=== PATIENT | female | born 1960 | race Caucasian/White ===

== ENCOUNTER → 2017-06-05 07:49 | Outpatient (CLI) | payer OTHER, SELFPAY ==
--- NOTE | 2017-06-05 07:52 | HPBI_ITS ---
MAMMOGRAPHY - BILATERAL SCREENING REASON FOR EXAM: Female, 56 years old. Routine annual screening examination. PERTINENT HISTORY: Non-contributory. TECHNIQUE: Digital bilateral breast marc (3D mammographic acquisition) in the CC and MLO projections. 2-D mediolateral oblique (MLO) and craniocaudad (CC) views of both breasts were obtained. CAD: Full Field Digital Mammography with Computer Added Detection was performed. COMPARISON: Comparison is made with prior study dated June 04, 2016. FINDINGS: Breast Composition: The breasts are heterogeneously dense, which may obscure small masses. There are no dominant masses or suspicious calcifications. Stable appearance of the bilateral benign appearing axillary lymph nodes. No other significant abnormalities are identified. There has been no significant change since the prior study. HPBI/SCREENING MAMM (CAD), BILAT IMPRESSION: Stable bilateral screening mammogram. Yearly follow-up mammogram recommended. (A) ASSESSMENT CATEGORY: BIRADS Category 2: Benign. A letter regarding these results will be sent to the patient by the facility within 30 days. Approximately 10% of breast cancers are not detected by mammography. A normal mammogram should not delay biopsy of a clinically suspicious abnormality. [id number] Electronically Signed: Tj Rodríguez MD at 9:19 EDT Tel [phone], Service support ,
== END ==
PROVIDERS: Visit Provider Obstetrics & Gynecology
DX: Z12.31 Encounter for screening mammogram for malignant neoplasm of breast (principal)
CPT/HCPCS: 77063; 77067

== ENCOUNTER → 2018-07-16 08:57 | Outpatient (CLI) | payer OTHER, SELFPAY ==
--- NOTE | 2018-07-16 09:00 | BI_ITS ---
MAMMOGRAPHY - BILATERAL DIAGNOSTIC REASON FOR EXAM: Female, 58 years old. Right nipple itchiness and fullness in the right lateral breast. PERTINENT HISTORY: Non-contributory. TECHNIQUE: Digital bilateral breast marc (3D mammographic acquisition) in the CC and MLO projections. 2-D mediolateral oblique (MLO) and craniocaudad (CC) views of both breasts were obtained. CAD: Full Field Digital Mammography with Computer Added Detection was performed. COMPARISON: Comparison is made with prior study June 05, 2017 and June 04, 2016. FINDINGS: Breast Composition: The breasts are heterogeneously dense, which may obscure small masses. Enlarged right axillary lymph nodes as compared to prior study. There is evidence of a 1.6 cm x 1.8 cm irregular nodular density in the deep mid lateral portion of the right breast. There is also evidence of a 0.8 cm x 1 cm nodule in the mid lateral aspect of the right breast as well. Correlation with ultrasound is recommended. Skin thickening in the periareolar region of the right breast. No other significant abnormalities are identified. BI/DIAG MAMM W/CAD, BILAT IMPRESSION: Nodular densities in the right breast as described as well as enlarged right axillary lymph nodes. Correlation with ultrasound is recommended. ASSESSMENT CATEGORY: BIRADS Category 0: Incomplete. Need additional imaging evaluation. A letter regarding these results will be sent to the patient by the facility within 30 days. Approximately 10% of breast cancers are not detected by mammography. A normal mammogram should not delay biopsy of a clinically suspicious abnormality. Electronically Signed: Tj Rodríguez, at 10:48 EDT , Service support ,
--- NOTE | 2018-07-16 09:35 | US_ITS ---
STUDY: ULTRASOUND BREAST - RIGHT REASON FOR EXAM: Female, 58 years old. Abnormal screening mammogram. Axillary fullness. TECHNIQUE: Axial and longitudinal images of the RIGHT breast were performed with a high resolution ultrasound transducer. COMPARISON: Comparison is made with prior mammogram done earlier in the day. FINDINGS: RIGHT Breast: Multiple axillary lymph nodes are seen. The largest measures 3.4 cm x 1.87 x 1.6 cm. There is a 1 cm x 1 cm x 0.7 cm hypoechoic solid nodule with irregular borders at the 9:00 position of the breast at 2 cm from nipple. At the 9:00 position of the breast at 8 cm from the nipple, there is also evidence of a 1.5 cm x 0.5 cm x 1.9 cm irregular nodule with posterior shadowing. A similar appearing nodule is also seen at the 8:00 position breast at 6 hours from the nipple. This measures 1.5 cm x 1.4 cm x 1.8 cm. A biopsy recommended. US/Breast Limited Unilateral IMPRESSION: 3 suspicious nodules are seen in the right breast at the 9 and 8:00 positions of the breast as described. Biopsy suggested. Enlarged right axillary lymph nodes. ASSESSMENT CATEGORY: BIRADS Category 5: Highly Suggestive of Malignancy - Appropriate Action Should Be Taken. A letter regarding these results will be sent to the patient by the facility within 30 days. Electronically Signed: Tj Rodríguez, at 11:28 EDT , Service support ,
== END ==
PROVIDERS: Referring Provider Obstetrics & Gynecology; Visit Provider Obstetrics & Gynecology
DX: Z12.31 Encounter for screening mammogram for malignant neoplasm of breast (principal); N63.10 Unspecified lump in the right breast, unspecified quadrant
CPT/HCPCS: 76642; 77062; 77063; 77066; G0279

== ENCOUNTER → 2018-07-21 11:55 | Outpatient (CLI) | payer OTHER, SELFPAY ==
[2018-07-20 09:51] VITALS: BMI 25.6
--- NOTE | 2018-07-21 | IMM_PTH ---
PATIENT: MARTIN SHULTZ LOC: [facility] U#:[id number] AGE/SX: 64/F ROOM: RE07/21/[address]: Dr. Cesar Irby MD : 1960 BED: DIS: SPEC #: [id number] RECD: 07/22/18 12:56 STATUS: FAYE REQ #: [id number] AMAN: 07/21/18 00:[address]: Cesar Irby DEPT: IMMUNOHISTOCHEMISTRY RECD BY: Marleny Cantu ENTERED: 07/22/18 12:57 SP TYPE: IMMUNO OTHR DR: No Primary Care Phys Tissues: A - Right breast, NOS Procedures: CALPONIN-1 (add) CK5-6 (add) CK8 (add) E-CAD (add) HER2 ROBIN (add) KI-67 (add) P53 (add) ID (add) P40 (add) ER (initial) PHYSICIAN & INSTITUTION [place] [id number] SPECIMEN INFORMATION: Tissue Source: A - Right breast core tissue, 8 o'clock, 6 cm from nipple Clinical Info: Right breast mass Specimen Number: [id number] CPT code: 52212, 09995 x6, 47805 x3 METHODOLOGY: Deparaffinized sections of prefer/formalin-fixed tissue or PAP/DQ stained slides are incubated with monoclonal/polyclonal antibodies/oligonucleotide probes. Localization is made via biotin free immunoperoxidase method. Appropriate controls are performed and reacted as expected. Results on target cell population are indicated in the following table: RESULTS: ANTIBODY / CLONE RESULT Block A E-Cad (ECH-6) positive CK8 (85epnyH86) positive CK5-6 (D5 & 1684) negative Ki-67 (30-9) positive, high P53 (DO-7) positive, rare cells P40 (BC28) negative Calponin-1 (BO131P) negative MORPHOMETRIC ANALYSIS ER (clone 6F11) >95%, weak to moderate ID (clone 16/1E2) 0 Her-2Neu (clone CB11) 3+ The prognostic test for HER2 is performed on formalin-fixed paraffin embedded tissue. A 3+ (positive) staining pattern is defined as intense, homogeneous, complete, circumferential membranous staining in >10% of contiguous tumor cells. A similar weak (2+) staining pattern is interpreted as equivocal. MARIALUISA follow-up testing is recommended for all equivocal cases. Positivity/negativity for ER/ID is reported if > or < 1% of the tumor cells are immuno- reactive, respectively. The ASCO/CAP criteria is used for scoring. Reference: Journal of Clinical Oncology, 2013; 31:0363-3389 & 2010; 16:7194-5855. Duration of fixation: 6.5 Hrs; Sample Adequate: Yes. These assays have not been validated on decalcified tissues. Results should be interpreted with caution given the likelihood of false negativity on decalcified specimens. These tests were developed and their performance characteristics determined by [facility]. They may not have been cleared or approved by the U.S. Food and Drug Administration. The FDA has determined that such clearance or approval is not necessary. INTERPRETATION: A. Right breast core tissue, 8 o'clock, 6 cm from nipple, ultrasound-guided biopsy: Invasive ductal carcinoma, nuclear grade 2. Positive for estrogen receptors (favorable prognostic indicator). Negative for progesterone receptors (unfavorable prognostic indicator). Positive for overexpression of GCW2ggq. SJ:dara 07/23/18
--- NOTE | 2018-07-21 11:58 | US_ITS ---
STUDY: ULTRASOUND BREAST - RIGHT REASON FOR EXAM: Female, 58 years old. Ultrasound guided biopsy of a solid nodule at the 8:00 position breast at 6 cm from the nipple. TECHNIQUE: Axial and longitudinal images of the RIGHT breast were performed with a high resolution ultrasound transducer. COMPARISON: Comparison is made with prior ultrasound of the breasts dated July 16, 2018. FINDINGS: RIGHT Breast: Under direct sonographic guidance, the surgeon performed core biopsies of a 1.5 cm x 1.4 cm x 1.8 cm irregular hypoechoic nodule at the 8:00 position breast is 6 cm from nipple. The right axillary lymph node was biopsied as well. US/US Breast Biopsy 1st Lesion IMPRESSION: Successful ultrasound-guided right breast biopsy. ASSESSMENT CATEGORY: BIRADS Category 4: Suspicious - Biopsy Should Be Considered. A letter regarding these results will be sent to the patient by the facility within 30 days. Electronically Signed: Tj Rodríguez, at 14:07 EDT , Service support ,
--- NOTE | 2018-07-21 12:30 | AXNB_PTH ---
PATIENT: MARTIN SHULTZ LOC: [facility] U#:[id number] AGE/SX: 64/F ROOM: RE07/21/[address]: Dr. Cesar Irby MD : 1960 BED: DIS: SPEC #: [id number] RECD: 07/21/18 13:30 STATUS: FAYE ALEX #: [id number] AAMN: 07/21/18 12:[address]: Cesar Irby DEPT: SURGICAL PATHOLOGY RECD BY: Tra Villalobos ENTERED: 07/21/18 14:05 SP TYPE: AX NODE BX OTHR DR: No Primary Care Phys Tissues: A - Right breast, NOS B - Axillary lymph node, NOS Procedures: Surgery Specimen Level IV HEADER OPERATION: Right breast biopsy, US guided PRE-OP DIAGNOSIS: Right breast mass TISSUE SUBMITTED: A. Right breast core tissue, 8 o'clock, 6 cm from nipple, B. Right axillary lymph node ISCHMEIC TIME: 2 minutes FIXATION TIME: 6.5 hours MICROSCOPIC DIAGNOSIS A. Right breast, 8 o'clock, 6 cm from nipple, core biopsy: Invasive ductal carcinoma, nuclear grade 2 (1 cm in greatest length). See comment. B. Right axillary lymph node, biopsy: Metastatic carcinoma (0.9 cm in greatest length). See comment. SJ:dara 07/22/18 COMMENT A. Immunohistochemistry ([id number]) supports the above diagnosis. ER/HI/Wbj0ijg studies are being performed on sections of tumor and the results from this study will be reported separately ([id number]). B. The tumor is similar in morphology as specimen A. The entire specimen consists of tumor. MICROSCOPIC DESCRIPTION Slides are reviewed. GROSS DESCRIPTION A - Received in fixative is one container labeled with the patient's name and designated right breast. The specimen consists of an elongated fragment of dangelo-yellow fibroadipose tissue measuring 1.8 cm in length and 0.1 cm in diameter. The specimen is totally submitted in one cassette. B - Received in fixative is one container labeled with the patient's name and designated right lymph node. The specimen consists of multiple elongated fragments of dangelo-yellow fibroadipose tissue that in aggregate measure 2 x 0.5 x 0.1 cm. The entire specimen is submitted in one cassette. / STEPH:dara 07/21/18 TC:0 CPT: 19749 x2
== END ==
PROVIDERS: Referring Provider Surgery; Visit Provider Surgery
DX: C50.911 Malignant neoplasm of unspecified site of right female breast (principal); C77.3 Secondary and unspecified malignant neoplasm of axilla and upper limb lymph nodes
CPT/HCPCS: 19083; 88305; 88341; 88342

== ENCOUNTER → 2018-07-29 10:00 | Outpatient (CLI) | payer OTHER, SELFPAY ==
[2018-07-20 09:51] VITALS: BMI 25.6
--- NOTE | 2018-07-29 10:20 | MRI_ITS ---
STUDY: BILATERAL BREAST MR WITHOUT AND WITH CONTRAST REASON FOR EXAM: Female, 58 years old. Right breast cancer with metastases to axillary lymph nodes. Biopsy July 21, 2018. TECHNIQUE: Multi-sequence multi-echo imaging of both breasts was performed with a dedicated breast coil. T1-weighted and T2-weighted images were performed before the administration of contrast. T1-weighted images were also performed after the administration of 13 cc of Dotarem contrast without complications. COMPARISON: Mammograms dated June 04, 2016, June 05, 2017 and July 16, 2018. Right breast ultrasounds dated July 16, 2018 and July 21, 2018. FINDINGS: RIGHT BREAST: The breast tissue is scattered fibroglandular densities with minimal background enhancement. In the lateral aspect of the right breast there is an extensive area of nodular non-mass enhancement extending from the upper outer quadrant to the lower outer quadrant of the breast. This area of involvement is approximately 5.3 cm x 2.5 cm x 4.2 cm. At the inferior aspect of this non-mass enhancement posteriorly there is an irregular enhancing mass measuring approximately 2.2 cm x 1.7 cm x 1.6 cm with a tissue clip marker within the central portion of this mass (axial series 02892 image 174 and sagittal series 8 image 18). There is an enhancing enlarged right axillary lymph node measuring 1.9 x 1.7 x 1.6 cm with a tissue clip marker within it. LEFT BREAST: The breast tissue is scattered fibroglandular densities with minimal background enhancement. There are small lymph nodes in the axilla with no pathologic appearance. There are no abnormal enhancing masses or areas of non-mass enhancement in the left breast. There is no abnormality in the visualized regions of the chest or liver. MRI/Breast Bilateral W/O and W IMPRESSION: Large area of nodular non mass enhancement extending from the upper quadrant to the lower quadrant of the right breast compatible with multicentric involvement. Tissue clip markers in a right breast mass inferiorly and an enlarged lymph node in the right axilla. No abnormality noted in the left breast. CATEGORY: BIRADS Category 6: Known Biopsy-Proven Malignancy - Appropriate Action Should Be Taken. A letter regarding these results will be sent to the patient by the facility within 30 days. Electronically Signed: Raciel Andres MD at 13:36 EDT , Service support ,
== END ==
PROVIDERS: Referring Provider Surgery; Visit Provider Surgery
DX: C50.411 Malignant neoplasm of upper-outer quadrant of right female breast (principal); C77.3 Secondary and unspecified malignant neoplasm of axilla and upper limb lymph nodes
CPT/HCPCS: 77049; A9575; A4216; C8908

== ENCOUNTER 2018-08-04 10:22 | Day surgery (SDC) | payer OTHER, SELFPAY ==
[2018-07-31 14:19] VITALS: BMI 25.6
[2018-08-04] VITALS (7 sets, daily range): BP systolic 92–118; BP diastolic 63–79; PULSE 58–67; RESP 16; TEMP 36.1–37.2; O2SAT 99–100; BMI 26.1
--- NOTE | 2018-08-04 12:16 | PCM.HP.BLA ---
History and Physical Date of Admission: 08/04/18 [facility] [address] [place], [place] [address] OFFICE VISIT Date of Service: 07/31/18 MR#: [id number] Acct: [id number] Name: MARTIN SHULTZ Rep #: [id number] : 1960 Provider: Cesar Irby MD Age/Sex: 58/F Location: [facility] Status: Signed Intake Vital Signs 07/31/18 Body Mass Index (BMI) 25.6 07/31/18 Height 5 ft 2 in 07/31/18 Weight: 140 lb 07/31/18 Body Mass Index (BMI) 25.6 07/31/18 Blood Pressure 132/81 H 07/31/18 Blood Pressure Location Rt brachial 07/31/18 Blood Pressure Position Sitting 07/31/18 Respiratory Rate 14 07/31/18 Pulse Rate 84 07/31/18 Pulse Source Monitor 07/31/18 Temperature 97.9 F 07/31/18 Temperature Source Oral 07/31/18 Pulse Ox 98 07/31/18 Oxygen Delivery Method room air Intake Visit Reasons: Breast BX 07/21 Ad Copy Writer Required: No Is patient in pain?: No Allergies No Known Allergies Allergy (Unverified 07/31/18 14:12) Medications diphenhydramine-acetaminophen 25 mg-500 mg capsule cap PO cap 07/20/18 [History Confirmed 07/31/18] PFSH Medical History Abnormal mammogram (Acute) Breast cancer (Acute) Surgical History Hx of breast biopsy (Acute) Family History Father Diabetes Heart disease CVA (cerebral vascular accident) Social History Smoking Status: Never smoker alcohol intake: current alcohol intake frequency: holidays/special occasions only substance use type: does not use caffeine: Yes what type of physical activity do you participate in: none frequency: does not exercise seatbelt use: always HPI HPI HPI: MARTIN SHULTZ is a 58 F who presents to the office today for HPI HPI Surgical H&P: Yes HPI: MARTIN CARRINGTON, is a 58 F who presents to the office today for follow-up from a ultrasound-guided needle core biopsy of right breast and axillary area as well as an MRI of her breast. She had her mammogram and ultrasound completed at [facility] on 07/16/2018. This came back as a BI-RADS Category 5 highly suspicious for malignancy there were suspicious nodules located within the right breast x3 and several lymph nodes in the axilla which were also abnormal. The patient has been complaining of some itching in her right breast but that is it. Her biopsy came back as an invasive ductal carcinoma nuclear grade 2 it was strongly ER +0 PA positive and HER-2/janie was 3+. In addition her right axillary lymph node biopsies were all positive. She subsequently underwent an MRI which showed a 5.3 x 2.5 x 4.2 cm nonenhancing area of extensive nodularity in the upper outer lateral aspect of the right breast in the inferior aspect there is a 2.2 cm mass this is the mass that I biopsied. ROS General General: No weight change, appetite, fatigue, colon cancer, breast cancer or weakness HEENT HEENT: No difficulty swallowing, eye injury, eye surgery, swollen glands or hoarseness Endo Endocrine: No thyroid disease, diabetes mellitus, thyroid cancer, Hair loss, heat intolerance or cold intolerance Skin Skin: No rash or changing moles Breast Breast: No left breast lump, right breast lump, nipple discharge, breast pain, abnormal mammogram, abnormal US or breast enlargement Musc Musculoskeletal: No back problems, arthritis, rheumatoid arthritis, gout or joint pain Cardio Cardiovascular: No murmur, pacemaker, heart disease, atrial fibrillation, high blood pressure, heart attack, heart stent, palpitations, shortness of breat with exertion or chest pain Psych Psychiatric: No depression, anxiety or hearing voices Resp Respiratory: No shortness of breath, No sleep apnea, No cough, No COPD, No asthma, No emphysema, No wheezing Gastro Gastrointestinal: No abdominal pain, No nausea or vomiting, No diarrhea, No constipation, No blood in stool, No acid reflux, No hemorrhoids, No ulcers, No gallbladder problem, No black,tarry stools Favio Hematologic: No blood thinners, No blood disorders, No bleeding, No anemia, No blood clots Neuro Neurologic: No weakness Exam Const General: no acute distress, well developed, well hydrated Orientation: oriented to person, oriented to place, oriented to time [facility] Head: normocephalic, atraumatic Ears: external ears normal Mouth: moist mucous membranes Eyes Sclera: sclerae normal Pupils: normal by confrontation Neck Neck: no lymphadenopathy noted Neck mass: No Thyroid: thyroid normal, symmetrical Chest Chest palpation & inspection: normal inspection of the chest Breast Palpation: No nipple discharge Resp Effort & Inspection: normal respiratory effort Auscultation: clear to auscultation bilaterally Percussion: percussion normal Cardio Rate: regular rate Rhythm: regular rhythm Heart Sounds: no murmurs GI Palpation: soft, no hepatosplenomegaly, no masses, nontender Rectal Exam: other Other: Rectal exam deferred. Extrem General: normal to inspection, no clubbing, cyanosis or edema Assessment & Plan Problems 1. Malignant neoplasm of upper-outer quadrant of right breast in female, estrogen receptor positive C50.411; Z17.0 Plan I plan to perform a left IJ a port a cath placement. The planned surgical procedure was discussed extensively with the patient. The risks, benefits, anticipated outcomes and possible complication were mentioned. My staff has also explained the procedure in understandable terms and the patient was given the option to take printed material concerning the planned procedure. The patient had the opportunity to ask questions concerning the planned procedure. The patient freely consents to the planned procedure. Orders Referrals: Oncology C50.911, C50.919 Coding Level of Care Code Off vis,est,level 3 Diagnoses Malignant neoplasm of upper-outer quadrant of right breast in female, estrogen receptor positive C50.411; Z17.0 ??Breast location: upper outer quadrant of breast ??Estrogen receptor status: positive 07/31/18 1430 <Electronically signed by Cesar Irby MD> Date Cesar Irby MD Cosigner Signature: Date (if applicable) CC: Sobia Barber MD ~ I have re-examined the patient. There are no clinical changes since date of exam.
[2018-08-04] MEDS: Cefazolin 2 GM in 0.9% Normal Saline 100 ML IV (12:30)
--- NOTE | 2018-08-04 12:46 | OP.PCM_ITS ---
Problem List (1) Encounter for adjustment or management of vascular access device Status: Acute Report of Operation Date of Procedure: 08/04/18 Pre-Operative Diagnosis: Vascular fitting and adjustment Post-Operative Diagnosis: Same Surgery/Procedure Performed:: Placement of a left IJ PowerPort Type of Anesthesia:: Local MAC Anesthesiologist: Freddy Henry Estimated Blood Loss (mL): < 25 cc Description of Procedure: Patient was brought into the operating room placed in the supine position. Under excellent MAC anesthetic ultrasound was used to identify the left internal jugular vein. The neck and chest were then marked appropriately. Local was injected into the neck. Seldinger technique was used to gain access to the left internal jugular vein. This did take quite a few sticks. Guidewire was placed over the needle the needle was removed fluoroscopy was used to confirm proper placement of the guidewire going into the superior vena cava. Local was injected on the chest incision was made which cautery was used to create a pocket for the port made an incision under the guidewire in the neck place a dilator over the guidewire removing the dilator place a dilator and sheath over the guidewire removing the dilator and guidewire. Single lumen catheter was then placed through the sheath the sheath was removed. Fluoroscopy was used in proper length. It was tunneled from the pocket created over the collarbone into the neck and down the catheter came into the pocket created. It was cut to lyly th locking hub was placed on the catheter the port was placed on the catheter the 2 were secured with a locking hub. It flushed and irrigated well was flushed with 5 cc of hep flush. Subcu was brought together with deep dermal stitches of 3-0 Vicryl sterile dressings were applied and the patient tolerated the procedure well. - Admit VTE Documentation VTE Present on Admission: No VTE Mechan Device Prophylaxis: SCD's VTE Pharm Prophylaxis ordered?: No Reason prophylaxis not ordered:: Treatment Not Indicated
--- NOTE | 2018-08-04 12:47 | DCINST_ITS ---
Discharge Diet: No Restrictions - Pain medication may cause nausea. You should typically eat light foods as you take your pain medication. Discharge Activity: May Shower - with the bandage in place 1-2 days after surgery. DO NOT SHOWER WHEN YOUR PORT IS ACCESSED. Additional Activity Instructions:: May not drive, work with heavy equipment, or sign legal documents for [address] if you are no longer taking narcotic pain medications. You may drive when you are no longer taking pain medications. Additional Dressing/Incision Instructions:: Leave the bandage on for 2-3 days. When you remove the bandage, leave the steri-strips intact until they fall off. Allergies/Adverse Reactions: Allergies No Known Allergies Allergy (Verified 08/04/18 10:43) Medications to take at Discharge diphenhydramine-acetaminophen 25 mg-500 mg capsule 1 cap PO QHS cap 07/20/18 Flexin 1 tab PO DAILY 08/03/18 Glucosamine/MSM/Chondroitin A [Glucosamine Chondroit MSM Tab] 1 each PO DAILY 08/03/18 Oxycodone HCl/Acetaminophen [Percocet 5/325] 1 - 2 tab PO Q4H PRN PRN 6 Days #30 tab 08/04/18 The following prescriptions were given: Oxycodone HCl/Acetaminophen [Percocet 5/325] 1 - 2 tab PO Q4H PRN PRN 6 Days #30 tab PRN Reason: Pain Primary Care Physician: Care Physician,No Primary [Primary Care Provider] - Test Results: Test results from this visit will be discussed in further detail at your follow- up appointment, if applicable. Please Follow Up With: Cesar Irby MD - [phone] When: Please plan to follow up in 7 days in the office.
[2018-08-04] MEDS: Bupivacaine Mpf 0.5% 30 ML VIAL (13:08)
--- NOTE | 2018-08-04 13:27 | RAD_ITS ---
STUDY: X-RAY CHEST REASON FOR EXAM: Female, 58 years old. Port placement. TECHNIQUE: Single AP portable view of the chest. COMPARISON: None. FINDINGS: A left-sided portacatheter has been placed. The tip is at the junction of the superior vena cava and left brachiocephalic vein. The lungs are clear and expanded. There is no demonstrated pleural abnormality. Normal size heart. Normal mediastinum and goldie. Normal visualized pulmonary arteries. Normal visualized aortic arch and descending thoracic aorta. Normal visualized thoracic spine. Normal visualized ribs, clavicles, and shoulders. There is no demonstrated abnormality of the visualized soft tissue structures of the upper abdomen. RAD/CXR for Line Placement IMPRESSION: The tip of the left-sided mikey catheter is at the junction of the superior vena cava and left brachiocephalic vein. Electronically Signed: Tj Rodríguez, at 13:54 EDT , Service support ,
== END 2018-08-04 14:38 | disposition home or self-care (01) ==
LOC: SDC 10:23 → AC 10:24
PROVIDERS: Referring Provider Surgery; Visit Provider Surgery
PROC: (CPT 36561; principal; 2018-08-04 12:10)
DX: Z45.2 Encounter for adjustment and management of vascular access device (principal); C50.411 Malignant neoplasm of upper-outer quadrant of right female breast; Z17.0 Estrogen receptor positive status [ER+]
CPT/HCPCS: 00532; 36561; 71045; 77001; J7120; C1788

== ENCOUNTER → 2018-08-12 10:53 | Outpatient (CLI) | payer OTHER, SELFPAY ==
[2018-08-05 11:33] VITALS: BMI 25.9
[2018-08-06 10:14] VITALS: BMI 24.4
--- NOTE | 2018-08-12 10:55 | ECHOCSONC_ITS ---
Version 3 Reason For Study: PRE CHEMO FOR CARDIOTOXIC MEDS Procedure This was a 2D Doppler, Color Flow transthoracic echocardiogram. Myocardial strain analysis was performed in this exam to aid in the assessment of cardiac function. Exam performed in department. Left Ventricle Normal size and thickness. The global longitudinal strain is normal. Normal diastology for age. The estimated ejection fraction is 55 %. The global longitudinal strain = -19.1 % (normal). No regional wall motion abnormalities noted. Right Ventricle Normal size and thickness. Normal systolic function. Atria Normal left atrium. Normal right atrium. Normal atrial septum. Mitral Valve The mitral valve is structurally normal. No prolapse or stenosis seen. Tricuspid Valve Normal tricuspid valve. Mild (1+) tricuspid valve insufficiency. Right ventricular systolic pressure estimated to be 31 mmHg. Aortic Valve Trisinus/trileaflet aortic valve. Normal aortic valve. Pulmonic Valve The pulmonic valve is not well visualized. Great Vessels Normal aortic root. Normal arch. Normal inferior vena cava. Inferior vena cava collapse with sniff. Pericardium/Pleural No pericardial effusion. MMode/2D Measurements & Calculations LVIDd: 4.2 cm IVSd: 0.84 cm Ao root diam: 2.9 cm LVIDs: 3.0 cm LVPWd: 0.89 cm RVDd: 3.4 cm FS: 29.1 % LAV(MOD-bp): 51.9 ml LA A4 area: 16.6 cm2 LA dimension(2D): 2.8 cm LAV(MOD-bp) Indexed: 30.7 ml/m2 LAV(MOD-sp2): 47.6 ml LAV(MOD-sp4): 47.6 ml RA A4 area: 13.5 cm2 Time Measurements MV dec time: 0.17 sec Doppler Measurements & Calculations MV E max wali: 61.0 cm/sec Lat Peak E' Wali: 10.9 cm/sec Med Peak E' Wali: 5.7 cm/sec MV A max wali: 48.6 cm/sec E/E' lat: 5.6 E/E' med: 10.6 MV E/A: 1.3 Ao V2 max: 96.6 cm/sec LV V1 max: 65.5 cm/sec PA V2 max: 93.5 cm/sec Ao max P.7 mmHg LV V1 max P.7 mmHg TR max wali: 244.5 cm/sec TR max P.0 mmHg Interpretation Summary The global longitudinal strain is normal. Normal diastology for age. Mild (1+) tricuspid valve insufficiency. Right ventricular systolic pressure estimated to be 31 mmHg. The estimated ejection fraction is 55 %. The global longitudinal strain = -19.1 % (normal). There is no comparison study available. The study was technically difficult. Ordering Physician: Andrés Corrales Referring Physician: Andrés Corrales Performed By: Shilpa Cat, TONEY, RVT
== END ==
PROVIDERS: Referring Provider Internal Medicine Hematology & Oncology; Visit Provider Internal Medicine Hematology & Oncology
DX: C50.911 Malignant neoplasm of unspecified site of right female breast (principal)
CPT/HCPCS: 0399T; 93306; C8929

== ENCOUNTER → 2018-08-20 09:36 | Outpatient (CLI) | payer OTHER, SELFPAY ==
[2018-08-18 10:29] VITALS: BMI 24.4
[2018-08-19 14:26] VITALS: BMI 24.4
[2018-08-20] VITALS (9 sets, daily range): BP systolic 97–118; BP diastolic 52–73; PULSE 63–80; RESP 12–20; TEMP 36.9; O2SAT 95–100; BMI 24.3
--- NOTE | 2018-08-20 | ASPIGT_PTH ---
PATIENT: MARTIN SHULTZ LOC: CT U#:[id number] AGE/SX: 64/F ROOM: RE08/20/[address]: Dr. Andrés Corrales MD : 1960 BED: DIS: SPEC #: [id number] RECD: 08/20/18 11:30 STATUS: FAYE ALEX #: [id number] AMAN: 08/20/18 00:[address]: Andrés Corrales DEPT: SURGICAL PATHOLOGY RECD BY: Tra Villalobos ENTERED: 08/20/18 13:41 SP TYPE: ASP RAD OTHR DR: No Primary Care Phys Tissues: Liver, NOS Procedures: FNA Specimen Adequacy Special Stain Group II Surgery Specimen Level V Imprint (control) HEADER OPERATION: CT guided liver biopsy PRE-OP DIAGNOSIS: Malignant neoplasm of right female breast TISSUE SUBMITTED: Left lobe liver, CT guided core biopsy MICROSCOPIC DIAGNOSIS Left lobe of liver, CT-guided core biopsy: Unremarkable liver parenchymal tissue, negative for malignancy. See comment. SJ:rg 08/21/18 COMMENT The specimen is evaluated at the time of biopsy by Dr. Burnette. Immediate Evaluation: Set 1 - Hepatocytes noted. Negative for malignant cells (two smears). Set 2 - Hepatocytes noted. Negative for malignant cells (one smear). Multiple levels are examined. Correlation with clinical, radiologic findings and appropriate follow up are necessary. Rebiopsy is suggested if clinically indicated. Please make reference to previous specimen ([id number]) right breast, 8 o'clock, 6 cm from nipple, core biopsy with diagnosis of invasive ductal carcinoma and right axillary lymph node, biopsy with diagnosis of metastatic carcinoma. Case has been reviewed in consultation with Dr. Webb who concurs with the above diagnosis. IDC:AM MICROSCOPIC DESCRIPTION Slides are reviewed. GROSS DESCRIPTION Received in fixative is one container labeled with the patient's name and designated liver, CT-guided core biopsy. The specimen consists of multiple irregular fragments of dangelo soft tissue that in aggregate measure 1.5 x 0.1 x 0.1 cm. The entire specimen is submitted in one cassette. Three touch imprints are prepared at the time of core biopsy. / STEPH:dara 08/20/18 TC:? CPT: 53663, 16862, 83995
--- NOTE | 2018-08-20 09:38 | CT_ITS ---
PROCEDURE: CT DIRECTED CORE LIVER BIOPSY INDICATION: Female, 58 years old. Hepatic metastasis. PHYSICIAN: Dr. Anne BARRETT CONSENT: Written informed consent was obtained having explained the risks, benefits and alternatives in detail with the patient who accepted the risks and agreed to proceed. Laboratory review and clinical assessment was performed. CONSCIOUS SEDATION PROTOCOL: The Drugs used were: 2 mg Versed, IV., and 100 mcg Fentanyl, IV. The sedation time was: 22 minutes. Conscious sedation was started at 11:33 AM and 7 11:55 AM. The conscious sedation protocol was independently monitored. RADIATION DOSAGE (If Supplied By Facility): CTDIvol = ( 16 ) mGy, DLP = ( 340.94 ) mGycm Individualized dose optimization techniques were used for this CT. TECHNIQUE: Using CT image guidance with image documentation, a suitable location in the left lobe of the liver was identified. Using an anterior approach, puncture of the liver was uneventful with an 18-gauge core needle system. 6 18-gauge core samples were obtained, and submitted in formalin to the pathologist for further assessment. Followup CT scan revealed no distinct sequelae. CT/Biopsy/Inj or Needle Placement IMPRESSION: 1. CT directed core needle biopsy of the liver, using CT image guidance with image documentation as described. 2. Conscious Sedation protocol utilized with independent monitoring. Electronically Signed: Tj Rodríguez, at 13:24 EDT , Service support ,
[2018-08-20 11:06] LABS: Absolute Neutrophil Count 6.1 X10^3/uL (2.0-7.7); Basophil# 0.04 X10^3/uL; Basophil% 0.4 % (0-1); Eosinophil# 0.23 X10^3/uL; Eosinophils% 2.4 % (0-5); Hematocrit 42.2 % (37-47); Hemoglobin 13.7 g/dl (12.0-15.0); Mean Corp Hgb Conc 32.5 g/gl (32-36); Mean Corpuscular Hgb 28.8 pg (27.0-32.0); Mean Corpuscular Volume 88.8 fL (81-99); Mean Platelet Vol. 9.4 fl (6.2-12.0); Monocyte# 0.55 X10^3/uL; Monocyte% 5.7 % (0-10); Neutrophil # 6.11 X10^3/uL (2.7-7.7); Neutrophil % 63.3 % (47-70); Platelet Count 432 K/mm3 (150-450); RBC Distribution Width CV 12.9 % (11.6-14.6); RBC Distribution Width SD 41.9 fl (35.1-43.9); Red Blood Count 4.75 M/mm3 (4.2-5.4); White Blood Count 9.7 K/mm3 (4.4-11.0)
[2018-08-20 11:08] LABS: POSITIVE COUNT NO; POSITIVE DIFFERENTIAL NO; POSITIVE MORPHOLOGY NO
[2018-08-20 11:12] LABS: Prothrombin Time (Protime)PT. 13.1 SECONDS (11.7-14.9)
[2018-08-20 11:13] LABS: Partial Thromboplast Time 31.5 Seconds (24.1-36.2)
[2018-08-20] MEDS: fentaNYL 100 MCG/2 ML Ampul IV ×2 (11:22→11:47)
[2018-08-20] MEDS: Midazolam 2 MG/2 ML Syringe IV (11:22)
== END ==
PROVIDERS: Referring Provider Internal Medicine Hematology & Oncology; Visit Provider Internal Medicine Hematology & Oncology
DX: C50.911 Malignant neoplasm of unspecified site of right female breast (principal); C78.7 Secondary malignant neoplasm of liver and intrahepatic bile duct; R93.89 Abnormal findings on diagnostic imaging of other specified body structures
CPT/HCPCS: 10009; 36415; 77012; 85025; 85610; 85730; 88172; 88305; 88307; 88313; 99156; 99157; J7040; A4216

== ENCOUNTER → 2018-09-09 09:29 | Outpatient (CLI) | payer OTHER, SELFPAY ==
[2018-08-20 10:47] VITALS: BMI 24.3
[2018-09-09] VITALS (9 sets, daily range): BP systolic 104–131; BP diastolic 55–74; PULSE 63–73; RESP 12–20; TEMP 36.9; O2SAT 95–99; BMI 24.3
--- NOTE | 2018-09-09 | ASPIGT_PTH ---
PATIENT: MARTIN SHULTZ LOC: U#:[id number] AGE/SX: 64/F ROOM: RE09/09/[address]: Dr. Andrés Corrales MD : 1960 BED: DIS: SPEC #: [id number] RECD: 09/09/18 11:00 STATUS: MIKELKirby ALEX #: [id number] AMAN: 09/09/18 00:[address]: Andrés Corrales DEPT: SURGICAL PATHOLOGY RECD BY: Tra Villalobos ENTERED: 09/09/18 13:06 SP TYPE: ASP RAD OTHR DR: No Primary Care Phys Tissues: Liver, NOS Procedures: FNA Specimen Adequacy Elastin Stain (control) Trichrome (control) Special Stain Group II Surgery Specimen Level IV Imprint (control) HEADER OPERATION: CT guided liver biopsy PRE-OP DIAGNOSIS: Breast cancer - mets TISSUE SUBMITTED: CT guided liver biopsy, 18 gauge core x3 MICROSCOPIC DIAGNOSIS CT-guided liver core biopsy: Consistent with hemangioma. See comment. AM:dara 09/15/18 COMMENT The specimen is evaluated at the time of biopsy by Dr. Hamilton. Immediate Evaluation = A few cell clusters and blood seen. Immunohistochemistry ([id number]) supports the above diagnosis. Elastin and trichrome stain with matched controls support the above diagnosis. Case has been reviewed in consultation with Dr. Burnette who concurs with the above diagnosis. IDC:STEPH MICROSCOPIC DESCRIPTION Slides are reviewed. GROSS DESCRIPTION Received in fixative is one container labeled with the patient's name and designated liver. The specimen consists of multiple pinkish-dangelo cylindrical core biopsies ranging from 0.3 to 0.7 cm in length and 0.1 cm in diameter. The specimen is totally submitted in one cassette. Five touch imprints are prepared at the time of core biopsy. / FA:dara 08/09/18 TC:5 CPT: 94243, 91359, 44497 x2
--- NOTE | 2018-09-09 | IMM_PTH ---
PATIENT: MARTIN SHULTZ LOC: U#:[id number] AGE/SX: 64/F ROOM: RE09/09/[address]: Dr. Andrés Corrales MD : 1960 BED: DIS: SPEC #: [id number] RECD: 09/10/18 13:33 STATUS: FAYE REQ #: [id number] AMAN: 09/09/18 00:[address]: Andrés Corrales DEPT: IMMUNOHISTOCHEMISTRY RECD BY: Marleny Cantu ENTERED: 09/10/18 13:35 SP TYPE: IMMUNO OTHR DR: No Primary Care Phys Tissues: Liver, NOS Procedures: Synapto (add) CD31 (add) CHROMO (add) FACTOR VIII (add) NSE (add) CD34 (initial) PHYSICIAN & INSTITUTION [place] [id number] SPECIMEN INFORMATION: Tissue Source: CT-guided liver biopsy Clinical Info: Breast cancer Specimen Number: [id number] CPT code: 65691, 47980 x5 METHODOLOGY: Deparaffinized sections of prefer/formalin-fixed tissue or PAP/DQ stained slides are incubated with monoclonal/polyclonal antibodies/oligonucleotide probes. Localization is made via biotin free immunoperoxidase method. Appropriate controls are performed and reacted as expected. Results on target cell population are indicated in the following table: RESULTS: ANTIBODY / CLONE RESULT CD34 (QBEnd-10) positive Chromo (LK2H10) negative Synapto (polyclonal) negative NSE Neuron Specific Enolase negative Factor VIII (R Ag) positive CD31 (TOOTIE/70A) positive These tests were developed and their performance characteristics determined by [facility]. They may not have been cleared or approved by the U.[place]. Food and Drug Administration. The FDA has determined that such clearance or approval is not necessary. INTERPRETATION: CT-guided liver biopsy: Consistent with hemangioma. AM:dara 09/16/18 Comment: Fragments of benign pancreatic tissue are noted. Case has been reviewed in consultation with Dr. Burnette who concurs with the above diagnosis. IDC:STEPH
--- NOTE | 2018-09-09 09:45 | CT_ITS ---
PROCEDURE: Ultrasound Guided CLINICAL HISTORY: Female, 58 years old. CONSENT: Time-Out Called: Yes Consent form signed: YES PT-PTT Levels Checked: Yes SEDATION: Conscious sedation 1 mg Versed with 25 mcg Fentanyl. TECHNIQUE: FINDINGS: Under CT guidance and following proper antiseptic preparation and local anesthesia , 22G Franseen needle was used to obtain FNA from the mass involving the left lobe of the liver then this was followed by a core biopsy using 18-gauge cricket-cut needle the specimens were processed. The pathology laboratory aides teacher with the presence of the pathologist. The patient tolerated the procedure well. CT/Biopsy/Inj or Needle Placement IMPRESSION: Uneventful FNA and core Biopsy of the lesion in the left lobe of the liver. Electronically Signed: Horace Motta, at 14:24 EDT Tel , Service support ,
[2018-09-09 09:48] LABS: Absolute Neutrophil Count 4.6 X10^3/uL (2.0-7.7); Basophil# 0.03 X10^3/uL; Basophil% 0.4 % (0-1); Eosinophil# 0.26 X10^3/uL; Eosinophils% 3.2 % (0-5); Hematocrit 40.6 % (37-47); Hemoglobin 13.1 g/dl (12.0-15.0); Mean Corp Hgb Conc 32.3 g/gl (32-36); Mean Corpuscular Hgb 29.2 pg (27.0-32.0); Mean Corpuscular Volume 90.4 fL (81-99); Monocyte# 0.68 X10^3/uL; Monocyte% 8.4 % (0-10); Neutrophil # 4.55 X10^3/uL (2.7-7.7); Neutrophil % 55.9 % (47-70); Platelet Count 331 K/mm3 (150-450); RBC Distribution Width CV 12.7 % (11.6-14.6); RBC Distribution Width SD 42.1 fl (35.1-43.9); Red Blood Count 4.49 M/mm3 (4.2-5.4); White Blood Count 8.1 K/mm3 (4.4-11.0)
[2018-09-09 09:49] LABS: POSITIVE COUNT NO; POSITIVE DIFFERENTIAL NO; POSITIVE MORPHOLOGY NO
[2018-09-09 10:08] LABS: International Normalized Ratio 1.1; Partial Thromboplast Time 29.6 Seconds (24.1-36.2); Prothrombin Time (Protime)PT. 13.6 SECONDS (11.7-14.9)
[2018-09-09] MEDS: Midazolam 2 MG/2 ML Syringe IV (10:43)
[2018-09-09] MEDS: fentaNYL 100 MCG/2 ML Ampul IV (10:43)
[2018-09-09] MEDS: 0.9% Saline Lock 10 ML Syringe IV (12:15)
== END ==
PROVIDERS: Referring Provider Internal Medicine Hematology & Oncology; Visit Provider Internal Medicine Hematology & Oncology
DX: D18.09 Hemangioma of other sites (principal); C50.911 Malignant neoplasm of unspecified site of right female breast; C78.7 Secondary malignant neoplasm of liver and intrahepatic bile duct
CPT/HCPCS: 47000; 36415; 77012; 85025; 85610; 85730; 88172; 88305; 88307; 88313; 88341; 88342; 99156; 99157; J7040; A4216

== ENCOUNTER 2018-10-01 16:42 | Emergency (ER) | payer OTHER, SELFPAY ==
[2018-09-29 08:16] VITALS: BMI 23.6
[2018-10-01 16:42] VITALS: BP 131/51; PULSE 98; RESP 16; TEMP 37; O2SAT 94; BMI 23.6
--- NOTE | 2018-10-01 18:11 | ED.VIS.GEN ---
History of Present Illness Chief Complaint: Fever Informant: Patient Onset: Today Context: Gradual Onset Quality: 100.9 Tmax Current Severity: gone Maximum Severity: Moderate Relieved by: tylenol Associated Symptoms: facial flushing. no other sx. Narrative: Recently diagnosed with breast cancer, first chemotherapy treatment was 2 days ago. Developed a fever today with a maximum of 100.9. She states she feels fine now. Has had no symptoms of infection. - Past Medical History (1) Stage IV breast cancer in female Status: Chronic Past Medical History - Allergies and Home Meds Allergies/Adverse Reactions: Allergies No Known Allergies Allergy (Verified 10/01/18 16:44) Primary Care Physician: Care Physician,No Primary [Primary Care Provider] - Doctors: Dr. Mccarthy Lives: Spouse/ Significant Other Smoking Status: Never smoker Review of Systems General: Reports: Fever. Denies: Chills, Sweats Eyes: Denies: Visual changes - bilaterally, Diplopia ENT: Denies: Rhinorrhea, Sore throat Cardiovascular: Denies: Chest pain, Palpitations Respiratory: Denies: Dyspnea, Cough, Sputum, Dyspnea on exertion Gastrointestinal: Denies: Abdominal pain, Nausea, Vomiting, Diarrhea, Melena, Hematochezia Genitourinary: Denies: Dysuria, Hematuria, Frequency Musculoskeletal: Denies: Neck pain, Back pain, Swelling, Extremity Pain Skin: Denies: Rash, Wounds Neurological: Denies: Headache, Weakness, Numbness Physical Exam Vital Signs/Narrative: Vital Signs Temp Pulse Resp BP Pulse Ox 10/01/18 16:42 98.6 F 98 16 131/51 H 94 Inital Vital Signs reviewed: Yes General: Well nourished, Well developed, No Acute Distress Head: Normocephalic, Atraumatic Eyes: Perrl, EOMI ENT: Moist mucous membranes, No rhinorrhea, TM's clear. Negative for: Nasal congestion, Sinus tenderness Neck: Supple, Nontender, No lymphadenopathy Cardiovascular: Regular rate, Regular rhythm, No murmurs, Normal S1, Normal S2. Negative for: Tachycardia Respiratory: No distress, CTA bilaterally, Chest nontender Abdomen: Soft, Nontender, Nondistended, Normal bowel sounds Back: Nontender, Normal Inspection Extremities: Nontender, No edema Skin: Normal color, No rash, No Trauma Neurological: Alert, Oriented x3, Cranial nerves II-XII grossly intact, Normal Strength, Normal Sensation, Normal Gait Psychological: Normal affect, Normal Mood Diagnostic/Tx/Re-eval Laboratory Tests 10/01/18 10/01/18 10/01/18 Range/Units 18:40 18:40 18:15 WBC 24.0 H (4.4-11.0) K/mm3 RBC 4.01 L (4.2-5.4) M/mm3 Hgb 12.3 (12.0-15.0) g/dL Hct 36.5 L (37-47) % MCV 91.0 (81-99) fL MCH 30.7 (27.0-32.0) pg MCHC 33.7 (32-36) g/dL RDW Std Deviation 40.4 (35.1-43.9) fl RDW Coeff of Michael 12.1 (11.6-14.6) % Plt Count 235 (150-450) K/mm3 MPV 10.1 (6.2-12.0) fl Neut % (Auto) Not Reportable Absolute Neuts (auto) Not Reportable Absolute Nucleated RBC 0.00 (0-5) 10^3/uL Total Counted 100 (MANUAL DIFF) Neutrophils % (Manual) 80 H (47-70) % Band Neutrophils % 16 H (0-5) % Lymphocytes % (Manual) 4 L (19-41) % Nucleated RBC % 0 (0-5) % Diff Path Review May foll Platelet Estimate ADEQUATE (ADEQ) RBC Morphology NORM C+C (NORM C&C) NORMAL Sodium 137 (136-145) mmol/L Potassium 4.1 (3.5-5.1) mmol/L Chloride 106 (98-107) mmol/L Carbon Dioxide 27.0 (21.0-32.0) mmol/L Anion Gap 4 L (5-15) BUN 17 (7-18) mg/dL Creatinine 0.89 (0.55-1.02) mg/dL Estim Creat Clear Calc 60.95 ml/min Est GFR (MDRD) Af Amer 84 (>60) mL/min Est GFR (MDRD) Non-Af 69 (>60) mL/min BUN/Creatinine Ratio 19.0 (10-20) RATIO Glucose 91 (74-106) mg/dL Calcium 8.6 (8.5-10.1) mg/dL Urine Color Yellow (Yellow) Urine Clarity Clear (Clear) Urine pH 6.5 (5.0 - 8.0) Ur Specific Gray 1.005 (1.002-1.030) Urine Protein Negative (Negative) mg/dl Urine Glucose (UA) Normal (Normal) mg/dl Urine Ketones Negative (Negative) mg/dl Urine Occult Blood Negative (Negative) /ul Urine Nitrite Negative (Negative) Urine Bilirubin Negative (Negative) mg/dL Urine Urobilinogen Normal (Normal) mg/dl Ur Leukocyte Esterase Negative (Negative) /ul Urine RBC 0 SEEN (0-5) /hpf Urine WBC 0 SEEN (0-5) /hpf Ur Squamous Epith Cells 0-5 SEEN (5-10) /hpf Urine Bacteria 0 SEEN (None Seen) /hpf Urine Mucus 0 SEEN (<or=2+) /hpf - Medical Decision Making Labs show a leukocytosis of 24, expected after the white blood cell-booster injection she received 2 days ago. Certainly not neutropenic or leukopenic. The rest of her work-up is unremarkable and her urine is negative. I sent blood cultures. I attempted to discuss with the oncologist on-call for Dr. Mccarthy, we did not receive a call back for an hour and the patient is getting impatient and wants to leave. Discharge papers given, she understands that we are not able to ascertain whether her oncologist wants antibiotics given at this time or not, she should call them immediately, and if we get a call back we will certainly let her know. 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
[2018-10-01 18:53] LABS: Bacteria 0 SEEN /hpf (None Seen); Mucous, Urine 0 SEEN /hpf (<or=2+); Red Blood Cells-Urine 0 SEEN /hpf (0-5); White Blood Cells 0 SEEN /hpf (0-5)
[2018-10-01 18:57] VITALS: RESP 18
[2018-10-01 18:57] LABS: Color, Urine Yellow (Yellow); Glucose, Dipstick Normal (Normal); Ketone-Dipstick Negative (Negative); Leukocyte Esterase-Dipstick Negative /ul (Negative); Nitrite-Dipstick Negative (Negative); Occult Blood-Urine Negative /ul (Negative); Protein-Dipstick Negative (Negative); Specific Gravity, Urine 1.005 (1.002-1.030); Urine Bilirubin Dipstick Negative (Negative); Urine Clarity Clear (Clear); Urine Urobilinogen Normal (Normal); Urine pH 6.5 (5.0 - 8.0)
[2018-10-01 18:58] LABS: Hematocrit 36.5 % (37-47); Hemoglobin 12.3 g/dL (12.0-15.0); Mean Corp Hgb Conc 33.7 g/dL (32-36); Mean Corpuscular Hgb 30.7 pg (27.0-32.0); Mean Platelet Vol. 10.1 fl (6.2-12.0); NRBC Flagged by Analyzer 0 % (0-5); POSITIVE COUNT YES; POSITIVE DIFFERENTIAL YES; POSITIVE MORPHOLOGY YES; Platelet Count 235 K/mm3 (150-450); RBC Distribution Width CV 12.1 % (11.6-14.6); RBC Distribution Width SD 40.4 fl (35.1-43.9); Red Blood Count 4.01 M/mm3 (4.2-5.4)
[2018-10-01 19:02] LABS: Differential Indicated MANUAL DIFF
[2018-10-01 19:05] LABS: Squamous Epithelial Cells - UA 0-5 SEEN /hpf (5-10)
[2018-10-01 19:08] LABS: Anion Gap 4 (5-15); BUN 17 mg/dL (7-18); Calcium,Total 8.6 mg/dL (8.5-10.1); Chloride 106 mmol/L (98-107); Creatinine, Serum 0.89 mg/dL (0.55-1.02); EST Glomerular Filtration Rate 69 mL/min (>60); Est Glom Filt Rate - Afr Amer 84 mL/min (>60); Estimated Creatinine Clearance 60.95 ml/min; Glucose 91 mg/dL (74-106); Potassium 4.1 mmol/L (3.5-5.1); Sodium Level 137 mmol/L (136-145)
[2018-10-01 19:21] LABS: Lymphocyte 4 % (19-41); Neutrophil-Band 16 % (0-5); Neutrophil-Segmented 80 % (47-70); Total Cells Counted 100 (MANUAL DIFF)
[2018-10-01 19:22] LABS: Platelet Estimate ADEQUATE (ADEQ); Red Cell Morphology NORM C+C NORMAL (NORM C&C)
--- NOTE | 2018-10-01 20:08 | ED.RN ---
PATIENT AND FAMILY DID NOT WANT TO WAIT FOR CONSULT WITH ONCOLOGIST. DR TORRES AWARE. PATIENT REQUESTED PORT BE D/C. D/C PER PROTOCOL. SAID SHE WOULD CALL HER DR IN THE MORNING.
[2018-10-01 23:49] LABS: Absolute Lymphocyte Count 0.96 X10^3/uL (0.83-4.51)
[2018-10-02 09:42] LABS: Pathologist Review Reviewed
== END 2018-10-01 20:11 | disposition home or self-care (01) ==
PROVIDERS: Emergency Provider Emergency Medicine
DX: R50.9 Fever, unspecified (principal); D89.9 Disorder involving the immune mechanism, unspecified; Z85.3 Personal history of malignant neoplasm of breast
CPT/HCPCS: 80048; 81001; 85025; 87040; 99284; A4216

== ENCOUNTER → 2018-11-24 12:52 | Outpatient (CLI) | payer OTHER, SELFPAY ==
[2018-11-10 09:04] VITALS: BMI 23.7
[2018-11-19 08:34] VITALS: BMI 23.4
--- NOTE | 2018-11-24 12:54 | ECHODONC_ITS ---
Reason For Study: F/U to chemo check for EF Procedure This was a 2D Doppler, Color Flow transthoracic echocardiogram. Myocardial strain analysis was performed in this exam to aid in the assessment of cardiac function. The study was technically difficult. Exam performed in department. Left Ventricle Normal LV size. The estimated ejection fraction is 53 %. Stage 1 diastolic dysfunction. No regional wall motion abnormalities noted. Right Ventricle Normal RV size. Normal systolic function. Mitral Valve Bileaflet diffuse mitral valve thickening. Mild (1+) mitral valve insufficiency. Tricuspid Valve Normal tricuspid valve. Aortic Valve Normal aortic valve. Pulmonic Valve Normal pulmonic valve. Great Vessels Normal aortic root. The pulmonary artery is normal size. Normal inferior vena cava. Pericardium/Pleural No pericardial effusion. MMode/2D Measurements & Calculations LVIDd: 4.2 cm IVSd: 0.73 cm Ao root diam: 3.1 cm LVIDs: 2.9 cm LVPWd: 0.81 cm LA dimension: 2.8 cm FS: 30.1 % LAV(MOD-sp4): 26.6 ml LVAd ap4: 22.9 cm2 SV(MOD-sp4): 32.1 ml EDV(MOD-sp4): 60.1 ml EDV(sp4-el): 60.6 ml LVAs ap4: 14.1 cm2 ESV(MOD-sp4): 28.0 ml ESV(sp4-el): 27.8 ml EF(MOD-sp4): 53.4 % EF(sp4-el): 54.1 % SV(sp4-el): 32.8 ml LA A4 area: 12.7 cm2 RA A4 area: 9.1 cm2 Time Measurements MV dec time: 0.18 sec Doppler Measurements & Calculations MV E max wali: 56.2 cm/sec Lat Peak E' Wali: 14.7 cm/sec Med Peak E' Wali: 8.7 cm/sec MV A max awli: 65.7 cm/sec E/E' lat: 3.8 E/E' med: 6.5 MV E/A: 0.86 MV V2 max: 57.8 cm/sec MV P1/2t max wali: 49.2 cm/sec Ao V2 max: 113.2 cm/sec MV max P.3 mmHg MV P1/2t: 83.1 msec Ao max P.1 mmHg MV V2 mean: 33.2 cm/sec MV dec slope: 173.3 cm/sec2 MV mean P.51 mmHg MV V2 VTI: 13.3 cm MVA(P1/2t): 2.6 cm2 LV V1 max: 80.0 cm/sec PA V2 max: 87.6 cm/sec LV V1 max P.6 mmHg Interpretation Summary Normal LV size. The estimated ejection fraction is 53 %. Stage 1 diastolic dysfunction. Bileaflet diffuse mitral valve thickening. The global longitudinal strain = -16.3 % (normal). Ordering Physician: Andrés Corrales Referring Physician: Anrdés Corrales Performed By: Jh Barrow RCS
--- NOTE | 2018-11-24 13:57 | CT_ITS ---
STUDY: CT CHEST WITH CONTRAST REASON FOR EXAM: Female, 58 years old. Breast cancer follow-up. Chemotherapy treatments every 21 days. Metastases to lymph nodes and liver. RADIATION DOSAGE (If Supplied By Facility): CTDIvol = ( 8.47 ) mGy, DLP = ( 481.50 ) mGycm TECHNIQUE: Transaxial imaging was performed following intravenous administration of 100mL IV Isovue 300. Coronal and sagittal reconstructions were performed. Individualized dose optimization techniques were used for this CT. COMPARISON: Whole-body PET/CT fusion scan 08/13/2018. FINDINGS: The lungs are normal. There is no demonstrated pleural abnormality. Normal heart and pericardium. Normal mediastinum. Normal hilar regions. Normal enhanced pulmonary arteries. Normal aorta arch and descending thoracic aorta. Decreased size of enlarged lymph nodes in the right axilla. Small lymph nodes in the left axilla are unchanged. Decreased size of 2 masses in the right breast. Normal osseous structures. Multiple small liver metastatic mass lesions. One hypodense mass in the right hepatic lobe has peripheral enhancement. CT/Chest WITH Contrast IMPRESSION: 1. Decreased size of enlarged lymph nodes in the right axilla and decreased size of 2 masses in the right breast. 2. Small lymph nodes in the left axilla are unchanged. 3. Multiple small liver metastatic mass lesions have increased in number. Follow-up whole body PET/CT fusion scan will help confirm. Electronically Signed: Ravinder Jolley MD at 13:12 EDT , Service support ,
--- NOTE | 2018-11-24 13:57 | CT_ITS ---
STUDY: CT ABDOMEN WITH CONTRAST REASON FOR EXAM: Female, 58 years old. Breast cancer follow-up. Chemotherapy treatments every 21 days. Metastases to lymph nodes and liver. RADIATION DOSAGE (If Supplied By Facility): CTDIvol = ( 8.47 ) mGy, DLP = ( 481.50 ) mGycm TECHNIQUE: Transaxial images were obtained post I.V. administration of 75mL IV Isovue 300, and without oral contrast. Sagittal and coronal images were reconstructed. Individualized dose optimization techniques were used for this CT. COMPARISON: Whole-body PET fusion scan 08/13/2018. FINDINGS: The visualized lung bases are unremarkable. The visualized portions of the heart are within normal limits. Innumerable small metastatic hypodense mass lesions throughout the liver parenchyma. They have increased in number. Dominant hypodense lesion in the right hepatic lobe has peripheral rim enhancement. This may be an incidental benign hepatic hemangioma. This is not an area of increased FDG uptake to suspect metastatic mass. Normal gallbladder and extrahepatic biliary system. Normal spleen. Normal pancreas. Normal bilateral adrenal glands. Normal right kidney. Normal left kidney. Normal visualized stomach. Normal small intestine. Normal colon. The appendix is visualized and appears normal. Normal abdominal aorta. Normal inferior vena cava. Enhancing enlarged lymph nodes in the left retroperitoneum (series 3, images 34-37). They are suspicious for metastases. Normal abdominal wall. Pronounced L5-S1 disc space height narrowing with degenerative vacuum phenomena. No suspicious lytic or blastic metastatic disease. OPINION: 1. Innumerable small metastatic hypodense mass lesions throughout the liver parenchyma. They have increased in number when compared to whole body PET/CT fusion scan of 08/13/2018. Follow-up whole body PET/CT fusion scan will help confirm. 2. Incidental benign hepatic hemangioma in the right hepatic lobe. Comparison with previous CT abdomen with contrast will help confirm. 3. Enhancing enlarged lymph nodes in the left retroperitoneum are suspicious for metastatic lymphadenopathy. They were not present previously. 4. No other suspicious metastatic disease in the abdomen. Electronically Signed: Ravinder Jolley MD at 13:22 EDT , Service support , CT/Abdomen WITH IV Contrast
== END ==
PROVIDERS: Referring Provider Internal Medicine Hematology & Oncology; Visit Provider Internal Medicine Hematology & Oncology
DX: C50.919 Malignant neoplasm of unspecified site of unspecified female breast (principal); C78.7 Secondary malignant neoplasm of liver and intrahepatic bile duct; C77.9 Secondary and unspecified malignant neoplasm of lymph node, unspecified; Z79.899 Other long term (current) drug therapy
CPT/HCPCS: 0399T; 71260; 74160; 93306; Q9967

== ENCOUNTER → 2019-03-15 13:54 | Outpatient (CLI) | payer OTHER, SELFPAY ==
[2019-02-01 09:03] VITALS: BMI 23.6
[2019-03-04 08:23] VITALS: BMI 23.9
--- NOTE | 2019-03-15 13:54 | ECHODONC_ITS ---
Version 2 Reason For Study: BR CANCER Procedure This was a 2D Doppler, Color Flow transthoracic echocardiogram. Myocardial strain analysis was performed in this exam to aid in the assessment of cardiac function. Exam performed in department. Left Ventricle Normal LV size. Stage 1 diastolic dysfunction. Left ventricular systolic function is lower limits of normal. The estimated ejection fraction is 53 %. No regional wall motion abnormalities noted. Right Ventricle Normal RV size. Normal systolic function. Atria Normal left atrium. Normal right atrium. Mitral Valve Normal mitral valve. Tricuspid Valve Normal tricuspid valve. Mild tricuspid valve insufficiency. Pulmonary artery systolic pressure is 24 mmHg. Aortic Valve Normal aortic valve. Trisinus/trileaflet aortic valve. Pulmonic Valve Normal pulmonic valve. Great Vessels Normal aortic root. The pulmonary artery is normal size. Normal inferior vena cava. Pericardium/Pleural No pericardial effusion. MMode/2D Measurements & Calculations LVIDd: 4.5 cm IVSd: 0.76 cm Ao root diam: 3.1 cm LVIDs: 3.6 cm LVPWd: 0.82 cm RVDd: 3.4 cm FS: 19.2 % LAV(MOD-bp): 47.1 ml LA A4 area: 14.0 cm2 LA dimension(2D): 3.2 cm LAV(MOD-bp) Indexed: 28.4 ml/m2 LAV(MOD-sp2): 61.5 ml LAV(MOD-sp4): 33.0 ml RA A4 area: 11.3 cm2 Time Measurements MV dec time: 0.27 sec Doppler Measurements & Calculations MV E max wali: 46.3 cm/sec Lat Peak E' Wali: 12.2 cm/sec Med Peak E' Wali: 6.3 cm/sec MV A max wali: 55.7 cm/sec E/E' lat: 3.8 E/E' med: 7.3 MV E/A: 0.83 Ao V2 max: 120.4 cm/sec LV V1 max: 75.7 cm/sec PA V2 max: 83.7 cm/sec Ao max P.8 mmHg LV V1 max P.3 mmHg TR max wali: 225.7 cm/sec TR max P.4 mmHg Interpretation Summary Normal LV size. Stage 1 diastolic dysfunction. GLS is 16.4 - borderline Left ventricular systolic function is lower limits of normal. The estimated ejection fraction is 53 %. No change compared to the previous echo Ordering Physician: Andrés Corrales Referring Physician: Andrés Corrales Performed By: Lindsey George, RDCS, RVT
== END ==
PROVIDERS: Referring Provider Internal Medicine Hematology & Oncology; Visit Provider Internal Medicine Hematology & Oncology
DX: C50.911 Malignant neoplasm of unspecified site of right female breast (principal); C50.919 Malignant neoplasm of unspecified site of unspecified female breast; C78.7 Secondary malignant neoplasm of liver and intrahepatic bile duct; Z79.899 Other long term (current) drug therapy
CPT/HCPCS: 0399T; 93306

== ENCOUNTER → 2019-05-04 08:55 | Outpatient (CLI) | payer OTHER, SELFPAY ==
[2019-04-26 09:23] VITALS: BMI 24.0
--- NOTE | 2019-05-04 08:59 | BD_ITS ---
STUDY: DUAL ENERGY X-RAY ABSORPTIOMETRY / DXA REASON FOR EXAM: Female, 58 years old. 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 COMPARISON: None. FINDINGS: Lumbar Spine (L1-L4): g/cm2 (1.185) / T-score (0.0) / Z-score (1.0) Findings are suggestive of normal bone density with a low fracture risk. Left Femur Total: g/cm2 (0.909) / T-score (-0.8) / Z-score (0.0) Left Femoral Neck: g/cm2 (0.875) / T-score (-1.2) / Z-score (-0.1) Right Femur Total: g/cm2 (0.903) / T-score (-0.8) / Z-score (-0.1) Right Femoral Neck: g/cm2 (0.949) / T-score (-0.6) / Z-score (0.4) BD/Dexa Bone Density Study IMPRESSION: The patient is considered osteopenic as outlined below according to World Joey Organization (WHO) criteria with a low fracture risk. Reference Information: The T-score is the number of standard deviations above or below the standard which is normal for young adults at their peak bone mineral density. The World Health Organization (WHO) interprets the T-scores as follows: Above -1 Normal bone density Between -1 and -2.5 Osteopenia Equal to / or below -2.5 Osteoporosis As a practical clinical guideline, osteopenia may be graded as follows: Mild -1 through -1.5 Moderate -1.6 through -2.0 Severe -2.1 through -2.4 The Z-score is the number of standard deviations above or below age-matched controls. A Z-score of less than -1.5 would be considered abnormal. References: 1. NIH Osteoporosis and Related Bone Diseases http://www.osteo.org 2. International Society for Clinical Densitometry http://www.iscd.org 3. National Osteoporosis Foundation http://www.nof.org Electronically Signed: Tj Rodríguez, at 14:13 EST , Service support ,
== END ==
PROVIDERS: Referring Provider Internal Medicine Hematology & Oncology; Visit Provider Internal Medicine Hematology & Oncology
DX: C50.911 Malignant neoplasm of unspecified site of right female breast (principal); N95.1 Menopausal and female climacteric states
CPT/HCPCS: 77080

== ENCOUNTER → 2019-06-21 07:46 | Outpatient (CLI) | payer OTHER, SELFPAY ==
[2019-06-07 09:30] VITALS: BMI 24.3
--- NOTE | 2019-06-21 07:46 | CT_ITS ---
STUDY: CT ABDOMEN WITH CONTRAST REASON FOR EXAM: Female, 59 years old. Assess response to treatment, right breast cancer, chemotherapy completed 02/2019 on immunotherapy currently. Right Power Port. RADIATION DOSAGE (If Supplied By Facility): CTDIvol = ( 8.78 ) mGy, DLP = ( 501.37 ) mGycm TECHNIQUE: Transaxial images were obtained post I.V. administration of IV 100mL Isovue-300, and without oral contrast. Sagittal and coronal images were reconstructed. Individualized dose optimization techniques were used for this CT. COMPARISON: Comparison is made with prior examination dated November 24, 2018. FINDINGS: The visualized lung bases are unremarkable. The visualized portions of the heart are within normal limits. The previously seen multiple small hypodense nodules in the liver have decreased in number and size. Stable appearance of the dominant hypodense lesion in the right hepatic lobe with peripheral enhancement is stable most likely representing an hemangioma. Similar-appearing hypodense nodule with peripheral enhancement is seen along the inferior aspect of the left lobe of the liver. This most likely represents an hemangioma. Normal gallbladder and extrahepatic biliary system. Normal spleen. Normal pancreas. Normal bilateral adrenal glands. Normal right kidney. Normal left kidney. Normal visualized stomach. Normal small intestine. Normal colon. The appendix is visualized and appears normal. Normal abdominal aorta. Normal inferior vena cava. Normal retroperitoneum. Normal abdominal wall. Stable degenerative changes at the L5-S1 level. CT/Abdomen WITH IV Contrast IMPRESSION: Interval decrease in size and numbers of the multiple hypodense nodules in the liver. Stable appearance of the hypodense nodule in the inferior aspect of the right lobe of the liver with peripheral enhancement as well as a similar appearing nodule along the inferior aspect of the left lobe suggestive of hemangioma. Electronically Signed: Tj Rodríguez, at 8:43 EDT , Service support ,
--- NOTE | 2019-06-21 07:46 | CT_ITS ---
STUDY: CT CHEST WITH CONTRAST REASON FOR EXAM: Female, 59 years old. Assess response to treatment, right breast cancer, chemotherapy completed 02/2019 on immunotherapy currently. Right Power Port. RADIATION DOSAGE (If Supplied By Facility): CTDIvol = ( 8.78 ) mGy, DLP = ( 501.37 ) mGycm TECHNIQUE: Transaxial imaging was performed following intravenous administration of IV 100mL Isovue-300. Multiplanar coronal and sagittal images were reformatted. Individualized dose optimization techniques were used for this CT. COMPARISON: Comparison is made with prior examination dated November 24, 2018. FINDINGS: A left sided mikey catheter is in situ with the tip in the superior vena cava. Stable small bilateral axillary lymph nodes. Stable 7.4 mm hypodense nodule in the upper pole of the left lobe of the thyroid gland. The lungs are normal. There is no demonstrated pleural abnormality. Normal heart and pericardium. Normal mediastinum. Normal hilar regions. Normal enhanced pulmonary arteries. Normal aorta arch and descending thoracic aorta. There are multi-level degenerative changes of the thoracic spine. Findings suggestive of hemangioma in the right lobe of the liver as well as the inferior aspect of the left lobe of the liver. Tiny hypodense nodules which have decreased in size as compared to prior study. CT/Chest WITH Contrast IMPRESSION: No acute abnormality is seen. Interval decrease in size of the liver hypodense nodules. Electronically Signed: Tj Rodríguez, at 8:46 EDT , Service support ,
--- NOTE | 2019-06-21 08:04 | ECHODONC_ITS ---
Reason For Study: Assess LV function Procedure This was a 2D Doppler, Color Flow transthoracic echocardiogram. Exam performed in department. Left Ventricle Normal LV size. Left ventricular systolic function is normal. The estimated ejection fraction is 55 %. Normal diastology for age. No regional wall motion abnormalities noted. Right Ventricle Normal RV size. Normal systolic function. Atria Normal left atrium. Normal right atrium. Mitral Valve Normal mitral valve. Tricuspid Valve Normal tricuspid valve. Aortic Valve Normal aortic valve. Trisinus/trileaflet aortic valve. Pulmonic Valve Normal pulmonic valve. Great Vessels Normal aortic root. The pulmonary artery is normal size. Normal inferior vena cava. Pericardium/Pleural No pericardial effusion. MMode/2D Measurements & Calculations LVIDd: 4.6 cm IVSd: 0.71 cm Ao root diam: 3.0 cm LVIDs: 3.1 cm LVPWd: 0.76 cm RVDd: 3.2 cm FS: 32.0 % LAV(MOD-bp): 45.5 ml EDV(MOD-sp4): 72.3 ml EDV(MOD-sp2): 77.7 ml LAV(MOD-bp) Indexed: 27.4 ml/m2 ESV(MOD-sp4): 35.2 ml EF(MOD-sp2): 51.2 % LAV(MOD-sp2): 41.4 ml EF(MOD-sp4): 51.3 % LAV(MOD-sp4): 49.3 ml SV(MOD-sp4): 37.1 ml SV(MOD-sp2): 39.8 ml LA A4 area: 17.7 cm2 LA dimension(2D): 2.9 cm RA A4 area: 12.1 cm2 Doppler Measurements & Calculations MV E max wali: 56.7 cm/sec Lat Peak E' Wali: 15.2 cm/sec Med Peak E' Wali: 9.3 cm/sec MV A max wali: 50.2 cm/sec E/E' lat: 3.7 E/E' med: 6.1 MV E/A: 1.1 Ao V2 max: 114.7 cm/sec LV V1 max: 79.2 cm/sec PA V2 max: 88.9 cm/sec Ao max P.3 mmHg LV V1 max P.5 mmHg TR max wali: 210.6 cm/sec TR max P.8 mmHg Interpretation Summary Normal LV size. Left ventricular systolic function is normal. The estimated ejection fraction is 55 %. The global longitudinal strain is normal. The global longitudinal strain has improved. Ordering Physician: Andrés Corrales Referring Physician: Andrés Corrales Performed By: Anita Shepherd RDCS
[2019-06-21] MEDS: 0.9% Saline Lock 10 ML Syringe IV (09:20)
== END ==
PROVIDERS: Referring Provider Internal Medicine Hematology & Oncology; Visit Provider Internal Medicine Hematology & Oncology
DX: C50.919 Malignant neoplasm of unspecified site of unspecified female breast (principal); C78.7 Secondary malignant neoplasm of liver and intrahepatic bile duct; Z51.81 Encounter for therapeutic drug level monitoring; Z79.899 Other long term (current) drug therapy
CPT/HCPCS: 71260; 74160; 93306; 93356; Q9967; A4216

== ENCOUNTER → 2019-08-30 09:49 | Outpatient (CLI) | payer OTHER, SELFPAY ==
[2019-08-12 10:00] VITALS: BMI 24.0
--- NOTE | 2019-08-30 09:50 | ECHODONC_ITS ---
Reason For Study: high risk meds Procedure This was a 2D Doppler, Color Flow transthoracic echocardiogram. Myocardial strain analysis was performed in this exam to aid in the assessment of cardiac function. Exam performed in department. Left Ventricle Normal LV size. Left ventricular systolic function is normal. The estimated ejection fraction is 60 %. No regional wall motion abnormalities noted. Right Ventricle Normal RV size. Normal systolic function. Atria Normal left atrium. Normal right atrium. Mitral Valve Bileaflet diffuse mitral valve thickening. Tricuspid Valve Normal tricuspid valve. Mild tricuspid valve insufficiency. Pulmonary artery systolic pressure is 24 mmHg. Aortic Valve Normal aortic valve. Trisinus/trileaflet aortic valve. Pulmonic Valve Normal pulmonic valve. Great Vessels Normal aortic root. The pulmonary artery is normal size. Normal inferior vena cava. Pericardium/Pleural No pericardial effusion. MMode/2D Measurements & Calculations LVIDd: 4.7 cm IVSd: 0.59 cm Ao root diam: 3.0 cm LVIDs: 3.2 cm LVPWd: 0.71 cm RVDd: 3.2 cm FS: 32.3 % LAV(MOD-bp): 40.5 ml LA A4 area: 15.5 cm2 LA dimension(2D): 3.2 cm LAV(MOD-bp) Indexed: 24.4 ml/m2 LAV(MOD-sp2): 44.3 ml LAV(MOD-sp4): 36.2 ml RA A4 area: 11.4 cm2 Time Measurements MV dec time: 0.26 sec Doppler Measurements & Calculations MV E max wali: 51.3 cm/sec Lat Peak E' Wali: 12.6 cm/sec Med Peak E' Wali: 7.8 cm/sec MV A max wali: 37.5 cm/sec E/E' lat: 4.1 E/E' med: 6.6 MV E/A: 1.4 Ao V2 max: 119.9 cm/sec LV V1 max: 74.0 cm/sec PA V2 max: 90.3 cm/sec Ao max P.8 mmHg LV V1 max P.2 mmHg PI end-d wali: 87.8 cm/sec TR max wali: 222.3 cm/sec TR max P.9 mmHg Interpretation Summary Normal LV size. Left ventricular systolic function is normal. The estimated ejection fraction is 60 %. Bileaflet diffuse mitral valve thickening. Mild tricuspid valve insufficiency. The global longitudinal strain is normal. The global longitudinal strain = -17.1 % (normal). Ordering Physician: Andrés Corrales Referring Physician: Andrés Corrales Performed By: Lindsey George, TONEY, RVT
== END ==
PROVIDERS: Referring Provider Internal Medicine Hematology & Oncology; Visit Provider Internal Medicine Hematology & Oncology
DX: Z51.81 Encounter for therapeutic drug level monitoring (principal); Z79.899 Other long term (current) drug therapy; C50.911 Malignant neoplasm of unspecified site of right female breast
CPT/HCPCS: 93306; 93356

== ENCOUNTER → 2019-12-03 12:43 | Outpatient (CLI) | payer OTHER, SELFPAY ==
[2019-11-04 10:24] VITALS: BMI 24.1
--- NOTE | 2019-12-03 12:44 | CT_ITS ---
STUDY: CT CHEST WITH CONTRAST REASON FOR EXAM: Female, 59 years old. RIGHT BREAST CANCER -IMMUNOTHERAPY CURRENTLY. PORT RADIATION DOSAGE (If Supplied By Facility): CTDIvol = ( 10.21 ) mGy, DLP = ( 511.13 ) mGycm TECHNIQUE: Transaxial imaging was performed following intravenous administration of 100ML ISOVUE 300. Multiplanar coronal and sagittal images were reformatted. Individualized dose optimization techniques were used for this CT. COMPARISON: Comparison is made with prior study dated 06/21/2019. FINDINGS: There is a 5.7 mm hypodensity in the upper pole of the left lobe of the thyroid. This is unchanged. A left-sided portacatheter is seen with the tip in the superior vena cava. A tissue clip marker is seen with a nodular density in the deep lateral portion of the right breast. The lungs are normal. There is no demonstrated pleural abnormality. Normal heart and pericardium. Normal mediastinum. Normal hilar regions. Normal enhanced pulmonary arteries. Normal aorta arch and descending thoracic aorta. There are multi-level degenerative changes of the thoracic spine. Stable 1.9 cm hypodense nodule in the superior lateral aspect of the right lobe of the liver with peripheral enhancement. This most likely represents an hemangioma. There is a 2.4 cm x 2.7 cm hypodensity in the inferior aspect of the left lobe of the liver. This is unchanged. CT/Chest WITH Contrast IMPRESSION: Stable examination. Electronically Signed: Tj Rodríguez, at 13:43 EDT , Service support ,
--- NOTE | 2019-12-03 12:44 | ECHOLONC_ITS ---
Reason For Study: BREAST CANCER PT ON HERCEPTIN/PERJETA Procedure This was a limited 2D transthoracic echocardiogram. Myocardial strain analysis was performed in this exam to aid in the assessment of cardiac function. Exam performed in department. Left Ventricle Normal LV size. Left ventricular systolic function is normal. The estimated ejection fraction is 55 %. No regional wall motion abnormalities noted. Right Ventricle Normal RV size. Normal systolic function. Great Vessels Normal aortic root. Pericardium/Pleural No pericardial effusion. MMode/2D Measurements & Calculations LVIDd: 4.5 cm IVSd: 0.70 cm LVAd ap4: 22.8 cm2 LVIDs: 3.3 cm LVPWd: 0.70 cm EDV(MOD-sp4): 58.7 ml FS: 26.6 % EDV(sp4-el): 59.8 ml LVAs ap4: 13.7 cm2 ESV(MOD-sp4): 25.1 ml ESV(sp4-el): 25.4 ml EF(MOD-sp4): 57.2 % EF(sp4-el): 57.5 % SV(MOD-sp4): 33.6 ml SV(sp4-el): 34.4 ml Doppler Measurements & Calculations TR max josias: 254.2 cm/sec TR max P.9 mmHg Interpretation Summary Normal LV size. Left ventricular systolic function is normal. The estimated ejection fraction is 55 %. The global longitudinal strain is normal. The global longitudinal strain = -17.1 % (normal). Compared to prior study, there is no significant change. Ordering Physician: Andrés Corrales Referring Physician: Andrés Corrales Performed By: Ivonne Andrew RDCS
--- NOTE | 2019-12-03 12:44 | CT_ITS ---
STUDY: CT ABDOMEN WITH CONTRAST REASON FOR EXAM: Female, 59 years old. RIGHT BREAST CANCER -IMMUNOTHERAPY CURRENTLY. PORT RADIATION DOSAGE (If Supplied By Facility): CTDIvol = ( 10.21 ) mGy, DLP = ( 511.13 ) mGycm TECHNIQUE: Transaxial images were obtained post I.V. administration of IV 100mL Isovue-300, and without oral contrast. Sagittal and coronal images were reconstructed. Individualized dose optimization techniques were used for this CT. COMPARISON: Comparison is made with prior study dated 06/21/2019. FINDINGS: The visualized lung bases are unremarkable. The visualized portions of the heart are within normal limits. Stable appearance of the nodules in both lobes of the liver suggestive of hemangioma. Normal gallbladder and extrahepatic biliary system. Normal spleen. Normal pancreas. Normal bilateral adrenal glands. Normal right kidney. 1.1 cm cyst in the upper midportion of the left kidney. Normal visualized stomach. Normal small intestine. Normal colon. The appendix is visualized and appears normal. Normal abdominal aorta. Normal inferior vena cava. Normal retroperitoneum. Normal abdominal wall. There are degenerative changes of the visualized lumbar spine. CT/Abdomen WITH IV Contrast IMPRESSION: Stable examination. Electronically Signed: Tj Rodríguez, at 13:45 EDT , Service support ,
[2019-12-03] MEDS: 0.9% Saline Lock 10 ML Syringe IV (13:00)
--- NOTE | 2019-12-03 13:23 | NURSING ---
Pt repositioned multiple times during attempts to aspirate blood from port. Pt attempted to cough, turn head during 7 flushes, no blood return noted. Pt reports having problems getting blood return frequently. BRIDGER Dan informed the patient that it would be unsafe to use the power injector without blood return, pt states she understands and is ok with getting an IV. Pt deaccessed with NS and Heparin flushes.
== END ==
PROVIDERS: Referring Provider Internal Medicine Hematology & Oncology; Visit Provider Internal Medicine Hematology & Oncology
DX: C50.911 Malignant neoplasm of unspecified site of right female breast (principal); Z51.81 Encounter for therapeutic drug level monitoring; Z79.899 Other long term (current) drug therapy; Z77.9 Other contact with and (suspected) exposures hazardous to health; C78.7 Secondary malignant neoplasm of liver and intrahepatic bile duct
CPT/HCPCS: 71260; 74160; 93308; 93356; Q9967; A4216

== ENCOUNTER → 2020-02-29 13:49 | Outpatient (CLI) | payer OTHER, SELFPAY ==
[2020-02-17 08:59] VITALS: BMI 25.4
--- NOTE | 2020-02-29 13:50 | ECHOLONC_ITS ---
Reason For Study: Breast Cancer, [facility] drug therapy Procedure This was a limited 2D transthoracic echocardiogram. Myocardial strain analysis was performed in this exam to aid in the assessment of cardiac function. Exam performed in department. Left Ventricle Normal LV size. Left ventricular systolic function is normal. The estimated ejection fraction is 60 %. The global longitudinal strain = -18 % (normal). Unable to assess diastolic dysfunction. No regional wall motion abnormalities noted. Right Ventricle Normal RV size. Normal systolic function. Atria Normal left atrium. Normal right atrium. No doppler evidence for ASD. Mitral Valve There is no mitral annular calcification. Normal mitral valve. Trivial mitral valve insufficiency. Tricuspid Valve Normal tricuspid valve. Trivial tricuspid valve insufficiency. Right ventricular systolic pressure estimated to be 24 mmHg. Aortic Valve Trisinus/trileaflet aortic valve. Mild focal aortic valve calcification. Pulmonic Valve The pulmonic valve is not well visualized. Great Vessels The aortic root is not well visualized. Pericardium/Pleural No pericardial effusion. MMode/2D Measurements & Calculations LVIDd: 4.4 cm IVSd: 0.77 cm LA dimension: 3.2 cm LVIDs: 3.0 cm LVPWd: 0.83 cm FS: 31.7 % LVAd ap4: 24.6 cm2 SV(MOD-sp4): 38.7 ml SV(sp4-el): 40.2 ml EDV(MOD-sp4): 69.8 ml EDV(sp4-el): 70.2 ml LVAs ap4: 15.0 cm2 ESV(MOD-sp4): 31.1 ml ESV(sp4-el): 30.0 ml EF(MOD-sp4): 55.4 % EF(sp4-el): 57.3 % Doppler Measurements & Calculations Lat Peak E' Wali: 16.3 cm/sec Med Peak E' Wali: 9.6 cm/sec TR max wali: 227.7 cm/sec TR max P.7 mmHg Interpretation Summary Left ventricular systolic function is normal. The estimated ejection fraction is 60 %. The global longitudinal strain = -18 % (normal). Trivial mitral valve insufficiency. Trivial tricuspid valve insufficiency. Mild focal aortic valve calcification. Right ventricular systolic pressure estimated to be 24 mmHg. Unable to assess diastolic dysfunction. Ordering Physician: Andrés Corrales Referring Physician: Andrés Corrales Performed By: Jh Barrow RCS
== END ==
PROVIDERS: Referring Provider Internal Medicine Hematology & Oncology; Visit Provider Internal Medicine Hematology & Oncology
DX: Z51.81 Encounter for therapeutic drug level monitoring (principal); Z79.899 Other long term (current) drug therapy; C50.911 Malignant neoplasm of unspecified site of right female breast; C77.9 Secondary and unspecified malignant neoplasm of lymph node, unspecified; C78.7 Secondary malignant neoplasm of liver and intrahepatic bile duct
CPT/HCPCS: 93308; 93356

== ENCOUNTER → 2020-05-26 07:44 | Outpatient (CLI) | payer OTHER, SELFPAY ==
[2020-05-11 09:45] VITALS: BMI 25.4
--- NOTE | 2020-05-26 07:46 | CT_ITS ---
STUDY: CT CHEST T ABDOMEN WITH CONTRAST REASON FOR EXAM: Female, 59 years old. Chest and abdominal pain, history of breast cancer RADIATION DOSAGE (If Supplied By Facility): CTDIvol = ( 9.01 ) mGy, DLP = ( 568.40 ) mGycm TECHNIQUE: Transaxial imaging was performed following intravenous administration of IV 100ML ISOVUE 300. Multiplanar coronal and sagittal images were reformatted. Individualized dose optimization techniques were used for this CT. COMPARISON: 12/03/2019 FINDINGS: CHEST Soft tissue windows again show a nodule in the left thyroid lobe. There are scattered subcentimeter axillary and mediastinal lymph nodes. No suspicious perihilar lymph nodes. No pleural or pericardial effusions. The lung windows show the lungs to be normally expanded. No suspicious noncalcified mass or nodule. No organized infiltrate or groundglass opacifications. Normal heart and pericardium. Normal unenhanced pulmonary arteries. Normal aorta arch and descending thoracic aorta. There are multi-level degenerative changes of the thoracic spine. ABDOMEN Stable likely 2.5 cm hemangioma in the right lobe of the liver. There is also a peripherally enhancing 3 cm lesion in the left lobe of liver also likely hemangioma. Normal gallbladder and extrahepatic biliary system. Normal spleen. Normal pancreas. Normal bilateral adrenal glands. Normal right kidney. Normal left kidney. Normal visualized stomach. Normal small intestine. Normal colon. There is non-visualization of the appendix. Normal abdominal aorta. Normal inferior vena cava. Scattered subcentimeter mesenteric and retroperitoneal lymph nodes. No suspicious bulky lymphadenopathy per Normal abdominal wall. There are diffuse degenerative changes of the visualized lumbar spine. CT/CT Chest AND Abd W/ Contrast IMPRESSION: Stable hypodense peripherally enhancing lesions in both lobes of the liver, likely hemangiomas no change since the previous study. No free intraperitoneal fluid, air, or suspicious adenopathy No CT evidence of an acute inflammatory process Electronically Signed: Bill Hand MD at 10:55 EST , Service support ,
[2020-05-26] MEDS: 0.9% Saline Lock 10 ML Syringe IV (08:05)
--- NOTE | 2020-05-26 08:13 | ECHODONC_ITS ---
Reason For Study: Cardiotoxic Drug Therapy Procedure This was a 2D Doppler, Color Flow transthoracic echocardiogram. Myocardial strain analysis was performed in this exam to aid in the assessment of cardiac function. Contrast injection was performed. Exam performed in department. Left Ventricle Normal LV size. Left ventricular systolic function is normal. The estimated ejection fraction is 60 %. No regional wall motion abnormalities noted. Right Ventricle Normal RV size. Normal systolic function. Atria Normal left atrium. Normal right atrium. Patent foramen ovale. Mitral Valve Normal mitral valve. Tricuspid Valve Normal tricuspid valve. Mild tricuspid valve insufficiency. Pulmonary artery systolic pressure is 22 mmHg. Aortic Valve Normal aortic valve. Trisinus/trileaflet aortic valve. Pulmonic Valve Normal pulmonic valve. Great Vessels Normal aortic root. The pulmonary artery is normal size. Normal inferior vena cava. Pericardium/Pleural No pericardial effusion. Medication Port Access in CT. Performed a rapid injection of agitated mix of 9 cc saline and 1cc air to assess for atrial septal defect. MMode/2D Measurements & Calculations LVIDd: 4.4 cm IVSd: 0.71 cm Ao root diam: 3.1 cm LVIDs: 3.5 cm LVPWd: 0.80 cm LA dimension: 3.4 cm FS: 21.0 % LAV(MOD-bp): 38.1 ml LA A4 area: 13.5 cm2 RA A4 area: 10.6 cm2 LAV(MOD-bp) Indexed: 22.7 ml/m2 LAV(MOD-sp2): 42.2 ml LAV(MOD-sp4): 31.4 ml Time Measurements MV dec time: 0.33 sec Doppler Measurements & Calculations MV E max wali: 53.2 cm/sec Lat Peak E' Wali: 14.1 cm/sec Med Peak E' Wali: 10.3 cm/sec MV A max wali: 69.5 cm/sec E/E' lat: 3.8 E/E' med: 5.2 MV E/A: 0.77 MV V2 max: 72.0 cm/sec MV P1/2t max wali: 55.6 cm/sec Ao V2 max: 107.4 cm/sec MV max P.1 mmHg MV P1/2t: 109.7 msec Ao max P.6 mmHg MV V2 mean: 39.5 cm/sec MV dec slope: 148.6 cm/sec2 MV mean P.72 mmHg MV V2 VTI: 21.8 cm MVA(P1/2t): 2.0 cm2 LV V1 max: 76.6 cm/sec PA V2 max: 78.5 cm/sec TR max wali: 216.1 cm/sec LV V1 max P.3 mmHg TR max P.7 mmHg Interpretation Summary Normal LV size. Left ventricular systolic function is normal. The estimated ejection fraction is 60 %. Patent foramen ovale. The global longitudinal strain is normal. The global longitudinal strain = -17.6 % (normal). Compared to prior study, there is no significant change. Ordering Physician: Leisa Baker Referring Physician: Leisa Baker Performed By: Jh Barrow RCS
== END ==
PROVIDERS: Referring Provider Nurse Practitioner Family; Visit Provider Nurse Practitioner Family
DX: C50.919 Malignant neoplasm of unspecified site of unspecified female breast (principal); Z79.899 Other long term (current) drug therapy; Z51.81 Encounter for therapeutic drug level monitoring
CPT/HCPCS: 71260; 74160; 93306; 93356; Q9967; A4216

== ENCOUNTER → 2020-08-22 13:33 | Outpatient (CLI) | payer OTHER, SELFPAY ==
[2020-08-03 09:41] VITALS: BMI 25.6
--- NOTE | 2020-08-22 13:34 | ECHOLCONC_ITS ---
Reason For Study: HIGH RISK MEDS Procedure This was a limited 2D transthoracic echocardiogram. Myocardial strain analysis was performed in this exam to aid in the assessment of cardiac function. Exam performed in department. Left Ventricle Normal LV size. Left ventricular systolic function is normal. The estimated ejection fraction is 58 %. No regional wall motion abnormalities noted. Right Ventricle Normal RV size. Normal systolic function. Atria Normal left atrium. Normal right atrium. Tricuspid Valve Normal tricuspid valve. Pulmonic Valve The pulmonic valve is not well visualized. Great Vessels Normal aortic root. Pericardium/Pleural No pericardial effusion. MMode/2D Measurements & Calculations LVIDd: 4.6 cm IVSd: 0.77 cm LVAd ap4: 26.0 cm2 LVIDs: 3.2 cm LVPWd: 0.76 cm LVLd ap4: 7.6 cm FS: 30.2 % EDV(MOD-sp4): 74.3 ml EDV(sp4-el): 75.0 ml LVAs ap4: 15.2 cm2 LVLs ap4: 6.3 cm ESV(MOD-sp4): 31.0 ml ESV(sp4-el): 31.2 ml EF(MOD-sp4): 58.2 % EF(sp4-el): 58.5 % SV(MOD-sp4): 43.3 ml SV(sp4-el): 43.9 ml Doppler Measurements & Calculations TR max josias: 228.1 cm/sec TR max P.8 mmHg ECHO/ONC Echo Limited w/Contrast Interpretation Summary Normal LV size. Left ventricular systolic function is normal. The estimated ejection fraction is 58 %. The global longitudinal strain is mildly abnormal. The global longitudinal stra in = -15.5% (abnormal). The prior global longitudinal strain was -17.6 % . The global longi tudinal strain has worsened. Compared to previous study, the left ventricular systolic function is the same.. Ordering Physician: Andrés Corrales Referring Physician: Andrés Corrales Performed By: Ivonne Andrew RDCS
== END ==
PROVIDERS: Referring Provider Internal Medicine Hematology & Oncology; Visit Provider Internal Medicine Hematology & Oncology
DX: Z51.81 Encounter for therapeutic drug level monitoring (principal); Z79.899 Other long term (current) drug therapy
CPT/HCPCS: 93308; 93356; C8924

== ENCOUNTER 2020-09-28 05:57 | Day surgery (SDC) | payer OTHER, SELFPAY ==
[2020-09-25 08:32] VITALS: BMI 25.4
[2020-09-28 06:14] VITALS: BP 115/70; PULSE 78; RESP 16; TEMP 36.2; O2SAT 97; BMI 25.6
[2020-09-28] MEDS: Lactated Ringers 1,000 ML 100 ML IV (06:31)
--- NOTE | 2020-09-28 07:09 | HP.PCM_ITS ---
History and Physical Date of Admission: 09/28/20 Date of Service: 09/25/20 MR#:[id number] Acct:[id number] Name: MARTIN SHULTZ :1960 Age/Sex: 60/F Rep #:[id number] Provider:Dr. 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: No Accompanied by: Self Is patient in pain?: No Allergies No Known Allergies Allergy (Verified 09/25/20 08:32) Medications diphenhydramine-acetaminophen 25 mg-500 mg capsule 1 cap PO QHS cap 07/20/18 [History Confirmed 09/25/20] calcium carbonate-vitamin D3 1 ea PO DAILY 11/19/18 [History Confirmed 09/25/20] glucosamine anders 2KCl-chondroit 1 ea PO DAILY 06/07/19 [History Confirmed 09/14 05/07] lidocaine-prilocaine 1 applicatio TP DAILY PRN PRN 30 Days #1 tube 11/15/19 [Rx Confirmed 09/25/20] anastrozole 1 mg PO DAILY 90 Days #90 tab 03/30/20 [Rx Confirmed 09/25/20] aspirin 81 mg chewable tablet 81 mg PO DAILY 09/14/20 [History Confirmed 09/14/20] PFSH Medical History Abnormal mammogram Anemia Cancer of right female breast Cancer of right female breast Encounter for education Encounter for monitoring cardiotoxic drug therapy Liver metastases Osteopenia Rash Regional lymph node metastasis present Stage IV breast cancer in female Surgical History History of liver biopsy (~2019) Hx of breast biopsy PORT PLACEMENT Family History Father Diabetes Heart disease CVA (cerebral vascular accident) Social History Smoking Status: Never smoker alcohol intake: current alcohol intake frequency: holidays/special occasions only substance use type: does not use caffeine: Yes what type of physical activity do you participate in: none frequency: does not exercise seatbelt use: always do you feel safe at home: Yes HPI HPI HPI: MARTIN SHULTZ, is a 60 F who presents to the office today for nonfunctional port. Patient had left IJ Port-A-Cath placed states she has been having some issues with it functioning for about a year but the last 6 weeks has been having a very difficult time. Patient not good to function one time come back, now go to work patient has had Cathflo multiple times. Patient does have a treatments every 3 weeks for a stage IV breast cancer, her next treatment is October 05. ROS General General: Yes breast cancer; No weight change, appetite, fatigue, colon cancer or weakness HEENT HEENT: No difficulty swallowing, eye injury, eye surgery, swollen glands or hoarseness Endo Endocrine: No thyroid disease, diabetes mellitus, thyroid cancer, Hair loss, heat intolerance or cold intolerance Skin Skin: No rash or changing moles Musc Musculoskeletal: No back problems, arthritis, rheumatoid arthritis, gout or joint pain Cardio Cardiovascular: No murmur, pacemaker, heart disease, atrial fibrillation, high blood pressure, heart attack, heart stent, palpitations, shortness of breat with exertion or chest pain Psych Psychiatric: No depression, anxiety or hearing voices Resp Respiratory: No shortness of breath, No sleep apnea, No cough, No COPD, No asthma, No emphysema and No wheezing Gastro Gastrointestinal: No abdominal pain, No nausea or vomiting, No diarrhea, No constipation, No blood in stool, No acid reflux, No hemorrhoids, No ulcers, No gallbladder problem and No black,tarry stools Favio Hematologic: No blood thinners, No blood disorders, No bleeding, No anemia and No blood clots Neuro Neurologic: No weakness Exam Const General: cooperative, healthy appearing, comfortable and no acute distress Neck Neck: normal visual inspection Chest Other: Left chest port in place incision well-healed, right chest upper normal palpation Resp Effort & Inspection: normal respiratory effort Cardio Rate: regular rate GI Inspection: non-distended Skin General: no rashes or lesions noted Neuro General: patient oriented x3 Psych Affect: normal affect COVID (Procedure Consent) Procedure Criteria Procedure Criteria: Yes Elective The surgeon/proceduralist and patient have discussed in detail the risk of exposure to and/or potential harm posed by the COVID-19 virus with having a surgery/procedure at this time versus the risk of delaying the surgery/procedure. It is not possible to know either the risk of delaying the surgery or procedure or chance of getting an infection with perfect accuracy, but a joint decision was made between the patient and the surgeon/proceduralist to proceed at this time with the scheduled surgery/procedure as indicated on the consent form. Assessment and Plan Assessment and Plan (1) Encounter for adjustment or management of vascular access device: Status: Acute (2) Stage IV breast cancer in female: Status: Chronic Plan - Dr. Corinne Potts MD: Discussed with patient would plan to remove the left Port-A-Cath after placing the right Port-A-Cath in the OR. I have discussed above with the patient- Port-a-Cath placement. Right IJ Patient has been counseled as to the risks/benefits of the procedure. I have explained the risks of the surgery, including but not limited to: infection, bleeding, injury to any blood vessels/nerves, injury to lungs (such as pneumothorax or hemothorax and need for chest tube), not having any access, nonfunctioning of port due to thrombosis, infection of port, etc. the patient understands and agrees to proceed. I have answered all the patient's questions to the patient?s satisfaction and the patient has no further questions. Corinne Potts M.D. Pager: [phone] [facility] [address] [place] [address], [address] [place] [address] Office: [phone] Plan Details Follow Up: We will schedule port removal/port placement Coding Level of Care Code Off vis,est,level 3 Diagnoses Encounter for adjustment or management of vascular access device Z45.2 Stage IV breast cancer in female C50.919 09/25/20 0855<Electronically signed by Corinne Potts MD>Date Corinne Potts MD
[2020-09-28] MEDS: Cefazolin 2 GM in 0.9% Normal Saline 100 ML IV (07:30)
[2020-09-28] MEDS: Lidocaine 1% (20 ml mdv) 20 ML Vial (07:50)
[2020-09-28] MEDS: Bupivacaine Mpf 0.5% 30 ML VIAL (07:50)
--- NOTE | 2020-09-28 08:22 | RAD_ITS ---
STUDY: X-RAY CHEST REASON FOR EXAM: Female, 60 years old. Port -- pacu TECHNIQUE: Single AP portable view of the chest. COMPARISON: Comparison is made with prior examination dated 08/04/2018. FINDINGS: A right-sided mikey catheter has been placed. The tip is in the midportion of the superior vena cava. The lungs are clear and expanded. There is no demonstrated pleural abnormality. Normal size heart. Normal mediastinum and goldie. Normal visualized pulmonary arteries. Normal visualized aortic arch and descending thoracic aorta. There are degenerative changes of the visualized thoracic spine. Normal visualized ribs, clavicles, and shoulders. There is no demonstrated abnormality of the visualized soft tissue structures of the upper abdomen. RAD/CXR for Line Placement IMPRESSION: The tip of the right portacatheter is in the midportion of the superior vena cava. Electronically Signed: Tj Rodríguez MD at 8:57 EDT , Service support ,
--- NOTE | 2020-09-28 08:23 | PCM.OPRPT ---
Report of Operation Date of Procedure: 09/28/20 Pre-Operative Diagnosis: Z45.2, Metastatic breast cancer Post-Operative Diagnosis: Same Surgery/Procedure Performed:: 1. Removal of left IJ Port-A-Cath 2. Placement of right IJ Port-A-Cath Use of fluoroscopy Use of ultrasound Surgeon: Corinne Potts Type of Anesthesia: Local MAC Anesthesiologist: Ruy Holm Special Medications: Ancef 2 g IV x1 Specimen's removed: Left port?not sent Estimated Blood Loss (mL): < 10 cc Description of Procedure: After informed consent was given, the patient was brought to the operating room and placed in the supine position. Appropriate time out protocol was followed. Patient was then given IV conscious sedation for anesthesia. Left chest prepped draped in usual sterile fashion. Local anesthesia of 1:1 mixture of 1% lidocaine with epinephrine and 0.5% marcaine was used over the the previous port site incision. Incision was reincised with a 15 blade scalpel. Iris scissors were used to dissect the port from the encapsulated tissue. The left Port-A-Cath was removed. Pressure held for hemostasis. Incision closed with subdermal 3-0 Vicryl interrupted sutures and OpSite placed. The patient's right upper chest and neck were then prepped with a surgical skin preparation and sterile surgical drapes were placed. After proper landmarks were ascertained, the skin at the upper right chest area was then infiltrated with 1:1 mixture of 1% lidocaine with epinephrine and 0.5% marcaine. A needle trocar was then inserted into the right internal jugular vein with ultrasound guidance-multiple vessels were viewed with u/s and the right IJ was chosen-- and there was good aspiration of venous blood. A wire was then threaded into the needle trocar and this was visualized under fluoroscopy to ensure that the wire was in the superior vena cava. Once this was done, then the needle trocar was removed. A small skin carmelita was made with an 11 blade knife at the wire entrance site. The dilator with the introducer sheath attached was then placed over the wire into the right internal jugular vein via the Seldinger technique and this was visualized under fluoroscopy. The dilator and sheath were in proper position as visualized by fluoroscopy. A subcutaneous pocket was then created caudad to the catheter insertion site. A transverse skin incision was made after the skin and subcutaneous tissues were infiltrated with local anesthetic. Blunt dissection was then used to create a space large enough for placement of the subcutaneous port. The catheter was then tunneled into the subcutaneous pocket. The wire and dilator were then removed. The catheter was then threaded into the introducer sheath and was positioned with its tip at the junction of the superior vena cava and the right atrium as visualized under fluoroscopy. The excess catheter was transected. The catheter was then attached to the subcutaneous port using manufacturers guidelines. The catheter was flushed with a heparin saline mixture prior to placement. Hemostasis was carefully controlled with electrocautery. The port was sutured to the subcutaneous fascia using 2-0 Vicryl suture at two sites. The port was then placed in the subcutaneous pocket. The incision were reapproximated with interrupted subdermal 3-0 vicryl sutures. The skin was reapproximated with 3-0 nylon suture in a interrupted fashion. Steristrips were used for reinforcement of the skin closure at IJ insertion site and a sterile opsite dressings were applied. The patient tolerated the procedure well. Implants Used: [employer] PowerPort isp M.R.I. 6Fr Lot [id number] [id number] Grafts/Implants Used: [employer] PowerPort isp M.R.I. 6Fr Lot [id number] [id number]
--- NOTE | 2020-09-28 08:28 | EX.PCM.DISCH ---
Discharge Instructions Procedure Port-A-Cath Diet Discharge Diet: Light diet - advance as tolerated Activity May shower in (days): 5 (Keep port site clean and dry x5 days. Neck incision okay to get wet after 1 day. Okay to lower shower and upper sponge bath. OR okay to taper off port site with a Ziploc bag to shower) Lifting Restrictions: No lifting > 15 pounds for 3 days with the arm on the side of the port Dressing / Incision Call your doctor if your incision/area has: Continuous Slow Oozing, Sudden Increased Bleeding, Increased Pain/ Swelling, Increased Redness, Foul Smelling Discharge and Swelling at the incision site Call your doctor if you observe: Fever of 101 or Higher Change Dressing in: 2 days Follow Up Care Please Follow Up With: Corinne Potts MD When: In 10 days for permanent suture removal?call office for appointment Test Results: Test results from this visit will be discussed in further detail at your follow-up appointment, if applicable. Discharge Plan Admission Attending Provider: Corinne Potts Primary Care Provider: Care Physician,Smita Primary Discharge Orders/Prescriptions Prescriptions: New oxycodone-acetaminophen [Endocet] 5-325 mg tablet 1 tab PO Q6H PRN (Reason: pain) 3 Days Qty: 5 RF: 0 Continued diphenhydramine-acetaminophen 25 mg-500 mg capsule 25-500 mg capsule 1 cap PO QHS RF: 0 aspirin 81 mg tablet,chewable 81 mg PO DAILY RF: 0 calcium carbonate-vitamin D3 1 EACH tablet 1 ea PO DAILY RF: 0 glucosamine anders 2KCl-chondroit 1 EACH tablet 1 ea PO DAILY RF: 0 lidocaine-prilocaine 30 GM cream 1 applicatio TP DAILY PRN PRN (Reason: Not Specified) 30 Days Qty: 1 RF: 3 anastrozole 1 MG tablet 1 mg PO DAILY 90 Days Qty: 90 RF: 3 Referrals / Follow Up: Care Physician,No Primary [Primary Care Provider] - Disposition Disposition (needs filled in before D/C Order can be placed): Home, Self Care
[2020-09-28 08:29] VITALS: BP 109/69; BP 115/70; PULSE 74; RESP 16; TEMP 36.1; O2SAT 100
[2020-09-28 08:35] VITALS: BP 102/52; BP 115/70; PULSE 66; RESP 16; O2SAT 100
[2020-09-28 08:40] VITALS: BP 103/68; BP 115/70; PULSE 73; RESP 16; O2SAT 100
[2020-09-28 08:45] VITALS: BP 115/70; BP 120/67; PULSE 65; RESP 16; TEMP 36.2; O2SAT 100
[2020-09-28 09:34] VITALS: BP 106/60; BP 115/70; PULSE 70; RESP 16; TEMP 36.2; O2SAT 98
== END 2020-09-28 09:41 | disposition home or self-care (01) ==
LOC: SDC 05:57 → AC 05:58
PROVIDERS: Referring Provider Surgery; Visit Provider Surgery
PROC: (CPT 36561; principal; 2020-09-28 07:15)
DX: Z45.2 Encounter for adjustment and management of vascular access device (principal); C50.919 Malignant neoplasm of unspecified site of unspecified female breast; C78.7 Secondary malignant neoplasm of liver and intrahepatic bile duct; C77.9 Secondary and unspecified malignant neoplasm of lymph node, unspecified; Z79.82 Long term (current) use of aspirin
CPT/HCPCS: 36561; 36590; 71045; 77001; 87426; C9803; J7120; J2405

== ENCOUNTER → 2020-11-13 12:50 | Outpatient (CLI) | payer OTHER, SELFPAY ==
[2020-10-26 09:16] VITALS: BMI 25.4
--- NOTE | 2020-11-13 12:52 | ECHOLCONC_ITS ---
Reason For Study: BREAST CANCER, HIGH RISK MEDS Procedure This was a limited 2D transthoracic echocardiogram. Myocardial strain analysis was performed in this exam to aid in the assessment of cardiac function. Exam performed in department. Left Ventricle Normal LV size. The estimated ejection fraction is 45 %. Stage 1 diastolic dysfunction. Right Ventricle Normal RV size. Normal systolic function. Atria Normal left atrium. Normal right atrium. Mitral Valve Normal mitral valve. Tricuspid Valve Normal tricuspid valve. Aortic Valve Normal aortic valve. Pulmonic Valve Normal pulmonic valve. Great Vessels Normal aortic root. The pulmonary artery is normal size. Normal inferior vena cava. Pericardium/Pleural No pericardial effusion. MMode/2D Measurements & Calculations LVIDd: 4.7 cm IVSd: 0.84 cm Ao root diam: 3.0 cm LVIDs: 3.3 cm LVPWd: 0.90 cm RVDd: 3.1 cm FS: 30.6 % LAV(MOD-bp): 45.0 ml LA A4 area: 14.9 cm2 LA dimension(2D): 3.1 cm LAV(MOD-bp) Indexed: 26.8 ml/m2 LAV(MOD-sp2): 42.5 ml LAV(MOD-sp4): 42.8 ml RA A4 area: 11.7 cm2 Doppler Measurements & Calculations TR max josias: 218.7 cm/sec TR max P.1 mmHg ECHO/ONC Echo, Limited Study Interpretation Summary Normal LV size. The estimated ejection fraction is 45 %. Stage 1 diastolic dysfunction. The global longitudinal strain is moderately abnormal. The global longitudinal strain = -15% (abnormal). The global longitudinal strain has worsened. Compared to previous s tudy, the left ventricular systolic function has worsened.. Ordering Physician: Andrés Corrales Referring Physician: ANCA PCP Performed By: Shilpa Cat, TONEY, RVT
--- NOTE | 2020-11-13 14:25 | CT_ITS ---
STUDY: CT CHEST T ABDOMEN WITH CONTRAST REASON FOR EXAM: Female, 60 years old. BREAST CANCER ON RX - RESPONSE TO TREATMENT RADIATION DOSAGE (If Supplied By Facility): CTDIvol = ( 9.51 ) mGy, DLP = ( 567.74 ) mGycm TECHNIQUE: Transaxial imaging was performed following intravenous administration of IV 100mL Isovue-300. Individualized dose optimization techniques were used for this CT. COMPARISON: 11/24/2018 FINDINGS: CHEST Right internal jugular chest port. The lungs are normal. There is no demonstrated pleural abnormality. Normal heart and pericardium. Normal mediastinum. Normal hilar regions. Normal unenhanced pulmonary arteries. Normal aorta arch and descending thoracic aorta. Normal osseous structures. There is no demonstrated abnormality of the visualized upper abdomen. ABDOMEN The visualized lung bases are unremarkable. The visualized portions of the heart are within normal limits. 2 cm hemangioma within the anterior segment of the right lobe of the liver. Normal gallbladder and extrahepatic biliary system. Normal spleen. Normal pancreas. Normal bilateral adrenal glands. Normal right kidney. Normal left kidney. There is a small hiatal hernia. Normal small intestine. Normal colon. The appendix is visualized and appears normal. Normal abdominal aorta. Normal inferior vena cava. Normal retroperitoneum. Normal abdominal wall. Normal osseous structures. CT/CT Chest AND Abd W/ Contrast IMPRESSION: Normal enhanced CT chest T abdomen examination. No CT evidence of metastatic disease. Electronically Signed: Fish Robles MD at 17:17 EDT Tel , Service support ,
[2020-11-13] MEDS: 0.9% Saline Lock 10 ML Syringe IV (14:30)
== END ==
PROVIDERS: Referring Provider Internal Medicine Hematology & Oncology; Visit Provider Internal Medicine Hematology & Oncology
DX: C50.411 Malignant neoplasm of upper-outer quadrant of right female breast (principal); Z17.0 Estrogen receptor positive status [ER+]; C78.7 Secondary malignant neoplasm of liver and intrahepatic bile duct; C77.9 Secondary and unspecified malignant neoplasm of lymph node, unspecified; Z51.81 Encounter for therapeutic drug level monitoring; Z79.899 Other long term (current) drug therapy
CPT/HCPCS: 71260; 74160; 93308; 93356; Q9967; A4216

== ENCOUNTER → 2020-12-06 12:51 | Outpatient (CLI) | payer OTHER, SELFPAY ==
--- NOTE | 2020-12-06 12:53 | ECHOLONC_ITS ---
Reason For Study: GUITAR MAKER HAND DRUG THERAPY/ CARDIOTOXIC Procedure This was a limited 2D transthoracic echocardiogram. Myocardial strain analysis was performed in this exam to aid in the assessment of cardiac function. Exam performed in department. Left Ventricle Normal LV size. Left ventricular systolic function is normal. The estimated ejection fraction is 55 %. No regional wall motion abnormalities noted. Right Ventricle Normal RV size. Normal systolic function. Atria Normal left atrium. Normal right atrium. Mitral Valve Normal mitral valve. Tricuspid Valve Normal tricuspid valve. Aortic Valve Normal aortic valve. Trisinus/trileaflet aortic valve. Pulmonic Valve Normal pulmonic valve. Great Vessels Normal aortic root. The pulmonary artery is normal size. Normal inferior vena cava. Pericardium/Pleural No pericardial effusion. MMode/2D Measurements & Calculations LVIDd: 4.5 cm IVSd: 0.73 cm LVIDs: 3.3 cm LVPWd: 0.69 cm FS: 28.2 % ECHO/ONC Echo, Limited Study Interpretation Summary Normal LV size. Left ventricular systolic function is normal. The estimated ejection fraction is 55 %. The global longitudinal strain = -18 % (normal). The global longitudinal strain is normal. The global longitudinal strain = -18 % (normal). Structurally normal valves. Ordering Physician: Andrés Corrales Referring Physician: Andrés Corrales Performed By: Lindsey George, RDCS, RVT
== END ==
PROVIDERS: Referring Provider Internal Medicine Hematology & Oncology; Visit Provider Internal Medicine Hematology & Oncology
DX: C50.911 Malignant neoplasm of unspecified site of right female breast (principal); C78.7 Secondary malignant neoplasm of liver and intrahepatic bile duct; C77.9 Secondary and unspecified malignant neoplasm of lymph node, unspecified; Z79.899 Other long term (current) drug therapy
CPT/HCPCS: 93308; 93356

== ENCOUNTER → 2021-01-22 09:46 | Outpatient (CLI) | payer OTHER, SELFPAY ==
--- NOTE | 2021-01-22 09:47 | ECHOLCONC_ITS ---
Version 2 Reason For Study: RETIREMENT CARDIOTOXIC MEDS Procedure This was a limited 2D transthoracic echocardiogram. Myocardial strain analysis was performed in this exam to aid in the assessment of cardiac function. The study was technically difficult. Exam performed in department. Left Ventricle Normal LV size. The estimated ejection fraction is 55 %. Right Ventricle Normal right ventricle. Normal systolic function. Atria Normal left atrium. Normal right atrium. Medication 22 gauge I.V. with prn adaptor inserted into right arm. Diluted definity 1ml given slow IV push to enhance endocardial definition. MMode/2D Measurements & Calculations LVIDd: 4.2 cm IVSd: 0.71 cm EDV(MOD-sp4): 105.8 ml LVIDs: 3.0 cm LVPWd: 0.75 cm ESV(MOD-sp4): 47.1 ml FS: 29.6 % EF(MOD-sp4): 55.4 % EDV(MOD-sp2): 106.2 ml SV(MOD-sp4): 58.6 ml SV(MOD-sp2): 54.1 ml ESV(MOD-sp2): 52.1 ml EF(MOD-sp2): 50.9 % ECHO/ONC Echo Limited w/Contrast Interpretation Summary The global longitudinal strain= -16.2%. The estimated ejection fraction is 55 %. Ordering Physician: Andrés Corrales Referring Physician: Andrés Corrales Performed By: Lindsey George, RDCS, RVT
== END ==
PROVIDERS: Referring Provider Internal Medicine Hematology & Oncology; Visit Provider Internal Medicine Hematology & Oncology
DX: C50.411 Malignant neoplasm of upper-outer quadrant of right female breast (principal); Z17.0 Estrogen receptor positive status [ER+]; C78.7 Secondary malignant neoplasm of liver and intrahepatic bile duct; C77.9 Secondary and unspecified malignant neoplasm of lymph node, unspecified; Z51.81 Encounter for therapeutic drug level monitoring; Z79.899 Other long term (current) drug therapy
CPT/HCPCS: 93308; 93356; Q9957; A4216; C8924; J3490

== ENCOUNTER → 2021-03-13 07:42 | Outpatient (CLI) | payer OTHER, SELFPAY ==
--- NOTE | 2021-03-13 07:49 | CT_ITS ---
STUDY: CT CHEST T ABDOMEN WITH CONTRAST REASON FOR EXAM: Female, 60 years old. BREAST CANCER - RESPONSE TO TREATMENT RADIATION DOSAGE (If Supplied By Facility): CTDIvol = ( 10.12 ) mGy, DLP = ( 581.99 ) mGycm TECHNIQUE: Transaxial imaging was performed following intravenous administration of IV 100mL Isovue-370. Individualized dose optimization techniques were used for this CT. COMPARISON: 11/13/2020 FINDINGS: CHEST Right internal jugular chest port. The lungs are normal. There is no demonstrated pleural abnormality. Normal heart and pericardium. Normal mediastinum. Normal hilar regions. Normal unenhanced pulmonary arteries. Normal aorta arch and descending thoracic aorta. Normal osseous structures. There is no demonstrated abnormality of the visualized upper abdomen. ABDOMEN The visualized lung bases are unremarkable. The visualized portions of the heart are within normal limits. There is no change in the 3 cm cyst within the lateral segment of the left lobe the liver. Also no change in a 2 cm peripherally globular enhancing mass in the anterior segment right lobe of the liver consistent with hemangioma. Normal gallbladder and extrahepatic biliary system. Normal spleen. Normal pancreas. Normal bilateral adrenal glands. Normal right kidney. Normal left kidney. Normal visualized stomach. Normal small intestine. Normal colon. The appendix is visualized and appears normal. Normal abdominal aorta. Normal inferior vena cava. Normal retroperitoneum. Normal abdominal wall. Normal osseous structures. CT/CT Chest AND Abd W/ Contrast IMPRESSION: Normal enhanced CT chest T abdomen examination. No CT evidence of metastatic disease. Electronically Signed: Fish Robles MD at 9:11 EST Tel , Service support ,
--- NOTE | 2021-03-13 08:07 | ECHOCSONC_ITS ---
Reason For Study: NV DISORDER Procedure This was a 2D Doppler, Color Flow transthoracic echocardiogram. The study was technically difficult. Contrast injection was performed. Exam performed in department. Left Ventricle Normal LV size. Left ventricular systolic function is normal. The estimated ejection fraction is 55 %. No regional wall motion abnormalities noted. Right Ventricle Normal RV size. Normal systolic function. Atria Normal left atrium. Normal right atrium. Mitral Valve Normal mitral valve. Tricuspid Valve Normal tricuspid valve. Mild (1+) tricuspid valve insufficiency. Pulmonary artery systolic pressure is 22 mmHg. Aortic Valve Normal aortic valve. Trisinus/trileaflet aortic valve. Pulmonic Valve Normal pulmonic valve. Great Vessels Normal aortic root. The pulmonary artery is normal size. Normal inferior vena cava. Pericardium/Pleural No pericardial effusion. Medication Given via port access. Diluted definity 4.0ml given slow IV push to enhance endocardial definition. MMode/2D Measurements & Calculations LVIDd: 4.7 cm IVSd: 0.58 cm Ao root diam: 3.1 cm LVIDs: 3.3 cm LVPWd: 0.59 cm RVDd: 3.3 cm FS: 28.6 % LAV(MOD-bp): 44.6 ml LVAd ap4: 32.1 cm2 SV(MOD-sp4): 60.8 ml LAV(MOD-bp) Indexed: 26.4 ml/m2 LVLd ap4: 7.8 cm LAV(MOD-sp2): 46.6 ml EDV(MOD-sp4): 110.9 ml LAV(MOD-sp4): 36.0 ml EDV(sp4-el): 111.4 ml LVAs ap4: 19.3 cm2 LVLs ap4: 6.3 cm ESV(MOD-sp4): 50.1 ml ESV(sp4-el): 49.6 ml EF(MOD-sp4): 54.8 % EF(sp4-el): 55.5 % SV(sp4-el): 61.9 ml LA A4 area: 14.3 cm2 LA dimension(2D): 3.4 cm RA A4 area: 10.2 cm2 Doppler Measurements & Calculations MV E max wali: 36.9 cm/sec Lat Peak E' Wali: 11.7 cm/sec Med Peak E' Wali: 7.6 cm/sec MV A max wali: 47.5 cm/sec E/E' lat: 3.2 E/E' med: 4.8 MV E/A: 0.78 Ao V2 max: 119.4 cm/sec LV V1 max: 66.2 cm/sec PA V2 max: 100.0 cm/sec Ao max P.7 mmHg LV V1 max P.8 mmHg PI end-d wali: 106.1 cm/sec TR max wali: 211.7 cm/sec TR max P.9 mmHg ECHO/ONC Echo Complete W/ Contrast Interpretation Summary Normal LV size. Left ventricular systolic function is normal. The estimated ejection fraction is 55 %. The global longitudinal strain is borderline abnormal. The prior global longitu dinal strain was - 16.2 % . The global longitudinal strain = -16.3% (abnormal). Compared to previo us study, the left ventricular systolic function is the same.. Contrast injection was performed. Ordering Physician: [place] Doe Referring Physician: Andrés Corrales Performed By: Lindsey George, RDCS, RVT
== END ==
PROVIDERS: Referring Provider Internal Medicine Hematology & Oncology; Visit Provider Internal Medicine Hematology & Oncology
DX: I34.0 Nonrheumatic mitral (valve) insufficiency (principal); C50.411 Malignant neoplasm of upper-outer quadrant of right female breast; Z17.0 Estrogen receptor positive status [ER+]; C78.7 Secondary malignant neoplasm of liver and intrahepatic bile duct; C77.9 Secondary and unspecified malignant neoplasm of lymph node, unspecified
CPT/HCPCS: 71260; 74160; 93306; 93356; Q9957; Q9967; A4216; C8929

== ENCOUNTER 2021-05-03 08:31 | Outpatient (CLI) | payer OTHER, SELFPAY ==
--- NOTE | 2021-05-03 08:34 | BD_ITS ---
STUDY: DUAL ENERGY X-RAY ABSORPTIOMETRY / DXA REASON FOR EXAM: Female, 60 years old. SCREENING TECHNIQUE: Bone Mineral Density (BMD) measurements of lumbar spine and bilateral hips were obtained. COMPARISON: Comparison is made with prior study dated 05/04/2019. FINDINGS: Lumbar Spine (L1-L4): g/cm2 (0.987) / T-score (-0.4) / Z-score (0.9) Findings are suggestive of normal bone density with a low fracture risk. Left Femur Total: g/cm2 (0.844) / T-score (-0.8) / Z-score (0.1) Left Femoral Neck: g/cm2 (0.716) / T-score (-1.2) / Z-score (0.0) Right Femur Total: g/cm2 (0.860) / T-score (-0.7) / Z-score (0.2) Right Femoral Neck: g/cm2 (0.729) / T-score (-1.1) / Z-score (0.1) The T-Scores on the most recent prior examination were: Lumbar Spine (L1-L4): There has been worsening of bone density since the previous examination. Left Femur Total: which represents a worsening of 0.2%. Right Femur Total: which represents an improvement of 2.4%. BD/Dexa Bone Density Study IMPRESSION: The patient is considered osteopenic as outlined below according to World Joey Organization (WHO) criteria with a low fracture risk. There has been worsening of bone density since the previous examination. Reference Information: The T-score is the number of standard deviations above or below the standard which is normal for young adults at their peak bone mineral density. The World Health Organization (WHO) interprets the T-scores as follows: Above -1 Normal bone density Between -1 and -2.5 Osteopenia Equal to / or below -2.5 Osteoporosis As a practical clinical guideline, osteopenia may be graded as follows: Mild -1 through -1.5 Moderate -1.6 through -2.0 Severe -2.1 through -2.4 The Z-score is the number of standard deviations above or below age-matched controls. A Z-score of less than -1.5 would be considered abnormal. References: 1. NIH Osteoporosis and Related Bone Diseases www osteo.org 2. International Society for Clinical Densitometry www iscd.org 3. National Osteoporosis Foundation www nof.org Electronically Signed: Tj Rodríguez MD at 15:48 EST ,
== END 2021-05-03 23:59 | disposition home or self-care (01) ==
LOC: OPBD 08:31
PROVIDERS: Referring Provider Internal Medicine Hematology & Oncology; Visit Provider Internal Medicine Hematology & Oncology
DX: M85.89 Other specified disorders of bone density and structure, multiple sites (principal)
CPT/HCPCS: 77080

== ENCOUNTER → 2021-06-01 | Outpatient (CLI) | payer OTHER, SELFPAY ==
--- NOTE | 2021-06-01 13:02 | ECHOLCONC_ITS ---
Reason For Study: Other Procedure This was a limited 2D transthoracic echocardiogram. Myocardial strain analysis was performed in this exam to aid in the assessment of cardiac function. Contrast injection was performed. Exam performed in department. Left Ventricle Normal LV size. Left ventricular systolic function is normal. The estimated ejection fraction is 55 %. No regional wall motion abnormalities noted. Right Ventricle Normal RV size. Normal systolic function. Atria Normal left atrium. Normal right atrium. Mitral Valve Normal mitral valve. Mild (1+) mitral valve insufficiency. Tricuspid Valve Normal tricuspid valve. Mild tricuspid valve insufficiency. Aortic Valve Normal aortic valve. Trisinus/trileaflet aortic valve. Great Vessels Normal aortic root. Pericardium/Pleural No pericardial effusion. Medication Diluted definity 3ml given slow IV push to enhance endocardial definition. MMode/2D Measurements & Calculations LVIDd: 4.6 cm IVSd: 0.80 cm LVAd ap4: 26.1 cm2 LVIDs: 3.3 cm LVPWd: 0.73 cm LVLd ap4: 7.1 cm FS: 27.7 % EDV(MOD-sp4): 78.2 ml EDV(sp4-el): 81.5 ml LVAs ap4: 15.7 cm2 LVLs ap4: 5.8 cm ESV(MOD-sp4): 35.8 ml ESV(sp4-el): 36.0 ml EF(MOD-sp4): 54.2 % EF(sp4-el): 55.8 % SV(MOD-sp4): 42.4 ml SV(sp4-el): 45.5 ml Doppler Measurements & Calculations TR max josias: 208.4 cm/sec TR max P.4 mmHg ECHO/ONC Echo Limited w/Contrast Interpretation Summary Normal LV size. Left ventricular systolic function is normal. The estimated ejection fraction is 55 %. The global longitudinal strain score is unchanged. Contrast injection was perfo rmed. The global longitudinal strain is borderline abnormal. The global longitudinal strain = -1 6.2% (abnormal). Compared to previous study, the left ventricular systolic function is the same. . Ordering Physician: Andrés Corrales Referring Physician: Andrés Corrales Performed By: Lori Pereyra, TONEY, RVT
== END | disposition home or self-care (01) ==
LOC: CVS 12:59
PROVIDERS: Referring Provider Internal Medicine Hematology & Oncology; Visit Provider Internal Medicine Hematology & Oncology
DX: C50.411 Malignant neoplasm of upper-outer quadrant of right female breast (principal); C78.7 Secondary malignant neoplasm of liver and intrahepatic bile duct; C77.9 Secondary and unspecified malignant neoplasm of lymph node, unspecified; I34.0 Nonrheumatic mitral (valve) insufficiency; Z17.0 Estrogen receptor positive status [ER+]; Z51.81 Encounter for therapeutic drug level monitoring; Z79.899 Other long term (current) drug therapy
CPT/HCPCS: 93308; 93356; Q9957; A4216; C8924

== ENCOUNTER 2021-06-13 07:51 | Outpatient (CLI) | payer OTHER, SELFPAY ==
--- NOTE | 2021-06-13 07:55 | CT_ITS ---
STUDY: CT CHEST T ABDOMEN WITH CONTRAST REASON FOR EXAM: Female, 60 years old. BREAST CANCER, LIVER METS, ON RX RADIATION DOSAGE (If Supplied By Facility): CTDIvol = ( 8.58 ) mGy, DLP = ( 456.94 ) mGycm TECHNIQUE: Transaxial imaging was performed following intravenous administration of IV 100mL Isovue-300. Individualized dose optimization techniques were used for this CT. COMPARISON: Comparison is made with prior study dated 03/13/2021. FINDINGS: CHEST A right-sided portacatheter is seen with the tip in the superior vena cava. The lungs are normal. There is no demonstrated pleural abnormality. Normal heart and pericardium. Normal mediastinum. Normal hilar regions. Normal unenhanced pulmonary arteries. Normal aorta arch and descending thoracic aorta. Normal osseous structures. There is a 1.3 cm x 2.6 cm irregular enhancing nodular density in the posterior lateral aspect of the right lobe of the liver superiorly. Stable 3 cm cyst in the medial aspect of the left lobe of the liver. There is a 7.6 mm hypodense nodule in the inferior aspect of the right lobe of the liver. This is not a typical cyst. ABDOMEN The visualized lung bases are unremarkable. The visualized portions of the heart are within normal limits. Normal liver. Normal gallbladder and extrahepatic biliary system. Normal spleen. Normal pancreas. Normal bilateral adrenal glands. Normal right kidney. Normal left kidney. Normal visualized stomach. Normal small intestine. Normal colon. The appendix is visualized and appears normal. Normal abdominal aorta. Normal inferior vena cava. Normal retroperitoneum. Normal abdominal wall. Disc space narrowing and disc degeneration at the L5-S1 level CT/CT Chest AND Abd W/ Contrast IMPRESSION: Stable appearance of the irregular enhancing nodule in the lateral aspect of the right hepatic lobe superiorly. Stable cystic changes in the liver. Electronically Signed: Tj Rodríguez MD at 9:36 EDT ,
[2021-06-13] MEDS: 0.9% Saline Lock 10 ML Syringe IV (08:18)
== END 2021-06-13 23:59 | disposition home or self-care (01) ==
PROVIDERS: Visit Provider Internal Medicine Hematology & Oncology
DX: C34.90 Malignant neoplasm of unspecified part of unspecified bronchus or lung (principal); C78.7 Secondary malignant neoplasm of liver and intrahepatic bile duct
CPT/HCPCS: 71260; 74160; Q9967; A4216

== ENCOUNTER → 2021-09-12 | Outpatient (CLI) | payer OTHER, SELFPAY ==
--- NOTE | 2021-09-12 08:20 | ECHOCSONC_ITS ---
Reason For Study: OTHER Procedure This was a 2D Doppler, Color Flow transthoracic echocardiogram. Myocardial strain analysis was performed in this exam to aid in the assessment of cardiac function. The study was technically difficult. Contrast injection was performed. Exam performed in department. Left Ventricle Normal LV size. Left ventricular systolic function is normal. The estimated ejection fraction is 60 %. The global longitudinal strain = -18 % (normal). No evidence for diastolic dysfunction. No regional wall motion abnormalities noted. Right Ventricle Normal RV size. Normal systolic function. Atria Normal left atrium. Normal right atrium. No doppler evidence for ASD. Mitral Valve There is no mitral annular calcification. Normal mitral valve. Trivial mitral valve insufficiency. Tricuspid Valve Normal tricuspid valve. Mild tricuspid valve insufficiency. Right ventricular systolic pressure estimated to be 25 mmHg. Aortic Valve Trisinus/trileaflet aortic valve. Normal aortic valve. Pulmonic Valve The pulmonic valve is not well visualized. Trivial pulmonic valve insufficiency. Great Vessels Normal sized aortic root. Pericardium/Pleural No pericardial effusion. MMode/2D Measurements & Calculations LVIDd: 4.3 cm IVSd: 0.81 cm Ao root diam: 2.8 cm LVIDs: 3.2 cm LVPWd: 0.90 cm RVDd: 2.7 cm FS: 25.6 % LAV(MOD-sp4): 41.4 ml LVAd ap4: 31.3 cm2 SV(MOD-sp4): 57.2 ml LVLd ap4: 7.9 cm EDV(MOD-sp4): 100.8 ml EDV(sp4-el): 105.4 ml LVAs ap4: 17.9 cm2 LVLs ap4: 6.0 cm ESV(MOD-sp4): 43.6 ml ESV(sp4-el): 45.7 ml EF(MOD-sp4): 56.7 % EF(sp4-el): 56.6 % SV(sp4-el): 59.7 ml LA A4 area: 16.6 cm2 LA dimension(2D): 3.3 cm RA A4 area: 12.7 cm2 Doppler Measurements & Calculations MV E max wali: 57.2 cm/sec Lat Peak E' Wali: 12.8 cm/sec Med Peak E' Wali: 11.0 cm/sec MV A max wali: 75.5 cm/sec E/E' lat: 4.5 E/E' med: 5.2 MV E/A: 0.76 Ao V2 max: 107.7 cm/sec LV V1 max: 73.9 cm/sec PA V2 max: 96.3 cm/sec Ao max P.6 mmHg LV V1 max P.2 mmHg TR max wali: 233.5 cm/sec TR max P.8 mmHg ECHO/ONC Echo Complete W/ Contrast Interpretation Summary The study was technically difficult. Contrast injection was performed. Left ventricular systolic function is normal. The estimated ejection fraction is 60 %. The global longitudinal strain = -18 % (normal). Trivial mitral valve insufficiency. Mild tricuspid valve insufficiency. Trivial pulmonic valve insufficiency. Right ventricular systolic pressure estimated to be 25 mmHg. No evidence for diastolic dysfunction. Comment: 2D echocardiographic images demonstrate a linear echodensity in the ri ght atrium potentially compatible with a central venous catheter device. Ordering Physician: Leisa Baker Referring Physician: Leisa Baker Performed By: Jennifer Navarro RCS
--- NOTE | 2021-09-12 08:20 | CT_ITS ---
STUDY: CT CHEST T ABDOMEN WITH CONTRAST REASON FOR EXAM: Female, 61 years old. Assess response to treatment; mBC RADIATION DOSAGE (If Supplied By Facility): CTDIvol = ( 9.67 ) mGy, DLP = ( 567.85 ) mGycm TECHNIQUE: Transaxial imaging was performed following intravenous administration of IV 100mL Isovue-300. Individualized dose optimization techniques were used for this CT. COMPARISON: Comparison is made with prior study dated 06/13/2021. FINDINGS: CHEST A right-sided portacatheter is seen with the tip in the superior vena cava. The lungs are normal. There is no demonstrated pleural abnormality. Normal heart and pericardium. Normal mediastinum. Normal hilar regions. Normal unenhanced pulmonary arteries. Normal aorta arch and descending thoracic aorta. There are multi-level degenerative changes of the thoracic spine. There is a 2.2 cm x 1.6 cm x 1.8 cm ring-enhancing nodular density in the upper peripheral lateral aspect of the right lobe of the liver. Stable 3 3 cm cyst in the medial aspect of the left lobe of the liver. ABDOMEN Hypodense nodule in the superior lateral aspect of the right lobe of liver. This has decreased slightly in size as compared to prior examination. Stable 3 cm cyst in the medial aspect of the left lobe of the liver as well as a 8 mm cyst in the inferior anterior aspect of the left lobe. Normal gallbladder and extrahepatic biliary system. Normal spleen. Normal pancreas. Normal bilateral adrenal glands. Normal right kidney. Normal left kidney. Normal visualized stomach. Normal small intestine. Normal colon. The appendix is visualized and appears normal. Normal abdominal aorta. Normal inferior vena cava. Normal retroperitoneum. Normal abdominal wall. The space narrowing at the L5-S1 level. CT/CT Chest AND Abd W/ Contrast IMPRESSION: Stable examination. Electronically Signed: Tj Rodríguez MD at 13:53 EDT ,
== END | disposition home or self-care (01) ==
LOC: CVS 08:18
PROVIDERS: Referring Provider Nurse Practitioner Family; Visit Provider Nurse Practitioner Family
DX: C78.7 Secondary malignant neoplasm of liver and intrahepatic bile duct (principal); C50.919 Malignant neoplasm of unspecified site of unspecified female breast; Z51.81 Encounter for therapeutic drug level monitoring
CPT/HCPCS: 71260; 74160; 93306; 93356; Q9957; Q9967; A4216; C8929

== ENCOUNTER → 2021-12-20 | Outpatient (CLI) | payer OTHER, SELFPAY ==
--- NOTE | 2021-12-20 12:41 | ECHOLCONC_ITS ---
Reason For Study: Rt. Breast CA, Assess LV function Procedure This was a limited 2D transthoracic echocardiogram. Myocardial strain analysis was performed in this exam to aid in the assessment of cardiac function. Exam performed in department. Left Ventricle Normal LV size. Left ventricular systolic function is normal. The estimated ejection fraction is 55 %. No regional wall motion abnormalities noted. Right Ventricle Normal RV size. Normal systolic function. Atria Normal left atrium. Normal right atrium. Mitral Valve Normal mitral valve. Tricuspid Valve Normal tricuspid valve. Aortic Valve Trisinus/trileaflet aortic valve. Pulmonic Valve Normal pulmonic valve. Great Vessels Normal aortic root. The pulmonary artery is normal size. Normal inferior vena cava. Pericardium/Pleural No pericardial effusion. MMode/2D Measurements & Calculations LVIDd: 4.5 cm IVSd: 0.78 cm Ao root diam: 2.8 cm LVIDs: 3.0 cm LVPWd: 0.80 cm RVDd: 3.2 cm FS: 33.5 % LVAd ap4: 25.1 cm2 LVAd ap2: 24.5 cm2 SV(MOD-sp4): 38.2 ml LVLd ap4: 7.5 cm LVLd ap2: 7.5 cm EDV(MOD-sp4): 70.1 ml EDV(MOD-sp2): 69.0 ml EDV(sp4-el): 71.1 ml EDV(sp2-el): 67.7 ml LVAs ap4: 15.4 cm2 LVAs ap2: 15.0 cm2 LVLs ap4: 6.3 cm LVLs ap2: 6.5 cm ESV(MOD-sp4): 31.9 ml ESV(MOD-sp2): 31.0 ml ESV(sp4-el): 31.6 ml ESV(sp2-el): 29.4 ml EF(MOD-sp4): 54.4 % EF(MOD-sp2): 55.1 % EF(sp4-el): 55.6 % SV(MOD-sp2): 38.0 ml SV(sp4-el): 39.6 ml LA dimension(2D): 3.0 cm ECHO/ONC Echo Limited w/Contrast Interpretation Summary Normal LV size. Left ventricular systolic function is normal. The estimated ejection fraction is 55 %. The global longitudinal strain is normal. The global longitudinal strain = -17 % (normal). Structurally normal valves. Ordering Physician: Andrés Corrales Referring Physician: Andrés Corrales Performed By: Anita Shepherd RDCS
--- NOTE | 2021-12-20 12:41 | CT_ITS ---
STUDY: CT CHEST, ABDOMEN T PELVIS WITH CONTRAST REASON FOR EXAM: Female, 61 years old. BREAST CANCER - ON RX RADIATION DOSAGE (If Supplied By Facility): CTDIvol = ( 10.75 ) mGy, DLP = ( 893.21 ) mGycm TECHNIQUE: Transaxial imaging was performed following intravenous administration of IV 100mL Isovue-300. Multiplanar coronal and sagittal images were reformatted. Individualized dose optimization techniques were used for this CT. COMPARISON: Comparison is made with prior examination dated 09/12/2021. FINDINGS: CHEST A right-sided mikey catheter seen with the tip in the superior vena cava. Stable small cystic changes in both lobes of the thyroid. Postsurgical changes are seen in the right breast. The lungs are normal. There is no demonstrated pleural abnormality. Normal heart and pericardium. No coronary artery calcification is seen. Normal mediastinum. Normal hilar regions. Normal unenhanced pulmonary arteries. Normal aorta arch and descending thoracic aorta. There are multi-level degenerative changes of the thoracic spine. Stable 2.2 cm x 1.3 cm rim-enhancing nodular density in the upper peripheral aspect of the right lobe of the liver. Stable 3 cm cyst in the medial aspect of the left lobe of the liver. ABDOMEN The rim-enhancing nodular density in the dome of the right lobe of the liver fills in from the periphery. This may represent an hemangioma. Stable 3 cm cyst in the left lobe of liver as well as a stable 1 cm cyst on the anterior aspect of the left lobe of the liver. Normal gallbladder and extrahepatic biliary system. Normal spleen. Normal pancreas. Normal bilateral adrenal glands. Normal right kidney. Stable 1.3 cm left renal cyst. Normal visualized stomach. Normal small intestine. There are multiple colonic diverticula consistent with diverticulosis. The appendix is visualized and appears normal. Normal abdominal aorta. Normal inferior vena cava. Normal retroperitoneum. Normal abdominal wall. Disc space narrowing at the L5-S1 level. PELVIS Normal urinary bladder. Calcified phleboliths in the pelvis. There is no pelvic fluid. There is no pelvic lymphadenopathy or mass lesion. Normal visualized pelvic arteries. CT/CT Chest, Abd, Pel w/Contrast IMPRESSION: Stable examination. Electronically Signed: Tj Rodríguez MD at 15:51 EDT ,
[2021-12-20] MEDS: 0.9% Saline Lock 10 ML Syringe IV (13:48)
== END | disposition home or self-care (01) ==
LOC: CT 12:41
PROVIDERS: Referring Provider Internal Medicine Hematology & Oncology; Visit Provider Internal Medicine Hematology & Oncology
DX: C50.911 Malignant neoplasm of unspecified site of right female breast (principal); C78.7 Secondary malignant neoplasm of liver and intrahepatic bile duct; C77.9 Secondary and unspecified malignant neoplasm of lymph node, unspecified; Z79.899 Other long term (current) drug therapy; Z51.81 Encounter for therapeutic drug level monitoring
CPT/HCPCS: 71260; 74177; 93308; 93356; Q9967; A4216; C8924

== ENCOUNTER → 2022-03-14 | Outpatient (CLI) | payer OTHER, SELFPAY ==
--- NOTE | 2022-03-14 08:16 | CT_ITS ---
STUDY: CT CHEST T ABDOMEN WITH CONTRAST REASON FOR EXAM: Female, 61 years old. Breast cancer, follow-up, restaging RADIATION DOSAGE (If Supplied By Facility): CTDIvol = ( 8.78 ) mGy, DLP = ( 669.56 ) mGycm TECHNIQUE: Transaxial imaging was performed following intravenous administration of IV 100mL Isovue-370. Multiplanar coronal and sagittal images were reformatted. Individualized dose optimization techniques were used for this CT. COMPARISON: 12/20/2021 FINDINGS: CHEST The low-density nodule in the right lobe of the thyroid Lungs are normally expanded without evidence of a superimposed acute pulmonary process. No pleural or pericardial effusions, no suspicious noncalcified mass or nodule. Normal heart and pericardium. No calcified coronary vessels, pacer lead seen along the base of the heart Normal mediastinum. Normal hilar regions. Normal unenhanced pulmonary arteries. Normal aorta arch and descending thoracic aorta. There are multi-level degenerative changes of the thoracic spine. ABDOMEN Fatty liver, persistent enhancing lesion within the right lobe of the liver. Enhancement pattern is more suggestive of hemangioma rather than metastasis. Normal gallbladder and extrahepatic biliary system. Normal spleen. Normal pancreas. Normal bilateral adrenal glands. No obstructive uropathy or suspicious solid renal lesion, stable 2.2 cm left renal cyst. Normal visualized stomach. Normal small intestine. Scattered colonic diverticulosis, no CT evidence of acute diverticulitis There is non-visualization of the appendix. Normal abdominal aorta. Normal inferior vena cava. Normal retroperitoneum. Normal abdominal wall. There are diffuse degenerative changes of the visualized lumbar spine, and pelvis. CT/CT Chest AND Abd W/ Contrast IMPRESSION: Persistent peripherally enhancing lesion within the right lobe of the liver. Enhancement pattern more suggestive of hemangioma than metastasis. No change since the previous study No acute pulmonary process, no suspicious noncalcified mass or nodule. No suspicious adenopathy Stable left renal cyst, no specific follow-up needed. Diverticulosis Degenerative bony changes Electronically Signed: Bill Hand MD at 15:32 EST ,
[2022-03-14] MEDS: 0.9% Saline Lock 10 ML Syringe IV (09:42)
== END | disposition home or self-care (01) ==
LOC: CT 08:15
PROVIDERS: Visit Provider Internal Medicine Hematology & Oncology
DX: C78.7 Secondary malignant neoplasm of liver and intrahepatic bile duct (principal); C77.9 Secondary and unspecified malignant neoplasm of lymph node, unspecified; C50.919 Malignant neoplasm of unspecified site of unspecified female breast; N28.1 Cyst of kidney, acquired; K57.90 Diverticulosis of intestine, part unspecified, without perforation or abscess without bleeding; K76.9 Liver disease, unspecified; J98.4 Other disorders of lung
CPT/HCPCS: 71260; 74160; 93308; 93356; Q9967; A4216

== ENCOUNTER → 2022-03-14 | Outpatient (CLI) | payer OTHER, SELFPAY ==
--- NOTE | 2022-03-14 08:19 | ECHOLONC_ITS ---
Reason For Study: Breast Cancer Procedure This was a limited 2D transthoracic echocardiogram. Myocardial strain analysis was performed in this exam to aid in the assessment of cardiac function. The exam was of adequate technical quality. Exam performed in department. Left Ventricle Normal LV size. Left ventricular systolic function is normal. The estimated ejection fraction is 65 %. The global longitudinal strain = -19 % (normal). Unable to assess diastolic dysfunction. No regional wall motion abnormalities noted. Right Ventricle Normal RV size. Normal systolic function. Mitral Valve There is no mitral annular calcification. Normal mitral valve. Tricuspid Valve Normal tricuspid valve. Mild tricuspid valve insufficiency. Unable to estimate RV systolic pressure due to insufficient tricuspid regurgitant envelope. Aortic Valve Trisinus/trileaflet aortic valve. Normal aortic valve. Pulmonic Valve The pulmonic valve is not well visualized. Great Vessels Normal sized aortic root. Pericardium/Pleural No pericardial effusion. MMode/2D Measurements & Calculations LVIDd: 4.9 cm IVSd: 0.82 cm Ao root diam: 3.1 cm LVIDs: 3.3 cm LVPWd: 0.72 cm RVDd: 3.0 cm FS: 31.8 % LVAd ap4: 26.6 cm2 SV(MOD-sp4): 41.2 ml SV(sp4-el): 43.3 ml LVLd ap4: 7.8 cm EDV(MOD-sp4): 75.1 ml EDV(sp4-el): 77.0 ml LVAs ap4: 16.1 cm2 LVLs ap4: 6.5 cm ESV(MOD-sp4): 33.8 ml ESV(sp4-el): 33.7 ml EF(MOD-sp4): 54.9 % EF(sp4-el): 56.2 % ECHO/ONC Echo, Limited Study Interpretation Summary This was a limited 2D transthoracic echocardiogram. Left ventricular systolic function is normal. The estimated ejection fraction is 65 %. The global longitudinal strain = -19 % (normal). Mild tricuspid valve insufficiency. Unable to estimate RV systolic pressure due to insufficient tricuspid regurgita nt envelope. Unable to assess diastolic dysfunction. Comments: 2D echocardiographic images demonstrate a mobile echodensity in the r ight atrium appearing compatible with a central venous catheter type device. Ordering Physician: Andrés Corrales Performed By: Jh Barrow RCS
== END | disposition home or self-care (01) ==
LOC: CVS 08:17
PROVIDERS: Visit Provider Internal Medicine Hematology & Oncology
DX: C50.919 Malignant neoplasm of unspecified site of unspecified female breast (principal); C78.7 Secondary malignant neoplasm of liver and intrahepatic bile duct; C77.9 Secondary and unspecified malignant neoplasm of lymph node, unspecified; I07.1 Rheumatic tricuspid insufficiency
CPT/HCPCS: 93308; 93356

== ENCOUNTER → 2022-06-27 | Outpatient (CLI) | payer OTHER, SELFPAY ==
--- NOTE | 2022-06-27 07:58 | CT_ITS ---
STUDY: CT CHEST T ABDOMEN WITH CONTRAST REASON FOR EXAM: Female, 62 years old. Known breast carcinoma, restaging RADIATION DOSAGE (If Supplied By Facility): CTDIvol = ( 7.75 ) mGy, DLP = ( 418.63 ) mGycm TECHNIQUE: Transaxial imaging was performed following intravenous administration of IV 100mL Isovue-300. Individualized dose optimization techniques were used for this CT. COMPARISON: 03/14/2022 FINDINGS: CHEST Stable appearance of a right port. Stable 1 cm nodule in the left thyroid lobe. The lungs are normal. There is no demonstrated pleural abnormality. Normal heart and pericardium. Pacer leads seen along the base of the heart. No calcified coronary vessels noted. Normal mediastinum. Normal hilar regions. Normal unenhanced pulmonary arteries. Normal aorta arch and descending thoracic aorta. There are multi-level degenerative changes of the thoracic spine. ABDOMEN Stable fatty infiltration of the liver with stable enhancing lesion in the dome of the right lobe of the liver. The enhancement pattern again is more consistent with a hemangioma rather than a metastasis as it is less conspicuous on the slightly delayed cuts of the abdomen.. Normal gallbladder and extrahepatic biliary system. Normal spleen. Normal pancreas. Normal bilateral adrenal glands. No obstructive uropathy or suspicious solid renal lesion, stable 2.2 cm left renal cyst. Normal visualized stomach. Normal small intestine. Normal colon. There is non-visualization of the appendix. Normal abdominal aorta. Normal inferior vena cava. Normal retroperitoneum. Normal abdominal wall. There are diffuse degenerative changes of the visualized lumbar spine. CT/CT Chest AND Abd W/ Contrast IMPRESSION: No suspicious noncalcified mass or nodule in either lung field. No suspicious axillary, mediastinal, or perihilar adenopathy. Stable peripherally enhancing lesion within the right lobe of the liver. Enhancement pattern is again more suggestive of hemangioma rather than a metastasis. No new suspicious solid organ abnormality No free intraperitoneal fluid, air, or suspicious adenopathy Stable simple left renal cyst, no specific follow-up needed. Stable left thyroid nodule Degenerative bony changes Electronically Signed: Bill Hand MD at 9:04 EDT ,
--- NOTE | 2022-06-27 07:58 | ECHOLCONC_ITS ---
Reason For Study: Breast Cancer w/treatments Procedure This was a limited 2D transthoracic echocardiogram. Myocardial strain analysis was performed in this exam to aid in the assessment of cardiac function. The study was technically difficult. Contrast injection was performed. Parasternal images done with patient supine. Exam performed in department. Left Ventricle Normal size and thickness. The global longitudinal strain = -17.9 % (normal). The left ventricular ejection fraction is 55 %. Right Ventricle Normal right ventricle. Atria The left and right atria are normal. Mitral Valve Normal mitral valve. Tricuspid Valve Mild to moderate (1-2+) tricuspid valve insufficiency. Aortic Valve Trisinus/trileaflet aortic valve. Pulmonic Valve The pulmonic valve is not well visualized. Great Vessels Normal sized aortic root. Pericardium/Pleural No pericardial effusion. Medication Port access by radiology nurse, this was done in CT. Diluted definity 3ml given slow IV push to enhance endocardial definition. MMode/2D Measurements & Calculations LVIDd: 4.5 cm IVSd: 0.75 cm LAV(MOD-bp): 38.1 ml LVIDs: 3.4 cm LVPWd: 0.69 cm RVDd: 3.0 cm FS: 24.0 % LAV(MOD-bp) Indexed: 22.5 ml/m2 LAV(MOD-sp2): 44.2 ml LAV(MOD-sp4): 33.0 ml SV(MOD-sp4): 54.9 ml SV(sp4-el): 57.1 ml LVAd ap4: 29.8 cm2 LVLd ap4: 7.8 cm EDV(MOD-sp4): 94.8 ml EDV(sp4-el): 97.3 ml LVAs ap4: 16.8 cm2 LVLs ap4: 6.0 cm ESV(MOD-sp4): 39.9 ml ESV(sp4-el): 40.2 ml EF(MOD-sp4): 57.9 % EF(sp4-el): 58.7 % LA A4 area: 14.7 cm2 RA A4 area: 14.1 cm2 Doppler Measurements & Calculations TR max josias: 235.2 cm/sec TR max P.1 mmHg ECHO/ONC Echo Limited w/Contrast Interpretation Summary The global longitudinal strain = -17.9 % (normal). The left ventricular ejection fraction is 55 %. Mild to moderate (1-2+) tricuspid valve insufficiency. Ordering Physician: Andrés Corrales Referring Physician: Andrés Corrales Performed By: Jh Barrow RCS
== END | disposition home or self-care (01) ==
LOC: CT 07:57
PROVIDERS: Referring Provider Internal Medicine Hematology & Oncology; Visit Provider Internal Medicine Hematology & Oncology
DX: C50.919 Malignant neoplasm of unspecified site of unspecified female breast (principal); C78.7 Secondary malignant neoplasm of liver and intrahepatic bile duct; C77.9 Secondary and unspecified malignant neoplasm of lymph node, unspecified; Z51.81 Encounter for therapeutic drug level monitoring; Z79.899 Other long term (current) drug therapy
CPT/HCPCS: 71260; 74160; 93308; 93356; Q9957; Q9967; A4216; C8924

== ENCOUNTER → 2022-10-08 | Outpatient (CLI) | payer OTHER, SELFPAY ==
--- NOTE | 2022-10-08 13:50 | ECHOLCONC_ITS ---
Reason For Study: Breast Cancer Procedure This was a limited 2D transthoracic echocardiogram. Myocardial strain analysis was performed in this exam to aid in the assessment of cardiac function. The study was technically difficult. Contrast injection was performed. Parasternal images taken with patient supine. Exam performed in department. Left Ventricle Normal LV size. Left ventricular systolic function is normal. The estimated ejection fraction is 55 %. No regional wall motion abnormalities noted. Right Ventricle Normal RV size. Normal systolic function. Atria Normal left atrium. Normal right atrium. Catheter. Mitral Valve Normal mitral valve. Tricuspid Valve Normal tricuspid valve. Aortic Valve Trisinus/trileaflet aortic valve. Pulmonic Valve Normal pulmonic valve. Great Vessels Normal aortic root. The pulmonary artery is normal size. Normal inferior vena cava. Pericardium/Pleural No pericardial effusion. Medication Port access by Kaz Puckett RN. Diluted definity 2ml given slow IV push to enhance endocardial definition. MMode/2D Measurements & Calculations LVIDd: 4.8 cm IVSd: 0.57 cm LVIDs: 3.6 cm LVPWd: 0.56 cm LVAd ap4: 26.6 cm2 FS: 26.2 % LVLd ap4: 7.2 cm EDV(MOD-sp4): 78.7 ml EDV(sp4-el): 83.5 ml LVAs ap4: 16.4 cm2 LVLs ap4: 5.5 cm ESV(MOD-sp4): 39.8 ml ESV(sp4-el): 41.1 ml EF(MOD-sp4): 49.4 % EF(sp4-el): 50.8 % SV(MOD-sp4): 38.9 ml SV(sp4-el): 42.4 ml ECHO/ONC Echo Limited w/Contrast Interpretation Summary Normal LV size. Left ventricular systolic function is normal. The estimated ejection fraction is 55 %. Compared to the previous the above is essentially unchanged. Contrast injection was performed. The global longitudinal strain is normal. The global longitudinal strain = -17.1 % (normal). Ordering Physician: Andrés Corrales Referring Physician: Andrés Corrales Performed By: Jh Barrow RCS
--- NOTE | 2022-10-08 15:06 | CT_ITS ---
INDICATION: F/U BREAST CANCER IV CONTRAST ONLY -- HAS ECHO FIRST, WILL CALL WHEN READY COMPARISON: Chest abdomen pelvis CT 12/20/2021. A radiation dose optimization technique was used for this scan. FINDINGS: Contrast enhanced serial CT axial images through the chest, abdomen, and pelvis with coronal and sagittal reformatted series. IV Contrast dosage and agent: 100mL Isovue-300 IV. Radiation CTDIvol 8.57 Radiation DLP 419.92 MEDIASTINUM: No pulmonary artery filling defects. Right chest port catheter tip terminates deep within the right atrium. Hypoattenuating thyroid lesions, measuring up to 11 mm on the left. Mediastinum is otherwise unremarkable. AORTA/GREAT VESSELS: No acute thoracoabdominal aortic abnormality. Major abdominal ostia are patent. LUNG PARENCHYMA: No acute pulmonary parenchymal abnormality. Stable tiny pulmonary nodules along the right minor fissure. PLEURA: No pleural effusion. No pneumothorax. PANCREAS: No peripancreatic fat stranding. BOWEL/MESENTERY: No dilated bowel loops. No significant free fluid. No free air. Few colonic diverticula without evidence of diverticulitis. GALLBLADDER: No pericholecystic fat stranding. LIVER/STOMACH: Hypoattenuating hepatic lesions with peripheral enhancement, stable from only 9 months prior. URINARY COLLECTING SYSTEM/ KIDNEYS: No evidence of urinary collecting system obstruction. No significant renal parenchymal abnormality. BONES: Unremarkable for age. CT/CT Chest AND Abd W/ Contrast IMPRESSION: Hypoattenuating hepatic lesions with peripheral enhancement, stable from only 9 months prior. Although these likely represent hepatic hemangiomas, recommend Recommend comparison with previous imaging to document long-term stability versus follow-up evaluation as neoplastic process is not excluded. Tiny pulmonary nodules along the right minor fissure, also stable from only 9 months prior. Right chest port catheter tip terminates deep within the right atrium. Hypoattenuating thyroid lesions, measuring up to 11 mm on the left. Recommend nonemergent follow-up thyroid ultrasound to better characterize as neoplastic process is not excluded. Electronically Signed: Arron Alexander MD at 3:59 EDT ,
[2022-10-08] MEDS: 0.9% Saline Lock 10 ML Syringe IV ×2 (15:10→15:13)
[2022-10-09 09:24] LABS: CREATININE FINGERSTICK 0.9 mg/dL (0.55-1.02); EGFR FINGERSTICK > 60.0000 mL/min (>60)
== END | disposition home or self-care (01) ==
LOC: CVS 13:43
PROVIDERS: Referring Provider Internal Medicine Hematology & Oncology; Visit Provider Internal Medicine Hematology & Oncology
DX: C50.911 Malignant neoplasm of unspecified site of right female breast (principal); C78.7 Secondary malignant neoplasm of liver and intrahepatic bile duct; C77.9 Secondary and unspecified malignant neoplasm of lymph node, unspecified; Z51.81 Encounter for therapeutic drug level monitoring; Z79.899 Other long term (current) drug therapy
CPT/HCPCS: 71260; 74160; 93308; 93356; Q9957; Q9967; A4216; C8924

== ENCOUNTER → 2022-10-24 | Outpatient (CLI) | payer OTHER, SELFPAY ==
--- NOTE | 2022-10-24 15:32 | US_ITS ---
INDICATION: TI-Rads please/ nodules EXAMINATION: Ultrasound US Thyroid (eg thyroid, parathyroid, parotid) TECHNIQUE: Rodriguez scale and color doppler imaging was performed of the thyroid gland. TI-RADS criteria was utilized. COMPARISON: None. FINDINGS: RIGHT THYROID LOBE: 4.9 x 1.6 x 2.0 cm with a volume of 8.0 mL. Heterogeneous echotexture. Normal vascularity. 1.1 cm nodule which is solid, hypoechoic, wider than tall with smooth margins and no echogenic foci. 1.3 cm nodule which is solid, hypoechoic, wider than tall with smooth margins and no echogenic foci. 1.0 cm nodule which is solid, hypoechoic, wider than tall with smooth margins and no echogenic foci. LEFT THYROID LOBE: 4.5 x 1.8 x 2.0 cm with a volume of 8.5 mL. Heterogeneous echotexture. Normal vascularity. 2.1 cm nodule which is solid, hypoechoic, wider than tall with smooth margins and multiple echogenic foci. 8 mm nodule which is spongiform, hypoechoic, wider than tall with smooth margins and no echogenic foci. 4 mm cystic nodule. ISTHMUS: 3 mm in AP diameter. Homogeneous echotexture. Normal vascularity. No thyroid nodules. US/Thyroid IMPRESSION: 1. 2.1 cm left lobe TI-RADS 5 nodule. Recommend fine-needle aspiration. 2. 1.1 cm and 1.0 cm right lobe TI-RADS 4 nodules with recommendation for follow-up ultrasound in one year. 3. Other nodules as described above with no follow-up recommended. Electronically Signed: Fadi Pittman DO at 5:07 EDT ,
== END | disposition home or self-care (01) ==
LOC: US 15:24
PROVIDERS: Referring Provider Internal Medicine Endocrinology, Diabetes & Metabolism; Visit Provider Internal Medicine Endocrinology, Diabetes & Metabolism
DX: E04.2 Nontoxic multinodular goiter (principal)
CPT/HCPCS: 76536

== ENCOUNTER → 2022-11-12 | Outpatient (CLI) | payer OTHER, SELFPAY ==
--- NOTE | 2022-11-12 09:30 | FLU_PTH ---
PATIENT: MARTIN SHULTZ LOC: [facility] U#:[id number] AGE/SX: 62/F ROOM: RE11/12/[address]: Dr. Casey Rubio MD : 1960 BED: DIS: 11/12/2022 SPEC #: [id number] RECD: 11/12/22 10:44 STATUS: FAYE ALEX #: [id number] AMAN: 11/12/22 09:[address]: Casey Rubio DEPT: CYTOLOGY RECD BY: Enriqueta Myers ENTERED: 11/12/22 12:21 SP TYPE: Fluid OTHR DR: No Primary Care Phys Tissues: A - Thyroid gland, NOS B - Thyroid gland, NOS C - Thyroid gland, NOS D - Thyroid gland, NOS Procedures: Special Stain Group II Surgery Specimen Level IV Cytospin Fluid Cytology Other HEADER OPERATION: Ultrasound-guided fine needle aspiration bilateral thyroid nodules PRE-OP DIAGNOSIS: Multiple thyroid nodules E04.2 TISSUE SUBMITTED: A - Right mid pole thyroid fluid, B - Right mid pole thyroid x4 slides, C - Left thyroid fluid, D - Left thyroid x4 slides DIAGNOSIS CYTOLOGY A. Right mid pole thyroid nodule fluid, fine needle aspiration (cytospin and cell block). Consistent with benign follicular/colloid nodule (Volin Category II). Adequate for evaluation. See comment. B. Right mid pole thyroid, fine needle aspiration (smears): Nondiagnostic specimen (Volin Category I). Bloody smears. See comment. C. Left thyroid fluid, fine needle aspiration (cytospin and cell block): Consistent with benign follicular/colloid nodule (Volin Category II). Adequate for evaluation. See comment. D. Left thyroid, fine needle aspiration (smears): Nondiagnostic specimen (Volin Category I). Bloody smears. See comment. SJ:rg 11/13/2022 COMMENT Correlation with clinical, radiologic findings and appropriate follow up are necessary. The Volin System for thyroid diagnostic categorization was used in the evaluation of this case. CYTOLOGY STUDY Slides are reviewed. CYTOLOGY GROSS A - Received is 30 ml of red cloudy fluid labeled with the patient's name and and designated per the requisition as right mid pole thyroid. Submitted for cytology preparation including cell block. B - Received are four smears labeled with the patient's name and designated per the requisition as right mid pole thyroid. Submitted for staining. C - Received is 30 ml of red cloudy fluid labeled with the patient's name and and designated per the requisition as left thyroid. Submitted for cytology preparation including cell block. D - Received are four smears labeled with the patient's name and designated per the requisition as left thyroid. Submitted for staining. / dara 11/12/2022 TC:5 CPT: 25618 x2, 90964 x4
== END | disposition home or self-care (01) ==
LOC: LABSPEC 10:47
PROVIDERS: Referring Provider Surgery; Visit Provider Surgery
DX: E04.2 Nontoxic multinodular goiter (principal)
CPT/HCPCS: 88108; 88161; 88305; 88313

== ENCOUNTER 2022-11-13 14:39 | Outpatient (CLI) | payer OTHER, SELFPAY ==
[2022-11-13 15:47] LABS: Free T3 2.6 pg/mL (2.18-3.98); T4 Free Direct 0.83 ng/dL (0.76-1.46); Thyroid Stim Hormone (TSH) 0.67 uIU/mL (0.358-3.74)
[2022-11-15 08:11] LABS: Thyroid Peroxidase AB < 9 IU/mL (0-34)
== END 2022-11-13 14:40 | disposition home or self-care (01) ==
LOC: MEDOUTP 14:40
PROVIDERS: Internal Medicine Endocrinology, Diabetes & Metabolism; Referring Provider Surgery; Visit Provider Surgery
DX: E04.2 Nontoxic multinodular goiter (principal)
CPT/HCPCS: 36591; 84439; 84443; 84481; 86376; A4216

== ENCOUNTER → 2023-01-24 | Outpatient (CLI) | payer OTHER, SELFPAY ==
--- NOTE | 2023-01-24 12:48 | CT_ITS ---
STUDY: CT CHEST T ABDOMEN WITH CONTRAST REASON FOR EXAM: Female, 62 years old. BREAST CANCER IV CONTRAST ONLY RADIATION DOSAGE (If Supplied By Facility): CTDIvol = ( 10.37 ) mGy, DLP = ( 634.76 ) mGycm TECHNIQUE: Transaxial imaging was performed following intravenous administration of IV 100mL Isovue-370. Multiplanar coronal and sagittal images were reformatted. Individualized dose optimization techniques were used for this CT. COMPARISON: Comparison is made with prior CT scan dated October 08, 2022. FINDINGS: CHEST A right-sided mikey catheter is seen with the tip in the superior vena cava. Stable tiny hypodensity seen in the right lobe of the thyroid. The lungs are normal. There is no demonstrated pleural abnormality. Normal heart and pericardium. Normal mediastinum. Normal hilar regions. Normal unenhanced pulmonary arteries. Normal aorta arch and descending thoracic aorta. There are multi-level degenerative changes of the thoracic spine. ABDOMEN Stable 1.1 cm peripheral enhancing nodule in the superior aspect of the right lobe of the liver. There is a stable 2.7 cm Bard 2.4 cm hypodense nodule in the peripheral medial aspect of the left lobe of the liver with mild peripheral enhancement. This may represent a small hemangioma. Stable 1 cm hypodensity in the mid posterior lateral aspect of the right lobe of the liver suggestive of a small cyst. Normal gallbladder and extrahepatic biliary system. Normal spleen. Normal pancreas. Normal bilateral adrenal glands. Normal right kidney. Stable 2 cm left renal cyst. Normal visualized stomach. Normal small intestine. Normal colon. The appendix is visualized and appears normal. Normal abdominal aorta. Normal inferior vena cava. Normal retroperitoneum. Normal abdominal wall. There are diffuse degenerative changes of the visualized lumbar spine. CT/CT Chest AND Abd W/ Contrast IMPRESSION: Stable examination. Electronically Signed: Tj Rodríguez MD at 15:22 EST ,
[2023-01-24] MEDS: 0.9% Saline Lock 10 ML Syringe IV (13:02)
== END | disposition home or self-care (01) ==
LOC: CT 12:47
PROVIDERS: Referring Provider Internal Medicine Hematology & Oncology; Visit Provider Internal Medicine Hematology & Oncology
DX: C50.911 Malignant neoplasm of unspecified site of right female breast (principal); C78.7 Secondary malignant neoplasm of liver and intrahepatic bile duct; C77.9 Secondary and unspecified malignant neoplasm of lymph node, unspecified
CPT/HCPCS: 71260; 74160; Q9967; A4216

== ENCOUNTER → 2023-01-30 | Outpatient (CLI) | payer OTHER, SELFPAY ==
--- NOTE | 2023-01-30 09:45 | ECHOLCONC_ITS ---
Reason For Study: Breast Cancer Procedure This was a limited 2D transthoracic echocardiogram. Myocardial strain analysis was performed in this exam to aid in the assessment of cardiac function. Exam performed in department. Left Ventricle Normal LV size. Left ventricular systolic function is normal. The estimated ejection fraction is 55 %. Normal diastology for age. No regional wall motion abnormalities noted. Right Ventricle Normal RV size. Normal systolic function. Atria Normal left atrium. Normal right atrium. Mitral Valve Normal mitral valve. Tricuspid Valve Normal tricuspid valve. Mild (1+) tricuspid valve insufficiency. Pulmonary artery systolic pressure is 26 mmHg. Aortic Valve Normal aortic valve. Trisinus/trileaflet aortic valve. Pulmonic Valve Normal pulmonic valve. Great Vessels Normal aortic root. The pulmonary artery is normal size. Normal inferior vena cava. Pericardium/Pleural No pericardial effusion. MMode/2D Measurements & Calculations LVIDd: 4.7 cm IVSd: 0.84 cm Ao root diam: 3.0 cm LVIDs: 3.1 cm LVPWd: 0.81 cm LA dimension: 3.4 cm FS: 33.1 % LAV(MOD-bp): 38.4 ml LVAd ap4: 26.2 cm2 SV(MOD-sp4): 39.9 ml LAV(MOD-bp) Indexed: 22.8 ml/m2 LVLd ap4: 7.4 cm LAV(MOD-sp2): 41.7 ml EDV(MOD-sp4): 77.1 ml LAV(MOD-sp4): 30.0 ml EDV(sp4-el): 78.6 ml LVAs ap4: 16.5 cm2 LVLs ap4: 6.3 cm ESV(MOD-sp4): 37.2 ml ESV(sp4-el): 36.6 ml EF(MOD-sp4): 51.7 % EF(sp4-el): 53.4 % SV(sp4-el): 42.0 ml LA A4 area: 12.3 cm2 RA A4 area: 10.2 cm2 Time Measurements MV dec time: 0.14 sec Doppler Measurements & Calculations MV E max wali: 51.8 cm/sec Lat Peak E' Wali: 10.7 cm/sec Med Peak E' Wali: 10.8 cm/sec MV A max wali: 42.7 cm/sec E/E' lat: 4.8 E/E' med: 4.8 MV E/A: 1.2 PA V2 max: 96.9 cm/sec TR max wali: 235.9 cm/sec MV dec slope: 396.4 cm/sec2 TR max P.3 mmHg ECHO/ONC Echo, Limited Study Interpretation Summary Normal LV size. Left ventricular systolic function is normal. The estimated ejection fraction is 55 %. Pulmonary artery systolic pressure is 26 mmHg. The global longitudinal strain = -17 % (normal). Ordering Physician: Andrés Corrales Referring Physician: Andrés Corrales Performed By: Jh Barrow RCS
== END | disposition home or self-care (01) ==
LOC: CVS 09:44
PROVIDERS: Referring Provider Internal Medicine Hematology & Oncology; Visit Provider Internal Medicine Hematology & Oncology
DX: C50.919 Malignant neoplasm of unspecified site of unspecified female breast (principal); C78.7 Secondary malignant neoplasm of liver and intrahepatic bile duct; C77.9 Secondary and unspecified malignant neoplasm of lymph node, unspecified; Z51.81 Encounter for therapeutic drug level monitoring; Z79.891 Long term (current) use of opiate analgesic
CPT/HCPCS: 93308; 93356

== ENCOUNTER → 2023-05-09 | Outpatient (CLI) | payer OTHER, SELFPAY ==
--- NOTE | 2023-05-09 10:49 | ECHODONC_ITS ---
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 Myocardial strain analysis was performed in this exam to aid in the assessment of cardiac function. Exam performed in department. Left Ventricle Normal LV size. Left ventricular systolic function is lower limits of normal. There is borderline global hypokinesis of the left ventricle. Right Ventricle Normal RV size. Normal systolic function. Atria Normal left atrium. Normal right atrium. Mitral Valve Equivocal mitral valve prolapse. Tricuspid Valve Normal tricuspid valve. Aortic Valve Normal aortic valve. Trisinus/trileaflet aortic valve. Pulmonic Valve Normal pulmonic valve. Great Vessels Normal aortic root. The pulmonary artery is normal size. Normal inferior vena cava. Pericardium/Pleural No pericardial effusion. MMode/2D Measurements & Calculations LVIDd: 4.2 cm IVSd: 0.80 cm Ao root diam: 2.9 cm LVIDs: 2.8 cm LVPWd: 0.86 cm RVDd: 3.3 cm FS: 33.2 % LAV(MOD-bp): 36.9 ml LVAd ap4: 25.6 cm2 LVAd ap2: 26.4 cm2 LAV(MOD-bp) Indexed: 21.9 ml/m2 LVLd ap4: 7.5 cm LVLd ap2: 7.7 cm LAV(MOD-sp2): 45.8 ml EDV(MOD-sp4): 72.8 ml EDV(MOD-sp2): 79.4 ml LAV(MOD-sp4): 26.4 ml EDV(sp4-el): 74.2 ml EDV(sp2-el): 77.6 ml LVAs ap4: 16.2 cm2 LVAs ap2: 16.0 cm2 LVLs ap4: 6.6 cm LVLs ap2: 6.7 cm ESV(MOD-sp4): 34.0 ml ESV(MOD-sp2): 34.3 ml ESV(sp4-el): 33.8 ml ESV(sp2-el): 32.4 ml EF(MOD-sp4): 53.3 % EF(MOD-sp2): 56.8 % EF(sp4-el): 54.5 % SV(MOD-sp4): 38.8 ml SV(MOD-sp2): 45.1 ml SV(sp4-el): 40.4 ml LA dimension(2D): 2.9 cm LA A4 area: 12.2 cm2 RA A4 area: 10.2 cm2 TAPSE: 2.5 cm Time Measurements MV dec time: 0.19 sec Doppler Measurements & Calculations MV E max wali: 46.3 cm/sec Lat Peak E' Wali: 11.3 cm/sec Med Peak E' Wali: 5.5 cm/sec MV A max wali: 48.9 cm/sec E/E' lat: 4.1 E/E' med: 8.3 MV E/A: 0.95 MV dec slope: 246.7 cm/sec2 Ao V2 max: 107.0 cm/sec LV V1 max: 94.0 cm/sec Ao max P.6 mmHg LV V1 max P.5 mmHg Ao V2 mean: 77.3 cm/sec LV V1 mean P.0 mmHg Ao mean P.6 mmHg LV V1 mean: 65.9 cm/sec Ao V2 VTI: 22.9 cm LV V1 VTI: 19.6 cm AV (velocity ratio): 0.85 PA V2 max: 74.5 cm/sec TR max wali: 191.1 cm/sec TR max P.6 mmHg ECHO/ONC Echo Complete Interpretation Summary Normal LV size. Left ventricular systolic function is lower limits of normal. There is borderline global hypokinesis of the left ventricle. The global longitudinal strain is mildly abnormal. The global longitudinal stra in = -15.4% (abnormal). Ordering Physician: Leisa Baker Referring Physician: Leisa Baker Performed By: Anita Shepherd RDCS
== END | disposition home or self-care (01) ==
PROVIDERS: Referring Provider Nurse Practitioner Family; Visit Provider Nurse Practitioner Family
DX: Z51.81 Encounter for therapeutic drug level monitoring (principal); C50.919 Malignant neoplasm of unspecified site of unspecified female breast; Z79.899 Other long term (current) drug therapy
CPT/HCPCS: 93306; 93356

== ENCOUNTER → 2023-05-29 | Outpatient (CLI) | payer OTHER, SELFPAY ==
--- NOTE | 2023-05-29 13:48 | CT_ITS ---
STUDY: CT CHEST T ABDOMEN WITH CONTRAST REASON FOR EXAM: Female, 62 years old. F/U METS BREAST CANCER IV CONTRAST ONLY RADIATION DOSAGE (If Supplied By Facility): CTDIvol = ( 9.56 ) mGy, DLP = ( 521.34 ) mGycm TECHNIQUE: Transaxial imaging was performed following intravenous administration of IV 100mL Isovue-300. Multiplanar coronal and sagittal images were reformatted. Individualized dose optimization techniques were used for this CT. COMPARISON: Comparison is made with prior study dated January 24, 2023. FINDINGS: CHEST A right-sided portacatheter is seen with the tip in the superior vena cava. The lungs are normal. There is no demonstrated pleural abnormality. Normal heart and pericardium. Normal mediastinum. Normal hilar regions. Normal unenhanced pulmonary arteries. Normal aorta arch and descending thoracic aorta. There are multi-level degenerative changes of the thoracic spine. ABDOMEN Stable 1.1 cm hypodense nodule with peripheral enhancement in the superior aspect of the right lobe of the liver. Stable 2.6 cm x 2.7 cm well-defined hypodensity suggestive of a cyst in the medial inferior aspect of the left lobe of the liver. A 1 cm cyst is also seen along the anterior aspect of the left lobe of the liver. Normal gallbladder and extrahepatic biliary system. Normal spleen. Normal pancreas. Normal bilateral adrenal glands. Normal right kidney. Stable left renal cyst. There is a small hiatal hernia. Normal small intestine. Normal colon. There is non-visualization of the appendix. Normal abdominal aorta. Normal inferior vena cava. Normal retroperitoneum. Normal abdominal wall. There are mild degenerative changes of the visualized lumbar spine. CT/CT Chest AND Abd W/ Contrast IMPRESSION: Stable examination. Electronically Signed: Tj Rodríguez MD at 9:53 EDT ,
[2023-05-29] MEDS: 0.9% Saline Lock 10 ML Syringe IV (14:30)
== END | disposition home or self-care (01) ==
LOC: CT 13:47
PROVIDERS: Referring Provider Internal Medicine Hematology & Oncology; Visit Provider Internal Medicine Hematology & Oncology
DX: C50.919 Malignant neoplasm of unspecified site of unspecified female breast (principal); C78.7 Secondary malignant neoplasm of liver and intrahepatic bile duct
CPT/HCPCS: 71260; 74160; Q9967; A4216

== ENCOUNTER → 2023-07-23 | Outpatient (CLI) | payer OTHER, SELFPAY ==
--- NOTE | 2023-07-23 10:49 | ECHOLONC_ITS ---
Version 3 Reason For Study: [employer] Therapy Procedure This was a limited 2D transthoracic echocardiogram. Myocardial strain analysis was performed in this exam to aid in the assessment of cardiac function. Exam performed in department. Left Ventricle Normal LV size. The left ventricular ejection fraction is 55 %. No regional wall motion abnormalities noted. Right Ventricle Normal RV size. Normal systolic function. Atria Normal left atrium. Normal right atrium. Mitral Valve Normal mitral valve. Tricuspid Valve Normal tricuspid valve. Aortic Valve Trisinus/trileaflet aortic valve. Pulmonic Valve The pulmonic valve is not well visualized. Great Vessels Normal aortic root. The pulmonary artery is normal size. Normal inferior vena cava. Pericardium/Pleural No pericardial effusion. MMode/2D Measurements & Calculations LVIDd: 4.4 cm IVSd: 0.92 cm LVAd ap4: 22.3 cm2 LVIDs: 3.1 cm LVPWd: 0.87 cm LVLd ap4: 7.0 cm FS: 28.9 % EDV(MOD-sp4): 58.6 ml EDV(sp4-el): 60.4 ml LVAs ap4: 14.0 cm2 LVLs ap4: 6.2 cm ESV(MOD-sp4): 27.9 ml ESV(sp4-el): 26.9 ml EF(MOD-sp4): 52.4 % EF(sp4-el): 55.5 % SV(MOD-sp4): 30.7 ml SV(sp4-el): 33.5 ml Doppler Measurements & Calculations TR max josias: 235.7 cm/sec TR max P.2 mmHg ECHO/ONC Echo, Limited Study Interpretation Summary The left ventricular ejection fraction is 55 %. Normal LV size. No regional wall motion abnormalities noted. Normal mitral valve. The global longitudinal strain is mildly abnormal. The global longitudinal stra in = -16.1% (abnormal). Ordering Physician: Leisa Baker Referring Physician: Leisa Baker Performed By: Lori Pereyra, TONEY, RVT
== END | disposition home or self-care (01) ==
PROVIDERS: Referring Provider Nurse Practitioner Family; Visit Provider Nurse Practitioner Family
DX: Z51.81 Encounter for therapeutic drug level monitoring (principal); C50.911 Malignant neoplasm of unspecified site of right female breast; Z79.899 Other long term (current) drug therapy
CPT/HCPCS: 93308; 93356

== ENCOUNTER → 2023-10-02 | Outpatient (CLI) | payer OTHER, SELFPAY ==
--- NOTE | 2023-10-02 07:51 | CT_ITS ---
STUDY: CT CHEST T ABDOMEN WITH CONTRAST REASON FOR EXAM: Female, 63 years old. F/U METS BREAST CANCER IV CONTRAST ONLY RADIATION DOSAGE (If Supplied By Facility): CTDIvol = ( 9.86 ) mGy, DLP = ( 644.94 ) mGycm TECHNIQUE: Transaxial imaging was performed following intravenous administration of IV 100mL Isovue-300. Multiplanar coronal and sagittal images were reformatted. Individualized dose optimization techniques were used for this CT. COMPARISON: Comparison is made with prior study of May 29, 2023. FINDINGS: CHEST A right-sided portacatheter is seen with the tip in the superior vena cava. A tissue clip marker is seen in the lower lateral aspect of the right breast. The lungs are normal. There is no demonstrated pleural abnormality. Normal heart and pericardium. No coronary calcification is seen. Normal mediastinum. Normal hilar regions. Normal unenhanced pulmonary arteries. Normal aorta arch and descending thoracic aorta. There are multi-level degenerative changes of the thoracic spine. Increased kyphosis. ABDOMEN Stable heterogeneous enhancement in the superior lateral aspect of the right lobe of the liver. Stable 2.6 cm x 2.6 cm cyst in the medial aspect of the left lobe of the liver. Stable 1 cm hypodensity in the inferior aspect of the right lobe. Normal gallbladder and extrahepatic biliary system. Normal spleen. Normal pancreas. Normal bilateral adrenal glands. Normal right kidney. There is a 1.57 m cyst in the upper lateral aspect of the left kidney. This is unchanged. Normal visualized stomach. Normal small intestine. Normal colon. There is non-visualization of the appendix. Normal abdominal aorta. Normal inferior vena cava. Normal retroperitoneum. Normal abdominal wall. Disc space narrowing and degeneration at the L5-S1 level. CT/CT Chest AND Abd W/ Contrast IMPRESSION: Stable examination. Electronically Signed: Tj Rodríguez MD at 14:09 EDT ,
[2023-10-02] MEDS: 0.9% Saline Lock 10 ML Syringe IV (08:04)
== END | disposition home or self-care (01) ==
LOC: CT 07:51
PROVIDERS: Referring Provider Internal Medicine Hematology & Oncology; Visit Provider Internal Medicine Hematology & Oncology
DX: C50.411 Malignant neoplasm of upper-outer quadrant of right female breast (principal); C78.7 Secondary malignant neoplasm of liver and intrahepatic bile duct; C77.9 Secondary and unspecified malignant neoplasm of lymph node, unspecified; Z17.0 Estrogen receptor positive status [ER+]
CPT/HCPCS: 71260; 74160; Q9967; A4216

== ENCOUNTER → 2023-11-06 | Outpatient (CLI) | payer OTHER, SELFPAY ==
--- NOTE | 2023-11-06 10:47 | ECHODONC_ITS ---
Reason For Study: OTHER [facility] DRUG Procedure This was a 2D Doppler, Color Flow transthoracic echocardiogram. Myocardial strain analysis was performed in this exam to aid in the assessment of cardiac function. Exam performed in department. Left Ventricle Normal LV size. The estimated ejection fraction is 55 %. No evidence for diastolic dysfunction. No regional wall motion abnormalities noted. Right Ventricle Normal RV size. Normal systolic function. Atria The left and right atria are normal. No doppler evidence for ASD. Mitral Valve There is no mitral valve stenosis. No mitral valve insufficiency. Tricuspid Valve There is no tricuspid stenosis. Trivial tricuspid valve insufficiency. Unable to estimate RV systolic pressure due to insufficient tricuspid regurgitant envelope. Aortic Valve Trisinus/trileaflet aortic valve. There is no aortic stenosis. No aortic valve insufficiency. Pulmonic Valve There is no pulmonic valvular stenosis. No pulmonic valve insufficiency. Great Vessels Normal aortic root. Pericardium/Pleural No pericardial effusion. MMode/2D Measurements & Calculations LVIDd: 4.9 cm IVSd: 0.84 cm Ao root diam: 3.2 cm LVIDs: 3.1 cm LVPWd: 0.57 cm FS: 36.8 % LAV(MOD-sp4): 30.0 ml LVAd ap4: 23.6 cm2 SV(MOD-sp4): 35.0 ml LVLd ap4: 7.2 cm EDV(MOD-sp4): 64.6 ml EDV(sp4-el): 65.7 ml LVAs ap4: 14.1 cm2 LVLs ap4: 5.8 cm ESV(MOD-sp4): 29.6 ml ESV(sp4-el): 28.7 ml EF(MOD-sp4): 54.2 % EF(sp4-el): 56.2 % SV(sp4-el): 36.9 ml LA A4 area: 14.3 cm2 LA dimension(2D): 3.3 cm RA A4 area: 10.3 cm2 TAPSE: 2.3 cm Time Measurements MV dec time: 0.18 sec Doppler Measurements & Calculations MV E max wali: 44.5 cm/sec Lat Peak E' Wali: 9.5 cm/sec Med Peak E' Wali: 4.7 cm/sec MV A max wali: 53.4 cm/sec E/E' lat: 4.7 E/E' med: 9.4 MV E/A: 0.83 MV V2 max: 53.9 cm/sec Ao V2 max: 108.1 cm/sec MV max P.2 mmHg MV dec slope: 244.3 cm/sec2 Ao max P.7 mmHg MV V2 mean: 29.6 cm/sec Ao V2 mean: 77.2 cm/sec MV mean P.42 mmHg Ao mean P.7 mmHg MV V2 VTI: 18.9 cm Ao V2 VTI: 23.4 cm AV (velocity ratio): 0.64 LV V1 max: 76.3 cm/sec PA V2 max: 78.6 cm/sec LV V1 max P.3 mmHg PA V2 mean: 53.2 cm/sec LV V1 mean P.3 mmHg LV V1 mean: 52.5 cm/sec LV V1 VTI: 15.1 cm ECHO/ONC Echo Complete Interpretation Summary The estimated ejection fraction is 55 %. No evidence for diastolic dysfunction. Ordering Physician: Leisa Baker Referring Physician: Leisa Bkaer Performed By: Jennifer Navarro RCS
== END | disposition home or self-care (01) ==
LOC: CVS 10:46
PROVIDERS: Referring Provider Nurse Practitioner Family; Visit Provider Nurse Practitioner Family
DX: Z51.81 Encounter for therapeutic drug level monitoring (principal); C50.919 Malignant neoplasm of unspecified site of unspecified female breast; Z79.899 Other long term (current) drug therapy
CPT/HCPCS: 93306; 93356

== ENCOUNTER → 2024-02-09 | Outpatient (CLI) | payer OTHER, SELFPAY ==
--- NOTE | 2024-02-09 07:43 | CT_ITS ---
EXAM: CT CHEST AND ABDOMEN WITH INTRAVENOUS CONTRAST CLINICAL INDICATION: Follow-up metastatic breast cancer. TECHNIQUE: Helically acquired images were obtained of the chest and abdomen with intravenous contrast. This CT exam was performed using one or more of the following dose reduction techniques: automated exposure control, adjustment of the mA and/or kV according to patient size, and/or use of iterative reconstruction technique. CONTRAST: IV 100mL Isovue-370 RADIATION DOSE: CTDIvol = 6.75 mGy, DLP = 608.73 mGy-cm COMPARISON: CT chest and abdomen with contrast 10/02/2023. FINDINGS: CHEST: LUNGS AND PLEURAL SPACES: Unremarkable. No mass. No consolidation or edema. No pleural effusion or thickening. No pneumothorax. HEART: Unremarkable. Heart size is normal. No pericardial effusion. MEDIASTINUM: Unremarkable. No mediastinal or hilar adenopathy. Esophagus is unremarkable. No hiatal hernia. THYROID: Unremarkable. No thyroid lesions. ABDOMEN: LIVER: 1.7 x 1.5 x 1.7 cm intensely peripherally enhancing hypodense mass in the peripheral aspect of segment 8 of the liver parenchyma, previously 2.1 x 1.9 x 1.9 cm. 1.2 cm low-attenuation lesion in segment 2 of the liver parenchyma is unchanged. Very small nonenhancing low-attenuation lesion in segment 5 of the liver parenchyma was not mentioned previously but this is also unchanged. GALLBLADDER AND BILE DUCTS: Unremarkable. No calcified gallstones. No gallbladder distention or wall edema. No intra- or extrahepatic biliary ductal dilation. PANCREAS: Unremarkable. No focal cystic or solid mass. SPLEEN: Unremarkable. Normal size without focal cystic or solid mass. ADRENALS: Unremarkable. No nodules. KIDNEYS AND URETERS: Nonenhancing left renal cyst is unchanged. Normal renal size and position. No hydronephrosis. STOMACH AND BOWEL: Unremarkable. No stomach or bowel distention. No focal inflammatory change. INTRAPERITONEAL SPACE: Unremarkable. No ascites or other fluid collection. No free air. CHEST and ABDOMEN: BONES/JOINTS: Unremarkable. No suspicious lytic or blastic abnormality. SOFT TISSUES: Unremarkable. No discrete abdominal wall hernia. VASCULATURE: Unremarkable. Aorta is non-dilated. No aortic dissection. No obvious central pulmonary embolism although this study was not performed with the pulmonary embolism protocol. LYMPH NODES: Unremarkable. No enlarged lymph nodes. CT/CT Chest AND Abd W/ Contrast IMPRESSION: 1. Normal CT chest with contrast. 2. 1.7 x 1.5 x 1.7 cm intensely peripherally enhancing hypodense lesion in the peripheral aspect of segment 8 of the liver parenchyma has decreased in size. This was previously 2.1 x 1.9 x 1.9 cm. 3. 1.2 cm low-attenuation lesion without contrast enhancement in segment 2 of the liver parenchyma remains stable and unchanged. It is too small to confirm cystic or solid but is likely cyst. 4. Very small nonenhancing low-attenuation lesion in segment 5 the liver parenchyma was not mentioned previously but it is barely visible at this time (series 3, image 34; series 604, image 43). This was more obvious on CT abdomen of 01/24/2023 measuring 7 mm. In my opinion, this is even smaller since it is barely visible in today''s exam. 5. Nonenhancing left renal cyst is unchanged. 6. No other additional findings or changes. Electronically Signed: Ravinder Jolley MD at 8:29 EST ,
--- NOTE | 2024-02-09 07:43 | ECHOLONC_ITS ---
Reason For Study: ANTINEOPLASTIC CHEMO Procedure This was a limited 2D transthoracic echocardiogram. Myocardial strain analysis was performed in this exam to aid in the assessment of cardiac function. Exam performed in department. Left Ventricle Normal LV size. The global longitudinal strain = -17.1 % (normal). The estimated ejection fraction is 60 %. No regional wall motion abnormalities noted. Right Ventricle Normal RV size. Normal systolic function. Atria The left and right atria are normal. Port catheter tip noted in right atrium. Mitral Valve The mitral valve is structurally normal. No prolapse or stenosis seen. Tricuspid Valve Normal tricuspid valve. Aortic Valve Trisinus/trileaflet aortic valve. Pulmonic Valve The pulmonic valve is not well visualized. Great Vessels Normal aortic root. Pericardium/Pleural No pericardial effusion. MMode/2D Measurements & Calculations LVIDd: 4.3 cm IVSd: 0.92 cm Ao root diam: 2.8 cm LVIDs: 3.0 cm LVPWd: 1.1 cm FS: 30.2 % LAV(MOD-bp): 33.5 ml LVAd ap4: 23.5 cm2 LVAd ap2: 23.4 cm2 LAV(MOD-bp) Indexed: 19.6 ml/m2 LVLd ap4: 7.4 cm LVLd ap2: 7.6 cm LAV(MOD-sp2): 34.8 ml EDV(MOD-sp4): 64.5 ml EDV(MOD-sp2): 62.7 ml LAV(MOD-sp4): 27.5 ml EDV(sp4-el): 63.5 ml EDV(sp2-el): 61.5 ml LVAs ap4: 13.4 cm2 LVAs ap2: 12.9 cm2 LVLs ap4: 5.9 cm LVLs ap2: 5.9 cm ESV(MOD-sp4): 27.3 ml ESV(MOD-sp2): 24.4 ml ESV(sp4-el): 25.8 ml ESV(sp2-el): 23.9 ml EF(MOD-sp4): 57.7 % EF(MOD-sp2): 61.1 % EF(sp4-el): 59.3 % SV(MOD-sp4): 37.2 ml SV(MOD-sp2): 38.3 ml SV(sp4-el): 37.7 ml SI(MOD-sp4): 21.8 ml/m2 SI(MOD-sp2): 22.4 ml/m2 LA A4 area: 12.5 cm2 LA dimension(2D): 3.2 cm RA A4 area: 9.9 cm2 Doppler Measurements & Calculations PA V2 max: 78.6 cm/sec PA V2 mean: 52.9 cm/sec ECHO/ONC Echo, Limited Study Interpretation Summary The estimated ejection fraction is 60 %. The global longitudinal strain = -17.1 % (normal). Ordering Physician: Andrés Corrales Referring Physician: Andrés Corrales Performed By: Jennifer Navarro RCS
== END | disposition home or self-care (01) ==
LOC: CT 07:43
PROVIDERS: Referring Provider Internal Medicine Hematology & Oncology; Visit Provider Internal Medicine Hematology & Oncology
DX: Z51.81 Encounter for therapeutic drug level monitoring (principal); C78.7 Secondary malignant neoplasm of liver and intrahepatic bile duct; C77.9 Secondary and unspecified malignant neoplasm of lymph node, unspecified; C50.919 Malignant neoplasm of unspecified site of unspecified female breast; N28.1 Cyst of kidney, acquired; Z79.899 Other long term (current) drug therapy
CPT/HCPCS: 71260; 74160; 93308; 93356; Q9967; A4216

== ENCOUNTER → 2024-04-30 | Outpatient (CLI) | payer OTHER, SELFPAY ==
--- NOTE | 2024-04-30 08:50 | ECHODONC_ITS ---
Reason For Study Reason For Study: CHEMOTHERAPY Procedure This was a 2D Doppler, Color Flow transthoracic echocardiogram. Myocardial strain analysis was performed in this exam to aid in the assessment of cardiac function. Exam performed in department. Left Ventricle Normal LV size. The estimated ejection fraction is 53 %. No regional wall motion abnormalities noted. Right Ventricle Normal RV size. Normal systolic function. Atria Normal left atrium. Normal right atrium. Hypermobile atrial septum. Mitral Valve Normal mitral valve. Tricuspid Valve Normal tricuspid valve. Aortic Valve Trisinus/trileaflet aortic valve. Pulmonic Valve Normal pulmonic valve. Great Vessels Normal aortic root. The pulmonary artery is normal size. Inferior vena cava collapse with respiration. Pericardium/Pleural No pericardial effusion. MMode/2D Measurements & Calculations LVIDd: 4.4 cm IVSd: 0.80 cm LVOT diam: 2.1 cm LVIDs: 2.9 cm LVPWd: 0.82 cm LVOT area: 3.5 cm2 RVDd: 3.0 cm FS: 34.3 % asc Aorta Diam: 3.1 cm LAV(MOD-bp): 32.4 ml LVAd ap4: 20.0 cm2 LAV(MOD-bp) Indexed: 18.9 ml/m2 LVLd ap4: 7.1 cm LAV(MOD-sp2): 46.6 ml EDV(MOD-sp4): 47.1 ml LAV(MOD-sp4): 20.0 ml EDV(sp4-el): 47.8 ml LVAs ap4: 12.6 cm2 LVLs ap4: 6.0 cm ESV(MOD-sp4): 22.5 ml ESV(sp4-el): 22.5 ml EF(MOD-sp4): 52.2 % EF(sp4-el): 52.9 % LVAd ap2: 19.9 cm2 SV(MOD-sp4): 24.6 ml SV(MOD-sp2): 26.7 ml LVLd ap2: 7.0 cm SI(MOD-sp4): 14.4 ml/m2 SI(MOD-sp2): 15.6 ml/m2 EDV(MOD-sp2): 47.5 ml EDV(sp2-el): 47.9 ml LVAs ap2: 12.3 cm2 LVLs ap2: 6.2 cm ESV(MOD-sp2): 20.8 ml ESV(sp2-el): 20.4 ml EF(MOD-sp2): 56.2 % SV(sp4-el): 25.3 ml Ao sinus diam: 2.[address] Junction: 2.5 cm LA dimension(2D): 3.1 cm LA A4 area: 10.8 cm2 RA A4 area: 10.2 cm2 TAPSE: 1.7 cm Time Measurements MV dec time: 0.21 sec Doppler Measurements & Calculations MV E max wali: 44.2 cm/sec Lat Peak E' Wali: 11.1 cm/sec Med Peak E' Wali: 7.2 cm/sec MV A max wali: 61.7 cm/sec E/E' lat: 4.0 E/E' med: 6.2 MV E/A: 0.72 MV dec slope: 205.8 cm/sec2 Ao V2 max: 123.4 cm/sec LV V1 max: 91.2 cm/sec Ao max P.1 mmHg LV V1 max P.3 mmHg Ao V2 mean: 94.3 cm/sec LV V1 mean P.0 mmHg Ao mean P.8 mmHg LV V1 mean: 66.7 cm/sec Ao V2 VTI: 25.6 cm LV V1 VTI: 19.4 cm AV (velocity ratio): 0.76 REY(I,D): 2.7 cm2 REY(V,D): 2.6 cm2 SV(LVOT): 68.2 ml PA V2 max: 84.8 cm/sec TR max wali: 206.1 cm/sec TR max P.0 mmHg ECHO/ONC Echo Complete Interpretation Summary Normal LV size. Hypermobile atrial septum. The estimated ejection fraction is 53 %. The global longitudinal strain is mildly abnormal. The global longitudinal stra in has worsened. Ordering Physician: Leisa Baker Referring Physician: Leisa Baker Performed By: Anya Galvan RDCS
== END | disposition home or self-care (01) ==
PROVIDERS: Referring Provider Nurse Practitioner Family; Visit Provider Nurse Practitioner Family
DX: Z51.81 Encounter for therapeutic drug level monitoring (principal); C50.411 Malignant neoplasm of upper-outer quadrant of right female breast; Z79.899 Other long term (current) drug therapy; Z17.0 Estrogen receptor positive status [ER+]
CPT/HCPCS: 93306; 93356

== ENCOUNTER → 2024-06-08 | Outpatient (CLI) | payer OTHER, SELFPAY ==
[2024-06-08] MEDS: 0.9 % NaCl (Sterile) Posiflush 10 mL IV (14:32)
--- NOTE | 2024-06-08 14:48 | CT_ITS ---
PROCEDURE: CT CHEST AND ABD W/ CONTRAST 06/08/2024 REASON FOR EXAM: IV ONLY; M BREAST CANCER ASSESS RESPONSE TO TX TECHNIQUE: Chest and abdomen CT with intravenous contrast. Coronal and Sagittal reconstruction series were provided. One or more dose reduction techniques were used (e.g., Automated exposure control, adjustment of the mA and/or kV according to patient size, use of iterative reconstruction technique. COMPARISON: 02/09/2024 FINDINGS: CHEST: Lungs/pleura: There is a new tiny cluster of nodular opacities in the medial aspect of the right upper lobe apex, which appearance favors an infectious/inflammatory etiology. No pleural effusion or pneumothorax. Cardiovascular: The heart is normal in size.No coronary artery calcifications are identified. There is a right chest port with the catheter tip in the cavoatrial junction.The aorta and pulmonary arteries are unremarkable. Pericardium: No effusion. Mediastinum: Unremarkable. Lymph nodes: No lymph node enlargement by CT size criteria. Bones: No acute osseous abnormality. Soft tissues: Unremarkable. ABDOMEN: Liver: An intensely peripherally enhancing lesion with central hypodensity is again noted at the hepatic dome which appears unchanged grossly measuring approximately 1.8 x 1.7 cm and previously measured 1.7 x 1.5 cm, likely a hemangioma.. A hypodense lesion with peripheral nodular enhancement in the left hepatic lobe measures 3.8 x 2.8 cm, likely a hemangioma. A small nonenhancing lesion in hepatic segment 2 is unchanged measuring 1.2 cm. A tiny lesion in the anterior and inferior aspect of the right hepatic lobe measures 6 mm and is unchanged, also likely a small hemangioma. Biliary/gallbladder: Unremarkable. Pancreas: Unremarkable. Spleen: Unremarkable. Adrenal glands: Unremarkable. Kidneys: Stable cystic lesion in the lower pole of the left kidney measuring 2 cm. Gastrointestinal/Peritoneum: Area of nodular, pedunculated thickening at the gastric cardia measuring 3.1 x 2.9 x 3.1 cm.No free air or free fluid. Vascular: Unremarkable. Lymph nodes: No enlarged lymph nodes by CT size criteria. Bones: Mild degenerative disc and facet disease is present at L5-S1. Soft tissues: Unremarkable. CT/CT Chest AND Abd W/ Contrast IMPRESSION: 1. New tiny cluster of nodular opacities in the medial aspect of the right lung apex, favored to represent an infectious/inflammatory process. Appropriate follow-up based on oncologic prot ocol is recommended. 2. Nodular, pedunculated thickening at the gastric cardia measuring up to 3.1 c m. Endoscopic evaluation for possible neoplasm versus gastric fold is recommended. 3. Multiple stable appearing hepatic lesions, most likely representing hemangio mas. [facility]
[2024-06-08] MEDS: 0.9% Saline Lock 10 ML Syringe IV (14:53)
== END | disposition home or self-care (01) ==
LOC: CT 14:13
PROVIDERS: Referring Provider Nurse Practitioner Family; Visit Provider Nurse Practitioner Family
DX: C50.919 Malignant neoplasm of unspecified site of unspecified female breast (principal); C78.7 Secondary malignant neoplasm of liver and intrahepatic bile duct; C77.9 Secondary and unspecified malignant neoplasm of lymph node, unspecified
CPT/HCPCS: 71260; 74160; Q9967; A4216

== ENCOUNTER 2024-07-01 06:29 | Day surgery (SDC) | payer OTHER, SELFPAY ==
--- NOTE | 2024-06-28 13:08 | PAT.ANE_ITS ---
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 When Was Last Pacemaker Check QUESTION #4 FULL TEXT: You/Your Family Experience fever (hyperthermia) with Anesthesia Last Oral Intake Last Oral intake: Last Oral Intake NPO since Meds taken in AM with sips of water? Meds patient instructed to take am of surgery PONV PONV - trade analyst: PONV - trade analyst Female Yes 06/28/24 11:24 HX of Motion Sickness No 06/28/24 11:24 HX of N/V After Surgery No 06/28/24 11:24 Non-Smoker Yes 06/28/24 11:24 Duration of Surgery greater No 06/28/24 11:24 than 60 minutes Number of Risk Factors 2 06/28/24 11:24 PONV Score Moderate Risk 06/28/24 11:24 Height & Weight Height & Weight: Anesthesia: Height & Weight Height 5 ft 3 in 06/17/24 10:42 Respiratory Assessment Respiratory Assessment - trade analyst: Respiratory Tract Infection Hx - trade analyst Hx Respiratory Tract Infection No 06/28/24 11:24 STOP Sleep Apnea STOP Sleep Apnea - trade analyst: STOP Sleep Apnea - trade analyst Hx Hypertension No 06/28/24 11:24 Hx Sleep Apnea No 06/28/24 11:24 CPAP BIPAP Do you snore loudly (louder No 06/28/24 11:24 than talking or can be heard Do you often feel tired/ No 06/28/24 11:24 fatigued/ sleepy during daytime? Has anyone observed you stop No 06/28/24 11:24 breathing during sleep? STOP Results Negative 06/28/24 11:24 QUESTION #5 FULL TEXT : Do you snore loudly (louder than talking or can be heard through closed doors)? 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 Specify any problems Hx of Preganancy in last 3 No 06/28/24 11:24 Months Nurse Filling Out Transfusion MGRIFFITH 06/28/24 11:24 & Questions: Date: 06/28/24 06/28/24 11:24 Time: 11:25 06/28/24 11:24 Patient unable to answer at this time (ie. confused, unrespo /Reproduction History /Reproductive History - trade analyst: /Reproductive Hx- trade analyst Hx Now Gestational Age (in weeks): EDC: Hx Hx Para Hx Section SAB PFSH Medical History (Updated 06/28/24 @ 11:36 by Lindsay Azevedo) Leg cramps History of echocardiogram Cardiology follow-up encounter Encounter for monoclonal antibody treatment for malignancy Thyroid nodule Multinodular goiter Diverticular disease Non-ischemic cardiomyopathy Decreased cardiac ejection fraction Wears glasses Non-smoker Osteopenia Encounter for monitoring cardiotoxic drug therapy Rash Anemia Stage IV breast cancer in female Cancer of right female breast Liver metastases Encounter for education Regional lymph node metastasis present Abnormal mammogram Home Medications ?Medication ?Instructions ?Recorded ?Last Taken ?Type calcium 500 mg (as 1 ea PO DAILY 11/19/18 Unkno wn History carbonate)-vitamin D3 15 mcg (600 unit) tablet glucosamine sulf dipotassium Cl 1 ea PO DAILY 06/07/19 Unknown History 500 mg-chondroitin sulf 400 mg tablet cetirizine 10 mg capsule (Zyrtec) 10 mg PO DAILY PRN A llergic 12/27/21 Unknown History Reaction lidocaine-prilocaine 2.5 %-2.5 % 1 applic topical MICHELLE Y PRN PRN 07/25/22 Unknown Rx topical cream port access 30 days #1 tube anastrozole 1 mg tablet See Rx Instructions .Route 0 05/03/24 Unknown Rx .COMPLEX #90 tabs pantoprazole 40 mg tablet,delayed 40 mg PO DAILY #90 t abs 06/25/24 Unknown Rx release Allergy/AdvReac Type Severity Reaction Status Date / Time No Known Allergies Allergy Verified 06/28/24 11:18 Family History Father Diabetes Heart disease CAD (coronary artery disease), Onset Age: 64 CABG Myocardial infarction First one in mid 30's Grandfather Heart disease paternal Grandmother Heart disease paternal Surgical History (Updated 06/28/24 @ 11:23 by Lindsay Azevedo) History of foot surgery S/P thyroid biopsy History of liver biopsy (2019) PORT PLACEMENT Hx of breast biopsy Social History Smoking Status: Never smoker alcohol intake: current alcohol intake frequency: holidays/special occasions only substance use type: does not use caffeine: Yes what type of physical activity do you participate in: none frequency: does not exercise seatbelt use: always do you feel safe at home: Yes Audit: Pertinent Findings Pertinent Findings EKG Perinent findings: 12/08/2020. Sinus rhythm within normal limits. Echo (EF%) pertinent findings: 04/30/2024. Normal size ejection fraction 53%. Consult pertinent findings: Cardiology 08/29/2023. Nonischemic cardiomyopathy. Ejection fraction has normal lysed on current regimen. Repeat echocardiogram in the future Recommendation Anesthesia Recommendation Anesthesia recommendation: OPTIMIZED for anesthesia
[2024-07-01] VITALS (7 sets, daily range): BP systolic 86–109; BP diastolic 57–70; PULSE 16–84; RESP 16; TEMP 36.1–36.5; O2SAT 93–96; BMI 26.5
--- NOTE | 2024-07-01 07:30 | EGD_PTH ---
PATIENT: MARTIN SHULTZ LOC: EN U#:[id number] AGE/SX: 64/F ROOM: RE07/01/[address]: Dr. Sunny Carroll DO : 1960 BED: DIS: 07/01/2024 SPEC #: [id number] RECD: 07/01/24 09:52 STATUS: FAYE ALEX #: [id number] AMAN: 07/01/24 07:[address]: Sunny Carroll DEPT: SURGICAL PATHOLOGY RECD BY: Tra Villalobos ENTERED: 07/01/24 11:34 SP TYPE: EGD BIOPSY ISADORA DR: Smita Primary Care Phys Tissues: A - Gastric mucous membrane B - Gastric mucous membrane C - Gastric mucous membrane D - Duodenum, NOS Procedures: Immunohistochemical Stains Surgery Specimen Level IV IHC Stain ADDITIONAL HEADER OPERATION: EGD PRE-OP DIAGNOSIS: Adenocarcinoma, gastric cardia TISSUE SUBMITTED: A- Gastric cardia biopsy, B- Greater curvature biopsy, C- Gastric body biopsy, D- Duodenum biopsy MICROSCOPIC DIAGNOSIS A. Stomach, gastric cardia, biopsy: * Oxyntocardiac type mucosa with moderate chronic active inflammation * The Helicobacter pylori immunostain is POSITIVE B. Stomach, greater curvature, biopsy: * Oxyntic mucosa with moderate chronic active inflammation * The Helicobacter pylori immunostain is POSITIVE C. Stomach, gastric body, biopsy: * Oxyntic mucosa with moderate chronic active inflammation * The Helicobacter pylori immunostain is POSITIVE D. Small bowel, duodenum, biopsy: * Small bowel mucosa with no pathologic change COMMENT The AE1/AE3 immunostains performed (blocks A1, B1, C1) show a normal staining pattern supporting the diagnosis. MICROSCOPIC DESCRIPTION Slides are reviewed. These tests were developed and their performance characteristics determined by [facility]. They may not have been cleared or approved by the [place]. Food and Drug Administration. The FDA has determined that such clearance or approval is not necessary. The above immunohistochemical/dualISH markers are ordered and reviewed by the Pathologist. GROSS DESCRIPTION A. Received in formalin in a container labeled with the patient's name, date of , and gastric cardia biopsy are multiple dangelo-pink fragments of mucosal tissue measuring 0.8 x 0.8 x 0.4 cm in aggregate. Submitted in toto in A1. B. Received in formalin in a container labeled with the patient's name, date of , and greater curvature biopsy are 2 dangelo-pink strips of mucosal tissue, each measuring 0.8 x 0.3 x 0.2 cm. Submitted in toto in B1. C. Received in formalin in a container labeled with the patient's name, date of , and gastric body biopsy are 2 dangelo-pink fragments of mucosal tissue measuring 0.6 x 0.3 x 0.2 cm and 0.8 x 0.3 x 0.2 cm. Submitted in toto in C1. D. Received in formalin in a container labeled with the patient's name, date of , and duodenum biopsy are 2 dangelo-pink fragments of mucosal tissue measuring 0.6 x 0.4 x 0.2 cm and 0.4 x 0.3 x 0.2 cm. Submitted in toto in D1. [facility] 07/02/2024 CPT:[id number]
--- NOTE | 2024-07-01 07:31 | PRE.ANES_ITS ---
ASA Classification* ASA Classification ASA Classification: 2 Assessment & Plan Anesthesia* Anesthesia Assessment Anesthesia Assessment: Discussed sedation and/or anesthesia options, risks, benefits, and alternatives with patient/parents/legal guardian/POA. Questions invited. The patient/parents/legal guardian/POA seems to understand and agrees to proceed with anesthesia plan. Reviewed the physical assessment, medical history, allergy history and patient home medications list prior to surgery/procedure/anesthetic and documented any changes. Performed airway and anesthesia risk assessments. Anesthesia Type Anesthesia Type: MAC History Source History Obtained from:: Patient and Chart Anesthesia Focused Assessment* Temperature: 97.7 F Pulse Rate: 76 Blood Pressure: 109/70 Respiratory Rate: 16 Pulse Ox: 95 Oxygen Delivery Method: Room Air Airway Assessment Mouth opens: >3 cm Mallampati Score: II Teeth Condition: Caps/Crowns (Patient has several crowns. They are tight.) Neck Range of motion (ROM): Full ROM Focused Labs Anesthesia Preop lab: CBC WBC 7.9 K/mm3 (4.4-11.0) 05/27/24 09:56 05/27/24 RBC 4.37 M/mm3 (4.2-5.4) 05/27/24 09:56 05/27/24 Hgb 12.3 g/dL (12.0-15.0) 05/27/24 09:56 05/27/24 Hct 38.2 % (37-47) 05/27/24 09:56 05/27/24 Plt Count 363 K/mm3 (150-450) 05/27/24 09:56 05/27/24 CHEMISTRY Potassium 4.4 mmol/L (3.3-5.1) 05/27/24 09:56 05/27/24 Sodium 139 mmol/L (133-145) 05/27/24 09:56 05/27/24 Magnesium 2.3 mg/dL (1.6-2.6) 12/11/23 09:56 12/11/23 Phosphorus 3.4 mg/dL (2.5-4.9) 12/11/23 09:56 12/11/23 BUN 24 mg/dL (4-19) H 05/27/24 09:56 05/27/24 Creatinine 0.85 mg/dL (0.70-1.20) 05/27/24 09:56 05/27/24 Glucose 101 mg/dL (70-99) H 05/27/24 09:56 05/27/24 TSH 0.67 uIU/mL (0.358-3.74) 11/13/22 15:11 COAG PT 13.6 SECONDS (11.7-14.9) 09/09/18 09:32 Pre-Assessment Diagnosis/Proposed Procedure Planned Operative Procedure(s): EGD Anesthesia History Anesthesia History - medical office coordinator: Anesthesia History - medical office coordinator Hx Hospitalization No 06/28/24 11:24 Any Problems With Anesthesia No 06/28/24 11:24 Cholinesterase deficiency No 06/28/24 11:24 You/Your Family Experience No 06/28/24 11:24 fever (hyperthermia) with Relationship Recent Exposure to Contagious No 07/01/24 06:56 Disease Does patient have nerve No 06/28/24 11:24 stimulator Patient instructed to have device shut off --Does patient have Pacemaker No 07/01/24 06:56 or ICD? When Was Last Pacemaker Check QUESTION #4 FULL TEXT: You/Your Family Experience fever (hyperthermia) with Anesthesia Last Oral Intake Last Oral intake: Last Oral Intake NPO since 00:00 07/01/24 06:56 Meds taken in AM with sips of No 07/01/24 06:56 water? Meds patient instructed to take am of surgery PONV PONV - medical office coordinator: PONV - medical office coordinator Female Yes 06/28/24 11:24 HX of Motion Sickness No 06/28/24 11:24 HX of N/V After Surgery No 06/28/24 11:24 Non-Smoker Yes 06/28/24 11:24 Duration of Surgery greater No 06/28/24 11:24 than 60 minutes Number of Risk Factors 2 06/28/24 11:24 PONV Score Moderate Risk 06/28/24 11:24 Height & Weight Height & Weight: Anesthesia: Height & Weight Height 5 ft 3 in 07/01/24 06:56 Weight: 68 kg 07/01/24 06:56 Body Mass Index (BMI) 26.5 07/01/24 06:56 Respiratory Assessment Respiratory Assessment - medical office coordinator: Respiratory Tract Infection Hx - medical office coordinator Hx Respiratory Tract Infection No 06/28/24 11:24 STOP Sleep Apnea STOP Sleep Apnea - medical office coordinator: STOP Sleep Apnea - medical office coordinator Hx Hypertension No 06/28/24 11:24 Hx Sleep Apnea No 06/28/24 11:24 CPAP BIPAP Do you snore loudly (louder No 06/28/24 11:24 than talking or can be heard Do you often feel tired/ No 06/28/24 11:24 fatigued/ sleepy during daytime? Has anyone observed you stop No 06/28/24 11:24 breathing during sleep? STOP Results Negative 06/28/24 11:24 QUESTION #5 FULL TEXT : Do you snore loudly (louder than talking or can be heard through closed doors)? 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 Specify any problems Hx of Preganancy in last 3 No 06/28/24 11:24 Months Nurse Filling Out Transfusion MGRIFABRICIO 06/28/24 11:24 & Questions: Date: 06/28/24 06/28/24 11:24 Time: 06/28/24 11:24 Patient unable to answer at this time (ie. confused, unrespo /Reproduction History /Reproductive History - medical office coordinator: /Reproductive Hx- medical office coordinator Hx Now Gestational Age (in weeks): EDC: Hx Hx Para Hx Section SAB PFSH Medical History Leg cramps History of echocardiogram Cardiology follow-up encounter Encounter for monoclonal antibody treatment for malignancy Thyroid nodule Multinodular goiter Diverticular disease Non-ischemic cardiomyopathy Decreased cardiac ejection fraction Wears glasses Non-smoker Osteopenia Encounter for monitoring cardiotoxic drug therapy Rash Anemia Stage IV breast cancer in female Cancer of right female breast Liver metastases Encounter for education Regional lymph node metastasis present Abnormal mammogram Home Medications ?Medication ?Instructions ?Recorded ?Last Taken ?Type calcium 500 mg (as 1 ea PO DAILY 11/19/18 Unkno wn History carbonate)-vitamin D3 15 mcg (600 unit) tablet glucosamine sulf dipotassium Cl 1 ea PO DAILY 06/07/19 Unknown History 500 mg-chondroitin sulf 400 mg tablet cetirizine 10 mg capsule (Zyrtec) 10 mg PO DAILY PRN A llergic 12/27/21 Unknown History Reaction lidocaine-prilocaine 2.5 %-2.5 % 1 applic topical MICHELLE Y PRN PRN 07/25/22 Unknown Rx topical cream port access 30 days #1 tube anastrozole 1 mg tablet See Rx Instructions .Route 0 05/03/24 Unknown Rx .COMPLEX #90 tabs pantoprazole 40 mg tablet,delayed 40 mg PO DAILY #90 t abs 06/25/24 Unknown Rx release Allergy/AdvReac Type Severity Reaction Status Date / Time No Known Allergies Allergy Verified 07/01/24 06:44 Family History Father Diabetes Heart disease CAD (coronary artery disease), Onset Age: 64 CABG Myocardial infarction First one in mid 30's Grandfather Heart disease paternal Grandmother Heart disease paternal Surgical History History of foot surgery S/P thyroid biopsy History of liver biopsy (2019) PORT PLACEMENT Hx of breast biopsy Social History Smoking Status: Never smoker alcohol intake: current alcohol intake frequency: holidays/special occasions only substance use type: does not use caffeine: Yes what type of physical activity do you participate in: none frequency: does not exercise seatbelt use: always do you feel safe at home: Yes Review of Systems (Anesthesia) ROS Narrative System reviewed and no additional complaints, except as documented.
--- NOTE | 2024-07-01 08:01 | HP.PCM_ITS ---
HPI - General General Date of Admission: 07/01/24 Date of Service: 07/01/24 Chief Complaint: abnormal CT scan HPI Narrative MARTIN SHULTZ, is a 64 F who presents to the office today for establishment with [facility] for an urgent EGD to rule out gastric carcinoma. She undergoes biologic therapy q3wks for metastatic breast cancer treatment via [facility] and therefore has a Chest/abdomen CT q4mos. CT from 06.08.24 showed nodular, pedunculated thickeni ng at the gastric cardia measuring up to 3.1 cm. Radiology recommended endoscopic evaluation for possible neoplasm versus gastric fold. She reports increased belching and flatulence, occasional reflux and heartburn stimulated by eating late and red sauces, and abdominal bloating. Denies difficulty chewing and swallowing, cough, throat clearing, sinus drainage, abdominal pain, nausea, vomiting, constipation, diarrhea, hematochezia, and melena. She rarely uses Tums. She reports regular daily BMs without straining and with complete evacuation. [facility] Medical History Leg cramps History of echocardiogram Cardiology follow-up encounter Encounter for monoclonal antibody treatment for malignancy Thyroid nodule Multinodular goiter Diverticular disease Non-ischemic cardiomyopathy Decreased cardiac ejection fraction Wears glasses Non-smoker Osteopenia Encounter for monitoring cardiotoxic drug therapy Rash Anemia Stage IV breast cancer in female Cancer of right female breast Liver metastases Encounter for education Regional lymph node metastasis present Abnormal mammogram Home Medications ?Medication ?Instructions ?Recorded ?Last Taken ?Type calcium 500 mg (as 1 ea PO DAILY 11/19/18 Unkno wn History carbonate)-vitamin D3 15 mcg (600 unit) tablet glucosamine sulf dipotassium Cl 1 ea PO DAILY 06/07/19 Unknown History 500 mg-chondroitin sulf 400 mg tablet cetirizine 10 mg capsule (Zyrtec) 10 mg PO DAILY PRN A llergic 12/27/21 Unknown History Reaction lidocaine-prilocaine 2.5 %-2.5 % 1 applic topical MICHELLE Y PRN PRN 07/25/22 Unknown Rx topical cream port access 30 days #1 tube anastrozole 1 mg tablet See Rx Instructions .Route 0 05/03/24 Unknown Rx .COMPLEX #90 tabs pantoprazole 40 mg tablet,delayed 40 mg PO DAILY #90 t abs 06/25/24 Unknown Rx release Allergy/AdvReac Type Severity Reaction Status Date / Time No Known Allergies Allergy Verified 07/01/24 06:44 Family History Father Diabetes Heart disease CAD (coronary artery disease), Onset Age: 64 CABG Myocardial infarction First one in mid 30's Grandfather Heart disease paternal Grandmother Heart disease paternal Surgical History History of foot surgery S/P thyroid biopsy History of liver biopsy (2019) PORT PLACEMENT Hx of breast biopsy Social History Smoking Status: Never smoker alcohol intake: current alcohol intake frequency: holidays/special occasions only substance use type: does not use caffeine: Yes what type of physical activity do you participate in: none frequency: does not exercise seatbelt use: always do you feel safe at home: Yes ROS Constitutional Constitutional: Reports systems reviewed and no addt'l complaints, except as documented Eyes Eyes: Reports systems reviewed and no addt'l complaints, except as documented ENT HEENT: Reports systems reviewed and no addt'l complaints, except as documented Cardiovascular Cardiovascular: Reports systems reviewed and no addt'l complaints, except as documented Respiratory/Chest Respiratory/Chest: Reports systems reviewed and no addt'l complaints, except as documented Gastrointestinal Gastrointestinal: Reports systems reviewed and no addt'l complaints, except as documented Genitourinary Genitourinary: Reports systems reviewed and no addt'l complaints, except as documented Musculoskeletal Musculoskeletal: Reports systems reviewed and no addt'l complaints, except as documented Integumentary Integumentary: Reports systems reviewed and no addt'l complaints, except as documented Neurologic Neurologic: Reports systems reviewed and no addt'l complaints, except as documented Psychiatric Psychiatric: Reports systems reviewed and no addt'l complaints, except as documented Endocrine Endocrinology: Reports systems reviewed and no addt'l complaints, except as documented Hematologic/Lymphatic Hematologic/Lymphatic: Reports systems reviewed and no addt'l complaints, except as documented Allergic/Immunologic Allergic/Immunologic: Reports systems reviewed and no addt'l complaints, except as documented Vital Signs Vital Signs Vital Signs: 07/01/24 06:56 07/01/24 06:56 07/01/24 07:34 Temperature 97.7 F L 97.7 F L Temperature Source Temporal Pulse Rate 76 76 Respiratory Rate 16 16 Respiratory Pattern Normal Blood Pressure 109/70 109/70 Blood Pressure Mean 83 Blood Pressure Source Monitor Blood Pressure Position Semi-Fowlers Blood Pressure Location Left Arm Pulse Ox 95 95 Oxygen Delivery Method Room Air Room Air Weight Weight: 149 lb 14.629 oz Body Mass Index (BMI) 26.5 Physical Exam Const alert, oriented x3, no apparent distress and healthy appearing General Appearance: cooperative GI normal to inspection, nondistended, normoactive bowel sounds, soft to palpation, non-tender and non-distended Percussion: normal to percussion Rectal Exam: deferred Assessment & Plan Assessment/Plan (1) Abnormal CT of the abdomen: PLAN: Assessment and Plan Assessment and Plan (1) Adenocarcinoma, gastric cardia: Plan: rule out Medications: New pantoprazole 40 mg PO DAILY 90 tabs 1RF Plan MARTIN SHULTZ, is a 64 F who presents to the office today for establishment with [facility] for an urgent EGD to rule out gastric carcinoma. Discussed care plan with her. She needs to wait to recline after eating for at least 2hrs, 3hrs if at all possible. * pantoprazole 40mg PO daily * schedule EGD for evaluation of gastric cardia * office FU after EGD
--- NOTE | 2024-07-01 08:39 | PCM.POST.ANE ---
Anesthesia: Postop Eval I Current Vital Signs Temperature: 97 F Pulse Rate: 16 Blood Pressure: 90/60 Respiratory Rate: 16 Pulse Ox: 94 Oxygen Delivery Method: Room Air Assessment Airway patent: Yes Spontaneous unlabored respirations: Yes Mental status: Asleep nausea: No Vomiting: No Anesthesia Complication: No Fluid Hydration Crystalloid volume administer (ml): 40 Total IV fluid infused: 40 Progress Note Anesthesia document: Postop Eval 1 completed: Yes
--- NOTE | 2024-07-01 08:42 | OP.EGD_ITS ---
Patient Name: Anali Arroyo Procedure Date: 07/01/2024 8:01 AM Date of : 1960 Age: 64 Procedure: Upper GI endoscopy Indications: Epigastric abdominal pain, Abnormal CT of the GI tract Providers: Sunny Carroll DO Medicines: Monitored Anesthesia Care Patient Profile: This is a 64 year old female. Refer to note in patient chart for documentation of history and physical. Patient has symptoms of acute epigastric abdominal pain. Complications: No immediate complications. Procedure: Pre-Anesthesia Assessment: - Prior to the procedure, a History and Physical was performed, and patient medications and allergies were reviewed. The patient is competent. The risks and benefits of the procedure and the sedation options and risks were discussed with the patient. All questions were answered and informed consent was obtained. Patient identification and proposed procedure were verified by the physician in the pre-procedure area. Mental Status Examination: alert and oriented. Airway Examination: normal oropharyngeal airway and neck mobility. Respiratory Examination: clear to auscultation. CV Examination: normal. Prophylactic Antibiotics: The patient does not require prophylactic antibiotics. Prior Anticoagulants: The patient has taken no anticoagulant or antiplatelet agents except for NSAID medication. ASA Grade Assessment: II - A patient with mild systemic disease. After reviewing the risks and benefits, the patient was deemed in satisfactory condition to undergo the procedure. The anesthesia plan was to use monitored anesthesia care (MAC). Immediately prior to administration of medications, the patient was re-assessed for adequacy to receive sedatives. The heart rate, respiratory rate, oxygen saturations, blood pressure, adequacy of pulmonary ventilation, and response to care were monitored throughout the procedure. The physical status of the patient was re-assessed after the procedure. After obtaining informed consent, the endoscope was passed under direct vision. Throughout the procedure, the patient's blood pressure, pulse, and oxygen saturations were monitored continuously. The gastroscope was introduced through the mouth, and advanced to the third part of the duodenum. Small bowel enteroscopy was deemed necessary. The upper GI endoscopy was accomplished without difficulty. The patient tolerated the procedure well. Scope In: 8:21:17 AM Scope Out: 8:29:16 AM Total Procedure Duration Time 0 hours 7 minutes 59 seconds Findings: The examined esophagus was normal. Patchy granular mucosa was found in the cardia, in the gastric fundus, in the gastric body and on the greater curvature of the stomach. Biopsies were taken with a cold forceps for histology. Verification of patient identification for the specimen was done. Biopsies were taken with a cold forceps for Helicobacter pylori testing. Verification of patient identification for the specimen was done. Estimated blood loss was minimal. Patchy moderate inflammation characterized by congestion (edema) was found in the duodenal bulb. Biopsies were taken with a cold forceps for histology. Verification of patient identification for the specimen was done. Estimated blood loss was minimal. Impression: - Normal esophagus. - Granular gastric mucosa. Biopsied. - Chronic duodenitis. Biopsied. Recommendation: - Discharge patient to home. - Resume previous diet. - Continue present medications. - Await pathology results. Procedure Code(s): --- Professional --- 45954, Small intestinal endoscopy, enteroscopy beyond second portion of duodenum, not including ileum; with biopsy, single or multiple CPT copyright 2021 [employer]. All rights reserved. The codes documented in this report are preliminary and upon protective signal installer review may be revised to meet current compliance requirements. Sunny Carroll DO 07/01/2024 8:41:52 AM This report has been signed electronically. Number of Addenda: 0 Note Initiated On: 07/01/2024 8:01 AM
--- NOTE | 2024-07-01 08:42 | OP.CCLET_ITS ---
07/01/2024 No Primary Care Physician Re : Upper GI endoscopy procedure for Anali Arroyo Dear Care Physician This procedure was performed on June. My impressions and recommendations are as follows: Impressions : - Normal esophagus. - Granular gastric mucosa. Biopsied. - Chronic duodenitis. Biopsied. Recommendations : - Discharge patient to home. - Resume previous diet. - Continue present medications. - Await pathology results. My findings are described in the full procedure note, which is enclosed. If I can be of further assistance, please feel free to contact me at . Sincerely, Sunny Carroll, 07/01/2024 8:41:52 AM This report has been signed electronically.
--- NOTE | 2024-07-01 14:28 | PCM.POSTANE2 ---
Anesthesia Postop Eval I Sum Postop Eval Completion status Anesthesia document: Postop Eval 1 completed: Yes Anesthesia Postop Eval I Summary Anesthesia Postop Eval I Summary: Anesthesia Postop Eval I: Assessment Summary Airway patent Yes 07/01/24 08:40 [email or web address] Spontaneous unlabored Yes 07/01/24 08:40 [email or web address] respirations Mental status Asleep 07/01/24 08:40 [email or web address] nausea No 07/01/24 08:40 [email or web address] Vomiting No 07/01/24 08:40 [email or web address] Anesthesia Postop Eval I: Fluid Summary Crystalloid volume administer 40 07/01/24 08:40 [email or web address] (ml) Colloids volume administered ( ml) Blood Product volume administered (ml) Total IV fluid infused 40 07/01/24 08:40 [email or web address] Anesthesia Postop Eval I: Summary Notes Anesthesia Complication No 07/01/24 08:40 [email or web address] Anesthesia Complication Comment: Post-operative progress note Anesthesia: Postop Eval II Evaluation Mental status: Awake and Calm Pain Level: 0 nausea: No Vomiting: No Complications Anesthesia Complication: No
== END 2024-07-01 09:21 | disposition home or self-care (01) ==
LOC: EN 06:30 → AC 06:33
PROVIDERS: Visit Provider Internal Medicine Gastroenterology
PROC: 0DJ08ZZ Inspection of Upper Intestinal Tract, Via Natural or Artificial Opening Endoscopic (ICD-10-PCS; CPT 43235; principal; 2024-07-01 07:25)
DX: K29.80 Duodenitis without bleeding (principal); Z85.3 Personal history of malignant neoplasm of breast; R93.5 Abnormal findings on diagnostic imaging of other abdominal regions, including retroperitoneum
CPT/HCPCS: 44361; 88305; 88341; 88342; A4216; J2405

== ENCOUNTER → 2024-07-28 | Outpatient (CLI) | payer OTHER, SELFPAY ==
--- NOTE | 2024-07-28 09:47 | ECHODONC_ITS ---
Reason For Study Reason For Study: Therapeutic Drug monitoring Procedure This was a 2D Doppler, Color Flow transthoracic echocardiogram. Myocardial strain analysis was performed in this exam to aid in the assessment of cardiac function. Exam performed in department. Left Ventricle Normal LV size. The global longitudinal strain = -18.0 % (normal). The estimated ejection fraction is 53 %. Right Ventricle Normal RV size. Normal systolic function. Atria Normal left atrium. Normal right atrium. Mitral Valve Normal mitral valve. Tricuspid Valve Normal tricuspid valve. Mild tricuspid valve insufficiency. Pulmonary artery systolic pressure is 24 mmHg. Aortic Valve Trisinus/trileaflet aortic valve. Mild (1+) aortic valve insufficiency. Pulmonic Valve Normal pulmonic valve. Great Vessels Normal aortic root. The pulmonary artery is normal size. Inferior vena cava collapse with respiration. Pericardium/Pleural No pericardial effusion. MMode/2D Measurements & Calculations LVIDd: 4.7 cm IVSd: 0.95 cm Ao root diam: 3.1 cm LVIDs: 3.1 cm LVPWd: 0.79 cm RVDd: 3.3 cm FS: 33.5 % LAV(MOD-bp): 38.1 ml LVAd ap4: 25.9 cm2 SV(MOD-sp4): 38.5 ml LAV(MOD-bp) Indexed: 22.1 ml/m2 LVLd ap4: 7.4 cm SI(MOD-sp4): 22.4 ml/m2 LAV(MOD-sp2): 55.2 ml EDV(MOD-sp4): 75.6 ml LAV(MOD-sp4): 23.9 ml EDV(sp4-el): 76.8 ml LVAs ap4: 16.8 cm2 LVLs ap4: 6.2 cm ESV(MOD-sp4): 37.1 ml ESV(sp4-el): 38.2 ml EF(MOD-sp4): 50.9 % EF(sp4-el): 50.2 % SV(sp4-el): 38.6 ml LA A4 area: 11.3 cm2 LA dimension(2D): 3.2 cm RA A4 area: 12.7 cm2 TAPSE: 2.3 cm Time Measurements MV dec time: 0.16 sec Doppler Measurements & Calculations MV E max wali: 57.4 cm/sec Lat Peak E' Wali: 14.6 cm/sec Med Peak E' Wali: 10.8 cm/sec MV A max wali: 61.0 cm/sec E/E' lat: 3.9 E/E' med: 5.3 MV E/A: 0.94 MV V2 max: 68.8 cm/sec MV P1/2t max wali: 69.4 cm/sec Ao V2 max: 112.2 cm/sec MV max P.9 mmHg MV P1/2t: 59.9 msec Ao max P.0 mmHg MV V2 mean: 35.8 cm/sec Ao V2 mean: 80.1 cm/sec MV mean P.62 mmHg MV dec slope: 339.4 cm/sec2 Ao mean P.9 mmHg MV V2 VTI: 21.1 cm MVA(P1/2t): 3.7 cm2 Ao V2 VTI: 25.6 cm AV (velocity ratio): 0.82 AI max wali: 380.5 cm/sec LV V1 max: 84.6 cm/sec MR max wali: 442.6 cm/sec AI max P.9 mmHg LV V1 max P.9 mmHg MR max P.4 mmHg LV V1 mean P.7 mmHg AI dec slope: 138.9 cm/sec2 LV V1 mean: 61.5 cm/sec AI P1/2t: 802.3 msec LV V1 VTI: 21.1 cm PA V2 max: 79.1 cm/sec TR max wali: 229.4 cm/sec TR max P.1 mmHg ECHO/ONC Echo Complete Interpretation Summary Normal LV size. The global longitudinal strain = -18.0 % (normal). The estimated ejection fraction is 53 %. The global longitudinal strain is normal. Compared to previous study, the left ventricular systolic function is the same.. Ordering Physician: Leisa Baker Referring Physician: Leisa Baker Performed By: Jh Barrow RCS
== END | disposition home or self-care (01) ==
LOC: CVS 09:45
PROVIDERS: Referring Provider Nurse Practitioner Family; Visit Provider Nurse Practitioner Family
DX: Z51.81 Encounter for therapeutic drug level monitoring (principal); C50.919 Malignant neoplasm of unspecified site of unspecified female breast; Z79.899 Other long term (current) drug therapy
CPT/HCPCS: 93306; 93356

== ENCOUNTER → 2024-08-19 | Outpatient (CLI) | payer OTHER, SELFPAY ==
[2024-08-22 13:07] LABS: H. PYLORI STOOL AG Negative (Negative)
== END | disposition home or self-care (01) ==
LOC: LABSPEC 09:35
DX: A04.8 Other specified bacterial intestinal infections (principal)
CPT/HCPCS: 87338

== ENCOUNTER → 2024-09-24 | Outpatient (CLI) | payer OTHER, SELFPAY ==
--- NOTE | 2024-09-24 06:46 | ECHODONC_ITS ---
Reason For Study Reason For Study: THERAPUTIC DRUG LEVEL MONITORING Procedure This was a 2D Doppler, Color Flow transthoracic echocardiogram. Myocardial strain analysis was performed in this exam to aid in the assessment of cardiac function. Exam performed in department. Left Ventricle Normal LV size. Left ventricular systolic function is normal. The estimated ejection fraction is 56 %. Stage 1 diastolic dysfunction. No regional wall motion abnormalities noted. Right Ventricle Normal RV size. Normal systolic function. Atria Normal left atrium. Normal right atrium. Mitral Valve Normal mitral valve. Tricuspid Valve Normal tricuspid valve. Mild (1+) tricuspid valve insufficiency. Pulmonary artery systolic pressure is 25 mmHg. Pulmonic Valve Normal pulmonic valve. Great Vessels Normal aortic root. The pulmonary artery is normal size. Normal inferior vena cava. Pericardium/Pleural No pericardial effusion. MMode/2D Measurements & Calculations LVIDd: 4.6 cm IVSd: 0.77 cm Ao root diam: 3.0 cm LVIDs: 3.1 cm LVPWd: 0.77 cm RVDd: 2.7 cm FS: 32.9 % LAV(MOD-bp): 39.6 ml LVAd ap4: 26.1 cm2 LVAd ap2: 21.1 cm2 LAV(MOD-bp) Indexed: 22.8 ml/m2 LVLd ap4: 7.0 cm LVLd ap2: 7.0 cm LAV(MOD-sp2): 38.9 ml EDV(MOD-sp4): 81.5 ml EDV(MOD-sp2): 53.1 ml LAV(MOD-sp4): 35.3 ml EDV(sp4-el): 82.4 ml EDV(sp2-el): 54.3 ml LVAs ap4: 15.8 cm2 LVAs ap2: 13.7 cm2 LVLs ap4: 5.9 cm LVLs ap2: 6.8 cm ESV(MOD-sp4): 35.7 ml ESV(MOD-sp2): 23.3 ml ESV(sp4-el): 36.0 ml ESV(sp2-el): 23.5 ml EF(MOD-sp4): 56.2 % EF(MOD-sp2): 56.2 % EF(sp4-el): 56.3 % SV(MOD-sp4): 45.8 ml SV(MOD-sp2): 29.9 ml SV(sp4-el): 46.4 ml SI(MOD-sp4): 26.3 ml/m2 SI(MOD-sp2): 17.2 ml/m2 LA A4 area: 13.5 cm2 LA dimension(2D): 3.3 cm RA A4 area: 12.3 cm2 TAPSE: 2.3 cm Time Measurements MV dec time: 0.16 sec Doppler Measurements & Calculations MV E max wali: 57.8 cm/sec Lat Peak E' Wali: 11.8 cm/sec Med Peak E' Wali: 8.8 cm/sec MV A max wali: 61.9 cm/sec E/E' lat: 4.9 E/E' med: 6.5 MV E/A: 0.93 MV V2 max: 88.3 cm/sec MV P1/2t max wali: 75.7 cm/sec Ao V2 max: 113.3 cm/sec MV max P.1 mmHg MV P1/2t: 63.0 msec Ao max P.1 mmHg MV V2 mean: 40.9 cm/sec Ao V2 mean: 80.5 cm/sec MV mean P.83 mmHg MV dec slope: 351.8 cm/sec2 Ao mean P.9 mmHg MV V2 VTI: 23.4 cm MVA(P1/2t): 3.5 cm2 Ao V2 VTI: 28.0 cm AV (velocity ratio): 0.59 LV V1 max: 69.0 cm/sec PA V2 max: 97.5 cm/sec PI dec slope: 101.6 cm/sec2 LV V1 max P.9 mmHg PA V2 mean: 62.5 cm/sec LV V1 mean P.2 mmHg PA V2 VTI: 18.2 cm LV V1 mean: 51.9 cm/sec LV V1 VTI: 16.5 cm TR max wali: 239.5 cm/sec TR max P.9 mmHg ECHO/ONC Echo Complete Interpretation Summary Normal LV size. Left ventricular systolic function is normal. The estimated ejection fraction is 56 %. Stage 1 diastolic dysfunction. Pulmonary artery systolic pressure is 25 mmHg. The global longitudinal strain is normal. The global longitudinal strain = -17. 8 % (normal). Ordering Physician: Leisa Baker Referring Physician: ANCA PCP Performed By: Shilpa Cat, TONEY, RVT
--- OUTSIDE RECORDS SUMMARY | 2024-09-24 06:49 | XMS RPT_ITS | CCD ---
Author Organization [facility] Care Team Providers Care [employer] Name Role Phone Care Physician, No Primary Primary Care Provider Unavailable Care Physician, No Primary Referring Provider Un available Dr. Cleveland Doe Attending Provider Dr. Andrés Corrales Attending Provider Samuel GINNING OPERATOR, GINNING OPERATOR-C Leisa Attending Provider Dr. Ata Silverman Attending Provider Care Physician, No Primary Primary Care Provider Unavailable Care Physician, No Primary Referring Provider Un available Dr. Cleveland Doe Attending Provider Care Physician, No Primary Primary Care Provider Unavailable Care Physician, No Primary Referring Provider Un available Dr. Andrés Corrales Attending Provider Samuel GINNING OPERATOR, GINNING OPERATOR-C Leisa Attending Provider Dr. Cleveland Doe Attending Provider Care Physician, No Primary Primary Care Provider Unavailable Care Physician, No Primary Referring Provider Un available Dr. Andrés Corrales Attending Provider Dr. Cleveland Doe Attending Provider Samuel GINNING OPERATOR, GINNING OPERATOR-C Leisa Attending Provider Dr. Ata Silverman Attending Provider Care Physician, No Primary Primary Care Provider Unavailable Care Physician, No Primary Referring Provider Un available Dr. Andrés Corrales Attending Provider Dr. Ana Laura Diego Attending Provider Samuel GINNING OPERATOR, GINNING OPERATOR-C Leisa Attending Provider Ana Rivera Attending Provider Unavailabl e Dr. Cleveland Doe Attending Provider Care Physician, No Primary Primary Care Provider Unavailable Care Physician, No Primary Referring Provider Un available Dr. Andrés Corrales Attending Provider Dr. Andrés Corrales Referring Provider Dr. Casey Rubio Attending Provider Care Physician, No Primary Primary Care Provider Unavailable Dr. Cleveland Doe Attending Provider Dr. Andrés Corrales Referring Provider Care Physician, No Primary Referring Provider Un available Dr. Andrés Corrales Attending Provider Dr. Casey Rubio Attending Provider Samuel GINNING OPERATOR, GINNING OPERATOR-C Leisa Attending Provider Dr. Ángel Poe Attending Provider Care Physician, No Primary Primary Care Provider Unavailable Dr. Cleveland Doe Attending Provider Care Physician, No Primary Referring Provider Un available Dr. Andrés Corrales Attending Provider Samuel GINNING OPERATOR, GINNING OPERATOR-C Leisa Attending Provider Care Physician, No Primary Primary Care Provider Unavailable Care Physician, No Primary Referring Provider Un available Samuel GINNING OPERATOR, GINNING OPERATOR-C Leisa Attending Provider Dr. Andrés Corrales Attending Provider Dr. Cleveland Doe Attending Provider Dr. Cleveland Doe Referring Provider Care Physician, No Primary Primary Care Provider Unavailable Care Physician, No Primary Referring Provider Un available Samuel GINNING OPERATOR-C, Leisa Attending Provider Samuel GINNING OPERATOR-C, Leisa Referring Provider Dr. Cleveland Doe MD Attending Provider Dr. Andrés Corrales MD Attending Provider Dr. Andrés Corrales MD Referring Provider Care Physician, No Primary Primary Care Provider Unavailable Care Physician, No Primary Referring Provider Un available Samuel GINNING OPERATOR-C, Leisa Attending Provider Ben BARRETT, Dr. Butcher Attending Provider Calixto GINNING OPERATOR-C, Ghislaine Attending Provider Dr. Sunny Carroll DO Attending Provider Dr. Sunny Carroll DO Other Provider Dr. Andrés Corrales MD Attending Provider Dr. Andrés Corrales MD Referring Provider Care Physician, No Primary Primary Care Provider Unavailable Samuel GINNING OPERATOR-C, Leisa Attending Provider Care Physician, No Primary Referring Provider Un available Calixto GINNING OPERATOR-C, Ghislaine Referring Provider Dr. Andrés Corrales MD Referring Provider Care Physician, No Primary Primary Care Provider Unavailable Care Physician, No Primary Referring Provider Un available Samuel GINNING OPERATOR-C, Leisa Attending Provider Samuel GINNING OPERATOR-C, Leisa Referring Provider Brook BARRETT, Dr. Guthrie Attending Provider Dr. Andrés Corrales MD Referring Provider Care Physician, No Primary Primary Care Unava ilable Andrés Corrales Attending Unavailable Andrés Corrales Referring Unavailable Care Physician, No Primary Primary Care Unava ilable Ghislaine Calixto Attending Unavailable Calixto, Ghislaine Referring Unavailable Care Physician, No Primary Primary Care Unava ilable Samuel GINNING OPERATOR, Leisa Referring Unavailable Samuel GINNING OPERATOR, Leisa Attending Unavailable Care Physician, No Primary Referring Unava ilable Care Physician, No Primary Primary Care Unava ilable Samuel GINNING OPERATOR, Leisa Attending Unavailable Care Physician, No Primary Referring Unava ilable Care Physician, No Primary Primary Care Unava ilable Samuel GINNING OPERATOR, Leisa Attending Unavailable Care Physician, No Primary Referring Unava ilable Care Physician, No Primary Primary Care Unava ilable Andrés Corrales Attending Unavailable Care Physician, No Primary Referring Unava ilable Care Physician, No Primary Primary Care Unava ilable Glen, Sunny Consulting Unavailable Friend, Sunny Attending Unavailable Care Physician, No Primary Primary Care Unava ilable Ana Laura Diego Attending Unavailable Care Physician, No Primary Primary Care Unava ilable Samuel GINNING OPERATOR, Leisa Referring Unavailable Samuel GINNING OPERATOR, Leisa Attending Unavailable Care Physician, No Primary Referring Unava ilable Care Physician, No Primary Primary Care Unava ilable Andrés Corrales Attending Unavailable Alejandro Summers Attending [facility] Care Physician, No Primary Primary Care Unava ilable Care Physician, No Primary Primary Care Unava ilable BrookCleveland melissa Attending Unavailable Care Physician, No Primary Primary Care Unava ilable BrookCleveland melissa Attending Unavailable Care Physician, No Primary Referring Unava ilable Care Physician, No Primary Primary Care Unava ilable Samuel GINNING OPERATOR, Leisa Attending Unavailable Care Physician, No Primary Primary Care Unava ilable Care Physician, No Primary Referring Unava ilable Samuel GINNING OPERATOR, Leisa Attending Unavailable Care Physician, No Primary Referring Unava ilable Care Physician, No Primary Primary Care Unava ilable Samuel GINNING OPERATOR, Leisa Attending Unavailable Care Physician, No Primary Referring Unava ilable Care Physician, No Primary Primary Care Unava ilable Samuel GINNING OPERATOR, Leisa Attending Unavailable Care Physician, No Primary Primary Care Unava ilable Samuel GINNING OPERATOR, Leisa Attending Unavailable Samuel GINNING OPERATOR, Leisa Referring Unavailable Care Physician, No Primary Primary Care Unava ilable Andrés Corrales Attending Unavailable Isckarus, Andrés Referring Unavailable Care Physician, No Primary Referring Unava ilable Care Physician, No Primary Primary Care Unava ilable Hadley Contreras Attending Unavailable Care Physician, No Primary Referring Unava ilable Care Physician, No Primary Primary Care Unava ilable Ghislaine Calixto Attending Unavailable Care Physician, No Primary Referring Unava ilable Care Physician, No Primary Primary Care Unava ilable Samuel GINNING OPERATOR, Leisa Attending Unavailable Care Physician, No Primary Primary Care Unava ilable Andrés Corrales Attending Unavailable Isckarus, Mansomaira Referring Unavailable Care Physician, No Primary Referring Unava ilable Care Physician, No Primary Primary Care Unava ilable Glen, Sunny Attending Unavailable Samuel GINNING OPERATOR, Leisa Attending Unavailable Care Physician, No Primary Referring Unava ilable Care Physician, No Primary Primary Care Unava ilable Care Physician, No Primary Primary Care Unava ilable Samuel GINNING OPERATOR, Leisa Referring Unavailable Samuel GINNING OPERATOR, Leisa Attending Unavailable Care Physician, No Primary Referring Unava ilable Care Physician, No Primary Primary Care Unava ilable Isckarus, Andrés Attending Unavailable Care Physician, No Primary Referring Unava ilable Care Physician, No Primary Primary Care Unava ilable Samuel GINNING OPERATOR, Leisa Attending Unavailable Care Physician, No Primary Referring Unava ilable Care Physician, No Primary Primary Care Unava ilable Samuel GINNING OPERATOR, Leisa Attending Unavailable Care Physician, No Primary Referring Unava ilable Care Physician, No Primary Primary Care Unava ilable Isckarus, Andrés Attending Unavailable Care Physician, No Primary Referring Unava ilable Care Physician, No Primary Primary Care Unava ilable Hadley Contreras Attending Unavailable Care Physician, No Primary Referring Unava ilable Care Physician, No Primary Primary Care Unava ilable Isckarus, Andrés Attending Unavailable Care Physician, No Primary Referring Unava ilable Care Physician, No Primary Primary Care Unava ilable Isckarus, Andrés Attending Unavailable Care Physician, No Primary Primary Care Unava ilable Isckarus, Andrés Referring Unavailable Isckarus, Andrés Attending Unavailable Medications Current Medications Medication Drug Class(es) Dates Sig (Normalized) Sig (Original) calcium carbonate 1250 mg / cholecalciferol 600 unt oral tablet (17 sources) Vitamin D Start: 11-19-2018 Calcium Carbonate-Vitamin D3 1 EACH tablet Active 1 NMA PO DAILY November 19, 2018 12:00am Start: 11-19-2018 Calcium Carbon ate-Vitamin D3 Active 1 EACH PO DAILY November 19, 2018 12:00am cetirizine hydrochloride 10 mg oral capsule (14 sources) Histamine-1 Receptor Antagonist Start: 12-27-2021 take 1 capsule by mouth once daily as needed Cetirizine (Zyrtec) 10 mg capsule Active 10 mg PO DAILY as needed for Allergic Reaction December 27, 2021 12:00am chondroitin sulfates 400 mg / glucosamine sulfate 500 mg oral tablet (17 sources) Start: 06-07-2019 take 1 tablet by mouth once daily Glucosamine Najera 2kcl-Chondroit 1 EACH tablet Active 1 NMA PO DAILY June 07, 2019 12:00am Start: 06-07-2019 Glucosamine Najera 2kcl-Chondroit Active 1 EACH PO DAILY June 07, 2019 12:00am diphenhydramine-acetaminophe n 25 mg-500 mg capsule (17 sources) Start: 05-02-2022 take 1 capsule by mouth at bedtime diphenhydramine-acetaminophen 25 mg-500 mg capsule Active 1 CAP PO AT BEDTIME May 02, 2022 10:00am Start: 05-02-2022 take 1 capsule by mo uth at bedtime diphenhydramine-acetaminophen 25 mg-500 mg capsule Active 1 CAP PO AT BEDTIME May 02, 2022 11:00am Start: 07-20-2018 End: 05-02-2022 take 1 capsule by mouth at bedtime diphenhydramine-acetaminophen 25 mg-500 mg capsule Discontinued 1 CAP PO AT BEDTIME July 19, 2018 11:00pm May 02, 2022 10:00am Start: 07-20-2018 End: 05-02-2022 take 1 capsule by mouth at bedtime diphenhydramine-acetaminophen 25 mg-500 mg capsule Discontinued 1 CAP PO AT BEDTIME July 20, 2018 12:00am May 02, 2022 11:00am Start: 07-20-2018 take 1 capsule by mo uth at bedtime diphenhydramine-acetaminophen 25 mg-500 mg capsule Active 1 CAP PO AT BEDTIME July 19, 2018 11:00pm Start: 07-20-2018 take 1 capsule by mo uth at bedtime diphenhydramine-acetaminophen 25 mg-500 mg capsule Active 1 CAP PO AT BEDTIME July 20, 2018 12:00am lidocaine 25 mg/ml / prilocaine 25 mg/ml topical cream (20 sources) Antiarrhythmic, Amide Local Anesthetic Start: 07-25-2022 Lidocaine-Prilocaine 2.5-2.5 % cream Active 1 NMA TOPICAL DAILY NEEDED as needed for port access 04 15July 25, 2022 10:57am Start: 11-15-2019 End: 07-25-2022 Lidocaine-Prilocaine 30 GM c ream Discontinued 1 APPLICATIO TP DAILY NEEDED as needed for Not Specified 04 15November 15, 2019 8:54am July 25, 2022 10:58am Start: 11-15-2019 End: 07-25-2022 Lidocaine-Prilocaine Active 1 APPLIC TOPICAL DAILY NEEDED 04 15July 25, 2022 10:57am Start: 08-06-2018 End: 12-05-2018 Lidocaine-Prilocaine 30 GM C ream..G. Discontinued 1 APPLICATIO TP DAILY NEEDED as needed for Not Specified 04 15August 06, 2018 12:54pm December 03, 2018 12:00am December 05, 2018 12:10am Start: 08-06-2018 End: 12-05-2018 Lidocaine-Prilocaine Discont inued 1 APPLICATIO TP DAILY NEEDED 04 15August 06, 2018 12:54pm December 05, 2018 12:10am Completed/Discontinued Medications Medication Drug Class(es) Dates Sig (Normalized) Sig (Original) acetaminophen 325 mg / oxyCODONE hydrochloride 5 mg oral tablet (20 sources) Opioid Agonist Start: 09-28-2020 End: 05-18-2021 Oxycodone-Acetamino phen (Endocet) 5-325 mg tablet Discontinued 1 {tbl} PO EVERY 6 HOURS as needed for pain 07 17September 28, 2020 May 18, 2021 11:12am Start: 08-04-2018 End: 08-10-2018 Oxycodone-Acetaminophen 1 TA BLET tablet Discontinued 1 - 2 {tbl} PO EVERY 4 HOURS NEEDED as needed for Pain 13 09August 04, 2018 12:00am August 09, 2018 12:00am August 10, 2018 12:07am Start: 08-04-2018 End: 08-10-2018 take 1 tablet by mouth every four hours as needed Oxycodone-Acetaminophen Discontinued 1 - 2 TABLET PO EVERY 4 HOURS NEEDED 13 09August 04, 2018 12:00am August 10, 2018 12:07am anastrozole 1 mg oral tablet (20 sources) Aromatase Inhibitor Start: 05-17-2019 End: 05-03-2024 take 1 tablet by mouth once daily Anastrozole 1 mg tablet Discontinued 0 .ROUTE .COMPLEX 90 February 17, 2023 11:27am January 22, 2024 11:49am TAKE 1 TABLET BY MOUTH EVERY DAY Start: 05-17-2019 End: 08-16-2019 take 2 mg by mouth once daily Anastrozole Discontinued 2 MG PO DAILY May 17, 2019 1:00am August 16, 2019 12:40pm STARTED IN MAR 2019 aspirin 81 mg chewable tablet (17 sources) Platelet Aggregation Inhibitor, Nonsteroidal Anti-inflammatory Drug Start: 09-14-2020 End: 10-05-2020 take 1 tablet by mouth once daily Aspirin 81 mg tablet,chewable Discontinued 81 mg PO DAILY September 14, 2020 12:00am October 05, 2020 8:50am bismuth subsalicylate 17.5 mg/ml oral suspension (10 sources) Bismuth Start: 07-05-2024 End: 07-19-2024 Bismuth Subsalicylate 262 mg/15 mL suspension Discontinued 262 mg PO EVERY 6 HOURS 840 July 05, 2024 12:22pm July 18, 2024 12:00am July 19, 2024 12:08am do not exceed 8 doses in a 24 hour period Diphenhydramine-Ac etaminophen 25-500 mg capsule (12 sources) Start: 05-02-2022 End: 08-29-2023 Diphenhydramine-Dixon taminophen 25-500 mg capsule Discontinued 1 NMA PO AT BEDTIME as needed for Insomnia May 02, 2022 11:00am August 29, 2023 8:43am Start: 07-20-2018 End: 05-02-2022 Diphenhydramine-Acetaminophe n 25-500 mg capsule Discontinued 1 NMA PO AT BEDTIME July 20, 2018 12:00am May 02, 2022 11:00am metroNIDAZOLE 500 mg oral tablet (5 sources) Nitroimidazole Antimicrobial Start: 07-05-2024 End: 07-19-2024 take 1 tablet by mouth every six hours Metronidazole 500 mg tablet Discontinued 500 mg PO EVERY 6 HOURS 56 July 05, 2024 12:00am July 18, 2024 12:00am July 19, 2024 12:08am ondansetron 8 mg disintegrating oral tablet (17 sources) Serotonin-3 Receptor Antagonist Start: 08-06-2018 End: 09-15-2018 take 1 tablet by mouth every eight hours as needed for nausea Ondansetron 8 MG Tab.Rapdis Discontinued 8 mg PO EVERY 8 HOURS NEEDED as needed for Nausea 30 August 06, 2018 12:00am September 14, 2018 12:00am September 15, 2018 12:07am pantoprazole 40 mg delayed release oral tablet (10 sources) Proton Pump Inhibitor Start: 07-05-2024 End: 07-19-2024 take 1 tablet by mouth twice daily Pantoprazole 40 mg tablet,delayed release (DR/EC) Discontinued 40 mg PO TWICE A DAY 28 July 05, 2024 12:00am July 18, 2024 12:00am July 19, 2024 12:08am Start: 06-25-2024 take 1 tablet by yasmine th once daily Pantoprazole 40 mg tablet,delayed release (DR/EC) Active 40 mg PO DAILY June 25, 2024 12:00am On Hold: H.pylori treatment [id number] prochlorperazine 10 mg oral tablet (17 sources) Phenothiazine Start: 08-06-2018 End: 08-26-2018 take 1 tablet by mouth every six hours as needed for nausea Prochlorperazine Maleate 10 MG tablet Discontinued 10 mg PO EVERY 6 HOURS as needed for Nausea 30 August 06, 2018 12:54pm August 25, 2018 12:00am August 26, 2018 12:06am tetracycline hydrochloride 500 mg oral capsule (5 sources) Tetracycline-class Antimicrobial Start: 07-05-2024 End: 07-19-2024 take 1 capsule by mouth every six hours Tetracycline 500 mg capsule Discontinued 500 mg PO EVERY 6 HOURS 56 July 05, 2024 12:00am July 18, 2024 12:00am July 19, 2024 12:08am Problems Active Problems Problem Classification Problem Date Documented Date Episodic/Chronic Abdominal pain (1 source) Epigastric pain; Translations: [Epigastric pain] Onset: 07-09-2024 Episodic Administrative/social admission (20 sources) Patient encounter status; Translations: [Counseling, unspecified] 09-25-2020 Episodic Bacterial infection; unspecified site (1 source) Helicobacter pylori [H. pylori] as the cause of diseases classified elsewhere; Translations: [Helicobacter pylori [H. pylori] as the cause of diseases classified elsewhere] Onset: 07-29-2024 Episodic Cancer of breast (20 sources) Primary malignant neoplasm of female breast; Translations: [Malignant neoplasm of unspecified site of unspecified female breast] Onset: 01-22-2024 Chronic Comment on above: CHEMO 2019 - RECEIVI NG IMMUNOTHERAPY 2024 Cancer of stomach (5 sources) Adenocarcinoma of stomach; Translations: [Malignant neoplasm of cardia] 06-25-2024 Chronic Deficiency and other anemia (20 sources) Anemia; Translations: [Anemia, unspecified] 09-25-2020 Episodic Deficiency and other anemia (11 sources) Anemia, unspecified; Translations: [Anemia, unspecified] Episodic Diverticulosis and diverticulitis (12 sources) Diverticular disease; Translations: [Diverticulosis of intestine, part unspecified, without perforation or abscess without bleeding] 05-02-2022 Chronic Fever of unknown origin (17 sources) Fever; Translations: [Fever, unspecified] 10-02-2018 Episodic Gastritis and duodenitis (11 sources) Helicobacter pylori-associated gastritis; Translations: [Gastritis, unspecified, without bleeding] Onset: 07-29-2024 07-29-2024 Episodic Comment on above: Treated 2024 Intestinal infection (1 source) Other specified bacterial intestinal infections; Translations: [Other specified bacterial intestinal infections] Onset: 08-25-2024 Episodic Maintenance chemotherapy; radiotherapy (20 sources) H/O: malignant neoplasm; Translations: [Encounter for antineoplastic immunotherapy] Onset: 05-27-2024 01-22-2024 Chronic Open wounds of extremities (20 sources) Dog bite of finger; Translations: [Open bite of unspecified finger without damage to nail, initial encounter] Episodic Other aftercare (17 sources) Drug-induced immunodeficiency ; 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] 10-02-2018 Episodic Other aftercare (11 sources) Drug therapy finding; Translations: [Encounter for therapeutic drug level monitoring] 09-25-2020 Episodic Other aftercare (17 sources) Encounter for therapeutic drug level monitoring; Translations: [Encounter for therapeutic drug monitoring] Onset: 08-02-2024 Episodic Other aftercare (12 sources) Long-term current use of drug therapy; Translations: [Encounter for therapeutic drug level monitoring] 09-25-2020 Episodic Other bone disease and musculoskeletal deformities (20 sources) Osteopenia; Translations: [Other specified disorders of bone density and structure, unspecified site] 05-02-2022 Episodic Other bone disease and musculoskeletal deformities (20 sources) Other specified disorders of bone density and structure, unspecified site; Translations: [Disorder of bone and cartilage, unspecified] Episodic Other bone disease and musculoskeletal deformities (1 source) Other specified disorders of bone density and structure, left thigh; Translations: [Other specified disorders of bone density and structure, left thigh] Onset: 09-09-2024 Episodic Other nervous system disorders (17 sources) Postoperative pain ; Translations: [Other acute postprocedural pain] 12-07-2020 Episodic Other screening for suspected conditions (not mental disorders or infectious disease) (20 sources) Impaired left ventricular function; Translations: [Abnormal findings on diagnostic imaging of heart and coronary circulation] Onset: 07-09-2024 01-17-2022 Episodic Other skin disorders (20 sources) Eruption; Translations: [Rash and other nonspecific skin eruption] 09-25-2020 Episodic Other skin disorders (11 sources) Rash and other nonspecific skin eruption; Translations: [Rash and other nonspecific skin eruption] Episodic Ariela-; endo-; and myocarditis; cardiomyopathy (except that caused by tuberculosis or sexually transmitted disease) (20 sources) Cardiomyopathy; Translations: [Other cardiomyopathies] Chronic Residual codes; unclassified (20 sources) Past history of procedure; Translations: [Other specified postprocedural states] Onset: 03-17-2018 12-07-2020 Episodic Comment on above: Right breast Residual codes; unclassified (1 source) Estrogen receptor positive status [ER+]; Translations: [Estrogen receptor positive status [ER+]] Onset: 09-09-2024 Episodic Secondary malignancies (20 sources) Secondary malignant neoplasm of liver; Translations: [Secondary malignant neoplasm of liver and intrahepatic bile duct] 09-25-2020 Chronic Secondary malignancies (20 sources) Regional lymph node metastasis present ; Translations: [Secondary and unspecified malignant neoplasm of lymph node, unspecified] 09-25-2020 Chronic Secondary malignancies (20 sources) Secondary malignant neoplasm of liver and intrahepatic bile duct; Translations: [Malignant neoplasm of liver, secondary] Onset: 09-09-2024 Chronic Secondary malignancies (13 sources) Secondary and unspecified malignant neoplasm of lymph node, unspecified; Translations: [Secondary and unspecified malignant neoplasm of lymph nodes, site unspecified] Onset: 05-27-2024 Chronic Thyroid disorders (20 sources) Thyroid nodule; Translations: [Nontoxic single thyroid nodule] 10-25-2022 Chronic Comment on above: Patient is a 62-year -old female with a past history significant for metastatic breast cancer who presents with incidentally noted bilateral thyroid nodularity. Among those nodules noted on CT imaging, ultrasound was better able to define a 2.1 cm left-sided TI-RADS 5 nodule. I held a lengthy conversation with patient regarding thyroid nodularity generally, and her particular risk for potential breast cancer metastasis (approximately 4% of all mets to the thyroid). I also shared with her the basis for the TI-RADS rating system and her indication for FNA biopsy of her left-sided thyroid nodule. Additionally I recommended pursuing biopsy of her mid polar right-sided thyroid nodule seen as this is only 2 mm off ACR recommendations for pursuing such a biopsy and may give us necessary information for making a surgical plan. Ms. Arroyo expressed an understanding of this rationale and provided her written consent to proceed. The procedure was undertaken in uncomplicated fashion during today's visit. Cytopathology is currently pending. In the meantime it appears patient has not had any recent thyroid functions so we will look for anywhere else these labs may have been done, but ultimately may require renewal with updated labs. We will plan to telephone patient with cytopathology and any further recommendations based on that result. For now patient was given wound care instructions post procedurally. 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 H. PYLORI STOOL AGon 025 H PYLORI STL AG Negative Normal Negative [facility] Comment on above: Order Comment: PT OPPED OFF Result Comment: Perf ormed at: - [facility] [address] [id number] Director: Antony Eisenberg PhD, Phone: [phone] Performed By: #### L 3100.1950 ####Community [facility] [address] [place], [address] Absolute lymphocyte countOrd ered By: [facility] Fuentesheath on 08-19-2024 Lymphocytes Auto (Unsp spec) [#/Vol] 2.72 10*3/uL 0.83-4.51 [facility] Absolute neutrophil countOrd ered By: [facility] Alfredoheath on 08-19-2024 Neutrophils (Bld) [#/Vol] 5.3 10*3/uL 2.0-7.7 [facility] Anion gap in Serum or Plasma Ordered By: [facility] Corrales on 08-19-2024 Anion gap [Moles/Vol] 11 mmol/L 5-[address] [facility] Automated lymphocyte count a s percentage of total leukocytesOrdered By: [facility] Corrales on 08-19-2024 Lymphocytes/100 WBC Auto (Unsp spec) 30.2 % 19-41 [facility] BUN/creatinine ratioOrdered By: [facility]he[facility] on 08-19-2024 Urea nitrogen/Creatinine [Mass ratio] 24.0 mg/mg High 10- [facility] Basophil percentageOrdered B y: Iraisomaira Savanna on 08-19-2024 Basophils/100 WBC (Bld) 0.4 % 0-1 [facility] Bilirubin, totalOrdered By: Iraisomaira Corrales on 08-19-2024 Bilirubin [Mass/Vol] 0.28 mg/dL 0.00-1.30 [facility] CBC W/Diff, Automatedon Absolute Lymph 2.72 X10 3/uL Normal 0.83-4.51 [facility] Comment on above: Performed By: #### L 500.4050, L501.2300, L100.0100, L501.5200 ####[facility] [address] [place], [address]( Absolute Neut 5.3 X10 3/uL Normal 2.0-7.7 [facility] Comment on above: Performed By: #### L 500.4050, L501.2300, L100.0100, L501.5200 ####[facility] [address] [place], [address] Basophils/100 WBC (Bld) 0.4 % Normal 0-1 [facility] Comment on above: Performed By: #### L 500.4050, L501.2300, L100.0100, L501.5200 ####[facility] [address] [place], [address] Eosinophils/100 WBC (Bld) 3.1 % Normal 0-5 [facility] Comment on above: Performed By: #### L 500.4050, L501.2300, L100.0100, L501.5200 ####[facility] [address] [place], [address] Erythrocyte distribution width (RBC) [Ratio] 12.7 % Normal 11.6-14.6 [facility] Comment on above: Performed By: #### L 500.4050, L501.2300, L100.0100, L501.5200 ####[facility] [address] [place], [address] Hematocrit (Bld) [Volume fraction] 38.6 % Normal 37-47 [facility] Comment on above: Performed By: #### L 500.4050, L501.2300, L100.0100, L501.5200 ####[facility] [address] [place], [address] Hemoglobin (Bld) [Mass/Vol] 12.5 g/dL Normal 12.0-15.0 [facility] Comment on above: Performed By: #### L 500.4050, L501.2300, L100.0100, L501.5200 ####[facility] [address] [place], [address] IG% 0.300 Normal 0.0-0.9 [facility] Comment on above: Result Comment: IG% - Immature Granulocytes (promyelocytes, myelocytes andmetamyelocytes) > 1% indicates that a LEFT SHIFT is Present. Performed By: #### L 500.4050, L501.2300, L100.0100, L501.5200 ####[facility] [address] [place], [address] Lymphocytes/100 WBC (Bld) 30.2 % Normal 19-41 [facility] Comment on above: Performed By: #### L 500.4050, L501.2300, L100.0100, L501.5200 ####[facility] [address] [place], [address] MCH (RBC) [Entitic mass] 28.5 pg Normal 27.0-32.0 [facility] Comment on above: Performed By: #### L 500.4050, L501.2300, L100.0100, L501.5200 ####[facility] [address] [place], [address] MCHC (RBC) [Mass/Vol] 32.4 g/dL Normal 32-[address] [facility] Comment on above: Performed By: #### L 500.4050, L501.2300, L100.0100, L501.5200 ####[facility] [address] [place], [address] MCV (RBC) [Entitic vol] 88.1 fL Normal 81-99 [facility] Comment on above: Performed By: #### L 500.4050, L501.2300, L100.0100, L501.5200 ####[facility] [address] [place], [address] Monocytes/100 WBC (Bld) 7.2 % Normal 0-10 [facility] Comment on above: Performed By: #### L 500.4050, L501.2300, L100.0100, L501.5200 ####[facility] [address] [place], [address] Neutrophils/100 WBC (Bld) 58.8 % Normal 47-70 [facility] Comment on above: Performed By: #### L 500.4050, L501.2300, L100.0100, L501.5200 ####[facility] [address] [place], [address] Nucleated RBC (Bld) [#/Vol] 0 10*3/uL Normal 0-5 [facility] Comment on above: Performed By: #### L 500.4050, L501.2300, L100.0100, L501.5200 ####[facility] [address] [place], [address] Platelet mean volume (Bld) [Entitic vol] 9.1 fL Normal 6.2-12.0 [facility] Comment on above: Performed By: #### L 500.4050, L501.2300, L100.0100, L501.5200 ####[facility] [address] [place], [address] Platelets (Bld) [#/Vol] 344 10*3/uL Normal 150-450 [facility] Comment on above: Performed By: #### L 500.4050, L501.2300, L100.0100, L501.5200 ####[facility] [address] [place], [address] RBC (Bld) [#/Vol] 4.38 10*6/uL Normal 4.2-5.4 [facility] Comment on above: Performed By: #### L 500.4050, L501.2300, L100.0100, L501.5200 ####[facility] [address] [place], [address] RDW SD 41.2 fl Normal 35.1-43.9 [facility] Comment on above: Performed By: #### L 500.4050, L501.2300, L100.0100, L501.5200 ####[facility] [address] [place], [address] WBC (Bld) [#/Vol] 9.0 10*3/uL Normal 4.4-11.0 [facility] Comment on above: Performed By: #### L 500.4050, L501.2300, L100.0100, L501.5200 ####[facility] [address] [place], [address] Carbon dioxide, total [Moles /volume] in Central venous bloodOrdered By: Andrés Corrales on 08-19-2024 CO2 [Moles/Vol] 21.5 mmol/L 21.0-32.0 [facility] Chloride assayOrdered By: Lazara Corrales on 08-19-2024 Chloride [Moles/Vol] 103 mmol/L 98-108 [facility] Comprehensive Metabolic Prof ilon 08-19-2024 Albumin [Mass/Vol] 4.0 g/dL Normal 3.4-4.8 [facility] Comment on above: Performed By: #### L 500.4050, L501.2300, L100.0100, L501.5200 ####[facility] [address] [place], [address] Albumin/Globulin [Mass ratio] 1.3 {ratio} Normal 0.9-2.4 [facility] Comment on above: Performed By: #### L 500.4050, L501.2300, L100.0100, L501.5200 ####[facility] [address] [place], [address] ALK PHOS 64 U/L Normal 35-104 [facility] Comment on above: Performed By: #### L 500.4050, L501.2300, L100.0100, L501.5200 ####[facility] [address] [place], [address] ALT [Catalytic activity/Vol] 32 U/L Normal <=34 [facility] Comment on above: Performed By: #### L 500.4050, L501.2300, L100.0100, L501.5200 ####[facility] [address] [place], [address] AST [Catalytic activity/Vol] 29 U/L Normal <=31 [facility] Comment on above: Performed By: #### L 500.4050, L501.2300, L100.0100, L501.5200 ####[facility] [address] [place], [address] Bilirubin [Mass/Vol] 0.28 mg/dL Normal 0.00-1.30 [facility] Comment on above: Performed By: #### L 500.4050, L501.2300, L100.0100, L501.5200 ####[facility] [address] [place], [address] BUN/CRE 24.0 RATIO High 10-20 [facility] Comment on above: Performed By: #### L 500.4050, L501.2300, L100.0100, L501.5200 ####[facility] [address] [place], [address] Calcium [Mass/Vol] 9.4 mg/dL Normal 7.6-11.0 [facility] Comment on above: Performed By: #### L 500.4050, L501.2300, L100.0100, L501.5200 ####[facility] [address] [place], [address] Chloride [Moles/Vol] 103 mmol/L Normal 98-108 [facility] Comment on above: Performed By: #### L 500.4050, L501.2300, L100.0100, L501.5200 ####[facility] [address] [place], [address] CO2 [Moles/Vol] 21.5 mmol/L Normal 21.0-32.0 [facility] Comment on above: Performed By: #### L 500.4050, L501.2300, L100.0100, L501.5200 ####[facility] [address] [place], [address] Creatinine [Mass/Vol] 1.00 mg/dL Normal 0.70-1.[address] [facility] Comment on above: Performed By: #### L 500.4050, L501.2300, L100.0100, L501.5200 ####[facility] [address] [place], [address] ECRCL 53.59 ml/min Normal 50-250 [facility] Comment on above: Performed By: #### L 500.4050, L501.2300, L100.0100, L501.5200 ####[facility] [address] [place], [address] GAP 11 Normal 5-15 [facility] Comment on above: Performed By: #### L 500.4050, L501.2300, L100.0100, L501.5200 ####[facility] [address] [place], [address] GFR/1.73 sq M.predicted among non-blacks MDRD (S/P/Bld) [Vol rate/Area] 64 mL/min/{1.73_m2} Normal >60 [facility] Comment on above: Result Comment: mL/m in/1.73m2 CKD-EPI Creatinine Equation (2020) Performed By: #### L 500.4050, L501.2300, L100.0100, L501.5200 ####[facility] [address] [place], [address] Globulin (S) [Mass/Vol] 3.0 g/dL Normal 2.2-4.2 [facility] Comment on above: Performed By: #### L 500.4050, L501.2300, L100.0100, L501.5200 ####[facility] [address] [place], [address] Glucose [Mass/Vol] 98 mg/dL Normal 70-99 [facility] Comment on above: Performed By: #### L 500.4050, L501.2300, L100.0100, L501.5200 ####[facility] [address] [place], [address] Potassium [Moles/Vol] 4.6 mmol/L Normal 3.3-5.[address] [facility] Comment on above: Performed By: #### L 500.4050, L501.2300, L100.0100, L501.5200 ####[facility] [address] [place], [address] Sodium [Moles/Vol] 136 mmol/L Normal 133-145 [facility] Comment on above: Performed By: #### L 500.4050, L501.2300, L100.0100, L501.5200 ####[facility] [address] [place], [address] T PROT 7.0 g/dL Normal 5.9-8.4 [facility] Comment on above: Performed By: #### L 500.4050, L501.2300, L100.0100, L501.5200 ####[facility] [address] [place], [address] Urea nitrogen [Mass/Vol] 24 mg/dL High 4-19 [facility] Comment on above: Performed By: #### L 500.4050, L501.2300, L100.0100, L501.5200 ####[facility] [address] [place], [address] Eosinophil percentageOrdered By: Andrés Corrales on 08-19-2024 Eosinophils/100 WBC (Bld) 3.1 % 0-5 [facility] Erythrocyte distribution wid th ratioOrdered By: Andrés Corrales on 08-19-2024 Erythrocyte distribution width (RBC) [Ratio] 12.7 % 11.6-14.6 [facility] Erythrocyte distribution wid th standard deviationOrdered By: [facility] on 08-19-2024 Erythrocyte distribution width (RBC) [Ratio] 41.2 fl 35.1-43.9 [facility] Glomerular filtration rate ( GFR) estimation/1.73 sq m using serum, plasma, or whole bOrdered By: [facility] Corral[facility] on 08-19-2024 GFR/1.73 sq M.predicted among non-blacks MDRD (S/P/Bld) [Vol rate/Area] 64 mL/min/{1.73_m2} >60 [facility] Comment on above: mL/min/1.73m2 CKD-EP I Creatinine Equation (2020) Hematocrit Auto (Bld) [Volum e fraction]Ordered By: [facility] Cor[facility] on 08-19-2024 Hematocrit (Bld) [Volume fraction] 38.6 % 37-47 [facility] Hemoglobin measurementOrdere d By: Andrés Corrales on 08-19-2024 Hemoglobin (Bld) [Mass/Vol] 12.5 g/dL 12.0-15.0 [facility] Immature granulocytes/100 WB C Auto (Bld)Ordered By: Andrés Corrales on 08-19-2024 Immature granulocytes/100 WBC (Bld) 0.300 % 0.0-0.9 [facility] Comment on above: IG% - Immature Granu locytes (promyelocytes, myelocytes and metamyelocytes) > 1% indicates that a LEFT SHIFT is Present. Laboratory - Chemistry and C hemistry - challengeOrdered By: Andrés Corrales on 08-19-2024 AST [Catalytic activity/Vol] 29 U/L <32 [facility] MCV (mean corpuscular volume ) determinationOrdered By: [facility] on 08-19-2024 MCV (RBC) [Entitic vol] 88.1 fL 81-99 [facility] Magnesiumon 08-19-2024 Magnesium [Mass/Vol] 2.3 mg/dL High 1.5-2.2 [facility] Comment on above: Performed By: #### L 500.4050, L501.2300, L100.0100, L501.5200 ####[facility] [address] [place], [address] Magnesium measurement (mass/ volume)Ordered By: Andrés Corrales on 08-19-2024 Magnesium (Unsp spec) [Mass/Vol] 2.3 mg/dL High 1.5-2.2 [facility] Mean corpuscular hemoglobin (MCH) determinationOrdered By: Andrés Corrales on 08-19-2024 MCH (RBC) [Entitic mass] 28.5 pg 27.0-32.0 [facility] Mean corpuscular hemoglobin concentration (MCHC) determinationOrdered By: Andrés Corrales on 08-19-2024 MCHC (RBC) [Mass/Vol] 32.4 g/dL 32-[address] [facility] Mean platelet volume determi nationOrdered By: [facility] Savanna on 08-19-2024 Platelet mean volume (Bld) [Entitic vol] 9.1 fL 6.2-12.0 [facility] Monocyte percentageOrdered B y: Andrés Corrales on 08-19-2024 Monocytes/100 WBC (Bld) 7.2 % 0-10 [facility] Neutrophil percentageOrdered By: [facility] Savanna on 08-19-2024 Neutrophils/100 WBC (Bld) 58.8 % 47-70 [facility] Nucleated red blood cell per centageOrdered By: [facility] on 08-19-2024 Nucleated RBC/100 WBC (Bld) [Ratio] 0 % 0-5 [facility] Oncology Visit Reporton 0 Oncology Visit Report Normal [facility] Phosphoruson 08-19-2024 Phosphate [Mass/Vol] 3.1 mg/dL Normal 2.7-4.5 [facility] Comment on above: Performed By: #### L 500.4050, L501.2300, L100.0100, L501.5200 ####[facility] [address] [place], [address] Platelet countOrdered By: Lazara Corrales on 08-19-2024 Platelets (Bld) [#/Vol] 344 10*3/uL 150-450 [facility] Potassium measurement (mass/ volume)Ordered By: Andrés Corrales on 08-19-2024 Potassium (Unsp spec) [Mass/Vol] 4.6 mmol/L 3.3-5.1 [facility] RBC Auto (Bld) [#/Vol]Ordere d By: Andrés Corrales on 08-19-2024 RBC (Bld) [#/Vol] 4.38 10*6/uL 4.2-5.4 [facility] Serum creatinine measurement (mass/volume)Ordered By: Andrés Corrales on 08-19-2024 Creatinine [Mass/Vol] 1.00 mg/dL 0.70-1.[address] [facility] Serum globulin measurementOr dered By: Andrés Corrales on 08-19-2024 Globulin (S) [Mass/Vol] 3.0 g/dL 2.2-4.2 [facility] Serum glucose measurement (m ass/volume)Ordered By: Andrés Corrales on 08-19-2024 Glucose [Mass/Vol] 98 mg/dL 70-99 [facility] Serum or plasma alanine dobbs otransferase (ALT) measurementOrdered By: Andrés Corrales on 08-19-2024 ALT [Catalytic activity/Vol] 32 U/L <35 [facility] Serum or plasma albumin anat urement (mass/volume)Ordered By: Andrés Corrales on 08-19-2024 Albumin [Mass/Vol] 4.0 g/dL 3.4-4.8 [facility] Serum or plasma albumin/glob ulin mass ratioOrdered By: Andrés Corrales on 08-19-2024 Albumin/Globulin [Mass ratio] 1.3 {ratio} 0.9-2.4 [facility] Serum or plasma alkaline dirk sphatase measurementOrdered By: Andrés Corrales on 08-19-2024 ALP [Catalytic activity/Vol] 64 U/L 35-104 [facility] Serum or plasma calcium anat urement (mass/volume)Ordered By: Andrés Corrales on 08-19-2024 Calcium [Mass/Vol] 9.4 mg/dL 7.6-11.0 [facility] Serum or plasma urea nitroge n measurement (mass/volume)Ordered By: Andrés Corrales on 08-19-2024 Urea nitrogen [Mass/Vol] 24 mg/dL High 4-19 [facility] Sodium levelOrdered By: Irais Corrales on 08-19-2024 Sodium [Moles/Vol] 136 mmol/L 133-145 [facility] Stool Helicobacter pylori an tigen detection by immunoassayOrdered By: Ghislaine Calixto on 08-19-2024 H. pylori Ag IA Ql (Stl) Negative Negative [facility] Comment on above: Performed at: [address] Director: Antony Eisenberg PhD, Phone: [phone] Total proteinOrdered By: Arturo Corrales on 08-19-2024 Protein [Mass/Vol] 7.0 g/dL 5.9-8.4 [facility] White blood cell (WBC) count Ordered By: Andrés Corrales on 08-19-2024 WBC (Bld) [#/Vol] 9.0 10*3/uL 4.4-11.0 [facility] Oncology Visit Reporton 07-15 Oncology Visit Report Normal [facility] Echocardiogram study reportO rdered By: [place] Doe on 07-28-2024 Study report [facility] [address] [facility] [address] ONC Echo Complete 07/28/24 0956 MR#: [id number] Acct: [id number] Name: MARTIN ARROYO Rep #:[id number] : 1960 64 From: [place] Garcia Attending Dr: Leisa Baker NP-C Status: REG CLI Ordering Dr: Leisa Baker NP GINNING OPERATORJorgeC Da te: 07/28/24 Location: [facility] Sex: F C Admitted: Reason For Study Reason For Study: Therapeutic Drug monitoring Procedure This was a 2D Doppler, Color Flow transthoracic echocardiogram. Myocardial strain analysis was performed in this exam to aid in the assessment of cardiac function. Exam performed in department. Left Ventricle Normal LV size. The global longitudinal strain = -18.0 % (normal). The estimatedejection fraction is 53 %. Right Ventricle Normal RV size. Normal systolic function. Atria Normal left atrium. Normal right atrium. Mitral Valve Normal mitral valve. Tricuspid Valve Normal tricuspid valve. Mild tricuspid valve insufficiency. Pulmonary artery systolic pressure is 24 mmHg. Aortic Valve Trisinus/trileaflet aortic valve. Mild (1+) aortic valve insufficiency. Pulmonic Valve Normal pulmonic valve. Great Vessels Normal aortic root. The pulmonary artery is normal size. Inferior vena cava collapse with respiration. Pericardium/Pleural No pericardial effusion. MMode/2D Measurements & Calculations LVIDd: 4.7 cm IVSd: 0.95 cm Ao root diam: 3.1 cm LVIDs: 3.1 cm LVPWd: 0.79 cm RVDd: 3.3 cm FS: 33.5 % LAV(MOD-bp): 38.1 ml LVAd ap4: 25.9 cm2 SV(MOD-sp4): 38.5 ml LAV(MOD-bp) Indexed: 22.1 ml/m2 LVLd ap4: 7.4 cm SI(MOD-sp4): 22.4 ml/m2 LAV(MOD-sp2): 55.2 ml EDV(MOD-sp4): 75.6 ml LAV(MOD-sp4): 23.9 ml EDV(sp4-el): 76.8 ml LVAs ap4: 16.8 cm2 LVLs ap4: 6.2 cm ESV(MOD-sp4): 37.1 ml ESV(sp4-el): 38.2 ml EF(MOD-sp4): 50.9 % EF(sp4-el): 50.2 % SV(sp4-el): 38.6 ml LA A4 area: 11.3 cm2 LA dimension(2D): 3.2 cm RA A4 area: 12.7 cm2 TAPSE: 2.3 cm Time Measurements MV dec time: 0.16 sec Doppler Measurements & Calculations MV E max wali: 57.4 cm/sec Lat Peak E' Wali: 14.6 cm/sec Med Peak E' Wali: 10.8 cm/sec MV A max wali: 61.0 cm/sec E/E' lat: 3.9 E/E' med: 5.3 MV E/A: 0.94 MV V2 max: 68.8 cm/sec MV P1/2t max wali: 69.4 cm/sec Ao V2 max: 112.2 cm/sec MV max P.9 mmHg MV P1/2t: 59.9 msec Ao max P.0 mmHg MV V2 mean: 35.8 cm/sec Ao V2 mean: 80.1 cm/sec MV mean P.62 mmHg MV dec slope: 339.4 cm/sec2 Ao mean P.9 mmHg MV V2 VTI: 21.1 cm MVA(P1/2t): 3.7 cm2 Ao V2 VTI: 25.6 cm AV (velocity ratio): 0.82 AI max wali: 380.5 cm/sec LV V1 max: 84.6 cm/sec MR max wali: 442.6 cm/sec AI max P.9 mmHg LV V1 max P.9 mmHg MR max P.4 mmHg LV V1 mean P.7 mmHg AI dec slope: 138.9 cm/sec2 LV V1 mean: 61.5 cm/sec AI P1/2t: 802.3 msec LV V1 VTI: 21.1 cm PA V2 max: 79.1 cm/sec TR max wali: 229.4 cm/sec TR max P.1 mmHg ECHO/ONC Echo Complete Interpretation Summary Normal LV size. The global longitudinal strain = -18.0 % (normal). The estimated ejection fraction is 53 %. The global longitudinal strain is normal. Compared to previous study, the left ventricular systolic function is the same.. ___ Ordering Physician: Leisa Baker Referring Physician: Leisa Baker Performed By: Jh Barrow RCS 07/28/24 1325 Date _ Cleveland Doe MD CC: GINNING OPERATOR-C Leisa Baker; No Primary Care Physician ~ Date Dictated: 07/28/24955 Date Transcribed: 07/28/241324 [employer] Machine Set Up Operator: Signed [facility] Work Phone: ONC Echo Completeon 07-29-19 ONC Echo Complete Normal [facility] Absolute lymphocyte countOrd ered By: Leisa Baker on 07-08-2024 Lymphocytes Auto (Unsp spec) [#/Vol] 2.77 10*3/uL 0.83-4.51 [facility] Absolute neutrophil countOrd ered By: Leisa Baker on 07-08-2024 Neutrophils (Bld) [#/Vol] 4.8 10*3/uL 2.0-7.7 [facility] Anion gap in Serum or Plasma Ordered By: Leisa Baker on 07-08-2024 Anion gap [Moles/Vol] 10 mmol/L 5- [facility] Automated lymphocyte count a s percentage of total leukocytesOrdered By: Leisa Baker on 07-08-2024 Lymphocytes/100 WBC Auto (Unsp spec) 32.6 % 19-41 [facility] BUN/creatinine ratioOrdered By: Leisa Baker on 07-08-2024 Urea nitrogen/Creatinine [Mass ratio] 25.4 mg/mg High 10- [facility] Basophil percentageOrdered B y: Leisa Baker on 07-08-2024 Basophils/100 WBC (Bld) 0.5 % 0-1 [facility] Bilirubin, totalOrdered By: Leisa Baker on 07-08-2024 Bilirubin [Mass/Vol] 0.24 mg/dL 0.00-1.30 [facility] CBC W/Diff, Automatedon 06-16 Absolute Lymph 2.77 X10 3/uL Normal 0.83-4.51 [facility] Comment on above: Performed By: #### L 500.4050, L100.0100 ####[facility] [address] [place], [address] Absolute Neut 4.8 X10 3/uL Normal 2.0-7.7 [facility] Comment on above: Performed By: #### L 500.4050, L100.0100 ####[facility] [address] [place], [address] Basophils/100 WBC (Bld) 0.5 % Normal 0-1 [facility] Comment on above: Performed By: #### L 500.4050, L100.0100 ####[facility] [address] [place], [address] Eosinophils/100 WBC (Bld) 3.5 % Normal 0-5 [facility] Comment on above: Performed By: #### L 500.4050, L100.0100 ####[facility] [address] [place], [address] Erythrocyte distribution width (RBC) [Ratio] 12.5 % Normal 11.6-14.6 [facility] Comment on above: Performed By: #### L 500.4050, L100.0100 ####[facility] [address] [place], [address] Hematocrit (Bld) [Volume fraction] 38.1 % Normal 37-47 [facility] Comment on above: Performed By: #### L 500.4050, L100.0100 ####[facility] [address] [place], [address] Hemoglobin (Bld) [Mass/Vol] 12.6 g/dL Normal 12.0-15.0 [facility] Comment on above: Performed By: #### L 500.4050, L100.0100 ####[facility] [address] [place], [address] IG% 0.400 Normal 0.0-0.9 [facility] Comment on above: Result Comment: IG% - Immature Granulocytes (promyelocytes, myelocytes andmetamyelocytes) > 1% indicates that a LEFT SHIFT is Present. Performed By: #### L 500.4050, L100.0100 ####[facility] [address] [place], [address] Lymphocytes/100 WBC (Bld) 32.6 % Normal 19-41 [facility] Comment on above: Performed By: #### L 500.4050, L100.0100 ####[facility] [address] [place], [address] MCH (RBC) [Entitic mass] 28.9 pg Normal 27.0-32.0 [facility] Comment on above: Performed By: #### L 500.4050, L100.0100 ####[facility] [address] [place], [address] MCHC (RBC) [Mass/Vol] 33.1 g/dL Normal 32-[address] [facility] Comment on above: Performed By: #### L 500.4050, L100.0100 ####[facility] [address] [place], [address] MCV (RBC) [Entitic vol] 87.4 fL Normal 81-99 [facility] Comment on above: Performed By: #### L 500.4050, L100.0100 ####[facility] [address] [place], [address] Monocytes/100 WBC (Bld) 6.1 % Normal 0-10 [facility] Comment on above: Performed By: #### L 500.4050, L100.0100 ####[facility] [address] [place], [address] Neutrophils/100 WBC (Bld) 56.9 % Normal 47-70 [facility] Comment on above: Performed By: #### L 500.4050, L100.0100 ####[facility] [address] [place], [address] Nucleated RBC (Bld) [#/Vol] 0 10*3/uL Normal 0-5 [facility] Comment on above: Performed By: #### L 500.4050, L100.0100 ####[facility] [address] [place], [address] Platelet mean volume (Bld) [Entitic vol] 9.2 fL Normal 6.2-12.0 [facility] Comment on above: Performed By: #### L 500.4050, L100.0100 ####[facility] [address] [place], [address] Platelets (Bld) [#/Vol] 326 10*3/uL Normal 150-450 [facility] Comment on above: Performed By: #### L 500.4050, L100.0100 ####[facility] [address] [place], [address] RBC (Bld) [#/Vol] 4.36 10*6/uL Normal 4.2-5.4 [facility] Comment on above: Performed By: #### L 500.4050, L100.0100 ####[facility] [address] [place], [address] RDW SD 39.8 fl Normal 35.1-43.9 [facility] Comment on above: Performed By: #### L 500.4050, L100.0100 ####[facility] [address] [place], [address] WBC (Bld) [#/Vol] 8.5 10*3/uL Normal 4.4-11.0 [facility] Comment on above: Performed By: #### L 500.4050, L100.0100 ####[facility] [address] [place], [address] Carbon dioxide, total [Moles /volume] in Central venous bloodOrdered By: Leisa Samuel on 07-08-2024 CO2 [Moles/Vol] 22.3 mmol/L 21.0-32.0 [facility] Chloride assayOrdered By: Ty ra Baker on 07-08-2024 Chloride [Moles/Vol] 106 mmol/L 98-108 [facility] Comprehensive Metabolic Prof ilon 07-08-2024 Albumin [Mass/Vol] 4.0 g/dL Normal 3.4-4.8 [facility] Comment on above: Performed By: #### L 500.4050, L100.0100 ####[facility] [address] [place], [address] Albumin/Globulin [Mass ratio] 1.3 {ratio} Normal 0.9-2.4 [facility] Comment on above: Performed By: #### L 500.4050, L100.0100 ####[facility] [address] [place], [address] ALK PHOS 78 U/L Normal 35-104 [facility] Comment on above: Performed By: #### L 500.4050, L100.0100 ####[facility] [address] [place], [address] ALT [Catalytic activity/Vol] 23 U/L Normal <=34 [facility] Comment on above: Performed By: #### L 500.4050, L100.0100 ####[facility] [address] [place], [address] AST [Catalytic activity/Vol] 24 U/L Normal <=31 [facility] Comment on above: Performed By: #### L 500.4050, L100.0100 ####[facility] [address] [place], [address] Bilirubin [Mass/Vol] 0.24 mg/dL Normal 0.00-1.30 [facility] Comment on above: Performed By: #### L 500.4050, L100.0100 ####[facility] [address] [place], [address] BUN/CRE 25.4 RATIO High 10-20 [facility] Comment on above: Performed By: #### L 500.4050, L100.0100 ####[facility] [address] [place], [address] Calcium [Mass/Vol] 9.7 mg/dL Normal 7.6-11.0 [facility] Comment on above: Performed By: #### L 500.4050, L100.0100 ####[facility] [address] [place], [address] Chloride [Moles/Vol] 106 mmol/L Normal 98-108 [facility] Comment on above: Performed By: #### L 500.4050, L100.0100 ####[facility] [address] [place], [address] CO2 [Moles/Vol] 22.3 mmol/L Normal 21.0-32.0 [facility] Comment on above: Performed By: #### L 500.4050, L100.0100 ####[facility] [address] [place], [address] Creatinine [Mass/Vol] 1.02 mg/dL Normal 0.70-1.[address] [facility] Comment on above: Performed By: #### L 500.4050, L100.0100 ####[facility] [address] [place], [address] ECRCL 53.28 ml/min Normal 50-250 [facility] Comment on above: Performed By: #### L 500.4050, L100.0100 ####[facility] [address] [place], [address] GAP 10 Normal 5-15 [facility] Comment on above: Performed By: #### L 500.4050, L100.0100 ####[facility] [address] [place], [address] GFR/1.73 sq M.predicted among non-blacks MDRD (S/P/Bld) [Vol rate/Area] 62 mL/min/{1.73_m2} Normal >60 [facility] Comment on above: Result Comment: mL/m in/1.73m2 CKD-EPI Creatinine Equation (2020) Performed By: #### L 500.4050, L100.0100 ####[facility] [address] [place], [address] Globulin (S) [Mass/Vol] 3.0 g/dL Normal 2.2-4.2 [facility] Comment on above: Performed By: #### L 500.4050, L100.0100 ####[facility] [address] [place], [address] Glucose [Mass/Vol] 110 mg/dL High 70-99 [facility] Comment on above: Performed By: #### L 500.4050, L100.0100 ####[facility] [address] [place], [address] Potassium [Moles/Vol] 4.4 mmol/L Normal 3.3-5.[address] [facility] Comment on above: Performed By: #### L 500.4050, L100.0100 ####[facility] [address] [place], [address] Sodium [Moles/Vol] 138 mmol/L Normal 133-145 [facility] Comment on above: Performed By: #### L 500.4050, L100.0100 ####[facility] [address] [place], [address] T PROT 7.1 g/dL Normal 5.9-8.4 [facility] Comment on above: Performed By: #### L 500.4050, L100.0100 ####[facility] [address] [place], [address] Urea nitrogen [Mass/Vol] 26 mg/dL High 4-19 [facility] Comment on above: Performed By: #### L 500.4050, L100.0100 ####[facility] [address] [place], [address] Eosinophil percentageOrdered By: Leisa Baker on 07-08-2024 Eosinophils/100 WBC (Bld) 3.5 % 0-5 [facility] Erythrocyte distribution wid th ratioOrdered By: Leisa Baker on 07-08-2024 Erythrocyte distribution width (RBC) [Ratio] 12.5 % 11.6-14.6 [facility] Erythrocyte distribution wid th standard deviationOrdered By: Leisa Baker on 07-08-2024 Erythrocyte distribution width (RBC) [Ratio] 39.8 fl 35.1-43.9 [facility] Glomerular filtration rate ( GFR) estimation/1.73 sq m using serum, plasma, or whole bOrdered By: Leisa Baker on 07-08-2024 GFR/1.73 sq M.predicted among non-blacks MDRD (S/P/Bld) [Vol rate/Area] 62 mL/min/{1.73_m2} >60 [facility] Comment on above: mL/min/1.73m2 CKD-EP I Creatinine Equation (2020) Hematocrit Auto (Bld) [Volum e fraction]Ordered By: Leisa Baker on 07-08-2024 Hematocrit (Bld) [Volume fraction] 38.1 % 37-47 [facility] Hemoglobin measurementOrdere d By: Leisa Baker on 07-08-2024 Hemoglobin (Bld) [Mass/Vol] 12.6 g/dL 12.0-15.0 [facility] Immature granulocytes/100 WB C Auto (Bld)Ordered By: Leisa Baker on 07-08-2024 Immature granulocytes/100 WBC (Bld) 0.400 % 0.0-0.9 [facility] Comment on above: IG% - Immature Granu locytes (promyelocytes, myelocytes and metamyelocytes) > 1% indicates that a LEFT SHIFT is Present. Laboratory - Chemistry and C hemistry - challengeOrdered By: Leisa Baker on 07-08-2024 AST [Catalytic activity/Vol] 24 U/L <32 [facility] MCV (mean corpuscular volume ) determinationOrdered By: Leisa Baker on 07-08-2024 MCV (RBC) [Entitic vol] 87.4 fL 81-99 [facility] Mean corpuscular hemoglobin (MCH) determinationOrdered By: Leisa Baker on 07-08-2024 MCH (RBC) [Entitic mass] 28.9 pg 27.0-32.0 [facility] Mean corpuscular hemoglobin concentration (MCHC) determinationOrdered By: Leisa Baker on 07-08-2024 MCHC (RBC) [Mass/Vol] 33.1 g/dL 32-[address] [facility] Mean platelet volume determi nationOrdered By: Leisa Baker on 07-08-2024 Platelet mean volume (Bld) [Entitic vol] 9.2 fL 6.2-12.0 [facility] Monocyte percentageOrdered B y: Leisa Baker on 07-08-2024 Monocytes/100 WBC (Bld) 6.1 % 0-10 [facility] Neutrophil percentageOrdered By: Leisa Baker on 07-08-2024 Neutrophils/100 WBC (Bld) 56.9 % 47-70 [facility] Nucleated red blood cell per centageOrdered By: Leisa Baker on 07-08-2024 Nucleated RBC/100 WBC (Bld) [Ratio] 0 % 0-5 [facility] Oncology Visit Reporton 06-16 Oncology Visit Report Normal [facility] Platelet countOrdered By: Karthikeyan Baker on 07-08-2024 Platelets (Bld) [#/Vol] 326 10*3/uL 150-450 [facility] Potassium measurement (mass/ volume)Ordered By: Leisa Baker on 07-08-2024 Potassium (Unsp spec) [Mass/Vol] 4.4 mmol/L 3.3-5.1 [facility] RBC Auto (Bld) [#/Vol]Ordere d By: Leisa Baker on 07-08-2024 RBC (Bld) [#/Vol] 4.36 10*6/uL 4.2-5.4 [facility] Serum creatinine measurement (mass/volume)Ordered By: Leisa Baker on 07-08-2024 Creatinine [Mass/Vol] 1.02 mg/dL 0.70-1.[address] [facility] Serum globulin measurementOr dered By: Leisa Baker on 07-08-2024 Globulin (S) [Mass/Vol] 3.0 g/dL 2.2-4.2 [facility] Serum glucose measurement (m ass/volume)Ordered By: Leisa Baker on 07-08-2024 Glucose [Mass/Vol] 110 mg/dL High 70-99 [facility] Serum or plasma alanine dobbs otransferase (ALT) measurementOrdered By: Leisa Baker on 07-08-2024 ALT [Catalytic activity/Vol] 23 U/L <35 [facility] Serum or plasma albumin anat urement (mass/volume)Ordered By: Leisa Baker on 07-08-2024 Albumin [Mass/Vol] 4.0 g/dL 3.4-4.8 [facility] Serum or plasma albumin/glob ulin mass ratioOrdered By: Leisa Baker on 07-08-2024 Albumin/Globulin [Mass ratio] 1.3 {ratio} 0.9-2.4 [facility] Serum or plasma alkaline dirk sphatase measurementOrdered By: Leisa Baker on 07-08-2024 ALP [Catalytic activity/Vol] 78 U/L 35-104 [facility] Serum or plasma calcium anat urement (mass/volume)Ordered By: Leisa Baker on 07-08-2024 Calcium [Mass/Vol] 9.7 mg/dL 7.6-11.0 [facility] Serum or plasma urea nitroge n measurement (mass/volume)Ordered By: Leisa Baker on 07-08-2024 Urea nitrogen [Mass/Vol] 26 mg/dL High 4-19 [facility] Sodium levelOrdered By: Leisa Baker on 07-08-2024 Sodium [Moles/Vol] 138 mmol/L 133-145 [facility] Total proteinOrdered By: Hugh Baker on 07-08-2024 Protein [Mass/Vol] 7.1 g/dL 5.9-8.4 [facility] White blood cell (WBC) count Ordered By: Leisa Baker on 07-08-2024 WBC (Bld) [#/Vol] 8.5 10*3/uL 4.4-11.0 [facility] EGD Reporton 07-01-2024 EGD Report Normal [facility] Immunohistochemical Stainson 07-01-2024 Immunohistochemical Stains Normal [facility] Comment on above: Performed By: #### [facility] ####[facility] [address] [place], [address] MR/POSTOP.ANEon 07-01-2024 MR/POSTOP.ANE Normal [facility] MR/GQBMCOXR2de 07-01-2024 MR/POSTOPAN2 Normal [facility] MR/PAT.ANEon 06-28-2024 MR/PAT.ANE Normal [facility] Gastroenterology Visit Repor ton 06-25-2024 Gastroenterology Visit Report Normal [facility] Oncology Visit Reporton Oncology Visit Report Normal [facility] CT Chest AND Abd W/ Contrast on 06-08-2024 CT Chest AND Abd W/ Contrast Normal [facility] Absolute neutrophil countOrd ered By: Andrés Corrales on 05-27-2024 Neutrophils (Bld) [#/Vol] 4.4 10*3/uL 2.0-7.7 [facility] Anion gap in Serum or Plasma Ordered By: Andrés Corrales on 05-27-2024 Anion gap [Moles/Vol] 11 mmol/L 5-[address] [facility] BUN/creatinine ratioOrdered By: Andrés Corrales on 05-27-2024 Urea nitrogen/Creatinine [Mass ratio] 28.3 mg/mg High 10-20 [facility] Basophil percentageOrdered B y: Andrés Corrales on 05-27-2024 Basophils/100 WBC (Bld) 0.4 % 0-1 [facility] Bilirubin, totalOrdered By: Andrés Corrales on 05-27-2024 Bilirubin [Mass/Vol] 0.25 mg/dL 0.00-1.30 [facility] CBC W/Diff, Automatedon 05-15-2024 Absolute Lymph 2.70 X10 3/uL Normal 0.83-4.51 [facility] Comment on above: Performed By: #### L 100.0100, L500.4050 ####[facility] [address] [place], [address] Absolute Neut 4.4 X10 3/uL Normal 2.0-7.7 [facility] Comment on above: Performed By: #### L 100.0100, L500.4050 ####[facility] [address] [place], [address] Basophils/100 WBC (Bld) 0.4 % Normal 0-1 [facility] Comment on above: Performed By: #### L 100.0100, L500.4050 ####[facility] [address] [place], [address] Eosinophils/100 WBC (Bld) 3.3 % Normal 0-5 [facility] Comment on above: Performed By: #### L 100.0100, L500.4050 ####[facility] [address] [place], [address] Erythrocyte distribution width (RBC) [Ratio] 13.0 % Normal 11.6-14.6 [facility] Comment on above: Performed By: #### L 100.0100, L500.4050 ####[facility] [address] [place], [address] Hematocrit (Bld) [Volume fraction] 38.2 % Normal 37-47 [facility] Comment on above: Performed By: #### L 100.0100, L500.4050 ####[facility] [address] [place], [address] Hemoglobin (Bld) [Mass/Vol] 12.3 g/dL Normal 12.0-15.0 [facility] Comment on above: Performed By: #### L 100.0100, L500.4050 ####[facility] [address] [place], [address] IG% 0.300 Normal 0.0-0.9 [facility] Comment on above: Result Comment: IG% - Immature Granulocytes (promyelocytes, myelocytes andmetamyelocytes) > 1% indicates that a LEFT SHIFT is Present. Performed By: #### L 100.0100, L500.4050 ####[facility] [address] [place], [address] Lymphocytes/100 WBC (Bld) 34.0 % Normal 19-41 [facility] Comment on above: Performed By: #### L 100.0100, L500.4050 ####[facility] [address] [place], [address] MCH (RBC) [Entitic mass] 28.1 pg Normal 27.0-32.0 [facility] Comment on above: Performed By: #### L 100.0100, L500.4050 ####[facility] [address] [place], [address] MCHC (RBC) [Mass/Vol] 32.2 g/dL Normal 32-[address] [facility] Comment on above: Performed By: #### L 100.0100, L500.4050 ####[facility] [address] [place], [address] MCV (RBC) [Entitic vol] 87.4 fL Normal 81-99 [facility] Comment on above: Performed By: #### L 100.0100, L500.4050 ####[facility] [address] [place], [address] Monocytes/100 WBC (Bld) 7.1 % Normal 0-10 [facility] Comment on above: Performed By: #### L 100.0100, L500.4050 ####[facility] [address] [place], [address] Neutrophils/100 WBC (Bld) 54.9 % Normal 47-70 [facility] Comment on above: Performed By: #### L 100.0100, L500.4050 ####[facility] [address] [place], [address] Nucleated RBC (Bld) [#/Vol] 0 10*3/uL Normal 0-5 [facility] Comment on above: Performed By: #### L 100.0100, L500.4050 ####[facility] [address] [place], [address] Platelet mean volume (Bld) [Entitic vol] 9.2 fL Normal 6.2-12.0 [facility] Comment on above: Performed By: #### L 100.0100, L500.4050 ####[facility] [address] [place], [address] Platelets (Bld) [#/Vol] 363 10*3/uL Normal 150-450 [facility] Comment on above: Performed By: #### L 100.0100, L500.4050 ####[facility] [address] [place], [address] RBC (Bld) [#/Vol] 4.37 10*6/uL Normal 4.2-5.4 [facility] Comment on above: Performed By: #### L 100.0100, L500.4050 ####[facility] [address] [place], [address] RDW SD 41.7 fl Normal 35.1-43.9 [facility] Comment on above: Performed By: #### L 100.0100, L500.4050 ####[facility] [address] [place], [address] WBC (Bld) [#/Vol] 7.9 10*3/uL Normal 4.4-11.0 [facility] Comment on above: Performed By: #### L 100.0100, L500.4050 ####[facility] [address] [place], [address] Carbon dioxide, total [Moles /volume] in Central venous bloodOrdered By: Andrés Corrales on 05-27-2024 CO2 [Moles/Vol] 22.6 mmol/L 21.0-32.0 [facility] Chloride assayOrdered By: Lazara Corrales on 05-27-2024 Chloride [Moles/Vol] 105 mmol/L 98-108 [facility] Comprehensive Metabolic Prof ilon 05-27-2024 Albumin [Mass/Vol] 3.9 g/dL Normal 3.4-4.8 [facility] Comment on above: Performed By: #### L 100.0100, L500.4050 ####[facility] [address] [place], [address] Albumin/Globulin [Mass ratio] 1.3 {ratio} Normal 0.9-2.4 [facility] Comment on above: Performed By: #### L 100.0100, L500.4050 ####[facility] [address] [place], [address] ALK PHOS 86 U/L Normal 35-104 [facility] Comment on above: Performed By: #### L 100.0100, L500.4050 ####[facility] [address] [place], [address] ALT [Catalytic activity/Vol] 28 U/L Normal <=34 [facility] Comment on above: Performed By: #### L 100.0100, L500.4050 ####[facility] [address] [place], [address] AST [Catalytic activity/Vol] 27 U/L Normal <=31 [facility] Comment on above: Performed By: #### L 100.0100, L500.4050 ####[facility] [address] [place], [address] Bilirubin [Mass/Vol] 0.25 mg/dL Normal 0.00-1.30 [facility] Comment on above: Performed By: #### L 100.0100, L500.4050 ####[facility] [address] [place], [address] BUN/CRE 28.3 RATIO High 10-20 [facility] Comment on above: Performed By: #### L 100.0100, L500.4050 ####[facility] [address] [place], [address] Calcium [Mass/Vol] 9.8 mg/dL Normal 7.6-11.0 [facility] Comment on above: Performed By: #### L 100.0100, L500.4050 ####[facility] [address] [place], [address] Chloride [Moles/Vol] 105 mmol/L Normal 98-108 [facility] Comment on above: Performed By: #### L 100.0100, L500.4050 ####[facility] [address] [place], [address] CO2 [Moles/Vol] 22.6 mmol/L Normal 21.0-32.0 [facility] Comment on above: Performed By: #### L 100.0100, L500.4050 ####[facility] [address] [place], [address] Creatinine [Mass/Vol] 0.85 mg/dL Normal 0.70-1.[address] [facility] Comment on above: Performed By: #### L 100.0100, L500.4050 ####[facility] [address] [place], [address] ECRCL 65.07 ml/min Normal 50-250 [facility] Comment on above: Performed By: #### L 100.0100, L500.4050 ####[facility] [address] [place], [address] GAP 11 Normal 5-15 [facility] Comment on above: Performed By: #### L 100.0100, L500.4050 ####[facility] [address] [place], [address] GFR/1.73 sq M.predicted among non-blacks MDRD (S/P/Bld) [Vol rate/Area] 78 mL/min/{1.73_m2} Normal >60 [facility] Comment on above: Result Comment: mL/m in/1.73m2 CKD-EPI Creatinine Equation (2020) Performed By: #### L 100.0100, L500.4050 ####[facility] [address] [place], [address] Globulin (S) [Mass/Vol] 3.0 g/dL Normal 2.2-4.2 [facility] Comment on above: Performed By: #### L 100.0100, L500.4050 ####[facility] [address] [place], [address] Glucose [Mass/Vol] 101 mg/dL High 70-99 [facility] Comment on above: Performed By: #### L 100.0100, L500.4050 ####[facility] [address] [place], [address] Potassium [Moles/Vol] 4.4 mmol/L Normal 3.3-5.[address] [facility] Comment on above: Performed By: #### L 100.0100, L500.4050 ####[facility] [address] [place], [address] Sodium [Moles/Vol] 139 mmol/L Normal 133-145 [facility] Comment on above: Performed By: #### L 100.0100, L500.4050 ####[facility] [address] [place], [address] T PROT 6.9 g/dL Normal 5.9-8.4 [facility] Comment on above: Performed By: #### L 100.0100, L500.4050 ####[facility] [address] [place], [address] Urea nitrogen [Mass/Vol] 24 mg/dL High 4-19 [facility] Comment on above: Performed By: #### L 100.0100, L500.4050 ####[facility] [address] [place], [address] Eosinophil percentageOrdered By: Andrés Corrales on 05-27-2024 Eosinophils/100 WBC (Bld) 3.3 % 0-5 [facility] Erythrocyte distribution wid th ratioOrdered By: Andrés Corrales on 05-27-2024 Erythrocyte distribution width (RBC) [Ratio] 13.0 % 11.6-14.6 [facility] Erythrocyte distribution wid th standard deviationOrdered By: Andrés Corrales on 05-27-2024 Erythrocyte distribution width (RBC) [Entitic vol] 41.7 fL 35.1-43.9 [facility] Estimation of creatinine nikhil aranceOrdered By: Andrés Corrales on 05-27-2024 Estimated Creatinine Clearance Calc 65.07 ml/min 50-250 [facility] GFR/1.73 sq M.predicted tino g non-blacks MDRD (S/P/Bld) [Vol rate/Area]Ordered By: Andrés Corrales on 05-27-2024 Estimated GFR (MDRD) Non-Af Amer 78 >60 [facility] Comment on above: mL/min/1.73m2 CKD-EP I Creatinine Equation (2020) Hematocrit Auto (Bld) [Volum e fraction]Ordered By: Andrés Corrales on 05-27-2024 Hematocrit (Bld) [Volume fraction] 38.2 % 37-47 [facility] Hemoglobin measurementOrdere d By: Andrés Corrales on 05-27-2024 Hemoglobin (Bld) [Mass/Vol] 12.3 g/dL 12.0-15.0 [facility] Immature granulocytes/100 WB C Auto (Bld)Ordered By: Andrés Corrales on 05-27-2024 Immature granulocytes/100 WBC (Bld) 0.300 % 0.0-0.9 [facility] Comment on above: IG% - Immature Granu locytes (promyelocytes, myelocytes and metamyelocytes) > 1% indicates that a LEFT SHIFT is Present. Laboratory - Chemistry and C hemistry - challengeOrdered By: Andrés Corrales on 05-27-2024 AST [Catalytic activity/Vol] 27 U/L <32 [facility] Lymphocytes Auto (Unsp spec) [#/Vol]Ordered By: Andrés Corrales on 05-27-2024 Lymphocytes (Bld) [#/Vol] 2.70 10*3/uL 0.83-4.51 [facility] Lymphocytes/100 WBC Auto (Un sp spec)Ordered By: Andrés Corrales on 05-27-2024 Lymphocytes/100 WBC (Bld) 34.0 % 19-41 [facility] MCV (mean corpuscular volume ) determinationOrdered By: Andrés Corrales on 05-27-2024 MCV (RBC) [Entitic vol] 87.4 fL 81-99 [facility] Mean corpuscular hemoglobin (MCH) determinationOrdered By: Andrés Corrales on 05-27-2024 MCH (RBC) [Entitic mass] 28.1 pg 27.0-32.0 [facility] Mean corpuscular hemoglobin concentration (MCHC) determinationOrdered By: Andrés Corrales on 05-27-2024 MCHC (RBC) [Mass/Vol] 32.2 g/dL 32-[address] [facility] Mean platelet volume determi nationOrdered By: Andrés Corrales on 05-27-2024 Platelet mean volume (Bld) [Entitic vol] 9.2 fL 6.2-12.0 [facility] Monocyte percentageOrdered B y: Andrés Corrales on 05-27-2024 Monocytes/100 WBC (Bld) 7.1 % 0-10 [facility] Neutrophil percentageOrdered By: Andrés Corrales on 05-27-2024 Neutrophils/100 WBC (Bld) 54.9 % 47-70 [facility] Nucleated red blood cell per centageOrdered By: Andrés Corrales on 05-27-2024 Nucleated RBC/100 WBC (Bld) [Ratio] 0 % 0-5 [facility] Oncology Visit Reporton 05-15 Oncology Visit Report Normal [facility] Platelet countOrdered By: Lazara Corrales on 05-27-2024 Platelets (Bld) [#/Vol] 363 10*3/uL 150-450 [facility] Potassium (Unsp spec) [Mass/ Vol]Ordered By: Andrés Corrales on 05-27-2024 Potassium [Moles/Vol] 4.4 mmol/L 3.3-5.[address] [facility] RBC Auto (Bld) [#/Vol]Ordere d By: Andrés Corrales on 05-27-2024 RBC (Bld) [#/Vol] 4.37 10*6/uL 4.2-5.4 [facility] Serum creatinine measurement (mass/volume)Ordered By: Andrés Corrales on 05-27-2024 Creatinine [Mass/Vol] 0.85 mg/dL 0.70-1.[address] [facility] Serum globulin measurementOr dered By: Andrés Corrales on 05-27-2024 Globulin (S) [Mass/Vol] 3.0 g/dL 2.2-4.2 [facility] Serum glucose measurement (m ass/volume)Ordered By: Andrés Corrales on 05-27-2024 Glucose [Mass/Vol] 101 mg/dL High 70-99 [facility] Serum or plasma alanine dobbs otransferase (ALT) measurementOrdered By: Andrés Corrales on 05-27-2024 ALT [Catalytic activity/Vol] 28 U/L <35 [facility] Serum or plasma albumin anat urement (mass/volume)Ordered By: Andrés Corrales on 05-27-2024 Albumin [Mass/Vol] 3.9 g/dL 3.4-4.8 [facility] Serum or plasma albumin/glob ulin mass ratioOrdered By: Andrés Corrales on 05-27-2024 Albumin/Globulin [Mass ratio] 1.3 {ratio} 0.9-2.4 [facility] Serum or plasma alkaline dirk sphatase measurementOrdered By: Andrés Corrales on 05-27-2024 ALP [Catalytic activity/Vol] 86 U/L 35-104 [facility] Serum or plasma calcium anat urement (mass/volume)Ordered By: Andrés Corrales on 05-27-2024 Calcium [Mass/Vol] 9.8 mg/dL 7.6-11.0 [facility] Serum or plasma urea nitroge n measurement (mass/volume)Ordered By: Andrés Corrales on 05-27-2024 Urea nitrogen [Mass/Vol] 24 mg/dL High 4-19 [facility] Sodium levelOrdered By: Irais Corrales on 05-27-2024 Sodium [Moles/Vol] 139 mmol/L 133-145 [facility] Total proteinOrdered By: Arturo Corrales on 05-27-2024 Protein [Mass/Vol] 6.9 g/dL 5.9-8.4 [facility] White blood cell (WBC) count Ordered By: Andrés Corrales on 05-27-2024 WBC (Bld) [#/Vol] 7.9 10*3/uL 4.4-11.0 [facility] Oncology Visit Reporton 04-18 Oncology Visit Report Normal [facility] ONC Echo Completeon 04-30-19 25 ONC Echo Complete Normal [facility] CBC W/Diff, Automatedon 03-19 Absolute Lymph 3.07 X10 3/uL Normal 0.83-4.51 [facility] Comment on above: Performed By: #### L 100.0100, L500.4050 ####[facility] [address] [place], [address] Absolute Neut 4.7 X10 3/uL Normal 2.0-7.7 [facility] Comment on above: Performed By: #### L 100.0100, L500.4050 ####[facility] [address] [place], [address] Basophils/100 WBC (Bld) 0.7 % Normal 0-1 [facility] Comment on above: Performed By: #### L 100.0100, L500.4050 ####[facility] [address] [place], [address] Eosinophils/100 WBC (Bld) 3.8 % Normal 0-5 [facility] Comment on above: Performed By: #### L 100.0100, L500.4050 ####[facility] [address] [place], [address] Erythrocyte distribution width (RBC) [Ratio] 12.7 % Normal 11.6-14.6 [facility] Comment on above: Performed By: #### L 100.0100, L500.4050 ####[facility] [address] [place], [address] Hematocrit (Bld) [Volume fraction] 38.1 % Normal 37-47 [facility] Comment on above: Performed By: #### L 100.0100, L500.4050 ####[facility] [address] [place], [address] Hemoglobin (Bld) [Mass/Vol] 12.4 g/dL Normal 12.0-15.0 [facility] Comment on above: Performed By: #### L 100.0100, L500.4050 ####[facility] [address] [place], [address] IG% 0.300 Normal 0.0-0.9 [facility] Comment on above: Result Comment: IG% - Immature Granulocytes (promyelocytes, myelocytes andmetamyelocytes) > 1% indicates that a LEFT SHIFT is Present. Performed By: #### L 100.0100, L500.4050 ####[facility] [address] [place], [address] Lymphocytes/100 WBC (Bld) 34.7 % Normal 19-41 [facility] Comment on above: Performed By: #### L 100.0100, L500.4050 ####[facility] [address] [place], [address] MCH (RBC) [Entitic mass] 28.1 pg Normal 27.0-32.0 [facility] Comment on above: Performed By: #### L 100.0100, L500.4050 ####[facility] [address] [place], [address] MCHC (RBC) [Mass/Vol] 32.5 g/dL Normal 32-[address] [facility] Comment on above: Performed By: #### L 100.0100, L500.4050 ####[facility] [address] [place], [address] MCV (RBC) [Entitic vol] 86.2 fL Normal 81-99 [facility] Comment on above: Performed By: #### L 100.0100, L500.4050 ####[facility] [address] [place], [address] Monocytes/100 WBC (Bld) 6.8 % Normal 0-10 [facility] Comment on above: Performed By: #### L 100.0100, L500.4050 ####[facility] [address] [place], [address] Neutrophils/100 WBC (Bld) 53.7 % Normal 47-70 [facility] Comment on above: Performed By: #### L 100.0100, L500.4050 ####[facility] [address] [place], [address] Nucleated RBC (Bld) [#/Vol] 0 10*3/uL Normal 0-5 [facility] Comment on above: Performed By: #### L 100.0100, L500.4050 ####[facility] [address] [place], [address] Platelet mean volume (Bld) [Entitic vol] 9.0 fL Normal 6.2-12.0 [facility] Comment on above: Performed By: #### L 100.0100, L500.4050 ####[facility] [address] [place], [address] Platelets (Bld) [#/Vol] 350 10*3/uL Normal 150-450 [facility] Comment on above: Performed By: #### L 100.0100, L500.4050 ####[facility] [address] [place], [address] RBC (Bld) [#/Vol] 4.42 10*6/uL Normal 4.2-5.4 [facility] Comment on above: Performed By: #### L 100.0100, L500.4050 ####[facility] [address] [place], [address] RDW SD 39.9 fl Normal 35.1-43.9 [facility] Comment on above: Performed By: #### L 100.0100, L500.4050 ####[facility] [address] [place], [address] WBC (Bld) [#/Vol] 8.8 10*3/uL Normal 4.4-11.0 [facility] Comment on above: Performed By: #### L 100.0100, L500.4050 ####[facility] [address] [place], [address] Comprehensive Metabolic Prof ilon 04-15-2024 Albumin [Mass/Vol] 3.4 g/dL Normal 3.2-5.0 [facility] Comment on above: Performed By: #### L 100.0100, L500.4050 ####[facility] [address] [place], [address] Albumin/Globulin [Mass ratio] 0.9 {ratio} Normal 0.9-2.4 [facility] Comment on above: Performed By: #### L 100.0100, L500.4050 ####[facility] [address] [place], [address] ALK P 99 U/L Normal 45-117 [facility] Comment on above: Performed By: #### L 100.0100, L500.4050 ####[facility] [address] [place], [address] ALT [Catalytic activity/Vol] 34 U/L Normal 13-56 [facility] Comment on above: Performed By: #### L 100.0100, L500.4050 ####[facility] [address] [place], [address] AST [Catalytic activity/Vol] 24 U/L Normal 15-37 [facility] Comment on above: Performed By: #### L 100.0100, L500.4050 ####[facility] [address] [place], [address] Bilirubin [Mass/Vol] 0.20 mg/dL Normal 0.20-1.00 [facility] Comment on above: Result Comment: For patients on eltrombopag therapy, use of Dimension [place] TBIL is not recommended. Performed By: #### L 100.0100, L500.4050 ####[facility] [address] [place], [address] BUN/CRE 21.4 RATIO High 10-20 [facility] Comment on above: Performed By: #### L 100.0100, L500.4050 ####[facility] [address] [place], [address] CA,Total 9.8 mg/dL Normal 8.5-10.1 [facility] Comment on above: Performed By: #### L 100.0100, L500.4050 ####[facility] [address] [place], [address] Chloride [Moles/Vol] 108 mmol/L High 98-107 [facility] Comment on above: Performed By: #### L 100.0100, L500.4050 ####[facility] [address] [place], [address] CO2 [Moles/Vol] 27.0 mmol/L Normal 21.0-32.0 [facility] Comment on above: Performed By: #### L 100.0100, L500.4050 ####[facility] [address] [place], [address] Creatinine [Mass/Vol] 1.12 mg/dL High 0.55-1.[address] [facility] Comment on above: Result Comment: The validity of the calculated GFR GFRAA in patients over70 years has not been determined. Clinical correlation isessential. Performed By: #### L 100.0100, L500.4050 ####[facility] [address] [place], [address] ECRCL 49.22 ml/min Normal [facility] Comment on above: Performed By: #### L 100.0100, L500.4050 ####[facility] [address] [place], [address] EST GFR - AA 63 mL/min Normal >60 [facility] Comment on above: Result Comment: Afri can Indonesian GFR Calc Performed By: #### L 100.0100, L500.4050 ####[facility] [address] [place], [address] GAP 4 Low 5-15 [facility] Comment on above: Performed By: #### L 100.0100, L500.4050 ####[facility] [address] [place], [address] GFR/1.73 sq M.predicted among non-blacks MDRD (S/P/Bld) [Vol rate/Area] 52 mL/min/{1.73_m2} Low >60 [facility] Comment on above: Result Comment: Non- GFR Calc Performed By: #### L 100.0100, L500.4050 ####[facility] [address] [place], [address] Globulin (S) [Mass/Vol] 3.8 g/dL Normal 2.2-4.2 [facility] Comment on above: Performed By: #### L 100.0100, L500.4050 ####[facility] [address] [place], [address] Glucose [Mass/Vol] 98 mg/dL Normal 74-106 [facility] Comment on above: Performed By: #### L 100.0100, L500.4050 ####[facility] [address] [place], [address] Potassium [Moles/Vol] 4.1 mmol/L Normal 3.5-5.[address] [facility] Comment on above: Performed By: #### L 100.0100, L500.4050 ####[facility] [address] [place], [address] Sodium [Moles/Vol] 139 mmol/L Normal 136-145 [facility] Comment on above: Performed By: #### L 100.0100, L500.4050 ####[facility] [address] [place], [address] T PROT 7.2 g/dL Normal 6.4-8.2 [facility] Comment on above: Performed By: #### L 100.0100, L500.4050 ####[facility] [address] [place], [address] Urea nitrogen [Mass/Vol] 24 mg/dL High 7-18 [facility] Comment on above: Performed By: #### L 100.0100, L500.4050 ####[facility] [address] [place], [address] Estimated glomerular filtrat ion rate (GFR) AmericanOrdered By: Andrés Corrales on 04-15-2024 Estimated GFR (MDRD) Amer 63 mL/min >60 [facility] Comment on above: GFR Calc Oncology Visit Reporton 03-19 Oncology Visit Report Normal [facility] Oncology Visit Reporton Oncology Visit Report Normal [facility] CBC W/Diff, Automatedon 02-14 Absolute Lymph 2.69 X10 3/uL Normal 0.83-4.51 [facility] Comment on above: Performed By: #### L 100.0100, L500.4050 ####[facility] [address] [place], [address] Absolute Neut 5.2 X10 3/uL Normal 2.0-7.7 [facility] Comment on above: Performed By: #### L 100.0100, L500.4050 ####[facility] [address] [place], [address] Basophils/100 WBC (Bld) 0.7 % Normal 0-1 [facility] Comment on above: Performed By: #### L 100.0100, L500.4050 ####[facility] [address] [place], [address] Eosinophils/100 WBC (Bld) 4.3 % Normal 0-5 [facility] Comment on above: Performed By: #### L 100.0100, L500.4050 ####[facility] [address] [place], [address] Erythrocyte distribution width (RBC) [Ratio] 12.8 % Normal 11.6-14.6 [facility] Comment on above: Performed By: #### L 100.0100, L500.4050 ####[facility] [address] [place], [address] Hematocrit (Bld) [Volume fraction] 38.0 % Normal 37-47 [facility] Comment on above: Performed By: #### L 100.0100, L500.4050 ####[facility] [address] [place], [address] Hemoglobin (Bld) [Mass/Vol] 12.6 g/dL Normal 12.0-15.0 [facility] Comment on above: Performed By: #### L 100.0100, L500.4050 ####[facility] [address] [place], [address] IG% 0.400 Normal 0.0-0.9 [facility] Comment on above: Result Comment: IG% - Immature Granulocytes (promyelocytes, myelocytes andmetamyelocytes) > 1% indicates that a LEFT SHIFT is Present. Performed By: #### L 100.0100, L500.4050 ####[facility] [address] [place], [address] Lymphocytes/100 WBC (Bld) 29.9 % Normal 19-41 [facility] Comment on above: Performed By: #### L 100.0100, L500.4050 ####[facility] [address] [place], [address] MCH (RBC) [Entitic mass] 29.1 pg Normal 27.0-32.0 [facility] Comment on above: Performed By: #### L 100.0100, L500.4050 ####[facility] [address] [place], [address] MCHC (RBC) [Mass/Vol] 33.2 g/dL Normal 32-[address] [facility] Comment on above: Performed By: #### L 100.0100, L500.4050 ####[facility] [address] [place], [address] MCV (RBC) [Entitic vol] 87.8 fL Normal 81-99 [facility] Comment on above: Performed By: #### L 100.0100, L500.4050 ####[facility] [address] [place], [address] Monocytes/100 WBC (Bld) 6.7 % Normal 0-10 [facility] Comment on above: Performed By: #### L 100.0100, L500.4050 ####[facility] [address] [place], [address] Neutrophils/100 WBC (Bld) 58.0 % Normal 47-70 [facility] Comment on above: Performed By: #### L 100.0100, L500.4050 ####[facility] [address] [place], [address] Nucleated RBC (Bld) [#/Vol] 0 10*3/uL Normal 0-5 [facility] Comment on above: Performed By: #### L 100.0100, L500.4050 ####[facility] [address] [place], [address] Platelet mean volume (Bld) [Entitic vol] 9.1 fL Normal 6.2-12.0 [facility] Comment on above: Performed By: #### L 100.0100, L500.4050 ####[facility] [address] [place], [address] Platelets (Bld) [#/Vol] 366 10*3/uL Normal 150-450 [facility] Comment on above: Performed By: #### L 100.0100, L500.4050 ####[facility] [address] [place], [address] RBC (Bld) [#/Vol] 4.33 10*6/uL Normal 4.2-5.4 [facility] Comment on above: Performed By: #### L 100.0100, L500.4050 ####[facility] [address] [place], [address] RDW SD 41.0 fl Normal 35.1-43.9 [facility] Comment on above: Performed By: #### L 100.0100, L500.4050 ####[facility] [address] [place], [address] WBC (Bld) [#/Vol] 9.0 10*3/uL Normal 4.4-11.0 [facility] Comment on above: Performed By: #### L 100.0100, L500.4050 ####[facility] [address] [place], [address] Comprehensive Metabolic Prof ilon 03-04-2024 Albumin [Mass/Vol] 3.4 g/dL Normal 3.2-5.0 [facility] Comment on above: Performed By: #### L 100.0100, L500.4050 ####[facility] [address] [place], [address] Albumin/Globulin [Mass ratio] 0.9 {ratio} Normal 0.9-2.4 [facility] Comment on above: Performed By: #### L 100.0100, L500.4050 ####[facility] [address] [place], [address] ALK P 91 U/L Normal 45-117 [facility] Comment on above: Performed By: #### L 100.0100, L500.4050 ####[facility] [address] [place], [address] ALT [Catalytic activity/Vol] 38 U/L Normal 13-56 [facility] Comment on above: Performed By: #### L 100.0100, L500.4050 ####[facility] [address] [place], [address] AST [Catalytic activity/Vol] 24 U/L Normal 15-37 [facility] Comment on above: Performed By: #### L 100.0100, L500.4050 ####[facility] [address] [place], [address] Bilirubin [Mass/Vol] 0.20 mg/dL Normal 0.20-1.00 [facility] Comment on above: Result Comment: For patients on eltrombopag therapy, use of Dimension [place] TBIL is not recommended. Performed By: #### L 100.0100, L500.4050 ####[facility] [address] [place], [address] BUN/CRE 20.4 RATIO High 10-20 [facility] Comment on above: Performed By: #### L 100.0100, L500.4050 ####[facility] [address] [place], [address] CA,Total 9.3 mg/dL Normal 8.5-10.1 [facility] Comment on above: Performed By: #### L 100.0100, L500.4050 ####[facility] [address] [place], [address] Chloride [Moles/Vol] 109 mmol/L High 98-107 [facility] Comment on above: Performed By: #### L 100.0100, L500.4050 ####[facility] [address] [place], [address] CO2 [Moles/Vol] 26.0 mmol/L Normal 21.0-32.0 [facility] Comment on above: Performed By: #### L 100.0100, L500.4050 ####[facility] [address] [place], [address] Creatinine [Mass/Vol] 1.03 mg/dL High 0.55-1.[address] [facility] Comment on above: Result Comment: The validity of the calculated GFR GFRAA in patients over70 years has not been determined. Clinical correlation isessential. Performed By: #### L 100.0100, L500.4050 ####[facility] [address] [place], [address] ECRCL 53.11 ml/min Normal [facility] Comment on above: Performed By: #### L 100.0100, L500.4050 ####[facility] [address] [place], [address] EST GFR - AA 70 mL/min Normal >60 [facility] Comment on above: Result Comment: Afri can Indonesian GFR Calc Performed By: #### L 100.0100, L500.4050 ####[facility] [address] [place], [address] GAP 5 Normal 5-15 [facility] Comment on above: Performed By: #### L 100.0100, L500.4050 ####[facility] [address] [place], [address] GFR/1.73 sq M.predicted among non-blacks MDRD (S/P/Bld) [Vol rate/Area] 58 mL/min/{1.73_m2} Low >60 [facility] Comment on above: Result Comment: Non- GFR Calc Performed By: #### L 100.0100, L500.4050 ####[facility] [address] [place], [address] Globulin (S) [Mass/Vol] 3.7 g/dL Normal 2.2-4.2 [facility] Comment on above: Performed By: #### L 100.0100, L500.4050 ####[facility] [address] [place], [address] Glucose [Mass/Vol] 110 mg/dL High 74-106 [facility] Comment on above: Result Comment: Fast ing Glucose result from 100 to 125 mg/dLsuggests IMPAIRED HOMEOSTASIS per A.D.A. criteria. Performed By: #### L 100.0100, L500.4050 ####[facility] [address] [place], [address] Potassium [Moles/Vol] 4.1 mmol/L Normal 3.5-5.[address] [facility] Comment on above: Performed By: #### L 100.0100, L500.4050 ####[facility] [address] [place], [address] Sodium [Moles/Vol] 139 mmol/L Normal 136-145 [facility] Comment on above: Performed By: #### L 100.0100, L500.4050 ####[facility] [address] [place], [address] T PROT 7.1 g/dL Normal 6.4-8.2 [facility] Comment on above: Performed By: #### L 100.0100, L500.4050 ####[facility] [address] [place], [address] Urea nitrogen [Mass/Vol] 21 mg/dL High 7-18 [facility] Comment on above: Performed By: #### L 100.0100, L500.4050 ####[facility] [address] [place], [address] Oncology Visit Reporton 02-14 [facility] [facility] Oncology Visit Reporton 01-16 Oncology Visit Report Normal [facility] CT Chest AND Abd W/ Contrast on 02-09-2024 CT Chest AND Abd W/ Contrast Normal [facility] ONC Echo, Limited Studyon ONC Echo, Limited Study Normal [facility] CBC-Complete Blood Cnt No Di ffon 01-22-2024 Erythrocyte distribution width (RBC) [Ratio] 12.8 % Normal 11.6-14.6 [facility] Comment on above: Performed By: #### L 500.4050, L100.0500 ####[facility] [address] [place], [address] Hematocrit (Bld) [Volume fraction] 38.1 % Normal 37-47 [facility] Comment on above: Performed By: #### L 500.4050, L100.0500 ####[facility] [address] [place], [address] Hemoglobin (Bld) [Mass/Vol] 12.4 g/dL Normal 12.0-15.0 [facility] Comment on above: Performed By: #### L 500.4050, L100.0500 ####[facility] [address] [place], [address] MCH (RBC) [Entitic mass] 29.0 pg Normal 27.0-32.0 [facility] Comment on above: Performed By: #### L 500.4050, L100.0500 ####[facility] [address] [place], [address] MCHC (RBC) [Mass/Vol] 32.5 g/dL Normal 32-[address] [facility] Comment on above: Performed By: #### L 500.4050, L100.0500 ####[facility] [address] [place], [address] MCV (RBC) [Entitic vol] 89.0 fL Normal 81-99 [facility] Comment on above: Performed By: #### L 500.4050, L100.0500 ####[facility] [address] [place], [address] Platelet mean volume (Bld) [Entitic vol] 9.1 fL Normal 6.2-12.0 [facility] Comment on above: Performed By: #### L 500.4050, L100.0500 ####[facility] [address] [place], [address] Platelets (Bld) [#/Vol] 332 10*3/uL Normal 150-450 [facility] Comment on above: Performed By: #### L 500.4050, L100.0500 ####[facility] [address] [place], [address] RBC (Bld) [#/Vol] 4.28 10*6/uL Normal 4.2-5.4 [facility] Comment on above: Performed By: #### L 500.4050, L100.0500 ####[facility] [address] [place], [address] RDW SD 41.9 fl Normal 35.1-43.9 [facility] Comment on above: Performed By: #### L 500.4050, L100.0500 ####[facility] [address] [place], [address] WBC (Bld) [#/Vol] 9.2 10*3/uL Normal 4.4-11.0 [facility] Comment on above: Performed By: #### L 500.4050, L100.0500 ####[facility] [address] [place], [address] Comprehensive Metabolic Prof guadalupeon 01-22-2024 Albumin [Mass/Vol] 3.5 g/dL Normal 3.2-5.0 [facility] Comment on above: Performed By: #### L 500.4050, L100.0500 ####[facility] [address] [place], [address] Albumin/Globulin [Mass ratio] 1.0 {ratio} Normal 0.9-2.4 [facility] Comment on above: Performed By: #### L 500.4050, L100.0500 ####[facility] [address] [place], [address] ALK P 94 U/L Normal 45-117 [facility] Comment on above: Performed By: #### L 500.4050, L100.0500 ####[facility] [address] [place], [address] ALT [Catalytic activity/Vol] 29 U/L Normal 13-56 [facility] Comment on above: Performed By: #### L 500.4050, L100.0500 ####[facility] [address] [place], [address] AST [Catalytic activity/Vol] 22 U/L Normal 15-37 [facility] Comment on above: Performed By: #### L 500.4050, L100.0500 ####[facility] [address] [place], [address] Bilirubin [Mass/Vol] 0.40 mg/dL Normal 0.20-1.00 [facility] Comment on above: Result Comment: For patients on eltrombopag therapy, use of Dimension [place] TBIL is not recommended. Performed By: #### L 500.4050, L100.0500 ####[facility] [address] [place], [address] BUN/CRE 20.8 RATIO High 10-20 [facility] Comment on above: Performed By: #### L 500.4050, L100.0500 ####[facility] [address] [place], [address] CA,Total 9.0 mg/dL Normal 8.5-10.1 [facility] Comment on above: Performed By: #### L 500.4050, L100.0500 ####[facility] [address] [place], [address] Chloride [Moles/Vol] 110 mmol/L High 98-107 [facility] Comment on above: Performed By: #### L 500.4050, L100.0500 ####[facility] [address] [place], [address] CO2 [Moles/Vol] 25.0 mmol/L Normal 21.0-32.0 [facility] Comment on above: Performed By: #### L 500.4050, L100.0500 ####[facility] [address] [place], [address] Creatinine [Mass/Vol] 1.01 mg/dL Normal 0.55-1.[address] [facility] Comment on above: Result Comment: The validity of the calculated GFR GFRAA in patients over70 years has not been determined. Clinical correlation isessential. Performed By: #### L 500.4050, L100.0500 ####[facility] [address] [place], [address] ECRCL 53.83 ml/min Normal [facility] Comment on above: Performed By: #### L 500.4050, L100.0500 ####[facility] [address] [place], [address] EST GFR - AA 72 mL/min Normal >60 [facility] Comment on above: Result Comment: Afri can Indonesian GFR Calc Performed By: #### L 500.4050, L100.0500 ####[facility] [address] [place], [address] GAP 5 Normal 5-15 [facility] Comment on above: Performed By: #### L 500.4050, L100.0500 ####[facility] [address] [place], [address] GFR/1.73 sq M.predicted among non-blacks MDRD (S/P/Bld) [Vol rate/Area] 59 mL/min/{1.73_m2} Low >60 [facility] Comment on above: Result Comment: Non- GFR Calc Performed By: #### L 500.4050, L100.0500 ####[facility] [address] [place], [address] Globulin (S) [Mass/Vol] 3.6 g/dL Normal 2.2-4.2 [facility] Comment on above: Performed By: #### L 500.4050, L100.0500 ####[facility] [address] [place], [address] Glucose [Mass/Vol] 118 mg/dL High 74-106 [facility] Comment on above: Result Comment: Fast ing Glucose result from 100 to 125 mg/dLsuggests IMPAIRED HOMEOSTASIS per A.D.A. criteria. Performed By: #### L 500.4050, L100.0500 ####[facility] [address] [place], [address] Potassium [Moles/Vol] 3.7 mmol/L Normal 3.5-5.[address] [facility] Comment on above: Performed By: #### L 500.4050, L100.0500 ####[facility] [address] [place], [address] Sodium [Moles/Vol] 139 mmol/L Normal 136-145 [facility] Comment on above: Performed By: #### L 500.4050, L100.0500 ####[facility] [address] [place], [address] T PROT 7.1 g/dL Normal 6.4-8.2 [facility] Comment on above: Performed By: #### L 500.4050, L100.0500 ####[facility] [address] [place], [address] Urea nitrogen [Mass/Vol] 21 mg/dL High 7-18 [facility] Comment on above: Performed By: #### L 500.4050, L100.0500 ####[facility] [address] [place], [address] Oncology Visit Reporton 11-0 Oncology Visit Report Normal [facility] Oncology Visit Reporton 10-1 Oncology Visit Report Normal [facility] CBC W/Diff, Automatedon 09-2 Absolute Lymph 3.88 X10 3/uL Normal 0.83-4.51 [facility] Comment on above: Performed By: #### L 500.4050, L501.5200, L501.2300, L100.0100 ####[facility] [address] [place], [address] Absolute Neut 6.1 X10 3/uL Normal 2.0-7.7 [facility] Comment on above: Performed By: #### L 500.4050, L501.5200, L501.2300, L100.0100 ####[facility] [address] [place], [address] Basophils/100 WBC (Bld) 0.5 % Normal 0-1 [facility] Comment on above: Performed By: #### L 500.4050, L501.5200, L501.2300, L100.0100 ####[facility] [address] [place], [address] Eosinophils/100 WBC (Bld) 3.3 % Normal 0-5 [facility] Comment on above: Performed By: #### L 500.4050, L501.5200, L501.2300, L100.0100 ####[facility] [address] [place], [address] Erythrocyte distribution width (RBC) [Ratio] 12.8 % Normal 11.6-14.6 [facility] Comment on above: Performed By: #### L 500.4050, L501.5200, L501.2300, L100.0100 ####[facility] [address] [place], [address] Hematocrit (Bld) [Volume fraction] 38.6 % Normal 37-47 [facility] Comment on above: Performed By: #### L 500.4050, L501.5200, L501.2300, L100.0100 ####[facility] [address] [place], [address] Hemoglobin (Bld) [Mass/Vol] 12.2 g/dL Normal 12.0-15.0 [facility] Comment on above: Performed By: #### L 500.4050, L501.5200, L501.2300, L100.0100 ####[facility] [address] [place], [address] IG% 0.400 Normal 0.0-0.9 [facility] Comment on above: Result Comment: IG% - Immature Granulocytes (promyelocytes, myelocytes andmetamyelocytes) > 1% indicates that a LEFT SHIFT is Present. Performed By: #### L 500.4050, L501.5200, L501.2300, L100.0100 ####[facility] [address] [place], [address] Lymphocytes/100 WBC (Bld) 35.3 % Normal 19-41 [facility] Comment on above: Performed By: #### L 500.4050, L501.5200, L501.2300, L100.0100 ####[facility] [address] [place], [address] MCH (RBC) [Entitic mass] 27.5 pg Normal 27.0-32.0 [facility] Comment on above: Performed By: #### L 500.4050, L501.5200, L501.2300, L100.0100 ####[facility] [address] [place], [address] MCHC (RBC) [Mass/Vol] 31.6 g/dL Low 32-[address] [facility] Comment on above: Performed By: #### L 500.4050, L501.5200, L501.2300, L100.0100 ####[facility] [address] [place], [address] MCV (RBC) [Entitic vol] 87.1 fL Normal 81-99 [facility] Comment on above: Performed By: #### L 500.4050, L501.5200, L501.2300, L100.0100 ####[facility] [address] [place], [address] Monocytes/100 WBC (Bld) 5.5 % Normal 0-10 [facility] Comment on above: Performed By: #### L 500.4050, L501.5200, L501.2300, L100.0100 ####[facility] [address] [place], [address] Neutrophils/100 WBC (Bld) 55.0 % Normal 47-70 [facility] Comment on above: Performed By: #### L 500.4050, L501.5200, L501.2300, L100.0100 ####[facility] [address] [place], [address] Nucleated RBC (Bld) [#/Vol] 0 10*3/uL Normal 0-5 [facility] Comment on above: Performed By: #### L 500.4050, L501.5200, L501.2300, L100.0100 ####[facility] [address] [place], [address] Platelet mean volume (Bld) [Entitic vol] 9.2 fL Normal 6.2-12.0 [facility] Comment on above: Performed By: #### L 500.4050, L501.5200, L501.2300, L100.0100 ####[facility] [address] [place], [address] Platelets (Bld) [#/Vol] 380 10*3/uL Normal 150-450 [facility] Comment on above: Performed By: #### L 500.4050, L501.5200, L501.2300, L100.0100 ####[facility] [address] [place], [address] RBC (Bld) [#/Vol] 4.43 10*6/uL Normal 4.2-5.4 [facility] Comment on above: Performed By: #### L 500.4050, L501.5200, L501.2300, L100.0100 ####[facility] [address] [place], [address] RDW SD 41.0 fl Normal 35.1-43.9 [facility] Comment on above: Performed By: #### L 500.4050, L501.5200, L501.2300, L100.0100 ####[facility] [address] [place], [address] WBC (Bld) [#/Vol] 11.0 10*3/uL Normal 4.4-11.0 [facility] Comment on above: Performed By: #### L 500.4050, L501.5200, L501.2300, L100.0100 ####[facility] [address] [place], [address] Comprehensive Metabolic Prof ilon 12-11-2023 Albumin [Mass/Vol] 3.4 g/dL Normal 3.2-5.0 [facility] Comment on above: Performed By: #### L 500.4050, L501.5200, L501.2300, L100.0100 ####[facility] [address] [place], [address] Albumin/Globulin [Mass ratio] 0.9 {ratio} Normal 0.9-2.4 [facility] Comment on above: Performed By: #### L 500.4050, L501.5200, L501.2300, L100.0100 ####[facility] [address] [place], [address] ALK P 97 U/L Normal 45-117 [facility] Comment on above: Performed By: #### L 500.4050, L501.5200, L501.2300, L100.0100 ####[facility] [address] [place], [address] ALT [Catalytic activity/Vol] 28 U/L Normal 13-56 [facility] Comment on above: Performed By: #### L 500.4050, L501.5200, L501.2300, L100.0100 ####[facility] [address] [place], [address] AST [Catalytic activity/Vol] 21 U/L Normal 15-37 [facility] Comment on above: Performed By: #### L 500.4050, L501.5200, L501.2300, L100.0100 ####[facility] [address] [place], [address] Bilirubin [Mass/Vol] 0.30 mg/dL Normal 0.20-1.00 [facility] Comment on above: Result Comment: For patients on eltrombopag therapy, use of Dimension [place] TBIL is not recommended. Performed By: #### L 500.4050, L501.5200, L501.2300, L100.0100 ####[facility] [address] [place], [address] BUN/CRE 19.8 RATIO Normal 10-20 [facility] Comment on above: Performed By: #### L 500.4050, L501.5200, L501.2300, L100.0100 ####[facility] [address] [place], [address] CA,Total 9.6 mg/dL Normal 8.5-10.1 [facility] Comment on above: Performed By: #### L 500.4050, L501.5200, L501.2300, L100.0100 ####[facility] [address] [place], [address] Chloride [Moles/Vol] 105 mmol/L Normal 98-107 [facility] Comment on above: Performed By: #### L 500.4050, L501.5200, L501.2300, L100.0100 ####[facility] [address] [place], [address] CO2 [Moles/Vol] 28.0 mmol/L Normal 21.0-32.0 [facility] Comment on above: Performed By: #### L 500.4050, L501.5200, L501.2300, L100.0100 ####[facility] [address] [place], [address] Creatinine [Mass/Vol] 0.86 mg/dL Normal 0.55-1.[address] [facility] Comment on above: Result Comment: The validity of the calculated GFR GFRAA in patients over70 years has not been determined. Clinical correlation isessential. Performed By: #### L 500.4050, L501.5200, L501.2300, L100.0100 ####[facility] [address] [place], [address] ECRCL 63.29 ml/min Normal [facility] Comment on above: Performed By: #### L 500.4050, L501.5200, L501.2300, L100.0100 ####[facility] [address] [place], [address] EST GFR - AA 87 mL/min Normal >60 [facility] Comment on above: Result Comment: Afri can Indonesian GFR Calc Performed By: #### L 500.4050, L501.5200, L501.2300, L100.0100 ####[facility] [address] [place], [address] GAP 3 Low 5-15 [facility] Comment on above: Performed By: #### L 500.4050, L501.5200, L501.2300, L100.0100 ####[facility] [address] [place], [address] GFR/1.73 sq M.predicted among non-blacks MDRD (S/P/Bld) [Vol rate/Area] 72 mL/min/{1.73_m2} Normal >60 [facility] Comment on above: Result Comment: Non- GFR Calc Performed By: #### L 500.4050, L501.5200, L501.2300, L100.0100 ####[facility] [address] [place], [address] Globulin (S) [Mass/Vol] 3.8 g/dL Normal 2.2-4.2 [facility] Comment on above: Performed By: #### L 500.4050, L501.5200, L501.2300, L100.0100 ####[facility] [address] [place], [address] Glucose [Mass/Vol] 97 mg/dL Normal 74-106 [facility] Comment on above: Performed By: #### L 500.4050, L501.5200, L501.2300, L100.0100 ####[facility] [address] [place], [address] Potassium [Moles/Vol] 4.0 mmol/L Normal 3.5-5.[address] [facility] Comment on above: Performed By: #### L 500.4050, L501.5200, L501.2300, L100.0100 ####[facility] [address] [place], [address] Sodium [Moles/Vol] 136 mmol/L Normal 136-145 [facility] Comment on above: Performed By: #### L 500.4050, L501.5200, L501.2300, L100.0100 ####[facility] [address] [place], [address] T PROT 7.2 g/dL Normal 6.4-8.2 [facility] Comment on above: Performed By: #### L 500.4050, L501.5200, L501.2300, L100.0100 ####[facility] [address] [place], [address] Urea nitrogen [Mass/Vol] 17 mg/dL Normal 7-18 [facility] Comment on above: Performed By: #### L 500.4050, L501.5200, L501.2300, L100.0100 ####[facility] [address] [place], [address] Magnesiumon 12-11-2023 Magnesium [Mass/Vol] 2.3 mg/dL Normal 1.6-2.6 [facility] Comment on above: Performed By: #### L 500.4050, L501.5200, L501.2300, L100.0100 ####[facility] [address] [place], [address] Magnesium measurementOrdered By: Andrés Corrales on 12-11-2023 Magnesium [Mass/Vol] 2.3 mg/dL 1.6-2.6 [facility] Oncology Visit Reporton 11-16 Oncology Visit Report Normal [facility] Phosphoruson 12-11-2023 Phosphate [Mass/Vol] 3.4 mg/dL Normal 2.5-4.9 [facility] Comment on above: Performed By: #### L 500.4050, L501.5200, L501.2300, L100.0100 ####[facility] [address] [place], [address] Phosphorus measurementOrdere d By: Andrés Corrales on 12-11-2023 Phosphorus Level 3.4 mg/dL 2.5-4.9 [facility] Oncology Visit Reporton Oncology Visit Report Normal [facility] ONC Echo Completeon 11-06-19 24 ONC Echo Complete Normal [facility] CBC W/Diff, Automatedon 10-15 Absolute Lymph 2.77 X10 3/uL Normal 0.83-4.51 [facility] Comment on above: Performed By: #### L 100.0100 ####[facility] [address] [place], [address] Absolute Neut 4.9 X10 3/uL Normal 2.0-7.7 [facility] Comment on above: Performed By: #### L 100.0100 ####[facility] [address] [place], [address] Basophils/100 WBC (Bld) 0.7 % Normal 0-1 [facility] Comment on above: Performed By: #### L 100.0100 ####[facility] [address] [place], [address] Eosinophils/100 WBC (Bld) 4.7 % Normal 0-5 [facility] Comment on above: Performed By: #### L 100.0100 ####[facility] [address] [place], [address] Erythrocyte distribution width (RBC) [Ratio] 13.1 % Normal 11.6-14.6 [facility] Comment on above: Performed By: #### L 100.0100 ####[facility] [address] [place], [address] Hematocrit (Bld) [Volume fraction] 38.7 % Normal 37-47 [facility] Comment on above: Performed By: #### L 100.0100 ####[facility] [address] [place], [address] Hemoglobin (Bld) [Mass/Vol] 12.3 g/dL Normal 12.0-15.0 [facility] Comment on above: Performed By: #### L 100.0100 ####[facility] [address] [place], [address] IG% 0.300 Normal 0.0-0.9 [facility] Comment on above: Result Comment: IG% - Immature Granulocytes (promyelocytes, myelocytes andmetamyelocytes) > 1% indicates that a LEFT SHIFT is Present. Performed By: #### L 100.0100 ####[facility] [address] [place], [address] Lymphocytes/100 WBC (Bld) 32.0 % Normal 19-41 [facility] Comment on above: Performed By: #### L 100.0100 ####[facility] [address] [place], [address] MCH (RBC) [Entitic mass] 27.8 pg Normal 27.0-32.0 [facility] Comment on above: Performed By: #### L 100.0100 ####[facility] [address] [place], [address] MCHC (RBC) [Mass/Vol] 31.8 g/dL Low 32-[address] [facility] Comment on above: Performed By: #### L 100.0100 ####[facility] [address] [place], [address] MCV (RBC) [Entitic vol] 87.6 fL Normal 81-99 [facility] Comment on above: Performed By: #### L 100.0100 ####[facility] [address] [place], [address] Monocytes/100 WBC (Bld) 5.9 % Normal 0-10 [facility] Comment on above: Performed By: #### L 100.0100 ####[facility] [address] [place], [address] Neutrophils/100 WBC (Bld) 56.4 % Normal 47-70 [facility] Comment on above: Performed By: #### L 100.0100 ####[facility] [address] [place], [address] Nucleated RBC (Bld) [#/Vol] 0 10*3/uL Normal 0-5 [facility] Comment on above: Performed By: #### L 100.0100 ####[facility] [address] [place], [address] Platelet mean volume (Bld) [Entitic vol] 8.9 fL Normal 6.2-12.0 [facility] Comment on above: Performed By: #### L 100.0100 ####[facility] [address] [place], [address] Platelets (Bld) [#/Vol] 326 10*3/uL Normal 150-450 [facility] Comment on above: Performed By: #### L 100.0100 ####[facility] [address] [place], [address] RBC (Bld) [#/Vol] 4.42 10*6/uL Normal 4.2-5.4 [facility] Comment on above: Performed By: #### L 100.0100 ####[facility] [address] [place], [address] RDW SD 41.9 fl Normal 35.1-43.9 [facility] Comment on above: Performed By: #### L 100.0100 ####[facility] [address] [place], [address] WBC (Bld) [#/Vol] 8.7 10*3/uL Normal 4.4-11.0 [facility] Comment on above: Performed By: #### L 100.0100 ####[facility] [address] [place], [address] Comprehensive Metabolic Prof [facility] 10-30-2023 Albumin [Mass/Vol] 3.4 g/dL Normal 3.2-5.0 [facility] Comment on above: Order Comment: 1 Performed By: #### L 500.4050, L504.2610 ####[facility] [address] [place], [address] Albumin/Globulin [Mass ratio] 0.9 {ratio} Normal 0.9-2.4 [facility] Comment on above: Order Comment: 1 Performed By: #### L 500.4050, L504.2610 ####[facility] [address] [place], [address] ALK P 102 U/L Normal 45-117 [facility] Comment on above: Order Comment: 1 Performed By: #### L 500.4050, L504.2610 ####[facility] [address] [place], [address] ALT [Catalytic activity/Vol] 29 U/L Normal 13-56 [facility] Comment on above: Order Comment: 1 Performed By: #### L 500.4050, L504.2610 ####[facility] [address] [place], [address] AST [Catalytic activity/Vol] 23 U/L Normal 15-37 [facility] Comment on above: Order Comment: 1 Performed By: #### L 500.4050, L504.2610 ####[facility] [address] [place], [address] Bilirubin [Mass/Vol] 0.50 mg/dL Normal 0.20-1.00 [facility] Comment on above: Order Comment: 1 Result Comment: For patients on eltrombopag therapy, use of Dimension [place] TBIL is not recommended. Performed By: #### L 500.4050, L504.2610 ####[facility] [address] [place], [address] BUN/CRE 18.5 RATIO Normal 10-20 [facility] Comment on above: Order Comment: 1 Performed By: #### L 500.4050, L504.2610 ####[facility] [address] [place], [address] CA,Total 9.2 mg/dL Normal 8.5-10.1 [facility] Comment on above: Order Comment: 1 Performed By: #### L 500.4050, L504.2610 ####[facility] [address] [place], [address] Chloride [Moles/Vol] 109 mmol/L High 98-107 [facility] Comment on above: Order Comment: 1 Performed By: #### L 500.4050, L504.2610 ####[facility] [address] [place], [address] CO2 [Moles/Vol] 26.0 mmol/L Normal 21.0-32.0 [facility] Comment on above: Order Comment: 1 Performed By: #### L 500.4050, L504.2610 ####[facility] [address] [place], [address] Creatinine [Mass/Vol] 1.08 mg/dL High 0.55-1.[address] [facility] Comment on above: Order Comment: 1 Result Comment: The validity of the calculated GFR GFRAA in patients over70 years has not been determined. Clinical correlation isessential. Performed By: #### L 500.4050, L504.2610 ####[facility] [address] [place], [address] ECRCL 50.24 ml/min Normal [facility] Comment on above: Order Comment: 1 Performed By: #### L 500.4050, L504.2610 ####[facility] [address] [place], [address] EST GFR - AA 66 mL/min Normal >60 [facility] Comment on above: Order Comment: 1 Result Comment: Afri can Indonesian GFR Calc Performed By: #### L 500.4050, L504.2610 ####[facility] [address] [place], [address] GAP 7 Normal 5-15 [facility] Comment on above: Order Comment: 1 Performed By: #### L 500.4050, L504.2610 ####[facility] [address] [place], [address] GFR/1.73 sq M.predicted among non-blacks MDRD (S/P/Bld) [Vol rate/Area] 55 mL/min/{1.73_m2} Low >60 [facility] Comment on above: Order Comment: 1 Result Comment: Non- GFR Calc Performed By: #### L 500.4050, L504.2610 ####[facility] [address] [place], [address] Globulin (S) [Mass/Vol] 3.8 g/dL Normal 2.2-4.2 [facility] Comment on above: Order Comment: 1 Performed By: #### L 500.4050, L504.2610 ####[facility] [address] [place], [address] Glucose [Mass/Vol] 97 mg/dL Normal 74-106 [facility] Comment on above: Order Comment: 1 Performed By: #### L 500.4050, L504.2610 ####[facility] [address] [place], [address] Potassium [Moles/Vol] 4.2 mmol/L Normal 3.5-5.[address] [facility] Comment on above: Order Comment: 1 Performed By: #### L 500.4050, L504.2610 ####[facility] [address] [place], [address] Sodium [Moles/Vol] 142 mmol/L Normal 136-145 [facility] Comment on above: Order Comment: 1 Performed By: #### L 500.4050, L504.2610 ####[facility] [address] [place], [address] T PROT 7.2 g/dL Normal 6.4-8.2 [facility] Comment on above: Order Comment: 1 Performed By: #### L 500.4050, L504.2610 ####[facility] [address] [place], [address] Urea nitrogen [Mass/Vol] 20 mg/dL High 7-18 [facility] Comment on above: Order Comment: 1 Performed By: #### L 500.4050, L504.2610 ####[facility] [address] [place], [address] LDHon 10-30-2023 LDH 168 U/L Normal 84-246 [facility] Comment on above: Order Comment: 1 Performed By: #### L 500.4050, L504.2610 ####[facility] [address] [place], [address] Lactate dehydrogenase (LDH) measurementOrdered By: Hadley Contreras on 10-30-2023 LDH [Catalytic activity/Vol] 168 U/L 84-246 [facility] Oncology Visit Reporton 10-15 Oncology Visit Report Normal [facility] Oncology Visit Reporton 09-15 Oncology Visit Report Normal [facility] CT Chest AND Abd W/ Contrast on 10-02-2023 CT Chest AND Abd W/ Contrast Normal [facility] CBC W/Diff, Automatedon Absolute Lymph 2.79 X10 3/uL Normal 0.83-4.51 [facility] Comment on above: Order Comment: BLOOD IN LAB Performed By: #### L 100.0100, L500.4050 ####[facility] [address] [place], [address] Absolute Neut 4.4 X10 3/uL Normal 2.0-7.7 [facility] Comment on above: Order Comment: BLOOD IN LAB Performed By: #### L 100.0100, L500.4050 ####[facility] [address] [place], [address] Basophils/100 WBC (Bld) 0.6 % Normal 0-1 [facility] Comment on above: Order Comment: BLOOD IN LAB Performed By: #### L 100.0100, L500.4050 ####[facility] [address] [place], [address] Eosinophils/100 WBC (Bld) 3.9 % Normal 0-5 [facility] Comment on above: Order Comment: BLOOD IN LAB Performed By: #### L 100.0100, L500.4050 ####[facility] [address] [place], [address] Erythrocyte distribution width (RBC) [Ratio] 13.1 % Normal 11.6-14.6 [facility] Comment on above: Order Comment: BLOOD IN LAB Performed By: #### L 100.0100, L500.4050 ####[facility] [address] [place], [address] Hematocrit (Bld) [Volume fraction] 35.8 % Low 37-47 [facility] Comment on above: Order Comment: BLOOD IN LAB Performed By: #### L 100.0100, L500.4050 ####[facility] [address] [place], [address] Hemoglobin (Bld) [Mass/Vol] 11.5 g/dL Low 12.0-15.0 [facility] Comment on above: Order Comment: BLOOD IN LAB Performed By: #### L 100.0100, L500.4050 ####[facility] [address] [place], [address] IG% 0.400 Normal 0.0-0.9 [facility] Comment on above: Order Comment: BLOOD IN LAB Result Comment: IG% - Immature Granulocytes (promyelocytes, myelocytes andmetamyelocytes) > 1% indicates that a LEFT SHIFT is Present. Performed By: #### L 100.0100, L500.4050 ####[facility] [address] [place], [address] Lymphocytes/100 WBC (Bld) 33.8 % Normal 19-41 [facility] Comment on above: Order Comment: BLOOD IN LAB Performed By: #### L 100.0100, L500.4050 ####[facility] [address] [place], [address] MCH (RBC) [Entitic mass] 28.0 pg Normal 27.0-32.0 [facility] Comment on above: Order Comment: BLOOD IN LAB Performed By: #### L 100.0100, L500.4050 ####[facility] [address] [place], [address] MCHC (RBC) [Mass/Vol] 32.1 g/dL Normal 32-[address] [facility] Comment on above: Order Comment: BLOOD IN LAB Performed By: #### L 100.0100, L500.4050 ####[facility] [address] [place], [address] MCV (RBC) [Entitic vol] 87.3 fL Normal 81-99 [facility] Comment on above: Order Comment: BLOOD IN LAB Performed By: #### L 100.0100, L500.4050 ####[facility] [address] [place], [address] Monocytes/100 WBC (Bld) 8.2 % Normal 0-10 [facility] Comment on above: Order Comment: BLOOD IN LAB Performed By: #### L 100.0100, L500.4050 ####[facility] [address] [place], [address] Neutrophils/100 WBC (Bld) 53.1 % Normal 47-70 [facility] Comment on above: Order Comment: BLOOD IN LAB Performed By: #### L 100.0100, L500.4050 ####[facility] [address] [place], [address] Nucleated RBC (Bld) [#/Vol] 0 10*3/uL Normal 0-5 [facility] Comment on above: Order Comment: BLOOD IN LAB Performed By: #### L 100.0100, L500.4050 ####[facility] [address] [place], [address] Platelet mean volume (Bld) [Entitic vol] 9.7 fL Normal 6.2-12.0 [facility] Comment on above: Order Comment: BLOOD IN LAB Performed By: #### L 100.0100, L500.4050 ####[facility] [address] [place], [address] Platelets (Bld) [#/Vol] 306 10*3/uL Normal 150-450 [facility] Comment on above: Order Comment: BLOOD IN LAB Performed By: #### L 100.0100, L500.4050 ####[facility] [address] [place], [address] RBC (Bld) [#/Vol] 4.10 10*6/uL Low 4.2-5.4 [facility] Comment on above: Order Comment: BLOOD IN LAB Performed By: #### L 100.0100, L500.4050 ####[facility] [address] [place], [address] RDW SD 41.5 fl Normal 35.1-43.9 [facility] Comment on above: Order Comment: BLOOD IN LAB Performed By: #### L 100.0100, L500.4050 ####[facility] [address] [place], [address] WBC (Bld) [#/Vol] 8.3 10*3/uL Normal 4.4-11.0 [facility] Comment on above: Order Comment: BLOOD IN LAB Performed By: #### L 100.0100, L500.4050 ####[facility] [address] [place], [address] Comprehensive Metabolic Prof [facility] 09-17-2023 Albumin [Mass/Vol] 3.2 g/dL Normal 3.2-5.0 [facility] Comment on above: Order Comment: BLOOD IN LAB Performed By: #### L 100.0100, L500.4050 ####[facility] [address] [place], [address] Albumin/Globulin [Mass ratio] 0.8 {ratio} Low 0.9-2.4 [facility] Comment on above: Order Comment: BLOOD IN LAB Performed By: #### L 100.0100, L500.4050 ####[facility] [address] [place], [address] ALK P 88 U/L Normal 45-117 [facility] Comment on above: Order Comment: BLOOD IN LAB Performed By: #### L 100.0100, L500.4050 ####[facility] [address] [place], [address] ALT [Catalytic activity/Vol] 29 U/L Normal 13-56 [facility] Comment on above: Order Comment: BLOOD IN LAB Performed By: #### L 100.0100, L500.4050 ####[facility] [address] [place], [address] AST [Catalytic activity/Vol] 22 U/L Normal 15-37 [facility] Comment on above: Order Comment: BLOOD IN LAB Performed By: #### L 100.0100, L500.4050 ####[facility] [address] [place], [address] Bilirubin [Mass/Vol] 0.20 mg/dL Normal 0.20-1.00 [facility] Comment on above: Order Comment: BLOOD IN LAB Result Comment: For patients on eltrombopag therapy, use of Dimension [place] TBIL is not recommended. Performed By: #### L 100.0100, L500.4050 ####[facility] [address] [place], [address] BUN/CRE 29.8 RATIO High 10-20 [facility] Comment on above: Order Comment: BLOOD IN LAB Performed By: #### L 100.0100, L500.4050 ####[facility] [address] [place], [address] CA,Total 9.0 mg/dL Normal 8.5-10.1 [facility] Comment on above: Order Comment: BLOOD IN LAB Performed By: #### L 100.0100, L500.4050 ####[facility] [address] [place], [address] Chloride [Moles/Vol] 108 mmol/L High 98-107 [facility] Comment on above: Order Comment: BLOOD IN LAB Performed By: #### L 100.0100, L500.4050 ####[facility] [address] [place], [address] CO2 [Moles/Vol] 25.0 mmol/L Normal 21.0-32.0 [facility] Comment on above: Order Comment: BLOOD IN LAB Performed By: #### L 100.0100, L500.4050 ####[facility] [address] [place], [address] Creatinine [Mass/Vol] 1.04 mg/dL High 0.55-1.[address] [facility] Comment on above: Order Comment: BLOOD IN LAB Result Comment: The validity of the calculated GFR GFRAA in patients over70 years has not been determined. Clinical correlation isessential. Performed By: #### L 100.0100, L500.4050 ####[facility] [address] [place], [address] ECRCL 52.48 ml/min Normal [facility] Comment on above: Order Comment: BLOOD IN LAB Performed By: #### L 100.0100, L500.4050 ####[facility] [address] [place], [address] EST GFR - AA 69 mL/min Normal >60 [facility] Comment on above: Order Comment: BLOOD IN LAB Result Comment: Afri can Indonesian GFR Calc Performed By: #### L 100.0100, L500.4050 ####[facility] [address] [place], [address] GAP 5 Normal 5-15 [facility] Comment on above: Order Comment: BLOOD IN LAB Performed By: #### L 100.0100, L500.4050 ####[facility] [address] [place], [address] GFR/1.73 sq M.predicted among non-blacks MDRD (S/P/Bld) [Vol rate/Area] 57 mL/min/{1.73_m2} Low >60 [facility] Comment on above: Order Comment: BLOOD IN LAB Result Comment: Non- GFR Calc Performed By: #### L 100.0100, L500.4050 ####[facility] [address] [place], [address] Globulin (S) [Mass/Vol] 3.8 g/dL Normal 2.2-4.2 [facility] Comment on above: Order Comment: BLOOD IN LAB Performed By: #### L 100.0100, L500.4050 ####[facility] [address] [place], [address] Glucose [Mass/Vol] 94 mg/dL Normal 74-106 [facility] Comment on above: Order Comment: BLOOD IN LAB Performed By: #### L 100.0100, L500.4050 ####[facility] [address] [place], [address] Potassium [Moles/Vol] 4.0 mmol/L Normal 3.5-5.[address] [facility] Comment on above: Order Comment: BLOOD IN LAB Performed By: #### L 100.0100, L500.4050 ####[facility] [address] [place], [address] Sodium [Moles/Vol] 138 mmol/L Normal 136-145 [facility] Comment on above: Order Comment: BLOOD IN LAB Performed By: #### L 100.0100, L500.4050 ####[facility] [address] [place], [address] T PROT 7.0 g/dL Normal 6.4-8.2 [facility] Comment on above: Order Comment: BLOOD IN LAB Performed By: #### L 100.0100, L500.4050 ####[facility] [address] [place], [address] Urea nitrogen [Mass/Vol] 31 mg/dL High 7-18 [facility] Comment on above: Order Comment: BLOOD IN LAB Performed By: #### L 100.0100, L500.4050 ####[facility] [address] [place], [address] Oncology Visit Reporton 07-0 Oncology Visit Report Normal [facility] Cholesterol measurementOrder ed By: Andrés Corrales on 08-07-2023 Cholesterol [Mass/Vol] 223 mg/dL High <200 [facility] Comment on above: <200 mg/dL Desirable 200-240 mg/dL Borderline >240 mg/dL High Risk High density lipoprotein (HD L) measurementOrdered By: Andrés Corrales on 08-07-2023 Cholesterol in HDL [Mass/Vol] 49 mg/dL >40 [facility] Comment on above: The drugs N-Acetylcy steine and Metamizole may falsely depress this assay. Reference Range HDL <40 mg/dL Low HDL Cholesterol HDL >or= 60 mg/dL High HDL Cholesterol Low density lipoprotein (LDL ) cholesterol measurementOrdered By: Andrés Corrales on 08-07-2023 Cholesterol in LDL [Mass/Vol] 148 mg/dL High 0-130 [facility] Triglycerides measurementOrd ered By: Andrés Corrales on 08-07-2023 Triglyceride [Mass/Vol] 132 mg/dL <199 [facility] Comment on above: The drugs N-Acetylcy steine and Metamizole may falsely depress this assay.Serum Triglycerides Reference Interval Normal <150 mg/dL Borderline high 150 - 199 mg/dL High 200 - 499 mg/dL Very High > or = 500 mg/dL Very low density lipoprotein (VLDL) cholesterol measurementOrdered By: Andrés Corrales on 08-07-2023 Very low density lipoprotein (VLDL) cholesterol measurement 26 mg/dL 5-40 [facility] VLDL Cholesterol 26 mg/dL 5-40 [facility] Absolute lymphocyte countOrd ered By: Leisa Baker on 05-15-2023 Lymphocytes Auto (Unsp spec) [#/Vol] 2.84 10*3/uL 0.83-4.51 [facility] Automated lymphocyte count a s percentage of total leukocytesOrdered By: Leisa Baker on 05-15-2023 Lymphocytes/100 WBC Auto (Unsp spec) 28.8 % 19-41 [facility] Basophil percentageOrdered B y: Leisa Baker on 05-15-2023 Basophils/100 WBC (Bld) 0.4 % 0-1 [facility] Bilirubin [Mass/Vol] 0.20 mg/dL 0.20-1.00 [facility] Comment on above: For patients on eltr ombopag therapy, use of Dimension [place] TBIL is not recommended. Chloride [Moles/Vol] 109 mmol/L 98-107 [facility] Eosinophils/100 WBC (Bld) 3.6 % 0-5 [facility] Glucose [Mass/Vol] 106 mg/dL 74-106 [facility] Comment on above: Fasting Glucose resu lt from 100 to 125 mg/dL suggests IMPAIRED HOMEOSTASIS per A.D.A. criteria. Hemoglobin (Bld) [Mass/Vol] 12.0 g/dL 12.0-15.0 [facility] Monocytes/100 WBC (Bld) 6.4 % 0-10 [facility] Neutrophils (Bld) [#/Vol] 5.9 10*3/uL 2.0-7.7 [facility] Neutrophils/100 WBC (Bld) 60.2 % 47-70 [facility] Potassium [Moles/Vol] 3.8 mmol/L 3.5-5.[address] [facility] Protein [Mass/Vol] 7.1 g/dL 6.4-8.2 [facility] Sodium [Moles/Vol] 139 mmol/L 136-145 [facility] WBC (Bld) [#/Vol] 9.9 10*3/uL 4.4-11.0 [facility] Determination of erythrocyte mean corpuscular volume (MCV)Ordered By: Leisa Baker on 05-15-2023 MCV (RBC) [Entitic vol] 87.4 fL 81-99 [facility] Erythrocyte distribution wid th ratioOrdered By: [facility] on 05-15-2023 Erythrocyte distribution width (RBC) [Ratio] 12.9 % 11.6-14.6 [facility] Erythrocyte distribution wid th standard deviationOrdered By: [facility] on 05-15-2023 Erythrocyte distribution width (RBC) [Entitic vol] 40.6 fL 35.1-43.9 [facility] Hematocrit Auto (Bld) [Volum e fraction]Ordered By: [facility] on 05-15-2023 Hematocrit (Bld) [Volume fraction] 37.4 % 37-47 [facility] Immature granulocytes/100 WB C Auto (Bld)Ordered By: [facility] on 05-15-2023 Immature granulocytes/100 WBC (Bld) 0.600 % 0.0-0.9 [facility] Comment on above: IG% - Immature Granu locytes (promyelocytes, myelocytes and metamyelocytes) > 1% indicates that a LEFT SHIFT is Present. Laboratory - Chemistry and C hemistry - challengeOrdered By: [facility] on 05-15-2023 Albumin/Globulin [Mass ratio] 0.9 {ratio} 0.9-2.4 [facility] ALP [Catalytic activity/Vol] 91 U/L 45-117 [facility] ALT [Catalytic activity/Vol] 27 U/L 13-56 [facility] CO2 [Moles/Vol] 25.0 mmol/L 21.0-32.0 [facility] Globulin (S) [Mass/Vol] 3.8 g/dL 2.2-4.2 [facility] Urea nitrogen/Creatinine [Mass ratio] 20.2 mg/mg 10-20 [facility] Laboratory - Hematology and Cell countsOrdered By: [facility] on 05-15-2023 MCH (RBC) [Entitic mass] 28.0 pg 27.0-32.0 [facility] MCHC (RBC) [Mass/Vol] 32.1 g/dL 32-[address] [facility] Nucleated RBC/100 WBC (Bld) [Ratio] 0 % 0-5 [facility] Platelet mean volume (Bld) [Entitic vol] 8.9 fL 6.2-12.0 [facility] Platelets (Bld) [#/Vol] 340 10*3/uL 150-450 [facility] No Panel InformationOrdered By: Leisa Baker on 05-15-2023 Estimated Creatinine Clearance Calc 61.15 ml/min [facility] Estimated GFR (MDRD) Amer 83 mL/min >60 [facility] Comment on above: GFR Calc Estimated GFR (MDRD) Non-Af Amer 69 mL/min >60 [facility] Comment on above: Non- GFR Calc RBC Auto (Bld) [#/Vol]Ordere d By: Leisa Baker on 05-15-2023 RBC (Bld) [#/Vol] 4.28 10*6/uL 4.2-5.4 [facility] Serum or plasma calcium anat urement (mass/volume)Ordered By: Leisa Baker on 05-15-2023 Calcium [Mass/Vol] 8.9 mg/dL 8.5-10.1 [facility] Serum or plasma creatinine m easurement (mass/volume)Ordered By: Leisa Baker on 05-15-2023 Creatinine [Mass/Vol] 0.89 mg/dL 0.55-1.[address] [facility] Comment on above: The validity of the calculated GFR & GFRAA in patients over 70 years has not been determined. Clinical correlation is essential. Serum or plasma urea nitroge n measurement (mass/volume)Ordered By: Leisa Baker on 05-15-2023 Urea nitrogen [Mass/Vol] 18 mg/dL 7-18 [facility] Thin prep Papanicolaou smear with manual screeningOrdered By: Leisa Baker on 05-15-2023 Thin prep Papanicolaou smear with manual screening 3.3 g/dL 3.2-5.0 [facility] Thin prep Papanicolaou smear with manual screening 20 U/L 15-37 [facility] Thin prep Papanicolaou smear with manual screening 5 5-15 [facility] Absolute lymphocyte countOrd ered By: Andrés Corraels on 04-03-2023 Lymphocytes Auto (Unsp spec) [#/Vol] 2.91 10*3/uL 0.83-4.51 [facility] Automated lymphocyte count a s percentage of total leukocytesOrdered By: Andrés Corrales on 04-03-2023 Lymphocytes/100 WBC Auto (Unsp spec) 34.0 % 19-41 [facility] Basophil percentageOrdered B y: Andrés Corrales on 04-03-2023 Basophils/100 WBC (Bld) 0.4 % 0-1 [facility] Bilirubin [Mass/Vol] 0.30 mg/dL 0.20-1.00 [facility] Comment on above: For patients on eltr ombopag therapy, use of Dim[place] TBIL is not recommended. Chloride [Moles/Vol] 109 mmol/L 98-107 [facility] Eosinophils/100 WBC (Bld) 3.0 % 0-5 [facility] Glucose [Mass/Vol] 109 mg/dL 74-106 [facility] Comment on above: Fasting Glucose resu lt from 100 to 125 mg/dL suggests IMPAIRED HOMEOSTASIS per A.D.A. criteria. Hemoglobin (Bld) [Mass/Vol] 12.6 g/dL 12.0-15.0 [facility] Monocytes/100 WBC (Bld) 5.5 % 0-10 [facility] Neutrophils (Bld) [#/Vol] 4.9 10*3/uL 2.0-7.7 [facility] Neutrophils/100 WBC (Bld) 56.7 % 47-70 [facility] Potassium [Moles/Vol] 4.0 mmol/L 3.5-5.[address] [facility] Protein [Mass/Vol] 7.2 g/dL 6.4-8.2 [facility] Sodium [Moles/Vol] 139 mmol/L 136-145 [facility] WBC (Bld) [#/Vol] 8.6 10*3/uL 4.4-11.0 [facility] Determination of erythrocyte mean corpuscular volume (MCV)Ordered By: Andrés Corrales on 04-03-2023 MCV (RBC) [Entitic vol] 87.5 fL 81-99 [facility] Erythrocyte distribution wid th ratioOrdered By: Andrés Corrales on 04-03-2023 Erythrocyte distribution width (RBC) [Ratio] 12.7 % 11.6-14.6 [facility] Erythrocyte distribution wid th standard deviationOrdered By: Andrés Corrales on 04-03-2023 Erythrocyte distribution width (RBC) [Entitic vol] 40.5 fL 35.1-43.9 [facility] Hematocrit Auto (Bld) [Volum e fraction]Ordered By: Andrés Corrales on 04-03-2023 Hematocrit (Bld) [Volume fraction] 38.4 % 37-47 [facility] Immature granulocytes/100 WB C Auto (Bld)Or[facility]: [facility] 04-03-[facility]23 Immature granulocytes/100 WBC (Bld) 0.400 % 0.0-0.9 [facility] Comment on above: IG% - Immature Granu locytes (promyelocytes, myelocytes and metamyelocytes) > 1% indicates that a LEFT SHIFT is Present. Laboratory - Chemistry and C hemistry - challengeOrdered By: [facility] on 04-03-2023 Albumin/Globulin [Mass ratio] 0.9 {ratio} 0.9-2.4 [facility] ALP [Catalytic activity/Vol] 100 U/L 45-117 [facility] ALT [Catalytic activity/Vol] 29 U/L 13-56 [facility] CO2 [Moles/Vol] 25.0 mmol/L 21.0-32.0 [facility] Globulin (S) [Mass/Vol] 3.7 g/dL 2.2-4.2 [facility] Urea nitrogen/Creatinine [Mass ratio] 16.3 mg/mg 10-20 [facility] Laboratory - Hematology and Cell countsOrdered By: Andrés Corrales on 04-03-2023 MCH (RBC) [Entitic mass] 28.7 pg 27.0-32.0 [facility] MCHC (RBC) [Mass/Vol] 32.8 g/dL 32-[address] [facility] Nucleated RBC/100 WBC (Bld) [Ratio] 0 % 0-5 [facility] Platelets (Bld) [#/Vol] 357 10*3/uL 150-450 [facility] No Panel InformationOrdered By: Andrés Corrales on 04-03-2023 Estimated Creatinine Clearance Calc 55.50 ml/min [facility] Estimated GFR (MDRD) Amer 74 mL/min >60 [facility] Comment on above: GFR Calc Estimated GFR (MDRD) Non-Af Amer 61 mL/min >60 [facility] Comment on above: Non- GFR Calc Platelet mean volume Kvng-Ec ker (Bld) [Entitic vol]Ordered By: Andrés Corrales on 04-03-2023 Platelet mean volume (Bld) [Entitic vol] 8.8 fL 6.2-12.0 [facility] RBC Auto (Bld) [#/Vol]Ordere d By: Andrés Corrales on 04-03-2023 RBC (Bld) [#/Vol] 4.39 10*6/uL 4.2-5.4 [facility] Serum or plasma calcium anat urement (mass/volume)Ordered By: Andrés Corrales on 04-03-2023 Calcium [Mass/Vol] 9.2 mg/dL 8.5-10.1 [facility] Serum or plasma creatinine m easurement (mass/volume)Ordered By: Andrés Corrales on 04-03-2023 Creatinine [Mass/Vol] 0.98 mg/dL 0.55-1.[address] [facility] Comment on above: The validity of the calculated GFR & GFRAA in patients over 70 years has not been determined. Clinical correlation is essential. Serum or plasma urea nitroge n measurement (mass/volume)Ordered By: Andrés Corrales on 04-03-2023 Urea nitrogen [Mass/Vol] 16 mg/dL 7-18 [facility] Thin prep Papanicolaou smear with manual screeningOrdered By: Andrés Corrales on 04-03-2023 Thin prep Papanicolaou smear with manual screening 3.5 g/dL 3.2-5.0 [facility] Thin prep Papanicolaou smear with manual screening 22 U/L 15-37 [facility] Thin prep Papanicolaou smear with manual screening 5 5-15 [facility] Absolute lymphocyte countOrd ered By: Andrés Corrales on 01-09-2023 Lymphocytes Auto (Unsp spec) [#/Vol] 3.05 10*3/uL 0.83-4.51 [facility] Basophil percentageOrdered B y: Andrés Corrlaes on 01-09-2023 Basophils/100 WBC (Bld) 0.6 % 0-1 [facility] Bilirubin [Mass/Vol] 0.30 mg/dL 0.20-1.00 [facility] Comment on above: For patients on eltr ombopag therapy, use of [employer] [place] TBIL is not recommended. Chloride [Moles/Vol] 109 mmol/L 98-107 [facility] Eosinophils/100 WBC (Bld) 3.8 % 0-5 [facility] Glucose [Mass/Vol] 116 mg/dL 74-106 [facility] Comment on above: Fasting Glucose resu lt from 100 to 125 mg/dL suggests IMPAIRED HOMEOSTASIS per A.D.A. criteria. Neutrophils (Bld) [#/Vol] 4.6 10*3/uL 2.0-7.7 [facility] Neutrophils/100 WBC (Bld) 53.5 % 47-70 [facility] Potassium [Moles/Vol] 4.1 mmol/L 3.5-5.[address] [facility] Protein [Mass/Vol] 7.3 g/dL 6.4-8.2 [facility] Sodium [Moles/Vol] 139 mmol/L 136-145 [facility] WBC (Bld) [#/Vol] 8.5 10*3/uL 4.4-11.0 [facility] Blood erythrocytes count (nu mber/volume)Ordered By: Andrés Corrales on 01-09-2023 RBC (Bld) [#/Vol] 4.39 10*6/uL 4.2-5.4 [facility] Blood hemoglobin measurement (mass/volume)Ordered By: Andrés Corrales on 01-09-2023 Hemoglobin (Bld) [Mass/Vol] 12.1 g/dL 12.0-15.0 [facility] Blood lymphocytes/100 leukoc ytesOrdered By: Andrés Corrales on 01-09-2023 Lymphocytes/100 WBC (Bld) 35.8 % 19-41 [facility] Blood monocytes/100 leukocyt esOrdered By: Andrés Corrales on 01-09-2023 Monocytes/100 WBC (Bld) 5.9 % 0-10 [facility] Blood platelet mean volumeOr dered By: Andrés Corrales on 01-09-2023 Platelet mean volume (Bld) [Entitic vol] 8.8 fL 6.2-12.0 [facility] Determination of erythrocyte mean corpuscular volume (MCV)Ordered By: Andrés Corrales on 01-09-2023 MCV (RBC) [Entitic vol] 88.8 fL 81-99 [facility] Hematocrit Auto (Bld) [Volum e fraction]Ordered By: Andrés Corrales on 01-09-2023 Hematocrit (Bld) [Volume fraction] 39.0 % 37-47 [facility] Laboratory - Chemistry and C hemistry - challengeOrdered By: [facility] on 01-09-2023 ALP [Catalytic activity/Vol] 87 U/L 45-117 [facility] ALT [Catalytic activity/Vol] 29 U/L 13-56 [facility] CO2 [Moles/Vol] 27.0 mmol/L 21.0-32.0 [facility] Globulin (S) [Mass/Vol] 3.8 g/dL 2.2-4.2 [facility] Urea nitrogen/Creatinine [Mass ratio] 20.3 mg/mg 10-20 [facility] Laboratory - Hematology and Cell countsOrdered By: [facility] on 01-09-2023 Erythrocyte distribution width (RBC) [Entitic vol] 41.1 fL 35.1-43.9 [facility] Erythrocyte distribution width (RBC) [Ratio] 12.6 % 11.6-14.6 [facility] Immature granulocytes/100 WBC (Bld) 0.400 % 0.0-0.9 [facility] Comment on above: IG% - Immature Granu locytes (promyelocytes, myelocytes and metamyelocytes) > 1% indicates that a LEFT SHIFT is Present. MCH (RBC) [Entitic mass] 27.6 pg 27.0-32.0 [facility] Nucleated RBC/100 WBC (Bld) [Ratio] 0 % 0-5 [facility] MCHC Auto (RBC) [Mass/Vol]Or dered By: Andrés Corrales on 01-09-2023 MCHC (RBC) [Mass/Vol] 31.0 g/dL 32-[address] [facility] No Panel InformationOrdered By: Andrés Corrales on 01-09-2023 Estimated Creatinine Clearance Calc 52.65 ml/min [facility] Estimated GFR (MDRD) Amer 78 mL/min >60 [facility] Comment on above: GFR Calc Estimated GFR (MDRD) Non-Af Amer 65 mL/min >60 [facility] Comment on above: Non- GFR Calc Platelets bldOrdered By: Arturo box Savanna on 01-09-2023 Platelets (Bld) [#/Vol] 342 10*3/uL 150-450 [facility] Serum or plasma albumin anat urement (mass/volume)Ordered By: Andrés Corrales on 01-09-2023 Albumin [Mass/Vol] 3.5 g/dL 3.2-5.0 [facility] Serum or plasma albumin/glob ulin mass ratioOrdered By: Andrés Corrales on 01-09-2023 Albumin/Globulin [Mass ratio] 0.9 {ratio} 0.9-2.4 [facility] Serum or plasma calcium anat urement (mass/volume)Ordered By: Andrés Corrales on 01-09-2023 Calcium [Mass/Vol] 8.9 mg/dL 8.5-10.1 [facility] Serum or plasma creatinine m easurement (mass/volume)Ordered By: Andrés Corrales on 01-09-2023 Creatinine [Mass/Vol] 0.94 mg/dL 0.55-1.[address] [facility] Comment on above: The validity of the calculated GFR & GFRAA in patients over 70 years has not been determined. Clinical correlation is essential. Serum or plasma urea nitroge n measurement (mass/volume)Ordered By: Andrés Corrales on 01-09-2023 Urea nitrogen [Mass/Vol] 19 mg/dL 7-18 [facility] Thin prep Papanicolaou smear with manual screeningOrdered By: Andrés Corrales on 01-09-2023 Thin prep Papanicolaou smear with manual screening 25 U/L 15-37 [facility] Thin prep Papanicolaou smear with manual screening 3 5-15 [facility] Laboratory - Chemistry and C hemistry - challengeOrdered By: Casey Rubio on 11-13-2022 Free T4 [Mass/Vol] 0.83 ng/dL 0.76-1.46 [facility] No Panel InformationOrdered By: Casey Rubio on 11-13-2022 Free Triiodothyronine (T3) pg/dL 2.6 pg/mL 2.18-3.98 [facility] Thyroid Stimulating Hormone (TSH) 0.67 uIU/mL 0.358-3.74 [facility] Serum or plasma thyroperoxid ase antibody assay (units/volume)Ordered By: Ángel Poe on 11-13-2022 TPO Ab Qn [IU]/mL 0-34 [facility] Comment on above: Performed at: [place] [id number] Director: Antony Eisenberg PhD, Phone: [phone] Absolute lymphocyte countOrd ered By: Andrés Corrales on 10-17-2022 Lymphocytes Auto (Unsp spec) [#/Vol] 2.79 10*3/uL 0.83-4.51 [facility] Basophil percentageOrdered B y: Andrés Corrales on 10-17-2022 Basophils/100 WBC (Bld) 0.6 % 0-1 [facility] Bilirubin [Mass/Vol] 0.30 mg/dL 0.20-1.00 [facility] Comment on above: For patients on eltr ombopag therapy, use of [employer] [place] TBIL is not recommended. Chloride [Moles/Vol] 105 mmol/L 98-107 [facility] Eosinophils/100 WBC (Bld) 3.2 % 0-5 [facility] Glucose [Mass/Vol] 114 mg/dL 74-106 [facility] Comment on above: Fasting Glucose resu lt from 100 to 125 mg/dL suggests IMPAIRED HOMEOSTASIS per A.D.A. criteria. Neutrophils (Bld) [#/Vol] 5.1 10*3/uL 2.0-7.7 [facility] Neutrophils/100 WBC (Bld) 58.3 % 47-70 [facility] Potassium [Moles/Vol] 4.0 mmol/L 3.5-5.[address] [facility] Protein [Mass/Vol] 7.5 g/dL 6.4-8.2 [facility] Sodium [Moles/Vol] 137 mmol/L 136-145 [facility] WBC (Bld) [#/Vol] 8.8 10*3/uL 4.4-11.0 [facility] Blood erythrocytes count (nu mber/volume)Ordered By: Andrés Corrales on 10-17-2022 RBC (Bld) [#/Vol] 4.31 10*6/uL 4.2-5.4 [facility] Blood hemoglobin measurement (mass/volume)Ordered By: Andrés Corrales on 10-17-2022 Hemoglobin (Bld) [Mass/Vol] 12.7 g/dL 12.0-15.0 [facility] Blood lymphocytes/100 leukoc ytesOrdered By: Andrés Corrales on 10-17-2022 Lymphocytes/100 WBC (Bld) 31.7 % 19-41 [facility] Blood monocytes/100 leukocyt esOrdered By: [facility] [place] on 10-17-2022 Monocytes/100 WBC (Bld) 5.9 % 0-10 [facility] Blood platelet mean volumeOr dered By: Andrés Corrales on 10-17-2022 Platelet mean volume (Bld) [Entitic vol] 8.7 fL 6.2-12.0 [facility] Determination of erythrocyte mean corpuscular volume (MCV)Ordered By: Andrés Corrales on 10-17-2022 MCV (RBC) [Entitic vol] 87.5 fL 81-99 [facility] Hematocrit Auto (Bld) [Volum e fraction]Ordered By: Andrés Corrales on 10-17-2022 Hematocrit (Bld) [Volume fraction] 37.7 % 37-47 [facility] Laboratory - Chemistry and C hemistry - challengeOrdered By: [facility] on 10-17-2022 ALP [Catalytic activity/Vol] 79 U/L 45-117 [facility] ALT [Catalytic activity/Vol] 26 U/L 13-56 [facility] CO2 [Moles/Vol] 27.0 mmol/L 21.0-32.0 [facility] Globulin (S) [Mass/Vol] 4.0 g/dL 2.2-4.2 [facility] Urea nitrogen/Creatinine [Mass ratio] 23.9 mg/mg 10-20 [facility] Laboratory - Hematology and Cell countsOrdered By: Andrés Corrales on 10-17-2022 Erythrocyte distribution width (RBC) [Entitic vol] 40.2 fL 35.1-43.9 [facility] Erythrocyte distribution width (RBC) [Ratio] 12.6 % 11.6-14.6 [facility] Immature granulocytes/100 WBC (Bld) 0.300 % 0.0-0.9 [facility] Comment on above: IG% - Immature Granu locytes (promyelocytes, myelocytes and metamyelocytes) > 1% indicates that a LEFT SHIFT is Present. MCH (RBC) [Entitic mass] 29.5 pg 27.0-32.0 [facility] Nucleated RBC/100 WBC (Bld) [Ratio] 0 % 0-5 [facility] MCHC Auto (RBC) [Mass/Vol]Or dered By: Andrés Corrales on 10-17-2022 MCHC (RBC) [Mass/Vol] 33.7 g/dL 32-[address] [facility] No Panel InformationOrdered By: Andrés Corrales on 10-17-2022 Estimated Creatinine Clearance Calc 53.79 ml/min [facility] Estimated GFR (MDRD) Amer 80 mL/min >60 [facility] Comment on above: GFR Calc Estimated GFR (MDRD) Non-Af Amer 66 mL/min >60 [facility] Comment on above: Non- GFR Calc Platelets bldOrdered By: Arturo Corrales on 10-17-2022 Platelets (Bld) [#/Vol] 323 10*3/uL 150-450 [facility] Serum or plasma albumin anat urement (mass/volume)Ordered By: Andrés Corrales on 10-17-2022 Albumin [Mass/Vol] 3.5 g/dL 3.2-5.0 [facility] Serum or plasma albumin/glob ulin mass ratioOrdered By: Andrés Corrales on 10-17-2022 Albumin/Globulin [Mass ratio] 0.9 {ratio} 0.9-2.4 [facility] Serum or plasma calcium anat urement (mass/volume)Ordered By: Andrés Corrales on 10-17-2022 Calcium [Mass/Vol] 9.4 mg/dL 8.5-10.1 [facility] Serum or plasma creatinine m easurement (mass/volume)Ordered By: Andrés Corrales on 10-17-2022 Creatinine [Mass/Vol] 0.92 mg/dL 0.55-1.[address] [facility] Comment on above: The validity of the calculated GFR & GFRAA in patients over 70 years has not been determined. Clinical correlation is essential. Serum or plasma urea nitroge n measurement (mass/volume)Ordered By: Andrés Corrales on 10-17-2022 Urea nitrogen [Mass/Vol] 22 mg/dL 7-18 [facility] Thin prep Papanicolaou smear with manual screeningOrdered By: Andrés Corrales on 10-17-2022 Thin prep Papanicolaou smear with manual screening 19 U/L 15-37 [facility] Thin prep Papanicolaou smear with manual screening 5 5-15 [facility] Basophil percentageOrdered B y: Andrés Corrales on 10-08-2022 Creatinine [Mass/Vol] 0.9 mg/dL 0.55-1.[address] [facility] No Panel InformationOrdered By: Andrés Corrales on 10-08-2022 Bedside Estimated GFR (eGFR) > 60.0000 mL/min >60 [facility] Absolute lymphocyte countOrd ered By: Andrés Corrales on 09-05-2022 Lymphocytes Auto (Unsp spec) [#/Vol] 2.96 10*3/uL 0.83-4.51 [facility] Basophil percentageOrdered B y: Andrés Corrales on 09-05-2022 Basophils/100 WBC (Bld) 0.5 % 0-1 [facility] Bilirubin [Mass/Vol] 0.40 mg/dL 0.20-1.00 [facility] Comment on above: For patients on eltr ombopag therapy, use of [employer] [place] TBIL is not recommended. Chloride [Moles/Vol] 111 mmol/L 98-107 [facility] Eosinophils/100 WBC (Bld) 4.0 % 0-5 [facility] Glucose [Mass/Vol] 101 mg/dL 74-106 [facility] Comment on above: Fasting Glucose resu lt from 100 to 125 mg/dL suggests IMPAIRED HOMEOSTASIS per A.D.A. criteria. Neutrophils (Bld) [#/Vol] 4.5 10*3/uL 2.0-7.7 [facility] Neutrophils/100 WBC (Bld) 53.4 % 47-70 [facility] Potassium [Moles/Vol] 3.7 mmol/L 3.5-5.[address] [facility] Protein [Mass/Vol] 7.0 g/dL 6.4-8.2 [facility] Sodium [Moles/Vol] 141 mmol/L 136-145 [facility] WBC (Bld) [#/Vol] 8.5 10*3/uL 4.4-11.0 [facility] Blood erythrocytes count (nu mber/volume)Ordered By: Andrés Corrales on 09-05-2022 RBC (Bld) [#/Vol] 4.34 10*6/uL 4.2-5.4 [facility] Blood hemoglobin measurement (mass/volume)Ordered By: Andrés Corrales on 09-05-2022 Hemoglobin (Bld) [Mass/Vol] 12.0 g/dL 12.0-15.0 [facility] Blood lymphocytes/100 leukoc ytesOrdered By: Andrés Corrales on 09-05-2022 Lymphocytes/100 WBC (Bld) 34.8 % 19-41 [facility] Blood monocytes/100 leukocyt esOrdered By: Andrés Corrales on 09-05-2022 Monocytes/100 WBC (Bld) 6.9 % 0-10 [facility] Blood platelet mean volumeOr dered By: Andrés Corrales on 09-05-2022 Platelet mean volume (Bld) [Entitic vol] 8.9 fL 6.2-12.0 [facility] Determination of erythrocyte mean corpuscular volume (MCV)Ordered By: Andrés Corrales on 09-05-2022 MCV (RBC) [Entitic vol] 88.2 fL 81-99 [facility] Hematocrit Auto (Bld) [Volum e fraction]Ordered By: Andrés Corrales on 09-05-2022 Hematocrit (Bld) [Volume fraction] 38.3 % 37-47 [facility] Laboratory - Chemistry and C hemistry - challengeOrdered By: Andrés Corrales on 09-05-2022 ALP [Catalytic activity/Vol] 78 U/L 45-117 [facility] ALT [Catalytic activity/Vol] 28 U/L 13-56 [facility] CO2 [Moles/Vol] 26.0 mmol/L 21.0-32.0 [facility] Globulin (S) [Mass/Vol] 3.5 g/dL 2.2-4.2 [facility] Urea nitrogen/Creatinine [Mass ratio] 22.2 mg/mg 10-20 [facility] Laboratory - Hematology and Cell countsOrdered By: Andrés Corrales on 09-05-2022 Erythrocyte distribution width (RBC) [Entitic vol] 41.4 fL 35.1-43.9 [facility] Erythrocyte distribution width (RBC) [Ratio] 12.7 % 11.6-14.6 [facility] Immature granulocytes/100 WBC (Bld) 0.400 % 0.0-0.9 [facility] Comment on above: IG% - Immature Granu locytes (promyelocytes, myelocytes and metamyelocytes) > 1% indicates that a LEFT SHIFT is Present. MCH (RBC) [Entitic mass] 27.6 pg 27.0-32.0 [facility] Nucleated RBC/100 WBC (Bld) [Ratio] 0 % 0-5 [facility] MCHC Auto (RBC) [Mass/Vol]Or dered By: Andrés Corrales on 09-05-2022 MCHC (RBC) [Mass/Vol] 31.3 g/dL 32-[address] [facility] No Panel InformationOrdered By: Andrés Corrales on 09-05-2022 Estimated Creatinine Clearance Calc 49.99 ml/min [facility] Estimated GFR (MDRD) Amer 73 mL/min >60 [facility] Comment on above: GFR Calc Estimated GFR (MDRD) Non-Af Amer 61 mL/min >60 [facility] Comment on above: Non- GFR Calc Platelets bldOrdered By: Arturo Corrales on 09-05-2022 Platelets (Bld) [#/Vol] 316 10*3/uL 150-450 [facility] Serum or plasma albumin anat urement (mass/volume)Or[facility] By: [facility] on 09-05-2022 Albumin [Mass/Vol] 3.5 g/dL 3.2-5.0 [facility] Serum or plasma albumin/glob ulin mass ratioOrdered By: [facility] on 09-05-2022 Albumin/Globulin [Mass ratio] 1.0 {ratio} 0.9-2.4 [facility] Serum or plasma calcium anat urement (mass/volume)Ordered By: [facility] on 09-05-2022 Calcium [Mass/Vol] 9.2 mg/dL 8.5-10.1 [facility] Serum or plasma creatinine m easurement (mass/volume)Ordered By: [facility] on 09-05-2022 Creatinine [Mass/Vol] 0.99 mg/dL 0.55-1.[address] [facility] Comment on above: The validity of the calculated GFR & GFRAA in patients over 70 years has not been determined. Clinical correlation is essential. Serum or plasma urea nitroge n measurement (mass/volume)Ordered By: [facility] on 09-05-2022 Urea nitrogen [Mass/Vol] 22 mg/dL 7-18 [facility] Thin prep Papanicolaou smear with manual screeningOrdered By: [facility] on 09-05-2022 Thin prep Papanicolaou smear with manual screening 21 U/L 15-37 [facility] Thin prep Papanicolaou smear with manual screening 4 5-15 [facility] Lower GI hemoglobin IA Ql (S tl)Ordered By: Leisa Baker on 05-01-2022 Stool Occult Blood (DARREN) [facility] Stool gastrointestinal hemog lobin detection by immunologic methodOrdered By: Leisa Baker on 05-01-2022 Lower GI hemoglobin IA Ql (Stl) [facility] Lower GI hemoglobin IA Ql (Stl) [facility] Absolute lymphocyte counton 02-28-2022 Lymphocytes Auto (Unsp spec) [#/Vol] 2.26 10*3/uL 0.83-4.51 [facility] Work Phone: Basophil percentageon 2021 Basophils/100 WBC (Bld) 0.5 % 0-1 [facility] Work Phone: Bilirubin [Mass/Vol] 0.20 mg/dL 0.20-1.00 [facility] Work Phone: Comment on above: For patients on eltr ombopag therapy, use of [employer] [place] TBIL is not recommended. Chloride [Moles/Vol] 106 mmol/L 98-107 [facility] Work Phone: Eosinophils/100 WBC (Bld) 3.2 % 0-5 [facility] Work Phone: Glucose [Mass/Vol] 119 mg/dL 74-106 [facility] Work Phone: Comment on above: Fasting Glucose resu lt from 100 to 125 mg/dL suggests IMPAIRED HOMEOSTASIS per A.D.A. criteria. Neutrophils (Bld) [#/Vol] 4.5 10*3/uL 2.0-7.7 [facility] Work Phone: Neutrophils/100 WBC (Bld) 58.0 % 47-70 [facility] Work Phone: [phone] Potassium [Moles/Vol] 4.1 mmol/L 3.5-5.[address] [facility] Work Phone: Protein [Mass/Vol] 7.2 g/dL 6.4-8.2 [facility] Work Phone: Sodium [Moles/Vol] 140 mmol/L 136-145 [facility] Work Phone: [phone] WBC (Bld) [#/Vol] 7.7 10*3/uL 4.4-11.0 [facility] Work Phone: Blood erythrocytes count (nu mber/volume)on 02-28-2022 RBC (Bld) [#/Vol] 4.32 10*6/uL 4.2-5.4 [facility] Work Phone: Blood hemoglobin measurement (mass/volume)on 02-28-2022 Hemoglobin (Bld) [Mass/Vol] 12.0 g/dL 12.0-15.0 [facility] Work Phone: Blood lymphocytes/100 leukoc yteson 02-28-2022 Lymphocytes/100 WBC (Bld) 29.3 % 19-41 [facility] Work Phone: Blood monocytes/100 leukocyt eson 02-28-2022 Monocytes/100 WBC (Bld) 8.5 % 0-10 [facility] Work Phone: Blood platelet mean volumeon 02-28-2022 Platelet mean volume (Bld) [Entitic vol] 9.1 fL 6.2-12.0 [facility] Work Phone: Determination of erythrocyte mean corpuscular volume (MCV)on 02-28-2022 MCV (RBC) [Entitic vol] 89.1 fL 81-99 [facility] Work Phone: Hematocrit Auto (Bld) [Volum e fraction]on 02-28-2022 Hematocrit (Bld) [Volume fraction] 38.5 % 37-47 [facility] Work Phone: Laboratory - Chemistry and C hemistry - challengeon 02-28-2022 ALP [Catalytic activity/Vol] 79 U/L 45-117 [facility] Work Phone: ALT [Catalytic activity/Vol] 33 U/L 13-56 [facility] Work Phone: CO2 [Moles/Vol] 29.0 mmol/L 21.0-32.0 [facility] Work Phone: Globulin (S) [Mass/Vol] 3.8 g/dL 2.2-4.2 [facility] Work Phone: Urea nitrogen/Creatinine [Mass ratio] 19.2 mg/mg 10-20 [facility] Work Phone: Laboratory - Hematology and Cell countson 02-28-2022 Erythrocyte distribution width (RBC) [Entitic vol] 42.1 fL 35.1-43.9 [facility] Work Phone: Erythrocyte distribution width (RBC) [Ratio] 12.7 % 11.6-14.6 [facility] Work Phone: Immature granulocytes/100 WBC (Bld) 0.500 % 0.0-0.9 [facility] Work Phone: Comment on above: IG% - Immature Granu locytes (promyelocytes, myelocytes and metamyelocytes) > 1% indicates that a LEFT SHIFT is Present. MCH (RBC) [Entitic mass] 27.8 pg 27.0-32.0 [facility] Work Phone: Nucleated RBC/100 WBC (Bld) [Ratio] 0 % 0-5 [facility] Work Phone: MCHC Auto (RBC) [Mass/Vol]on 02-28-2022 MCHC (RBC) [Mass/Vol] 31.2 g/dL 32-[address] [facility] Work Phone: No Panel Informationon 02-28 Estimated Creatinine Clearance Calc 56.30 ml/min [facility] Work Phone: Estimated GFR (MDRD) Amer 84 mL/min >60 [facility] Work Phone: Comment on above: GFR Calc Estimated GFR (MDRD) Non-Af Amer 69 mL/min >60 [facility] Work Phone: Comment on above: Non- GFR Calc Platelets bldon 02-28-2022 Platelets (Bld) [#/Vol] 330 10*3/uL 150-450 [facility] Work Phone: Serum or plasma albumin anat urement (mass/volume)on 02-28-2022 Albumin [Mass/Vol] 3.4 g/dL 3.2-5.0 [facility] Work Phone: Serum or plasma albumin/glob ulin mass ratioon 02-28-2022 Albumin/Globulin [Mass ratio] 0.9 {ratio} 0.9-2.4 [facility] Work Phone: Serum or plasma calcium anat urement (mass/volume)on 02-28-2022 Calcium [Mass/Vol] 9.5 mg/dL 8.5-10.1 [facility] Work Phone: Serum or plasma creatinine m easurement (mass/volume)on 02-28-2022 Creatinine [Mass/Vol] 0.89 mg/dL 0.55-1.[address] [facility] Work Phone: Comment on above: The validity of the calculated GFR & GFRAA in patients over 70 years has not been determined. Clinical correlation is essential. Serum or plasma urea nitroge n measurement (mass/volume)on 02-28-2022 Urea nitrogen [Mass/Vol] 17 mg/dL 7-18 [facility] Work Phone: Thin prep Papanicolaou smear with manual screeningon 02-28-2022 Thin prep Papanicolaou smear with manual screening 21 U/L 15- [facility] Work Phone: Thin prep Papanicolaou smear with manual screening 5 5-15 [facility] Work Phone: Basophil percentageOrdered B y: [place] Doe on 02-06-2022 Cholesterol [Mass/Vol] 221 mg/dL <200 [facility] Comment on above: <200 mg/dL Desirable 200-240 mg/dL Borderline >240 mg/dL High Risk Triglyceride [Mass/Vol] 87 mg/dL <199 [facility] Comment on above: The drugs N-Acetylcy steine and Metamizole may falsely depress this assay.Serum Triglycerides Reference Interval Normal <150 mg/dL Borderline high 150 - 199 mg/dL High 200 - 499 mg/dL Very High > or = 500 mg/dL Direct bilirubinOrdered By: Cleveland Doe on 02-06-2022 Bilirubin.direct [Mass/Vol] 0.11 mg/dL 0.00-0.30 [facility] Serum or plasma cholesterol in HDL measurement (mass/volume)Ordered By: [place] Doe on 02-06-2022 Cholesterol in HDL [Mass/Vol] 59 mg/dL >40 [facility] Comment on above: The drugs N-Acetylcy steine and Metamizole may falsely depress this assay. Reference Range HDL <40 mg/dL Low HDL Cholesterol HDL >or= 60 mg/dL High HDL Cholesterol Serum or plasma cholesterol in VLDL measurement (mass/volume)Ordered By: [place] on 02-06-2022 Cholesterol in VLDL [Mass/Vol] 17 mg/dL 5-40 [facility] Serum or plasma low density lipoprotein (LDL) cholesterol measurement (mass/volume)Ordered By: [place] Brook on 02-06-2022 Cholesterol in LDL [Mass/Vol] 145 mg/dL 0-130 [facility] Absolute lymphocyte counton 11-15-2021 Lymphocytes Auto (Unsp spec) [#/Vol] 2.55 10*3/uL 0.83-4.51 [facility] Work Phone: Basophil percentageon 2021 Basophils/100 WBC (Bld) 0.3 % 0-1 [facility] Work Phone: Bilirubin [Mass/Vol] 0.20 mg/dL 0.20-1.00 [facility] Work Phone: Comment on above: For patients on eltr ombopag therapy, use of Dimension [place] TBIL is not recommended. Chloride [Moles/Vol] 108 mmol/L 98-107 [facility] Work Phone: Eosinophils/100 WBC (Bld) 2.8 % 0-5 [facility] Work Phone: Glucose [Mass/Vol] 87 mg/dL 74-106 [facility] Work Phone: Neutrophils (Bld) [#/Vol] 9.0 10*3/uL 2.0-7.7 [facility] Work Phone: Neutrophils/100 WBC (Bld) 70.5 % 47-70 [facility] Work Phone: Potassium [Moles/Vol] 4.1 mmol/L 3.5-5.[address] [facility] Work Phone: Protein [Mass/Vol] 7.3 g/dL 6.4-8.2 [facility] Work Phone: Sodium [Moles/Vol] 141 mmol/L 136-145 [facility] Work Phone: WBC (Bld) [#/Vol] 12.7 10*3/uL 4.4-11.0 [facility] Work Phone: Blood erythrocytes count (nu mber/volume)on 11-15-2021 RBC (Bld) [#/Vol] 4.21 10*6/uL 4.2-5.4 [facility] Work Phone: Blood hemoglobin measurement (mass/volume)on 11-15-2021 Hemoglobin (Bld) [Mass/Vol] 12.2 g/dL 12.0-15.0 [facility] Work Phone: Blood lymphocytes/100 leukoc yteson 11-15-2021 Lymphocytes/100 WBC (Bld) 20.0 % 19-41 [facility] Work Phone: Blood monocytes/100 leukocyt eson 11-15-2021 Monocytes/100 WBC (Bld) 6.0 % 0-10 [facility] Work Phone: Blood platelet mean volumeon 11-15-2021 Platelet mean volume (Bld) [Entitic vol] 9.3 fL 6.2-12.0 [facility] Work Phone: Determination of erythrocyte mean corpuscular volume (MCV)on 11-15-2021 MCV (RBC) [Entitic vol] 90.5 fL 81-99 [facility] Work Phone: Hematocrit Auto (Bld) [Volum e fraction]on 11-15-2021 Hematocrit (Bld) [Volume fraction] 38.1 % 37-47 [facility] Work Phone: Laboratory - Chemistry and C hemistry - challengeon 11-15-2021 ALP [Catalytic activity/Vol] 81 U/L 45-117 [facility] Work Phone: ALT [Catalytic activity/Vol] 31 U/L 13-56 [facility] Work Phone: CO2 [Moles/Vol] 28.0 mmol/L 21.0-32.0 [facility] Work Phone: Globulin (S) [Mass/Vol] 3.8 g/dL 2.2-4.2 [facility] Work Phone: Urea nitrogen/Creatinine [Mass ratio] 19.5 mg/mg 10-20 [facility] Work Phone: Laboratory - Hematology and Cell countson 11-15-2021 Erythrocyte distribution width (RBC) [Entitic vol] 41.2 fL 35.1-43.9 [facility] Work Phone: Erythrocyte distribution width (RBC) [Ratio] 12.4 % 11.6-14.6 [facility] Work Phone: Immature granulocytes/100 WBC (Bld) 0.400 % 0.0-0.9 [facility] Work Phone: Comment on above: IG% - Immature Granu locytes (promyelocytes, myelocytes and metamyelocytes) > 1% indicates that a LEFT SHIFT is Present. MCH (RBC) [Entitic mass] 29.0 pg 27.0-32.0 [facility] Work Phone: Nucleated RBC/100 WBC (Bld) [Ratio] 0 % 0-5 [facility] Work Phone: MCHC Auto (RBC) [Mass/Vol]on 11-15-2021 MCHC (RBC) [Mass/Vol] 32.0 g/dL 32-36 [facility] Work Phone: No Panel Informationon 11-15 Estimated Creatinine Clearance Calc 51.66 ml/min [facility] Work Phone: Estimated GFR (MDRD) Amer 75 mL/min >60 [facility] Work Phone: Comment on above: GFR Calc Estimated GFR (MDRD) Non-Af Amer 62 mL/min >60 [facility] Work Phone: Comment on above: Non- GFR Calc Platelets bldon 11-15-2021 Platelets (Bld) [#/Vol] 323 10*3/uL 150-450 [facility] Work Phone: Serum or plasma albumin anat urement (mass/volume)on 11-15-2021 Albumin [Mass/Vol] 3.5 g/dL 3.2-5.0 [facility] Work Phone: Serum or plasma albumin/glob ulin mass ratioon 11-15-2021 Albumin/Globulin [Mass ratio] 0.9 {ratio} 0.9-2.4 [facility] Work Phone: Serum or plasma calcium anat urement (mass/volume)on 11-15-2021 Calcium [Mass/Vol] 9.3 mg/dL 8.5-10.1 [facility] Work Phone: Serum or plasma creatinine m easurement (mass/volume)on 11-15-2021 Creatinine [Mass/Vol] 0.97 mg/dL 0.55-1.[address] [facility] Work Phone: Comment on above: The validity of the calculated GFR & GFRAA in patients over 70 years has not been determined. Clinical correlation is essential. Serum or plasma urea nitroge n measurement (mass/volume)on 11-15-2021 Urea nitrogen [Mass/Vol] 19 mg/dL 7-18 [facility] Work Phone: Thin prep Papanicolaou smear with manual screeningon 11-15-2021 Thin prep Papanicolaou smear with manual screening 21 U/L 15-37 [facility] Work Phone: Thin prep Papanicolaou smear with manual screening 5 5-15 [facility] Work Phone: Absolute lymphocyte counton 09-13-2021 Lymphocytes Auto (Unsp spec) [#/Vol] 2.42 10*3/uL 0.83-4.51 [facility] Work Phone: Basophil percentageon 2021 Basophils/100 WBC (Bld) 0.5 % 0-1 [facility] Work Phone: Bilirubin [Mass/Vol] 0.20 mg/dL 0.20-1.00 [facility] Work Phone: Comment on above: For patients on eltr ombopag therapy, use of Dimension [place] TBIL is not recommended. Chloride [Moles/Vol] 110 mmol/L 98-107 [facility] Work Phone: Eosinophils/100 WBC (Bld) 4.5 % 0-5 [facility] Work Phone: Glucose [Mass/Vol] 99 mg/dL 74-106 [facility] Work Phone: Neutrophils (Bld) [#/Vol] 3.3 10*3/uL 2.0-7.7 [facility] Work Phone: Neutrophils/100 WBC (Bld) 50.7 % 47-70 [facility] Work Phone: [phone] Potassium [Moles/Vol] 4.1 mmol/L 3.5-5.[address] [facility] Work Phone: Protein [Mass/Vol] 7.0 g/dL 6.4-8.2 [facility] Work Phone: Sodium [Moles/Vol] 142 mmol/L 136-145 [facility] Work Phone: WBC (Bld) [#/Vol] 6.5 10*3/uL 4.4-11.0 [facility] Work Phone: Blood erythrocytes count (nu mber/volume)on 09-13-2021 RBC (Bld) [#/Vol] 4.22 10*6/uL 4.2-5.4 [facility] Work Phone: Blood hemoglobin measurement (mass/volume)on 09-13-2021 Hemoglobin (Bld) [Mass/Vol] 12.1 g/dL 12.0-15.0 [facility] Work Phone: [phone] Blood lymphocytes/100 leukoc yteson 09-13-2021 Lymphocytes/100 WBC (Bld) 37.5 % 19-41 [facility] Work Phone: Blood monocytes/100 leukocyt eson 09-13-2021 Monocytes/100 WBC (Bld) 6.5 % 0-10 [facility] Work Phone: Blood platelet mean volumeon 09-13-2021 Platelet mean volume (Bld) [Entitic vol] 8.9 fL 6.2-12.0 [facility] Work Phone: Determination of erythrocyte mean corpuscular volume (MCV)on 09-13-2021 MCV (RBC) [Entitic vol] 90.5 fL 81-99 [facility] Work Phone: Hematocrit Auto (Bld) [Volum e fraction]on 09-13-2021 Hematocrit (Bld) [Volume fraction] 38.2 % 37-47 [facility] Work Phone: Laboratory - Chemistry and C hemistry - challengeon 09-13-2021 ALP [Catalytic activity/Vol] 63 U/L 45-117 [facility] Work Phone: ALT [Catalytic activity/Vol] 28 U/L 13-56 [facility] Work Phone: CO2 [Moles/Vol] 25.0 mmol/L 21.0-32.0 [facility] Work Phone: Globulin (S) [Mass/Vol] 3.6 g/dL 2.2-4.2 [facility] Work Phone: Urea nitrogen/Creatinine [Mass ratio] 19.0 mg/mg 10-20 [facility] Work Phone: Laboratory - Hematology and Cell countson 09-13-2021 Erythrocyte distribution width (RBC) [Entitic vol] 42.6 fL 35.1-43.9 [facility] Work Phone: Erythrocyte distribution width (RBC) [Ratio] 12.9 % 11.6-14.6 [facility] Work Phone: Immature granulocytes/100 WBC (Bld) 0.300 % 0.0-0.9 [facility] Work Phone: Comment on above: IG% - Immature Granu locytes (promyelocytes, myelocytes and metamyelocytes) > 1% indicates that a LEFT SHIFT is Present. MCH (RBC) [Entitic mass] 28.7 pg 27.0-32.0 [facility] Work Phone: Nucleated RBC/100 WBC (Bld) [Ratio] 0 % 0-5 [facility] Work Phone: MCHC Auto (RBC) [Mass/Vol]on 09-13-2021 MCHC (RBC) [Mass/Vol] 31.7 g/dL 32-[address] [facility] Work Phone: No Panel Informationon 09-13 Estimated Creatinine Clearance Calc 51.36 ml/min [facility] Work Phone: Estimated GFR (MDRD) Amer 83 mL/min >60 [facility] Work Phone: Comment on above: GFR Calc Estimated GFR (MDRD) Non-Af Amer 69 mL/min >60 [facility] Work Phone: Comment on above: Non- GFR Calc Platelets bldon 09-13-2021 Platelets (Bld) [#/Vol] 319 10*3/uL 150-450 [facility] Work Phone: Serum or plasma albumin anat urement (mass/volume)on 09-13-2021 Albumin [Mass/Vol] 3.4 g/dL 3.2-5.0 [facility] Work Phone: Serum or plasma albumin/glob ulin mass ratioon 09-13-2021 Albumin/Globulin [Mass ratio] 0.9 {ratio} 0.9-2.4 [facility] Work Phone: Serum or plasma calcium anat urement (mass/volume)on 09-13-2021 Calcium [Mass/Vol] 8.9 mg/dL 8.5-10.1 [facility] Work Phone: Serum or plasma creatinine m easurement (mass/volume)on 09-13-2021 Creatinine [Mass/Vol] 0.89 mg/dL 0.55-1.[address] [facility] Work Phone: Comment on above: The validity of the calculated GFR & GFRAA in patients over 70 years has not been determined. Clinical correlation is essential. Serum or plasma urea nitroge n measurement (mass/volume)on 09-13-2021 Urea nitrogen [Mass/Vol] 17 mg/dL 7-18 [facility] Work Phone: Thin prep Papanicolaou smear with manual screeningon 09-13-2021 Thin prep Papanicolaou smear with manual screening 22 U/L 15-37 [facility] Work Phone: Thin prep Papanicolaou smear with manual screening 7 5-15 [facility] Work Phone: Basophil percentageon 2020 Cholesterol [Mass/Vol] 210 mg/dL <200 [facility] Work Phone: Comment on above: <200 mg/dL Desirable 200-240 mg/dL Borderline >240 mg/dL High Risk Triglyceride [Mass/Vol] 72 mg/dL <199 [facility] Work Phone: Comment on above: The drugs N-Acetylcy steine and Metamizole may falsely depress this assay.Serum Triglycerides Reference Interval Normal <150 mg/dL Borderline high 150 - 199 mg/dL High 200 - 499 mg/dL Very High > or = 500 mg/dL Direct bilirubinon Bilirubin.direct [Mass/Vol] 0.09 mg/dL 0.00-0.30 [facility] Work Phone: No Panel Informationon 12-14 Thyroid Stimulating Hormone (TSH) 0.80 uIU/mL 0.358-3.74 [facility] Serum or plasma cholesterol in HDL measurement (mass/volume)on 12-14-2020 Cholesterol in HDL [Mass/Vol] 61 mg/dL >40 [facility] Work Phone: Comment on above: The drugs N-Acetylcy steine and Metamizole may falsely depress this assay. Reference Range HDL <40 mg/dL Low HDL Cholesterol HDL >or= 60 mg/dL High HDL Cholesterol Serum or plasma cholesterol in VLDL measurement (mass/volume)on 12-14-2020 Cholesterol in VLDL [Mass/Vol] 14 mg/dL 5-40 [facility] Work Phone: Serum or plasma low density lipoprotein (LDL) cholesterol measurement (mass/volume)on 12-14-2020 Cholesterol in LDL [Mass/Vol] 135 mg/dL 0-130 [facility] Work Phone: Basophil percentageon 2019 Basophil percentage 3.2 mg/dL 2.5-4.9 [facility] Laboratory - Chemistry and C hemistry - challengeon 12-16-2019 Magnesium [Mass/Vol] 2.1 mg/dL 1.6-2.6 [facility] No Panel Informationon 03-24 Follicle Stimulating Hormone 69.1 mIU/mL [facility] Comment on above: NORMAL REFERENCE RAN [facility] FEMALE FOLLICULAR 2.3 - 12.6 mIU/mL MID-CYCLE PEAK 5.2 - 17.5 mIU/mL LUTEAL 1.7 - 12.9 mIU/mL POST-MENOPAUSAL ON MHT 5.9 - 72.8 mIU/mL NOT ON MHT 12.7 - 132.2 mlU/mL MALE 0.7 - 10.8 mIU/mL NEW TEST METHOD & REFERENCE RANGES AUGUST 05, 2011 Luteinizing Hormone 37.1 mIU/mL [facility] Comment on above: NORMAL REFERENCE RAN [facility] FEMALE FOLLICULAR 1.9 - 26.2 mIU/mL MID-CYCLE [place]AK 22.8 - 76.1 mIU/mL LUTEAL 0.6 - 16.6 mIU/mL POST-MENOPAUSAL ON MHT 1.1 - 52.4 mIU/mL NOT ON MHT 8.6 - 61.8 mIU/mL MALE 1.2 - 10.6 mIU/mL NEW TEST METHOD & REFERENCE RANGES AUGUST 05, 2011 Blood platelet adequacy dete ction by light microscopyon 03-04-2019 Platelets LM Ql (Bld) ADEQUATE ADEQ [facility] Cells counted Molgen (Bld/Ti ss) [#]on 03-04-2019 Differential Total Cells Counted 100 MANUAL DIFF [facility] Laboratory - Hematology and Cell countson 03-04-2019 Band form neutrophils/100 WBC (Bld) 3 % 0-5 [facility] Lymphocytes/100 WBC (Bld) 15 % Low 19-41 [facility] Metamyelocytes/100 WBC (Bld) 8 % High 0-1 [facility] Monocytes/100 WBC (Bld) 2 % 0-10 [facility] Myelocytes/100 WBC (Bld) 2 % High 0-0 [facility] Neutrophils/100 WBC (Bld) 70 % 47-70 [facility] Pathologist review Ronni (Unsp spec) [Interp]on 03-04-2019 Differential Pathologist's Review Reviewed [facility] Comment on above: Previous reported re sult: Rima madison Edited by: RGOOD on 03/05/19:1407Neutrophilic leukocytosis with left shift. Clinical correlation necessary.Niko Burnette M.D. 03/05/19 AMENDED REPORT 03/05/191406 PATH REV previously reported as: Rima wallace Platelets LM Ql (Bld)on 02-14 Platelet Estimate ADEQUATE ADEQ [facility] RBC morphologyon 03-04-2019 RBC morphology finding Nom (Bld) NORM C+C NORMAL NORM C&C [facility] RBC morphology finding Nom ( Bld)on 03-04-2019 Red Blood Cell Morphology NORM C+C NORMAL NORM C&C [facility] Review by pathologiston 02-14 Pathologist review Ronni (Unsp spec) [Interp] Reviewed [facility] Comment on above: Previous reported re sult: Rima madison Edited by: RGOOD on 03/05/19:1407Neutrophilic leukocytosis with left shift. Clinical correlation necessary.Niko Burnette M.D. 03/05/19 AMENDED REPORT 03/05/191406 PATH REV previously reported as: July madison Total cell counton 9 Cells counted [employer]gen (Bld/Tiss) [#] 100 MANUAL DIFF [facility] No Panel Informationon 02-10 Promyelocytes % 1 High 0-0 [facility] No Panel Informationon 11-10 Folate 15.50 ng/mL 3.1-55.4 [facility] Vitamin B12 Level > 2000 pg/mL High 211-911 [facility] Iron (Unsp spec) [Mass/Mass] on 10-20-2018 Iron [Mass/Vol] 50 ug/dL 50-170 [facility] Iron measurement (mass/mass) on 10-20-2018 Iron (Unsp spec) [Mass/Mass] 50 ug/dL 50-170 [facility] Iron saturation [Mass fracti on]on 10-20-2018 Iron Saturation 20.2 % 15.0-55.0 [facility] No Panel Informationon 10-20 Total Iron Binding Capacity 247 ug/dL Low 250-450 [facility] Serum or plasma ferritin telma surement (mass/volume)on 10-20-2018 Ferritin [Mass/Vol] 139 ng/mL 8-252 [facility] Serum or plasma iron saturat ion measurement (mass fraction)on 10-20-2018 Iron saturation [Mass fraction] 20.2 % 15.0-55.0 [facility] CA 27-29 ser/plason 08-06-19 19 Cancer Ag -29 Qn 21.2 [arb'U]/mL 0.0-38.6 [facility] Comment on above: Siemens 3DMGAMEaur Immu nochemiluminometric Methodology (ICMA)Values obtained with different assay methods or kits cannotbe used interchangeably. Results cannot be interpreted asabsolute evidence of the presence or absence of malignantdisease.Performed at: [facility] [address] [id number] Director: Antony Eisenberg PhD, Phone: [phone] Cancer Ag 27-29 Qnon 019 CA 27.29 21.2 U/mL 0.0-38.6 [facility] Comment on above: Siemens 3DMGAMEaur Immu nochemiluminometric Methodology (ICMA)Values obtained with different assay methods or kits cannotbe used interchangeably. Results cannot be interpreted asabsolute evidence of the presence or absence of malignantdisease.Performed at: [facility] [address] [id number] Director: Antony Eisenberg PhD, Phone: [phone] Erythrocyte distribution wid th (RBC) [Entitic vol]on 08-05-2018 Red Cell Distribution Width Diff 42.6 fl 35.1-43.9 [facility] Erythrocyte distribution wid th standard deviationon 08-05-2018 Erythrocyte distribution width (RBC) [Entitic vol] 42.6 fL 35.1-43.9 [facility] Laboratory - Hematology and Cell countson 08-05-2018 Erythrocyte distribution width (RBC) [Ratio] 13.2 % 11.6-14.6 [facility] Vital Signs Date Time Vital Sign Value Performing Clinician Vanessa hoang 09-09-2024 09:24-0400 Body height 160.02 cm No Primary Care Physician [facility] 09-09-2024 09:22-0400 Body weight 67.13 kg No Primary Care Physician [facility] 08-19-2024 12:53-0400 Diastolic blood pressure 62 mm[Hg] No Primary Care Physician [facility] 08-19-2024 12:53-0400 Heart rate 67 /min No Primary Care Physician [facility] 08-19-2024 12:53-0400 Systolic blood pressure 120 mm[Hg] No Primary Care Physician [facility] 08-19-2024 10:46-0400 Body height 160.02 cm No Primary Care Physician [facility] 08-19-2024 10:46-0400 Body mass index (BMI) [Ratio] 26.1 kg/m2 No Primary Care Physician [facility] 08-19-2024 10:46-0400 Body temperature 98 [degF] No Primary Care Physician [facility] 08-19-2024 10:46-0400 Body weight 66.9 kg No Primary Care Physician [facility] 08-19-2024 10:46-0400 Diastolic blood pressure 69 mm[Hg] No Primary Care Physician [facility] 08-19-2024 10:46-0400 Heart rate 70 /min No Primary Care Physician [facility] 08-19-2024 10:46-0400 Respiratory rate 18 /min No Primary Care Physician [facility] 08-19-2024 10:46-0400 SaO2% (BldA) [Mass fraction] 99 % No Primary Care Physician [facility] 08-19-2024 10:46-0400 Systolic blood pressure 116 mm[Hg] No Primary Care Physician [facility] 07-29-2024 12:36-0400 Diastolic blood pressure 75 mm[Hg] No Primary Care Physician [facility] 07-29-2024 12:36-0400 Heart rate 71 /min No Primary Care Physician [facility] 07-29-2024 12:36-0400 Systolic blood pressure 131 mm[Hg] No Primary Care Physician [facility] 07-29-2024 10:35-0400 Body height 160.02 cm No Primary Care Physician [facility] 07-29-2024 10:35-0400 Body mass index (BMI) [Ratio] 26.6 kg/m2 No Primary Care Physician [facility] 07-29-2024 10:35-0400 Body temperature 97.8 [degF] No Primary Care Physician [facility] 07-29-2024 10:35-0400 Body weight 68.26 kg No Primary Care Physician [facility] 07-29-2024 10:35-0400 Diastolic blood pressure 74 mm[Hg] No Primary Care Physician [facility] 07-29-2024 10:35-0400 Heart rate 77 /min No Primary Care Physician [facility] 07-29-2024 10:35-0400 Respiratory rate 16 /min No Primary Care Physician [facility] 07-29-2024 10:35-0400 SaO2% (BldA) [Mass fraction] 96 % No Primary Care Physician [facility] 07-29-2024 10:35-0400 Systolic blood pressure 131 mm[Hg] No Primary Care Physician [facility] 07-08-2024 12:42-0400 Body temperature 97 [degF] No Primary Care Physician [facility] 07-08-2024 12:42-0400 Diastolic blood pressure 66 mm[Hg] No Primary Care Physician [facility] 07-08-2024 12:42-0400 Heart rate 71 /min No Primary Care Physician [facility] 07-08-2024 12:42-0400 Respiratory rate 16 /min No Primary Care Physician [facility] 07-08-2024 12:42-0400 SaO2% (BldA) [Mass fraction] 99 % No Primary Care Physician [facility] 07-08-2024 12:42-0400 Systolic blood pressure 117 mm[Hg] No Primary Care Physician [facility] 07-08-2024 10:39-0400 Body mass index (BMI) [Ratio] 26.9 kg/m2 No Primary Care Physician [facility] 07-08-2024 10:39-0400 Body temperature 98.4 [degF] No Primary Care Physician [facility] 07-08-2024 10:39-0400 Body weight 69 kg No Primary Care Physician [facility] 07-08-2024 10:39-0400 Diastolic blood pressure 69 mm[Hg] No Primary Care Physician [facility] 07-08-2024 10:39-0400 Heart rate 69 /min No Primary Care Physician [facility] 07-08-2024 10:39-0400 Respiratory rate 16 /min No Primary Care Physician [facility] 07-08-2024 10:39-0400 SaO2% (BldA) [Mass fraction] 98 % No Primary Care Physician [facility] 07-08-2024 10:39-0400 Systolic blood pressure 116 mm[Hg] No Primary Care Physician [facility] 07-01-2024 08:50-0400 Body temperature 97.1 [degF] No [facility] Care Physician [facility] 07-01-2024 08:50-0400 Diastolic blood pressure 57 mm[Hg] No Primary Care Physician [facility] 07-01-2024 08:50-0400 Heart rate 84 /min No Primary Care Physician [facility] 07-01-2024 08:50-0400 Respiratory rate 16 /min No [facility] Care Physician [facility] 07-01-2024 08:50-0400 SaO2% (BldA) [Mass fraction] 96 % No Primary Care Physician [facility] 07-01-2024 08:50-0400 Systolic blood pressure 91 mm[Hg] No Primary Care Physician [facility] 07-01-2024 06:56-0400 Body mass index (BMI) [Ratio] 26.5 kg/m2 No Primary Care Physician [facility] 07-01-2024 06:56-0400 Body weight 68 kg No Primary Care Physician [facility] 06-17-2024 10:42-0400 Body mass index (BMI) [Ratio] 26.9 kg/m2 No [facility] Care Physician [facility] 06-17-2024 10:42-0400 Body temperature 98.6 [degF] No [facility] Care Physician [facility] 06-17-2024 10:42-0400 Body weight 68.94 kg No [facility] Care Physician [facility] 06-17-2024 10:42-0400 Diastolic blood pressure 78 mm[Hg] No [facility] Care Physician [facility] 06-17-2024 10:42-0400 Heart rate 71 /min No Primary Care Physician [facility] 06-17-2024 10:42-0400 Respiratory rate 18 /min No [facility] Care Physician [facility] 06-17-2024 10:42-0400 SaO2% (BldA) [Mass fraction] 98 % No [facility] Care Physician [facility] 06-17-2024 10:42-0400 Systolic blood pressure 118 mm[Hg] No [facility] Care Physician [facility] 05-27-2024 13:04-0400 Diastolic blood pressure 66 mm[Hg] No Primary Care Physician [facility] 05-27-2024 13:04-0400 Heart rate 78 /min No [facility] Care Physician [facility] 05-27-2024 13:04-0400 Systolic blood pressure 132 mm[Hg] No [facility] Care Physician [facility] 05-27-2024 10:34-0400 Body height 160.02 cm No [facility] Care Physician [facility] 05-27-2024 10:34-0400 Body mass index (BMI) [Ratio] 27.1 kg/m2 No [facility] Care Physician [facility] 05-27-2024 10:34-0400 Body temperature 98.3 [degF] No [facility] Care Physician [facility] 05-27-2024 10:34-0400 Body weight 69.65 kg No [facility] Care Physician [facility] 05-27-2024 10:34-0400 Diastolic blood pressure 72 mm[Hg] No Primary Care Physician [facility] 05-27-2024 10:34-0400 Heart rate 74 /min No [facility] Care Physician [facility] 05-27-2024 10:34-0400 Respiratory rate 18 /min No [facility] Care Phys[facility] 05-27-2024 10:34-0400 SaO2% (BldA) [Mass fraction] 98 % No [facility] Care Physician [facility] 05-27-2024 10:34-0400 Systolic blood pressure 117 mm[Hg] No [facility] Care Physician [facility] 05-06-2024 13:21-0500 Body temperature 97.3 [degF] No [facility] Care Physician [facility] 05-06-2024 13:21-0500 Respiratory rate 16 /min No [facility] Care Physician [facility] 05-06-2024 13:21-0500 SaO2% (BldA) [Mass fraction] 98 % No [facility] Care Physician [facility] 05-06-2024 10:24-0500 Body mass index (BMI) [Ratio] 27.3 kg/m2 No [facility] Care Physician [facility] 05-06-2024 10:24-0500 Body temperature 98.9 [degF] No [facility] Care Physician [facility] 05-06-2024 10:24-0500 Body weight 69.88 kg No [facility] Care Physician [facility] 05-06-2024 10:24-0500 Diastolic blood pressure 74 mm[Hg] No [facility] Care Physician [facility] 05-06-2024 10:24-0500 Heart rate 76 /min No [facility] Care Phys[facility] 05-06-2024 10:24-0500 Respiratory rate 18 /min No [facility] Care Phys[facility] 05-06-2024 10:24-0500 SaO2% (BldA) [Mass fraction] 98 % No [facility] Care Physician [facility] 05-06-2024 10:24-0500 Systolic blood pressure 108 mm[Hg] No [facility] Care Physician [facility] 04-15-2024 10:39-0500 Body mass index (BMI) [Ratio] 27 kg/m2 No [facility] Care Physician [facility] 04-15-2024 10:39-0500 Body temperature 98 [degF] No [facility] Care Physician [facility] 04-15-2024 10:39-0500 Body weight 69.17 kg No [facility] Care Phys[facility] 04-15-2024 10:39-0500 Diastolic blood pressure 75 mm[Hg] No [facility] Care Physician [facility] 04-15-2024 10:39-0500 Heart rate 66 /min No [facility] Care Phys[facility] 04-15-2024 10:39-0500 Respiratory rate 18 /min No [facility] Care Phys[facility] 04-15-2024 10:39-0500 SaO2% (BldA) [Mass fraction] 99 % No [facility] Care Physician [facility] 04-15-2024 10:39-0500 Systolic blood pressure 122 mm[Hg] No [facility] Care Physician [facility] 03-25-2024 10:39-0500 Body mass index (BMI) [Ratio] 26.7 kg/m2 No [facility] Care Physician [facility] 03-25-2024 10:39-0500 Body temperature 97.7 [degF] No [facility] Care Physician [facility] 03-25-2024 10:39-0500 Body weight 68.52 kg No [facility] Care Physician [facility] 03-25-2024 10:39-0500 Diastolic blood pressure 78 mm[Hg] No [facility] Care Physician [facility] 03-25-2024 10:39-0500 Heart rate 72 /min No [facility] Care Phys[facility] 03-25-2024 10:39-0500 Respiratory rate 16 /min No [facility] Care Phys[facility] 03-25-2024 10:39-0500 SaO2% (BldA) [Mass fraction] 97 % No [facility] Care Physician [facility] 03-25-2024 10:39-0500 Systolic blood pressure 124 mm[Hg] No [facility] Care Physician [facility] 03-04-2024 10:10-0500 Body mass index (BMI) [Ratio] 26.5 kg/m2 No [facility] Care Physician [facility] 03-04-2024 10:10-0500 Body temperature 98 [degF] No [facility] Care Physician [facility] 03-04-2024 10:10-0500 Body weight 68.03 kg No [facility] Care Physician [facility] 03-04-2024 10:10-0500 Diastolic blood pressure 74 mm[Hg] No [facility] Care Physician [facility] 03-04-2024 10:10-0500 Heart rate 74 /min No [facility] Care Physician [facility] 03-04-2024 10:10-0500 Respiratory rate 16 /min No [facility] Care Physician [facility] 03-04-2024 10:10-0500 SaO2% (BldA) [Mass fraction] 99 % No [facility] Care Physician [facility] 03-04-2024 10:10-0500 Systolic blood pressure 128 mm[Hg] No [facility] Care Physician [facility] 05-15-2023 12:41-0500 Body temperature 96.5 [degF] No [facility] Care Physician [facility] 05-15-2023 12:41-0500 Diastolic blood pressure 67 mm[Hg] No [facility] Care Physician [facility] 05-15-2023 12:41-0500 Heart rate 71 /min No [facility] Care Phys[facility] 05-15-2023 12:41-0500 Respiratory rate 16 /min No [facility] Care Phys[facility] 05-15-2023 12:41-0500 SaO2% (BldA) [Mass fraction] 100 % No [facility] Care Physician [facility] 05-15-2023 12:41-0500 Systolic blood pressure 111 mm[Hg] No [facility] Care Physician [facility] 05-15-2023 10:33-0500 Body height 160.02 cm No [facility] Care Physician [facility] 05-15-2023 10:33-0500 Body mass index (BMI) [Ratio] 26.1 kg/m2 No [facility] Care Physician [facility] 05-15-2023 10:33-0500 Body temperature 97.8 [degF] No [facility] Care Physician [facility] 05-15-2023 10:33-0500 Body weight 66.79 kg No [facility] Care Physician [facility] 05-15-2023 10:33-0500 Diastolic blood pressure 76 mm[Hg] No [facility] Care Physician [facility] 05-15-2023 10:33-0500 Heart rate 72 /min No [facility] Care Physician [facility] 05-15-2023 10:33-0500 Respiratory rate 18 /min No [facility] Care Physician [facility] 05-15-2023 10:33-0500 SaO2% (BldA) [Mass fraction] 98 % No [facility] Care Physician [facility] 05-15-2023 10:33-0500 Systolic blood pressure 123 mm[Hg] No [facility] Care Physician [facility] 04-24-2023 13:32-0500 Diastolic blood pressure 58 mm[Hg] No Primary Care Physician [facility] 04-24-2023 13:32-0500 Heart rate 65 /min No [facility] Care Physician [facility] 04-24-2023 13:32-0500 Systolic blood pressure 121 mm[Hg] No [facility] Care Physician [facility] 04-24-2023 10:05-0500 Body height 160.02 cm No [facility] Care Physician [facility] 04-24-2023 10:05-0500 Body mass index (BMI) [Ratio] 25.5 kg/m2 No [facility] Care Physician [facility] 04-24-2023 10:05-0500 Body temperature 97.9 [degF] No [facility] Care Physician [facility] 04-24-2023 10:05-0500 Body weight 65.45 kg No [facility] Care Physician [facility] 04-24-2023 10:05-0500 Diastolic blood pressure 76 mm[Hg] No [facility] Care Physician [facility] 04-24-2023 10:05-0500 Heart rate 73 /min No [facility] Care Physician [facility] 04-24-2023 10:05-0500 Respiratory rate 18 /min No [facility] Care Physician [facility] 04-24-2023 10:05-0500 SaO2% (BldA) [Mass fraction] 98 % No [facility] Care Physician [facility] 04-24-2023 10:05-0500 Systolic blood pressure 120 mm[Hg] No [facility] Care Physician [facility] 04-03-2023 13:27-0500 Body temperature 97.8 [degF] No [facility] Care Physician [facility] 04-03-2023 13:27-0500 Respiratory rate 16 /min No [facility] Care Physician [facility] 04-03-2023 13:27-0500 SaO2% (BldA) [Mass fraction] 100 % No [facility] Care Physician [facility] 04-03-2023 09:59-0500 Body mass index (BMI) [Ratio] 25.6 kg/m2 No [facility] Care Physician [facility] 04-03-2023 09:59-0500 Body temperature 98.5 [degF] No [facility] Care Physician [facility] 04-03-2023 09:59-0500 Body weight 65.54 kg No [facility] Care Physician [facility] 04-03-2023 09:59-0500 Diastolic blood pressure 77 mm[Hg] No [facility] Care Physician [facility] 04-03-2023 09:59-0500 Heart rate 70 /min No [facility] Care Physician [facility] 04-03-2023 09:59-0500 Respiratory rate 18 /min No [facility] Care Physician [facility] 04-03-2023 09:59-0500 SaO2% (BldA) [Mass fraction] 98 % No [facility] Care Physician [facility] 04-03-2023 09:59-0500 Systolic blood pressure 116 mm[Hg] No [facility] Care Physician [facility] 03-12-2023 09:05-0500 Body mass index (BMI) [Ratio] 25.5 kg/m2 No [facility] Care Physician [facility] 03-12-2023 09:05-0500 Body temperature 98 [degF] No [facility] Care Phys[facility] 03-12-2023 09:05-0500 Body weight 65.37 kg No [facility] Care [facility] 03-12-2023 09:05-0500 Diastolic blood pressure 71 mm[Hg] No [facility] Care Physician [facility] 03-12-2023 09:05-0500 Heart rate 75 /min No [facility] Care Phys[facility] 03-12-2023 09:05-0500 Respiratory rate 18 /min No [facility] Care Phys[facility] 03-12-2023 09:05-0500 SaO2% (BldA) [Mass fraction] 99 % No [facility] Care Physician [facility] 03-12-2023 09:05-0500 Systolic blood pressure 109 mm[Hg] No [facility] Care Physician [facility] 02-20-2023 09:08-0500 Body mass index (BMI) [Ratio] 25.9 kg/m2 No [facility] Care Physician [facility] 02-20-2023 09:08-0500 Body temperature 98.8 [degF] No [facility] Care Physician [facility] 02-20-2023 09:08-0500 Body weight 66.33 kg No [facility] Care Physician [facility] 02-20-2023 09:08-0500 Diastolic blood pressure 80 mm[Hg] No [facility] Care Physician [facility] 02-20-2023 09:08-0500 Heart rate 73 /min No [facility] Care Physician [facility] 02-20-2023 09:08-0500 Respiratory rate 16 /min No [facility] Care Physician [facility] 02-20-2023 09:08-0500 SaO2% (BldA) [Mass fraction] 99 % No [facility] Care Physician [facility] 02-20-2023 09:08-0500 Systolic blood pressure 122 mm[Hg] No [facility] Care Physician [facility] 01-30-2023 11:05-0500 Body mass index (BMI) [Ratio] 25.7 kg/m2 No [facility] Care Physician [facility] 01-30-2023 11:05-0500 Body temperature 97.9 [degF] No [facility] Care Physician [facility] 01-30-2023 11:05-0500 Body weight 65.99 kg No [facility] Care Physician [facility] 01-30-2023 11:05-0500 Diastolic blood pressure 77 mm[Hg] No [facility] Care Physician [facility] 01-30-2023 11:05-0500 Heart rate 67 /min No [facility] Care Physician [facility] 01-30-2023 11:05-0500 Respiratory rate 16 /min No [facility] Care Physician [facility] 01-30-2023 11:05-0500 SaO2% (BldA) [Mass fraction] 97 % No [facility] Care Physician [facility] 01-30-2023 11:05-0500 Systolic blood pressure 122 mm[Hg] No [facility] Care Physician [facility] 01-13-2023 10:47-0400 Body height 160.02 cm No [facility] Care Physician [facility] 01-13-2023 10:47-0400 Body mass index (BMI) [Ratio] 25.5 kg/m2 No [facility] Care Physician [facility] 01-13-2023 10:47-0400 Body temperature 98.4 [degF] No [facility] Care Physician [facility] 01-13-2023 10:47-0400 Body weight 65.48 kg No [facility] Care Physician [facility] 01-13-2023 10:47-0400 Diastolic blood pressure 76 mm[Hg] No [facility] Care Physician [facility] 01-13-2023 10:47-0400 Heart rate 72 /min No [facility] Care Physician [facility] 01-13-2023 10:47-0400 Respiratory rate 18 /min No [facility] Care Physician [facility] 01-13-2023 10:47-0400 SaO2% (BldA) [Mass fraction] 98 % No [facility] Care Physician [facility] 01-13-2023 10:47-0400 Systolic blood pressure 148 mm[Hg] No [facility] Care Physician [facility] 01-09-2023 14:24-0400 Diastolic blood pressure 60 mm[Hg] No [facility] Care Physician [facility] 01-09-2023 14:24-0400 Heart rate 75 /min No [facility] Care Physician [facility] 01-09-2023 14:24-0400 Systolic blood pressure 135 mm[Hg] No [facility] Care Physician [facility] 01-09-2023 11:04-0400 Body weight 65.77 kg No [facility] Care Physician [facility] 12-19-2022 11:11-0400 Body mass index (BMI) [Ratio] 25.7 kg/m2 No [facility] Care Physician [facility] 12-19-2022 11:11-0400 Body temperature 98.3 [degF] No [facility] Care Physician [facility] 12-19-2022 11:11-0400 Body weight 65.85 kg No [facility] Care Physician [facility] 12-19-2022 11:11-0400 Diastolic blood pressure 75 mm[Hg] No [facility] Care Physician [facility] 12-19-2022 11:11-0400 Heart rate 71 /min No [facility] Care Physician [facility] 12-19-2022 11:11-0400 Respiratory rate 16 /min No [facility] Care Physician [facility] 12-19-2022 11:11-0400 SaO2% (BldA) [Mass fraction] 98 % No [facility] Care Physician [facility] 12-19-2022 11:11-0400 Systolic blood pressure 119 mm[Hg] No [facility] Care Phys[facility] 11-28-2022 15:07-0400 Body temperature 98.1 [degF] No [facility] Care Phys[facility] 11-28-2022 15:07-0400 Respiratory rate 16 /min No [facility] 11-28-2022 15:07-0400 SaO2% (BldA) [Mass fraction] 99 % No [facility] Care Phys[facility] 11-28-2022 11:14-0400 Body mass index (BMI) [Ratio] 25.6 kg/m2 No [facility] Phys[facility] 11-28-2022 11:14-0400 Body temperature 99 [degF] No [facility] Phys[facility] 11-28-2022 11:14-0400 Body weight 65.54 kg No [facility] 11-28-2022 11:14-0400 Diastolic blood pressure 82 mm[Hg] No [facility] Care Phys[facility] 11-28-2022 11:14-0400 Heart rate 69 /min No [facility] Care Phys[facility] 11-28-2022 11:14-0400 Respiratory rate 18 /min No [facility] 11-28-2022 11:14-0400 SaO2% (BldA) [Mass fraction] 99 % No [facility] Care Phys[facility] 11-28-2022 11:14-0400 Systolic blood pressure 120 mm[Hg] No [facility] Care Phys[facility] 11-12-2022 08:42-0400 Body height 160.02 cm No [facility] 11-12-2022 08:42-0400 Body mass index (BMI) [Ratio] 25.8 kg/m2 No [facility] 11-12-2022 08:42-0400 Body temperature 97.2 [degF] No [facility] 11-12-2022 08:42-0400 Body weight 66.22 kg No [facility] 11-12-2022 08:42-0400 Diastolic blood pressure 82 mm[Hg] No [facility] Care Phys[facility] 11-12-2022 08:42-0400 Heart rate 66 /min No [facility] Phys[facility] 11-12-2022 08:42-0400 Respiratory rate 17 /min No [facility] 11-12-2022 08:42-0400 SaO2% (BldA) [Mass fraction] 98 % No [facility] Care Phys[facility] 11-12-2022 08:42-0400 Systolic blood pressure 128 mm[Hg] No [facility] Care Phys[facility] 11-07-2022 14:47-0400 Diastolic blood pressure 74 mm[Hg] No [facility] Care Phys[facility] 11-07-2022 14:47-0400 Heart rate 72 /min No [facility] Care Phys[facility] 11-07-2022 14:47-0400 Systolic blood pressure 111 mm[Hg] No [facility] Care Physician [facility] 11-07-2022 11:33-0400 Body mass index (BMI) [Ratio] 26.2 kg/m2 No [facility] Care Physician [facility] 11-07-2022 11:33-0400 Body temperature 97.9 [degF] No [facility] Care Physician [facility] 11-07-2022 11:33-0400 Body weight 67.3 kg No [facility] Phys[facility] 11-07-2022 11:33-0400 Diastolic blood pressure 84 mm[Hg] No [facility] Care Physician [facility] 11-07-2022 11:33-0400 Heart rate 69 /min No [facility] Phys[facility] 11-07-2022 11:33-0400 Respiratory rate 16 /min No [facility] Phys[facility] 11-07-2022 11:33-0400 SaO2% (BldA) [Mass fraction] 100 % No [facility] Care Physician [facility] 11-07-2022 11:33-0400 Systolic blood pressure 136 mm[Hg] No [facility] Care Physician [facility] 10-17-2022 10:43-0400 Body mass index (BMI) [Ratio] 25.8 kg/m2 No [facility] Phys[facility] 10-17-2022 10:43-0400 Body temperature 98.5 [degF] No [facility] Phys[facility] 10-17-2022 10:43-0400 Body weight 66.22 kg No [facility] 10-17-2022 10:43-0400 Diastolic blood pressure 85 mm[Hg] No [facility] Care Phys[facility] 10-17-2022 10:43-0400 Heart rate 69 /min No [facility] Phys[facility] 10-17-2022 10:43-0400 Respiratory rate 18 /min No [facility] Phys[facility] 10-17-2022 10:43-0400 SaO2% (BldA) [Mass fraction] 96 % No [facility] 10-17-2022 10:43-0400 Systolic blood pressure 134 mm[Hg] No [facility] Phys[facility] 09-26-2022 13:12-0400 Diastolic blood pressure 63 mm[Hg] No [facility] Phys[facility] 09-26-2022 13:12-0400 Heart rate 71 /min No [facility] 09-26-2022 13:12-0400 Systolic blood pressure 131 mm[Hg] No [facility] Phys[facility] 09-26-2022 10:30-0400 Body height 160.02 cm No [facility] 09-26-2022 10:30-0400 Body mass index (BMI) [Ratio] 25.7 kg/m2 No [facility] 09-26-2022 10:30-0400 Body temperature 97.8 [degF] No [facility] 09-26-2022 10:30-0400 Body weight 65.77 kg No [facility] 09-26-2022 10:30-0400 Diastolic blood pressure 83 mm[Hg] No [facility] Phys[facility] 09-26-2022 10:30-0400 Heart rate 72 /min No [facility] Phys[facility] 09-26-2022 10:30-0400 Respiratory rate 16 /min No [facility] Phys[facility] 09-26-2022 10:30-0400 SaO2% (BldA) [Mass fraction] 98 % No [facility] Care Phys[facility] 09-26-2022 10:30-0400 Systolic blood pressure 120 mm[Hg] No [facility] Phys[facility] 09-05-2022 08:25-0400 Body mass index (BMI) [Ratio] 25.9 kg/m2 No [facility] Phys[facility] 09-05-2022 08:15-0400 Body mass index (BMI) [Ratio] 25.9 kg/m2 No [facility] 09-05-2022 08:15-0400 Body temperature 97.9 [degF] No [facility] 09-05-2022 08:15-0400 Body weight 66.3 kg No [facility] 09-05-2022 08:15-0400 Diastolic blood pressure 68 mm[Hg] No [facility] 09-05-2022 08:15-0400 Heart rate 74 /min No [facility] 09-05-2022 08:15-0400 Respiratory rate 16 /min No [facility] 09-05-2022 08:15-0400 SaO2% (BldA) [Mass fraction] 99 % No [facility] 09-05-2022 08:15-0400 Systolic blood pressure 115 mm[Hg] No [facility] Phys[facility] 08-23-2022 09:45-0400 Body mass index (BMI) [Ratio] 26 kg/m2 No [facility] 08-23-2022 09:45-0400 Body temperature 97.4 [degF] No [facility] 08-23-2022 09:45-0400 Body weight 66.67 kg No [facility] 08-23-2022 09:45-0400 Diastolic blood pressure 81 mm[Hg] No [facility] 08-23-2022 09:45-0400 Heart rate 77 /min No [facility] 08-23-2022 09:45-0400 Respiratory rate 18 /min No [facility] 08-23-2022 09:45-0400 SaO2% (BldA) [Mass fraction] 98 % No [facility] 08-23-2022 09:45-0400 Systolic blood pressure 129 mm[Hg] No [facility] 08-15-2022 12:12-0400 Body temperature 97.5 [degF] No [facility] 08-15-2022 12:12-0400 Respiratory rate 17 /min No [facility] 08-15-2022 12:12-0400 SaO2% (BldA) [Mass fraction] 100 % No [facility] 08-15-2022 10:35-0400 Body mass index (BMI) [Ratio] 26 kg/m2 No [facility] 08-15-2022 10:35-0400 Body temperature 98.4 [degF] No [facility] 08-15-2022 10:35-0400 Body weight 66.67 kg No [facility] [facility]22 10:35-0400 Diastolic blood pressure 78 mm[Hg] No Primary Care Phys[facility] 08-15-2022 10:35-0400 Heart rate 69 /min No [facility] 08-15-2022 10:35-0400 Respiratory rate 16 /min No [facility] 08-15-2022 10:35-0400 SaO2% (BldA) [Mass fraction] 99 % No Primary Care Phys[facility] 08-15-2022 10:35-0400 Systolic blood pressure 123 mm[Hg] No [facility] Care Phys[facility] 07-25-2022 10:14-0400 Body mass index (BMI) [Ratio] 25.9 kg/m2 No [facility] Care Phys[facility] 07-25-2022 10:14-0400 Body temperature 98.6 [degF] No Primary Care Phys[facility] 07-25-2022 10:14-0400 Body weight 66.25 kg No Primary Care Physician [facility] 07-25-2022 10:14-0400 Diastolic blood pressure 76 mm[Hg] No Primary Care Phys[facility] 07-25-2022 10:14-0400 Heart rate 69 /min No Primary Care Phys[facility] 07-25-2022 10:14-0400 Respiratory rate 16 /min No Primary Care Phys[facility] 07-25-2022 10:14-0400 SaO2% (BldA) [Mass fraction] 99 % No Primary Care Physician [facility] 07-25-2022 10:14-0400 Systolic blood pressure 137 mm[Hg] No Primary Care Physician [facility] 07-04-2022 10:32-0400 Body mass index (BMI) [Ratio] 26.2 kg/m2 No [facility] Care Phys[facility] 07-04-2022 10:32-0400 Body temperature 97.3 [degF] No Primary Care Phys[facility] 07-04-2022 10:32-0400 Body weight 67.13 kg No [facility] Care Phys[facility] 07-04-2022 10:32-0400 Diastolic blood pressure 85 mm[Hg] No [facility] Care Phys[facility] 07-04-2022 10:32-0400 Heart rate 63 /min No [facility] Care Phys[facility] 07-04-2022 10:32-0400 Respiratory rate 16 /min No [facility] Care [facility] 07-04-2022 10:32-0400 SaO2% (BldA) [Mass fraction] 100 % No [facility] Care Phys[facility] 07-04-2022 10:32-0400 Systolic blood pressure 138 mm[Hg] No [facility] Care Phys[facility] 06-13-2022 10:22-0400 Body mass index (BMI) [Ratio] 26 kg/m2 No [facility] Care Phys[facility] 06-13-2022 10:22-0400 Body temperature 98 [degF] No [facility] Care Phys[facility] 06-13-2022 10:22-0400 Body weight 66.73 kg No [facility] 06-13-2022 10:22-0400 Diastolic blood pressure 78 mm[Hg] No [facility] Care [facility] 06-13-2022 10:22-0400 Heart rate 76 /min No [facility] Care [facility] 06-13-2022 10:22-0400 Respiratory rate 16 /min No [facility] 06-13-2022 10:22-0400 SaO2% (BldA) [Mass fraction] 97 % No [facility] Care Physician [facility] 06-13-2022 10:22-0400 Systolic blood pressure 123 mm[Hg] No [facility] Care Physician [facility] 03-21-2022 11:34-0500 Body temperature 97.2 [degF] No [facility] Care Physician [facility] Work Phone: 03-21-2022 11:34-0500 Diastolic blood pressure 63 mm[Hg] No Primary Care Physician [facility] Work Phone: 03-21-2022 11:34-0500 Heart rate 66 /min No [facility] Care Phys[facility] Work Phone: 03-21-2022 11:34-0500 Respiratory rate 16 /min No [facility] Care Phys[facility] Work Phone: 03-21-2022 11:34-0500 Systolic blood pressure 100 mm[Hg] No Primary Care Physician [facility] Work Phone: 03-21-2022 08:59-0500 Body height 160.02 cm No [facility] Care Physician [facility] Work Phone: 03-21-2022 08:59-0500 Body mass index (BMI) [Ratio] 25.9 kg/m2 No [facility] Care Physician [facility] Work Phone: 03-21-2022 08:59-0500 Body weight 66.39 kg No [facility] Care Physician [facility] Work Phone: 03-21-2022 08:34-0500 Body mass index (BMI) [Ratio] 25.9 kg/m2 No [facility] Care Physician [facility] Work Phone: 03-21-2022 08:34-0500 Body temperature 97.4 [degF] No Primary Care Physician [facility] Work Phone: 03-21-2022 08:34-0500 Body weight 66.39 kg No [facility] Care Physician [facility] Work Phone: 03-21-2022 08:34-0500 Diastolic blood pressure 70 mm[Hg] No Primary Care Physician [facility] Work Phone: 03-21-2022 08:34-0500 Heart rate 85 /min No [facility] Care Physician [facility] Work Phone: 03-21-2022 08:34-0500 Respiratory rate 16 /min No [facility] Care Phys[facility] Work Phone: 03-21-2022 08:34-0500 SaO2% (BldA) [Mass fraction] 99 % No [facility] Care Physician [facility] Work Phone: 03-21-2022 08:34-0500 Systolic blood pressure 109 mm[Hg] No Primary Care Physician [facility] Work Phone: 02-28-2022 10:11-0500 Body mass index (BMI) [Ratio] 25.7 kg/m2 No [facility] Care Physician [facility] Work Phone: 02-28-2022 10:11-0500 Body temperature 98.3 [degF] No Primary Care Physician [facility] Work Phone: 02-28-2022 10:11-0500 Body weight 65.88 kg No [facility] Care Physician [facility] Work Phone: 02-28-2022 10:11-0500 Diastolic blood pressure 77 mm[Hg] No [facility] Care Physician [facility] Work Phone: 02-28-2022 10:11-0500 Heart rate 77 /min No [facility] Care Phys[facility] Work Phone: 02-28-2022 10:11-0500 Respiratory rate 16 /min No [facility] Care Physician [facility] Work Phone: 02-28-2022 10:11-0500 SaO2% (BldA) [Mass fraction] 97 % No [facility] Care Physician [facility] Work Phone: 02-28-2022 10:11-0500 Systolic blood pressure 121 mm[Hg] No [facility] Care Physician [facility] Work Phone: 02-06-2022 08:57-0500 Body mass index (BMI) [Ratio] 25 kg/m2 No [facility] Care Physician [facility] Work Phone: 02-06-2022 08:57-0500 Body temperature 97.6 [degF] No [facility] Care Physician [facility] Work Phone: 02-06-2022 08:57-0500 Body weight 64.01 kg No [facility] Care Physician [facility] Work Phone: 02-06-2022 08:57-0500 Diastolic blood pressure 67 mm[Hg] No Primary Care Physician [facility] Work Phone: 02-06-2022 08:57-0500 Heart rate 79 /min No [facility] Care Physician [facility] Work Phone: 02-06-2022 08:57-0500 Respiratory rate 16 /min No [facility] Care Physician [facility] Work Phone: 02-06-2022 08:57-0500 SaO2% (BldA) [Mass fraction] 99 % No [facility] Care Physician [facility] Work Phone: 02-06-2022 08:57-0500 Systolic blood pressure 102 mm[Hg] No Primary Care Physician [facility] Work Phone: 01-18-2022 09:52-0400 Body mass index (BMI) [Ratio] 25.7 kg/m2 No [facility] Care Physician [facility] Work Phone: 01-18-2022 09:52-0400 Body weight 65.77 kg No Primary Care Physician [facility] Work Phone: 01-18-2022 09:52-0400 Diastolic blood pressure 87 mm[Hg] No Primary Care Physician [facility] Work Phone: 01-18-2022 09:52-0400 Heart rate 72 /min No [facility] Care Physician [facility] Work Phone: 01-18-2022 09:52-0400 Respiratory rate 16 /min No [facility] Care Physician [facility] Work Phone: 01-18-2022 09:52-0400 SaO2% (BldA) [Mass fraction] 100 % No Primary Care Physician [facility] Work Phone: 01-18-2022 09:52-0400 Systolic blood pressure 152 mm[Hg] No Primary Care Physician [facility] Work Phone: 01-17-2022 09:46-0400 Body mass index (BMI) [Ratio] 25.7 kg/m2 No [facility] Care Physician [facility] Work Phone: 01-17-2022 09:46-0400 Body temperature 98.8 [degF] No [facility] Care Physician [facility] Work Phone: 01-17-2022 09:46-0400 Body weight 65.77 kg No [facility] Care Physician [facility] Work Phone: 01-17-2022 09:46-0400 Diastolic blood pressure 81 mm[Hg] No Primary Care Physician [facility] Work Phone: 01-17-2022 09:46-0400 Heart rate 77 /min No [facility] Care Physician [facility] Work Phone: 01-17-2022 09:46-0400 Respiratory rate 16 /min No [facility] Care Physician [facility] Work Phone: 01-17-2022 09:46-0400 SaO2% (BldA) [Mass fraction] 98 % No [facility] Care Physician [facility] Work Phone: 01-17-2022 09:46-0400 Systolic blood pressure 121 mm[Hg] No Primary Care Physician [facility] Work Phone: 12-27-2021 12:47-0400 SaO2% (BldA) [Mass fraction] 97 % No Primary Care Physician [facility] Work Phone: 12-27-2021 08:49-0400 Body mass index (BMI) [Ratio] 25.7 kg/m2 No Primary Care Physician [facility] Work Phone: 12-27-2021 08:49-0400 Body temperature 98.9 [degF] No Primary Care Physician [facility] Work Phone: 12-27-2021 08:49-0400 Body weight 65.82 kg No [facility] Care Physician [facility] Work Phone: 12-27-2021 08:49-0400 Diastolic blood pressure 73 mm[Hg] No Primary Care Physician [facility] Work Phone: 12-27-2021 08:49-0400 Heart rate 77 /min No Primary Care Physician [facility] Work Phone: 12-27-2021 08:49-0400 Respiratory rate 16 /min No Primary Care Physician [facility] Work Phone: 12-27-2021 08:49-0400 SaO2% (BldA) [Mass fraction] 96 % No Primary Care Physician [facility] Work Phone: 12-27-2021 08:49-0400 Systolic blood pressure 113 mm[Hg] No Primary Care Physician [facility] Work Phone: 12-06-2021 12:14-0400 Diastolic blood pressure 78 mm[Hg] No Primary Care Physician [facility] Work Phone: 12-06-2021 12:14-0400 Heart rate 74 /min No Primary Care Physician [facility] Work Phone: 12-06-2021 12:14-0400 Systolic blood pressure 117 mm[Hg] No Primary Care Physician [facility] Work Phone: 12-06-2021 09:24-0400 Body height 160.02 cm No [facility] Care Physician [facility] Work Phone: 12-06-2021 09:24-0400 Body mass index (BMI) [Ratio] 25.3 kg/m2 No Primary Care Physician [facility] Work Phone: 12-06-2021 09:24-0400 Body weight 64.97 kg No Primary Care Physician [facility] Work Phone: 12-06-2021 09:05-0400 Body mass index (BMI) [Ratio] 25.3 kg/m2 No Primary Care Physician [facility] Work Phone: 12-06-2021 09:05-0400 Body temperature 98.8 [degF] No [facility] Care Physician [facility] Work Phone: 12-06-2021 09:05-0400 Body weight 64.97 kg No Primary Care Physician [facility] Work Phone: 12-06-2021 09:05-0400 Diastolic blood pressure 68 mm[Hg] No Primary Care Physician [facility] Work Phone: 12-06-2021 09:05-0400 Heart rate 88 /min No Primary Care Physician [facility] Work Phone: 12-06-2021 09:05-0400 Respiratory rate 16 /min No [facility] Care Physician [facility] Work Phone: 12-06-2021 09:05-0400 SaO2% (BldA) [Mass fraction] 99 % No Primary Care Physician [facility] Work Phone: 12-06-2021 09:05-0400 Systolic blood pressure 101 mm[Hg] No Primary Care Physician [facility] Work Phone: 11-15-2021 08:40-0400 Body mass index (BMI) [Ratio] 25.2 kg/m2 No Primary Care Physician [facility] Work Phone: 11-15-2021 08:40-0400 Body temperature 98.8 [degF] No Primary Care Physician [facility] Work Phone: 11-15-2021 08:40-0400 Body weight 64.55 kg No [facility] Care Physician [facility] Work Phone: 11-15-2021 08:40-0400 Diastolic blood pressure 75 mm[Hg] No Primary Care Physician [facility] Work Phone: 11-15-2021 08:40-0400 Heart rate 77 /min No [facility] Care Physician [facility] Work Phone: 11-15-2021 08:40-0400 Respiratory rate 15 /min No [facility] Care Physician [facility] Work Phone: 11-15-2021 08:40-0400 SaO2% (BldA) [Mass fraction] 99 % No [facility] Care Physician [facility] Work Phone: 11-15-2021 08:40-0400 Systolic blood pressure 113 mm[Hg] No Primary Care Physician [facility] Work Phone: 10-25-2021 12:45-0400 Body temperature 97.8 [degF] No [facility] Care Physician [facility] Work Phone: 10-25-2021 12:45-0400 Respiratory rate 16 /min No [facility] Care Physician [facility] Work Phone: 10-25-2021 12:45-0400 SaO2% (BldA) [Mass fraction] 98 % No [facility] Care Physician [facility] Work Phone: 10-25-2021 09:12-0400 Body mass index (BMI) [Ratio] 25.1 kg/m2 No [facility] Care Physician [facility] Work Phone: 10-25-2021 09:12-0400 Body temperature 98.3 [degF] No Primary Care Physician [facility] Work Phone: 10-25-2021 09:12-0400 Body weight 64.41 kg No [facility] Care Physician [facility] Work Phone: 10-25-2021 09:12-0400 Diastolic blood pressure 85 mm[Hg] No Primary Care Physician [facility] Work Phone: 10-25-2021 09:12-0400 Heart rate 83 /min No Primary Care Physician [facility] Work Phone: 10-25-2021 09:12-0400 Respiratory rate 16 /min No [facility] Care Physician [facility] Work Phone: 10-25-2021 09:12-0400 SaO2% (BldA) [Mass fraction] 98 % No Primary Care Physician [facility] Work Phone: 10-25-2021 09:12-0400 Systolic blood pressure 128 mm[Hg] No Primary Care Physician [facility] Work Phone: 10-04-2021 08:00-0400 Body mass index (BMI) [Ratio] 25 kg/m2 No [facility] Care Physician [facility] Work Phone: 10-04-2021 08:00-0400 Body temperature 98.1 [degF] No [facility] Care Physician [facility] Work Phone: 10-04-2021 08:00-0400 Body weight 64.15 kg No [facility] Care Physician [facility] Work Phone: 10-04-2021 08:00-0400 Diastolic blood pressure 85 mm[Hg] No Primary Care Physician [facility] Work Phone: 10-04-2021 08:00-0400 Heart rate 70 /min No [facility] Care Physician [facility] Work Phone: 10-04-2021 08:00-0400 Respiratory rate 15 /min No [facility] Care Physician [facility] Work Phone: 10-04-2021 08:00-0400 SaO2% (BldA) [Mass fraction] 100 % No [facility] Care Physician [facility] Work Phone: 10-04-2021 08:00-0400 Systolic blood pressure 124 mm[Hg] No [facility] Care Physician [facility] Work Phone: 09-13-2021 12:35-0400 Diastolic blood pressure 70 mm[Hg] No [facility] Care Physician [facility] Work Phone: 09-13-2021 12:35-0400 Heart rate 68 /min No [facility] Care Physician [facility] Work Phone: 09-13-2021 12:35-0400 Respiratory rate 16 /min No [facility] Care Physician [facility] Work Phone: 09-13-2021 12:35-0400 SaO2% (BldA) [Mass fraction] 99 % No [facility] Care Physician [facility] Work Phone: 09-13-2021 12:35-0400 Systolic blood pressure 128 mm[Hg] No Primary Care Physician [facility] Work Phone: 09-13-2021 09:51-0400 Body height 160.02 cm No [facility] Care Physician [facility] Work Phone: 09-13-2021 09:51-0400 Body mass index (BMI) [Ratio] 24.8 kg/m2 No [facility] Care Physician [facility] Work Phone: 09-13-2021 09:51-0400 Body weight 63.56 kg No [facility] Care Physician [facility] Work Phone: 09-13-2021 09:33-0400 Body mass index (BMI) [Ratio] 24.8 kg/m2 No [facility] Care Physician [facility] Work Phone: 09-13-2021 09:33-0400 Body temperature 98.2 [degF] No [facility] Care Physician [facility] Work Phone: 09-13-2021 09:33-0400 Body weight 63.55 kg No [facility] Care Physician [facility] Work Phone: 09-13-2021 09:33-0400 Diastolic blood pressure 73 mm[Hg] No Primary Care Physician [facility] Work Phone: 09-13-2021 09:33-0400 Heart rate 68 /min No [facility] Care Physician [facility] Work Phone: 09-13-2021 09:33-0400 Respiratory rate 16 /min No [facility] Care Physician [facility] Work Phone: 09-13-2021 09:33-0400 SaO2% (BldA) [Mass fraction] 99 % No [facility] Care Physician [facility] Work Phone: 09-13-2021 09:33-0400 Systolic blood pressure 112 mm[Hg] No Primary Care Physician [facility] Work Phone: 08-23-2021 11:48-0400 Body temperature 97.6 [degF] No [facility] Care Physician [facility] Work Phone: 08-23-2021 08:12-0400 Body mass index (BMI) [Ratio] 26 kg/m2 No [facility] Care Physician [facility] Work Phone: 08-23-2021 08:12-0400 Body temperature 97.2 [degF] No [facility] Care Physician [facility] Work Phone: 08-23-2021 08:12-0400 Body weight 64.55 kg No [facility] Care Physician [facility] Work Phone: 08-23-2021 08:12-0400 Diastolic blood pressure 77 mm[Hg] No Primary Care Physician [facility] Work Phone: 08-23-2021 08:12-0400 Heart rate 76 /min No Primary Care Physician [facility] Work Phone: 08-23-2021 08:12-0400 Respiratory rate 16 /min No [facility] Care Physician [facility] Work Phone: 08-23-2021 08:12-0400 SaO2% (BldA) [Mass fraction] 100 % No [facility] Care Physician [facility] Work Phone: 08-23-2021 08:12-0400 Systolic blood pressure 118 mm[Hg] No Primary Care Physician [facility] Work Phone: 08-02-2021 09:55-0400 Body mass index (BMI) [Ratio] 25.9 kg/m2 No Primary Care Physician [facility] Work Phone: 08-02-2021 09:55-0400 Body temperature 98.6 [degF] No Primary Care Physician [facility] Work Phone: 08-02-2021 09:55-0400 Body weight 64.41 kg No Primary Care Physician [facility] Work Phone: 08-02-2021 09:55-0400 Diastolic blood pressure 73 mm[Hg] No Primary Care Physician [facility] Work Phone: 08-02-2021 09:55-0400 Heart rate 72 /min No Primary Care Physician [facility] Work Phone: 08-02-2021 09:55-0400 Respiratory rate 16 /min No Primary Care Physician [facility] Work Phone: 08-02-2021 09:55-0400 SaO2% (BldA) [Mass fraction] 99 % No Primary Care Physician [facility] Work Phone: 08-02-2021 09:55-0400 Systolic blood pressure 111 mm[Hg] No Primary Care Physician [facility] Work Phone: 07-12-2021 08:58-0400 Body mass index (BMI) [Ratio] 25.7 kg/m2 No Primary Care Physician [facility] Work Phone: 07-12-2021 08:58-0400 Body temperature 98.7 [degF] No Primary Care Physician [facility] Work Phone: 07-12-2021 08:58-0400 Body weight 63.75 kg No Primary Care Physician [facility] Work Phone: 07-12-2021 08:58-0400 Diastolic blood pressure 81 mm[Hg] No Primary Care Physician [facility] Work Phone: 07-12-2021 08:58-0400 Heart rate 77 /min No Primary Care Physician [facility] Work Phone: 07-12-2021 08:58-0400 Respiratory rate 15 /min No Primary Care Physician [facility] Work Phone: 07-12-2021 08:58-0400 SaO2% (BldA) [Mass fraction] 99 % No Primary Care Physician [facility] Work Phone: 07-12-2021 08:58-0400 Systolic blood pressure 124 mm[Hg] No Primary Care Physician [facility] Work Phone: 06-21-2021 08:42-0400 Body mass index (BMI) [Ratio] 25 kg/m2 No Primary Care Physician [facility] Work Phone: 06-21-2021 08:42-0400 Body temperature 99 [degF] No Primary Care Physician [facility] Work Phone: 06-21-2021 08:42-0400 Body weight 62.19 kg No Primary Care Physician [facility] Work Phone: 06-21-2021 08:42-0400 Diastolic blood pressure 70 mm[Hg] No Primary Care Physician [facility] Work Phone: 06-21-2021 08:42-0400 Heart rate 77 /min No Primary Care Physician [facility] Work Phone: 06-21-2021 08:42-0400 Respiratory rate 17 /min No Primary Care Physician [facility] Work Phone: 06-21-2021 08:42-0400 SaO2% (BldA) [Mass fraction] 99 % No Primary Care Physician [facility] Work Phone: 06-21-2021 08:42-0400 Systolic blood pressure 128 mm[Hg] No Primary Care Physician [facility] Work Phone: 05-31-2021 10:06-0400 Body mass index (BMI) [Ratio] 26.2 kg/m2 No Primary Care Physician [facility] Work Phone: 05-31-2021 10:06-0400 Body temperature 98 [degF] No Primary Care Physician [facility] Work Phone: 05-31-2021 10:06-0400 Body weight 64.92 kg No Primary Care Physician [facility] Work Phone: 05-31-2021 10:06-0400 Diastolic blood pressure 69 mm[Hg] No Primary Care Physician [facility] Work Phone: 05-31-2021 10:06-0400 Heart rate 81 /min No Primary Care Physician [facility] Work Phone: 05-31-2021 10:06-0400 Respiratory rate 16 /min No Primary Care Physician [facility] Work Phone: 05-31-2021 10:06-0400 SaO2% (BldA) [Mass fraction] 97 % No Primary Care Physician [facility] Work Phone: 05-31-2021 10:06-0400 Systolic blood pressure 113 mm[Hg] No Primary Care Physician [facility] Work Phone: 05-18-2021 09:04-0500 Body mass index (BMI) [Ratio] 26.2 kg/m2 No Primary Care Physician [facility] Work Phone: 05-18-2021 09:04-0500 Body weight 65.03 kg No Primary Care Physician [facility] Work Phone: 05-18-2021 09:04-0500 Diastolic blood pressure 85 mm[Hg] No Primary Care Physician [facility] Work Phone: 05-18-2021 09:04-0500 Heart rate 72 /min No Primary Care Physician [facility] Work Phone: 05-18-2021 09:04-0500 Respiratory rate 16 /min No Primary Care Physician [facility] Work Phone: 05-18-2021 09:04-0500 SaO2% (BldA) [Mass fraction] 99 % No Primary Care Physician [facility] Work Phone: 05-18-2021 09:04-0500 Systolic blood pressure 124 mm[Hg] No Primary Care Physician [facility] Work Phone: Encounters Encounter Date Encounter Type Care Provider Facility Start: 09-09-2024 End: 09-09-2024 ambulatory No Primary Care Physician Facility:[facility] [place] Start: 09-09-[address] [facility] Start: 08-19-[address] [facility] Start: 08-19-2024 End: 08-19-2024 ambulatory No Primary Care Physician [facility] [employer] Work Phone: Start: 08-19-2024 End: 08-19-[address] Andrés Corrales MD -[facility] Work Phone: Start: 08-19-2024 End: 08-19-2024 ambulatory No Primary Care Physician Facility:[facility] Start: 07-29-[address] [facility] Start: 07-29-2024 End: 07-29-[address] [facility] Work [facility]: Start: 07-29-2024 End: 07-29-2024 ambulatory No Primary Care Physician [facility] [employer] Work Phone: Start: 07-28-2024 Non-patient / Non-visit Dr. [place] Doe MD -[facility] Start: 07-28-2024 End: 07-28-2024 ambulatory No Primary Care Physician [facility] Work Phone: Start: 07-28-2024 End: 07-28-2024 Patient encounter procedure Leisa PALENCIA [facility] Work Phone: Start: 07-28-2024 End: 07-28-2024 ambulatory No Primary Care Physician Facility:[facility] Start: 07-08-2024 End: 07-08-2024 Patient encounter procedure Leisa Baker [employer]-C -[facility] Work Phone: Start: 07-08-2024 End: 07-08-2024 ambulatory No Primary Care Physician Facility:[facility] [place] Start: 07-01-2024 ambulatory No Primary Car e Physician Facility:[facility] [place] Start: 07-01-2024 Non-patient / Non-visit Sunny Carroll DO -[facility] Start: 07-01-2024 End: 07-01-2024 Admission to same day surgery center Sunnykadi Carroll -[facility] Work Phone: Start: 07-01-2024 End: 07-01-2024 ambulatory No Primary Care Physician Facility:[facility] Start: 06-25-2024 End: 06-25-2024 Patient encounter procedure Ghislaine PALENCIA -[facility] Work Phone: Start: 06-25-2024 End: 06-25-2024 ambulatory No Primary Care Physician Facility:[facility] Start: 06-17-2024 End: 06-17-[address] Hadley Contreras MD -[facility] Work Phone: Start: 06-17-2024 End: 06-17-2024 ambulatory No Primary Care Physician Facility:[facility] Start: 06-08-2024 End: 06-08-2024 ambulatory No Primary Care Physician [facility] Work Phone: Start: 06-08-2024 End: 06-08-2024 Patient encounter procedure Leisa Baker NP-C -[facility] Work Phone: Start: 06-08-2024 End: 06-08-2024 ambulatory No Primary Care Physician Facility:[facility] Start: 05-27-[address] Page Corrales MD -[facility] Start: 05-27-2024 End: 05-27-2024 Patient encounter procedure Leisa Baker NP-C -[facility] Work Phone: Start: 05-27-2024 End: 05-27-2024 ambulatory Leisa Samuel GINNING OPERATOR Facility:[facility] Start: 05-06-2024 End: 05-06-2024 Patient encounter procedure Leisa Baker GINNING OPERATOR-C -[facility] Work Phone: Start: 05-06-2024 End: 05-06-2024 ambulatory No Primary Care Physician Facility:[facility] Start: 04-30-2024 ambulatory No Primary Car e Physician Facility:[facility] Start: 04-30-2024 Non-patient / Non-visit Dr. [place] Doe MD -[facility] Start: 04-30-2024 End: 04-30-2024 Patient encounter procedure Leisa KooSamuel GINNING OPERATOR-C -[facility] Work Phone: Start: 04-30-2024 End: 04-30-2024 ambulatory No Primary Care Physician Facility:[facility] Start: 04-15-2024 End: 04-15-2024 Patient encounter procedure Leisa KooSamuel GINNING OPERATOR-C -[facility] Work Phone: Start: 04-15-2024 End: 04-15-2024 ambulatory No Primary Care Physician Facility:[facility] Start: 03-25-2024 End: 03-25-2024 Patient encounter procedure Leisa KooSamuel GINNING OPERATOR-C -[facility] Work Phone: Start: 03-25-2024 End: 03-25-2024 ambulatory No Primary Care Physician Facility:[facility] Start: 03-04-2024 End: 03-04-2024 Patient encounter procedure Leisa KooSamuel GINNING OPERATOR-C -[facility] Work Phone: Start: 03-04-2024 End: 03-04-2024 ambulatory No Primary Care Physician Facility:[facility] Start: 02-11-2024 End: 02-11-2024 ambulatory No Primary Care Physician Facility:[facility] Start: 02-09-2024 ambulatory No Primary Car e Physician Facility:[facility] Start: 02-09-2024 End: 02-09-2024 ambulatory No Primary Care Physician Facility:[facility] Start: 01-22-2024 End: 01-22-2024 ambulatory No Primary Care Physician Facility:[facility] Start: 12-31-2023 End: 12-31-2023 ambulatory No Primary Care Physician Facility:[facility] Start: 12-11-2023 End: 12-11-2023 ambulatory No Primary Care Physician Facility:[facility] Start: 11-20-2023 End: 11-20-2023 ambulatory No Primary Care Physician Facility:[facility] Start: 11-06-2023 ambulatory Alejandro Summers Fa cility:[facility] Start: 11-06-2023 End: 11-06-2023 ambulatory No Primary Care Physician Facility:[facility] Start: 10-30-2023 End: 10-30-2023 ambulatory No Primary Care Physician Facility:[facility] Start: 10-09-2023 End: 10-09-2023 ambulatory No Primary Care Physician Facility:[facility] Start: 10-02-2023 End: 10-02-2023 ambulatory No Primary Care Physician Facility:[facility] Start: 09-17-2023 End: 09-17-2023 ambulatory No Primary Care Physician Facility:[facility] Start: 05-29-2023 End: 05-29-2023 ambulatory No Primary Care Physician [facility] Work Phone: Start: 05-29-2023 End: 05-29-2023 Patient encounter procedure No Primary Care Physician [facility]-Jaki Ram [facility] Work Phone: Start: 05-15-2023 Registered Recurring No Primar y Care Physician [facility] Start: 05-15-2023 End: 05-15-2023 Patient encounter procedure No Primary Care Physician [facility] Work Phone: Start: 05-09-2023 End: 05-09-2023 ambulatory No Primary Care Physician [facility] Work Phone: Start: 05-09-2023 End: 05-09-2023 Patient encounter procedure No Primary Care Physician [facility]-Cardiovascular Services Work Phone: Start: 05-09-2023 Non-patient / Non-visit No Primary Care Physician [facility] Start: 04-24-2023 Registered Recurring No Primar y Care Physician [facility] Start: 04-24-2023 End: 04-24-2023 Patient encounter procedure No Primary Care Physician [facility] Work Phone: Start: 04-03-2023 End: 04-03-2023 Patient encounter procedure No Primary Care Physician [facility] Work Phone: Start: 03-12-2023 End: 03-12-2023 Patient encounter procedure No Primary Care Physician [facility] Work Phone: Start: 02-20-2023 End: 02-20-2023 Patient encounter procedure No Primary Care Physician [facility] Work Phone: Start: 01-30-2023 Non-patient / Non-visit No Primary Care Physician [facility] Start: 01-30-2023 End: 01-30-2023 Patient encounter procedure No Primary Care Physician [facility] Work Phone: Start: 01-24-2023 End: 01-24-2023 ambulatory No Primary Care Physician [facility] Work Phone: Start: 01-24-2023 End: 01-24-2023 Patient encounter procedure No Primary Care Physician [facility] Scan, [facility] Work Phone: Start: 01-13-2023 End: 01-13-2023 Patient encounter procedure No Primary Care Physician [facility] Work Phone: Start: 01-09-2023 Registered Recurring No Primar y Care Physician [facility] Start: 12-19-2022 End: 12-19-2022 Patient encounter procedure No Primary Care Physician [facility] Work Phone: Start: 11-28-2022 End: 11-28-2022 Patient encounter procedure No Primary Care Physician [facility] Work Phone: Start: 11-13-2022 End: 11-13-2022 ambulatory No Primary Care Physician [facility] Work Phone: Start: 11-13-2022 End: 11-13-2022 Patient encounter procedure No Primary Care Physician [facility]-Medical Out Work Phone: Start: 11-12-2022 End: 11-12-2022 ambulatory No Primary Care Physician [facility] Work Phone: Start: 11-12-2022 End: 11-12-2022 Patient encounter procedure No Primary Care Physician [facility]-Laboratory, Specimen Work Phone: Start: 11-12-2022 End: 11-12-2022 Patient encounter procedure No Primary Care Physician [facility] Work Phone: Start: 11-07-2022 Registered Recurring No Primar y Care Physician [facility] Start: 11-07-2022 End: 11-07-2022 Patient encounter procedure No Primary Care Physician [facility] Work Phone: Start: 10-24-2022 End: 10-24-2022 Patient encounter procedure No Primary Care Physician [facility]-Ultrasound, [facility] Work Phone: Start: 10-17-2022 End: 10-17-2022 Patient encounter procedure No Primary Care Physician [facility] Work Phone: Start: 10-08-2022 Non-patient / Non-visit No Primary Care Physician [facility] Start: 10-08-2022 End: 10-08-2022 ambulatory No Primary Care Physician [facility] Work Phone: Start: 10-08-2022 End: 10-08-2022 Patient encounter procedure No Primary Care Physician [facility]-Cardiovascular Services Work Phone: Start: 09-26-2022 Registered Recurring No Primar y Care Physician [facility] Start: 09-26-2022 End: 09-26-2022 Patient encounter procedure No Primary Care Physician [facility] Work Phone: Start: 09-05-2022 End: 09-05-2022 Patient encounter procedure No Primary Care Physician [facility] Work Phone: Start: 08-23-2022 End: 08-23-2022 Patient encounter procedure No Primary Care Physician [facility] Work Phone: Start: 08-19-2022 Non-patient / Non-visit No Primary Care Physician [facility] Work Phone: Start: 08-15-2022 End: 08-15-2022 Patient encounter procedure No Primary Care Physician [facility] Work Phone: Start: 07-25-2022 End: 07-25-2022 Patient encounter procedure No Primary Care Physician [facility] Work Phone: Start: 07-04-2022 End: 07-04-2022 Patient encounter procedure No Primary Care Physician [facility] Work Phone: Start: 06-27-2022 Non-patient / Non-visit No Primary Care Physician [facility] Start: 06-27-2022 End: 06-27-2022 Patient encounter procedure No Primary Care Physician [facility] Work Phone: Start: 06-13-2022 End: 06-13-2022 Patient encounter procedure No Primary Care Physician [facility] Work Phone: Start: 03-21-2022 Registered Recurring No Primar y Care Physician [facility] Start: 03-21-2022 End: 03-21-2022 Patient encounter procedure No Primary Care Physician [facility] Start: 03-14-2022 Non-patient / Non-visit No Primary Care Physician [facility] Start: 03-14-2022 End: 03-14-2022 ambulatory No Primary Care Physician [facility] Work Phone: Start: 03-14-2022 End: 03-14-2022 Patient encounter procedure No Primary Care Physician [facility]-Cardiovascular Services Start: 02-28-2022 End: 02-28-2022 Patient encounter procedure No Primary Care Physician [facility] Start: 02-06-2022 End: 02-06-2022 Patient encounter procedure No Primary Care Physician [facility] Start: 01-18-2022 End: 01-18-2022 Patient encounter procedure No Primary Care Physician [facility] Start: 01-17-2022 End: 01-17-2022 Patient encounter procedure No Primary Care Physician [facility] Start: 12-27-2021 End: 12-27-2021 Patient encounter procedure No Primary Care Physician [facility] Start: 12-20-2021 Non-patient / Non-visit No Primary Care Physician [facility] Start: 12-20-2021 End: 12-20-2021 ambulatory No Primary Care Physician [facility] Work Phone: Start: 12-20-2021 End: 12-20-2021 Patient encounter procedure No Primary Care Physician [facility] Start: 12-06-2021 Registered Recurring No Primar y Care Physician [facility] Start: 12-06-2021 End: 12-06-2021 Patient encounter procedure No Primary Care Physician [facility] Start: 11-15-2021 End: 11-15-2021 Patient encounter procedure No Primary Care Physician [facility] Start: 10-25-2021 End: 10-25-2021 Patient encounter procedure No Primary Care Physician [facility] Start: 10-04-2021 End: 10-04-2021 Patient encounter procedure No Primary Care Physician [facility] Start: 09-13-2021 End: 09-13-2021 Patient encounter procedure No Primary Care Physician [facility] Start: 09-13-2021 Registered Recurring No Primar y Care Physician [facility] Start: 09-12-2021 Non-patient / Non-visit No Primary Care Physician [facility] Start: 09-12-2021 End: 09-12-2021 Patient encounter procedure No Primary Care Physician [facility] Services Start: 08-23-2021 End: 08-23-2021 Patient encounter procedure No Primary Care Physician [facility] Start: 08-02-2021 End: 08-02-2021 Patient encounter procedure No Primary Care Physician [facility] Start: 07-12-2021 End: 07-12-2021 Patient encounter procedure No Primary Care Physician [facility] Start: 06-21-2021 End: 06-21-2021 Patient encounter procedure No Primary Care Physician [facility] Start: 06-13-2021 End: 06-13-2021 Patient encounter procedure No Primary Care Physician [facility] Start: 06-01-2021 Non-patient / Non-visit No Primary Care Physician [facility] Start: 06-01-2021 End: 06-01-2021 Patient encounter procedure No Primary Care Physician [facility] Start: 05-31-2021 End: 05-31-2021 Patient encounter procedure No Primary Care Physician [facility] Start: 05-18-2021 End: 05-18-2021 Patient encounter procedure No Primary Care Physician [facility] Procedures Date Procedure Procedure Detail Performing Clinician Start: 08-19-2024 Estimated creatinine clearance No Primary Care Physician Start: 08-19-2024 Serum inorganic phos phate measurement No Primary Care Physician Start: 07-08-2024 Estimated creatinine clearance No Primary Care Physician Start: 06-08-2024 CT of thorax and abd omen with contrast No Primary Care Physician Start: 04-15-2024 Measurement of renal function No Primary Care Physician Comment on above: GFR Calc Start: 12-11-2023 Assay of phosphorus inorganic No Primary Care Physician Start: 05-29-2023 CT of chest and abdomen No Primary Care Physician Start: 01-24-2023 CT of chest and abdomen No Primary Care Physician Start: 10-24-2022 US scan of thyroid No P [facility] Care Physician Start: 10-08-2022 CT of chest and abdomen No Primary Care Physician Start: 06-27-2022 CT of chest and abdomen No Primary Care Physician Start: 05-01-2022 Measurement of occul t blood in stool specimen using immunoassay No Primary Care Physician Start: 03-14-2022 CT of chest and abdomen No Primary Care Physician Start: 12-20-2021 CT of chest and abdomen No Primary Care Physician Start: 09-12-2021 CT of chest and abdomen No Primary Care Physician Start: 06-13-2021 CT of chest and abdomen No Primary Care Physician Start: 08-22-2020 PET/CT Tumor Base -T high Subs No Primary Care Physician Start: 02-29-2020 PET/CT Tumor Base -T high Subs No Primary Care Physician Start: 09-14-2019 PET/CT Tumor Base -T high Subs No Primary Care Physician Start: 03-15-2019 PET/CT Tumor Base -T high Subs No Primary Care Physician Start: 08-13-2018 PET/CT Tumor Base -T high Init No Primary Care Physician Plan of Treatment Date Care Activity Detail Author Start: 10-06-2024 ambulatory Facility:[facility] Start: 09-09-2024 Disease process or condition education [facility] Start: 09-09-2024 Medication monitoring [facility] Start: 09-09-2024 Precautionary procedure [facility] Start: 09-09-2024 [facility] Start: 08-19-2024 [facility] Start: 08-19-2024 Disease process or condition education [facility] Start: 08-19-2024 Medication monitoring [facility] Start: 08-19-2024 Precautionary procedure [facility] Start: 08-19-2024 [facility] Start: 07-29-2024 Disease process or condition education [facility] Start: 07-29-2024 Medication monitoring [facility] Start: 07-29-2024 Precautionary procedure [facility] Start: 07-29-2024 [facility] Start: 07-08-2024 Disease process or condition education [facility] Start: 07-08-2024 Medication monitoring [facility] Start: 07-08-2024 Precautionary procedure [facility] Start: 07-08-2024 [facility] Start: 07-01-2024 Endoscopy upper smal l intestine w/biopsy SMALL BOWEL ENDOSCOPY/BIOPSY [facility] Start: 07-01-2024 Venous catheter care management [facility] Start: 07-01-2024 Patient discharge [facility] Start: 06-17-2024 Patient referral [facility] Work Phone: Start: 06-17-2024 Disease process or condition education [facility] Start: 06-17-2024 Medication monitoring [facility] Start: 06-17-2024 Precautionary procedure [facility] Start: 06-17-2024 [facility] Start: 06-08-2024 Venous catheter care management [facility] Start: 05-27-2024 Disease process or condition education [facility] Start: 05-27-2024 Medication monitoring [facility] Start: 05-27-2024 Precautionary procedure [facility] Start: 05-27-2024 [facility] Start: 05-06-2024 Disease process or condition education [facility] Start: 05-06-2024 Medication monitoring [facility] Start: 05-06-2024 Precautionary procedure [facility] Start: 05-06-2024 [facility] Start: 04-15-2024 Disease process or condition education [facility] Start: 04-15-2024 Medication monitoring [facility] Start: 04-15-2024 Precautionary procedure [facility] Start: 04-15-2024 [facility] Start: 03-25-2024 Disease process or condition education [facility] Start: 03-25-2024 Medication monitoring [facility] Start: 03-25-2024 Precautionary procedure [facility] Start: 03-25-2024 [facility] Start: 03-04-2024 Disease process or condition education [facility] Start: 03-04-2024 Medication monitoring [facility] Start: 03-04-2024 Precautionary procedure [facility] Start: 03-04-2024 [facility] Start: 02-11-2024 Disease process or condition education [facility] Start: 02-11-2024 Medication monitoring [facility] Start: 02-11-2024 Precautionary procedure [facility] Start: 02-11-2024 [facility] Start: 01-22-2024 Disease process or condition education [facility] Start: 01-22-2024 Medication monitoring [facility] Start: 01-22-2024 Precautionary procedure [facility] Start: 01-22-2024 [facility] Start: 12-31-2023 Disease process or condition education [facility] Start: 12-31-2023 Medication monitoring [facility] Start: 12-31-2023 Precautionary procedure [facility] Start: 12-31-2023 [facility] Start: 12-11-2023 Disease process or condition education [facility] Start: 12-11-2023 Medication monitoring [facility] Start: 12-11-2023 Precautionary procedure [facility] Start: 12-11-2023 [facility] Start: 11-20-2023 Disease process or condition education [facility] Start: 11-20-2023 Medication monitoring [facility] Start: 11-20-2023 Precautionary procedure [facility] Start: 11-20-2023 [facility] Start: 10-30-2023 Disease process or condition education [facility] Start: 10-30-2023 Medication monitoring [facility] Start: 10-30-2023 Precautionary procedure [facility] Start: 10-30-2023 [facility] Start: 10-09-2023 Disease process or condition education [facility] Start: 10-09-2023 Medication monitoring [facility] Start: 10-09-2023 Precautionary procedure [facility] Start: 10-09-2023 [facility] Start: 09-17-2023 Disease process or condition education [facility] Start: 09-17-2023 Medication monitoring [facility] Start: 09-17-2023 Precautionary procedure [facility] Start: 09-17-2023 [facility] Start: 08-28-2023 Disease process or condition education [facility] Start: 08-28-2023 Medication monitoring [facility] Start: 08-28-2023 Precautionary procedure [facility] Start: 08-28-2023 [facility] Start: 08-07-2023 Disease process or condition education [facility] Start: 08-07-2023 Medication monitoring [facility] Start: 08-07-2023 Precautionary procedure [facility] Start: 08-07-2023 [facility] Start: 07-17-2023 Disease process or condition education [facility] Start: 07-17-2023 Medication monitoring [facility] Start: 07-17-2023 Precautionary procedure [facility] Start: 07-17-2023 [facility] Start: 06-26-2023 Disease process or condition education [facility] Start: 06-26-2023 Medication monitoring [facility] Start: 06-26-2023 Precautionary procedure [facility] Start: 06-26-2023 [facility] Start: 06-05-2023 Disease process or condition education [facility] Start: 06-05-2023 Medication monitoring [facility] Start: 06-05-2023 Precautionary procedure [facility] Start: 06-05-2023 [facility] Start: 05-29-2023 Following clinical p athway protocol [facility] Start: 05-29-2023 Venous catheter care management [facility] Start: 05-15-2023 Disease process or condition education [facility] Start: 05-15-2023 Medication monitoring [facility] Start: 05-15-2023 Precautionary procedure [facility] Start: 05-15-2023 [facility] Start: 04-24-2023 Disease process or condition education [facility] Start: 04-24-2023 Medication monitoring [facility] Start: 04-24-2023 Precautionary procedure [facility] Start: 04-24-2023 [facility] Start: 04-03-2023 Disease process or condition education [facility] Start: 04-03-2023 Medication monitoring [facility] Start: 04-03-2023 Precautionary procedure [facility] Start: 04-03-2023 [facility] Start: 03-12-2023 Disease process or condition education [facility] Start: 03-12-2023 Medication monitoring [facility] Start: 03-12-2023 Precautionary procedure [facility] Start: 03-12-2023 [facility] Start: 02-20-2023 Disease process or condition education [facility] Start: 02-20-2023 Medication monitoring [facility] Start: 02-20-2023 Precautionary procedure [facility] Start: 02-20-2023 [facility] Start: 01-30-2023 Disease process or condition education [facility] Start: 01-30-2023 Medication monitoring [facility] Start: 01-30-2023 Precautionary procedure [facility] Start: 01-30-2023 [facility] Start: 01-24-2023 Venous catheter care management [facility] Start: 01-09-2023 Disease process or condition education [facility] Start: 01-09-2023 Medication monitoring [facility] Start: 01-09-2023 Precautionary procedure [facility] Start: 01-09-2023 [facility] Start: 12-19-2022 Disease process or condition education [facility] Start: 12-19-2022 Medication monitoring [facility] Start: 12-19-2022 Precautionary procedure [facility] Start: 12-19-2022 [facility] Start: 11-28-2022 Disease process or condition education [facility] Start: 11-28-2022 Medication monitoring [facility] Start: 11-28-2022 Precautionary procedure [facility] Start: 11-28-2022 [facility] Start: 11-07-2022 Disease process or condition education [facility] Start: 11-07-2022 Medication monitoring [facility] Start: 11-07-2022 Precautionary procedure [facility] Start: 11-07-2022 [facility] Start: 10-17-2022 Patient referral [facility] Work Phone: Start: 10-17-2022 Disease process or condition education [facility] Start: 10-17-2022 Medication monitoring [facility] Start: 10-17-2022 Precautionary procedure [facility] Start: 10-17-2022 [facility] Start: 10-08-2022 Venous catheter care management [facility] Start: 09-26-2022 Disease process or condition education [facility] Start: 09-26-2022 Medication monitoring [facility] Start: 09-26-2022 Precautionary procedure [facility] Start: 09-26-2022 [facility] Start: 09-05-2022 Disease process or condition education [facility] Start: 09-05-2022 Medication monitoring [facility] Start: 09-05-2022 Precautionary procedure [facility] Start: 09-05-2022 [facility] Start: 08-15-2022 Disease process or condition education [facility] Start: 08-15-2022 Medication monitoring [facility] Start: 08-15-2022 Precautionary procedure [facility] Start: 08-15-2022 [facility] Start: 07-25-2022 Disease process or condition education [facility] Start: 07-25-2022 Medication monitoring [facility] Start: 07-25-2022 Precautionary procedure [facility] Start: 07-25-2022 [facility] Start: 07-04-2022 Disease process or condition education [facility] Start: 07-04-2022 Medication monitoring [facility] Start: 07-04-2022 Precautionary procedure [facility] Start: 07-04-2022 [facility] Start: 06-27-2022 Venous catheter care management [facility] Start: 06-13-2022 Disease process or condition education [facility] Start: 06-13-2022 Medication monitoring [facility] Start: 06-13-2022 Precautionary procedure [facility] Start: 06-13-2022 [facility] Start: 05-23-2022 Disease process or condition education [facility] Start: 05-23-2022 Medication monitoring [facility] Start: 05-23-2022 Precautionary procedure [facility] Start: 05-23-2022 [facility] Start: 05-02-2022 Disease process or condition education [facility] Start: 05-02-2022 Medication monitoring [facility] Start: 05-02-2022 Precautionary procedure [facility] Start: 05-02-2022 [facility] Start: 04-11-2022 Disease process or condition education [facility] Start: 04-11-2022 Medication monitoring [facility] Start: 04-11-2022 Precautionary procedure [facility] Start: 04-11-2022 [facility] Start: 03-21-2022 Disease process or condition education [facility] Start: 03-21-2022 Medication monitoring [facility] Start: 03-21-2022 Precautionary procedure [facility] Start: 03-21-2022 [facility] Start: 03-14-2022 Venous catheter care management [facility] Work Phone: Start: 02-28-2022 Disease process or condition education [facility] Start: 02-28-2022 Medication monitoring [facility] Start: 02-28-2022 Precautionary procedure [facility] Start: 02-28-2022 [facility] Start: 02-06-2022 Disease process or condition education [facility] Start: 02-06-2022 Medication monitoring [facility] Start: 02-06-2022 Precautionary procedure [facility] Start: 02-06-2022 [facility] Start: 01-17-2022 Disease process or condition education [facility] Start: 01-17-2022 Medication monitoring [facility] Start: 01-17-2022 Precautionary procedure [facility] Start: 01-17-2022 [facility] Start: 12-27-2021 Disease process or condition education [facility] Start: 12-27-2021 Medication monitoring [facility] Start: 12-27-2021 Precautionary procedure [facility] Start: 12-27-2021 [facility] Start: 12-20-2021 Venous catheter care management [facility] Work Phone: Start: 12-06-2021 Disease process or condition education [facility] Start: 12-06-2021 Medication monitoring [facility] Start: 12-06-2021 Precautionary procedure [facility] Start: 12-06-2021 [facility] Start: 11-15-2021 Disease process or condition education [facility] Start: 11-15-2021 Medication monitoring [facility] Start: 11-15-2021 Precautionary procedure [facility] Start: 11-15-2021 [facility] Start: 10-25-2021 Disease process or condition education [facility] Start: 10-25-2021 Medication monitoring [facility] Start: 10-25-2021 Precautionary procedure [facility] Start: 10-25-2021 [facility] Start: 10-04-2021 Disease process or condition education [facility] Start: 10-04-2021 Medication monitoring [facility] Start: 10-04-2021 Precautionary procedure [facility] Start: 10-04-2021 [facility] Start: 09-13-2021 Venous catheter care management [facility] Start: 09-13-2021 Disease process or condition education [facility] Start: 09-13-2021 Medication monitoring [facility] Start: 09-13-2021 Precautionary procedure [facility] Start: 09-13-2021 [facility] Start: 09-12-2021 Venous catheter care management [facility] Work Phone: Start: 08-23-2021 Venous catheter care management [facility] Start: 08-23-2021 Disease process or condition education [facility] Start: 08-23-2021 Medication monitoring [facility] Start: 08-23-2021 Precautionary procedure [facility] Start: 08-23-2021 [facility] Start: 08-02-2021 Disease process or condition education [facility] Start: 08-02-2021 Medication monitoring [facility] Start: 08-02-2021 Precautionary procedure [facility] Start: 08-02-2021 [facility] Start: 07-12-2021 Disease process or condition education [facility] Start: 07-12-2021 Medication monitoring [facility] Start: 07-12-2021 Precautionary procedure [facility] Start: 07-12-2021 [facility] Start: 06-21-2021 Disease process or condition education [facility] Start: 06-21-2021 Medication monitoring [facility] Start: 06-21-2021 Precautionary procedure [facility] Start: 06-21-2021 [facility] Start: 06-13-2021 Venous catheter care management [facility] Work Phone: Start: 05-31-2021 Disease process or condition education [facility] Start: 05-31-2021 Medication monitoring [facility] Start: 05-31-2021 Precautionary procedure [facility] Start: 05-31-2021 [facility] Start: 05-10-2021 Venous catheter care management [facility] Start: 05-10-2021 Disease process or condition education [facility] Start: 05-10-2021 Medication monitoring [facility] Start: 05-10-2021 Precautionary procedure [facility] Start: 05-10-2021 [facility] Start: 04-18-2021 Disease process or condition education [facility] Start: 04-18-2021 Medication monitoring [facility] Start: 04-18-2021 Precautionary procedure [facility] Start: 04-18-2021 [facility] Start: 03-29-2021 Disease process or condition education [facility] Start: 03-29-2021 Medication monitoring [facility] Start: 03-29-2021 Precautionary procedure [facility] Start: 03-29-2021 [facility] Start: 03-08-2021 Disease process or condition education [facility] Start: 03-08-2021 Medication monitoring [facility] Start: 03-08-2021 Precautionary procedure [facility] Start: 03-08-2021 [facility] Start: 02-15-2021 Venous catheter care management [facility] Start: 02-15-2021 Disease process or condition education [facility] Start: 02-15-2021 Medication monitoring [facility] Start: 02-15-2021 Precautionary procedure [facility] Start: 02-15-2021 [facility] Start: 01-25-2021 Disease process or condition education [facility] Start: 01-25-2021 Medication monitoring [facility] Start: 01-25-2021 Precautionary procedure [facility] Start: 01-25-2021 [facility] Start: 01-04-2021 Disease process or condition education [facility] Start: 01-04-2021 Medication monitoring [facility] Start: 01-04-2021 Precautionary procedure [facility] Start: 01-04-2021 [facility] Start: 12-14-2020 Disease process or condition education [facility] Start: 12-14-2020 Medication monitoring [facility] Start: 12-14-2020 Precautionary procedure [facility] Start: 12-14-2020 [facility] Start: 11-16-2020 Venous catheter care management [facility] Start: 10-26-2020 Disease process or condition education [facility] Start: 10-26-2020 Medication monitoring [facility] Start: 10-26-2020 Precautionary procedure [facility] Start: 10-26-2020 [facility] Start: 10-05-2020 Disease process or condition education [facility] Start: 10-05-2020 Medication monitoring [facility] Start: 10-05-2020 Precautionary procedure [facility] Start: 10-05-2020 [facility] Start: 09-14-2020 Disease process or condition education [facility] Start: 09-14-2020 Medication monitoring [facility] Start: 09-14-2020 Precautionary procedure [facility] Start: 09-14-2020 [facility] Start: 08-29-2020 Venous catheter care management [facility] Start: 08-24-2020 Disease process or condition education [facility] Start: 08-24-2020 Medication monitoring [facility] Start: 08-24-2020 Precautionary procedure [facility] Start: 08-24-2020 [facility] Start: 08-03-2020 Disease process or condition education [facility] Start: 08-03-2020 Medication monitoring [facility] Start: 08-03-2020 Precautionary procedure [facility] Start: 08-03-2020 [facility] Start: 07-13-2020 Disease process or condition education [facility] Start: 07-13-2020 Medication monitoring [facility] Start: 07-13-2020 Precautionary procedure [facility] Start: 07-13-2020 [facility] Start: 06-22-2020 Disease process or condition education [facility] Start: 06-22-2020 Medication monitoring [facility] Start: 06-22-2020 Precautionary procedure [facility] Start: 06-22-2020 [facility] Start: 06-01-2020 Disease process or condition education [facility] Start: 06-01-2020 Medication monitoring [facility] Start: 06-01-2020 Precautionary procedure [facility] Start: 06-01-2020 [facility] Start: 05-11-2020 Disease process or condition education [facility] Start: 05-11-2020 Medication monitoring [facility] Start: 05-11-2020 Precautionary procedure [facility] Start: 05-11-2020 [facility] Start: 04-20-2020 Disease process or condition education [facility] Start: 04-20-2020 Medication monitoring [facility] Start: 04-20-2020 Precautionary procedure [facility] Start: 04-20-2020 [facility] Start: 03-30-2020 Disease process or condition education [facility] Start: 03-30-2020 Medication monitoring [facility] Start: 03-30-2020 Precautionary procedure [facility] Start: 03-30-2020 [facility] Start: 03-09-2020 Disease process or condition education [facility] Start: 03-09-2020 Medication monitoring [facility] Start: 03-09-2020 Precautionary procedure [facility] Start: 03-09-2020 [facility] Start: 02-17-2020 Disease process or condition education [facility] Start: 02-17-2020 Medication monitoring [facility] Start: 02-17-2020 Precautionary procedure [facility] Start: 02-17-2020 [facility] Start: 01-27-2020 Venous catheter care management [facility] Start: 01-27-2020 Disease process or condition education [facility] Start: 01-27-2020 Medication monitoring [facility] Start: 01-27-2020 Precautionary procedure [facility] Start: 01-27-2020 [facility] Start: 01-06-2020 Disease process or condition education [facility] Start: 01-06-2020 Medication monitoring [facility] Start: 01-06-2020 Precautionary procedure [facility] Start: 01-06-2020 [facility] Start: 12-16-2019 Disease process or condition education [facility] Start: 12-16-2019 Medication monitoring [facility] Start: 12-16-2019 Precautionary procedure [facility] Start: 12-16-2019 [facility] Start: 11-25-2019 Disease process or condition education [facility] Start: 11-25-2019 Medication monitoring [facility] Start: 11-25-2019 Precautionary procedure [facility] Start: 11-25-2019 [facility] Start: 11-04-2019 Disease process or condition education [facility] Start: 11-04-2019 Medication monitoring [facility] Start: 11-04-2019 Precautionary procedure [facility] Start: 11-04-2019 [facility] Start: 10-14-2019 Disease process or condition education [facility] Start: 10-14-2019 Medication monitoring [facility] Start: 10-14-2019 Precautionary procedure [facility] Start: 10-14-2019 [facility] Start: 09-23-2019 Disease process or condition education [facility] Start: 09-23-2019 Medication monitoring [facility] Start: 09-23-2019 Precautionary procedure [facility] Start: 09-23-2019 [facility] Start: 09-02-2019 Disease process or condition education [facility] Start: 09-02-2019 Medication monitoring [facility] Start: 09-02-2019 Precautionary procedure [facility] Start: 09-02-2019 [facility] Start: 08-12-2019 Disease process or condition education [facility] Start: 08-12-2019 Medication monitoring [facility] Start: 08-12-2019 Precautionary procedure [facility] Start: 08-12-2019 [facility] Start: 07-19-2019 Disease process or condition education [facility] Start: 07-19-2019 Medication monitoring [facility] Start: 07-19-2019 Precautionary procedure [facility] Start: 07-19-2019 [facility] Start: 06-28-2019 Disease process or condition education [facility] Start: 06-28-2019 Medication monitoring [facility] Start: 06-28-2019 Precautionary procedure [facility] Start: 06-28-2019 [facility] Start: 06-07-2019 Disease process or condition education [facility] Start: 06-07-2019 Medication monitoring [facility] Start: 06-07-2019 Precautionary procedure [facility] Start: 06-07-2019 [facility] Start: 05-17-2019 Disease process or condition education [facility] Start: 05-17-2019 Medication monitoring [facility] Start: 05-17-2019 Precautionary procedure [facility] Start: 05-17-2019 [facility] Start: 04-26-2019 Disease process or condition education [facility] Start: 04-26-2019 Medication monitoring [facility] Start: 04-26-2019 Precautionary procedure [facility] Start: 04-26-2019 [facility] Start: 04-05-2019 Disease process or condition education [facility] Start: 04-05-2019 Medication monitoring [facility] Start: 04-05-2019 Precautionary procedure [facility] Start: 04-05-2019 [facility] CBC W Auto Different ial panel - Blood [facility] Work Phone: CBC W Auto Different ial panel - Blood [facility] CBC W Auto Different ial panel - Blood [facility] CBC W Auto Different ial panel - Blood [facility] Comprehensive metabo lic 2000 panel - Serum or Plasma [facility] CT Chest and Abdomen W contrast IV [facility] Helicobacter pylori Ag [Presence] in Stool by Immunoassay [facility] Magnesium measurement [facility] Patient referral [facility] Work Phone: Serum inorganic phos phate measurement [facility] Thyroperoxidase Ab [Units/volume] in Serum or Plasma [facility] Payers Date Payer Category Payer Private Health Insurance [id number] 2018 Self-pay [id number] 2018 Unknown [id number] Unknown [id number] 2.16.8 [id number] Unknown [id number] 2.16.8 40.1.915532.3.579.2.462 Unknown [id number] 2.16.8 40.1.947442.3.579.2.462 Unknown [id number] 2.16.8 40.1.935935.3.579.2.462 Unknown [id number] 2.16.8 40.1.130751.3.579.2.462 Unknown [id number] 2.16.8 40.1.601043.3.579.2.462 Unknown [id number] 2.16.8 40.1.381141.3.579.2.462 Unknown [id number] 2.16.8 40.1.289765.3.579.2.462 Unknown [id number] 2.16.8 40.1.195706.3.579.2.462 Unknown [id number] 2.16.8 40.1.187279.3.579.2.462 Unknown [id number] 2.16.8 40.1.936141.3.579.2.462 Unknown [id number] 2.16.8 40.1.174666.3.579.2.462 Unknown [id number] 2.16.8 40.1.382525.3.579.2.462 Unknown [id number] 2.16.8 40.1.995084.3.579.2.462 Unknown [id number] 2.16.8 40.1.594218.3.579.2.462 Unknown [id number] 2.16.8 40.1.707400.3.579.2.462 Unknown [id number] 2.16.8 40.1.036338.3.579.2.462 Unknown [id number] 2.16.8 40.1.238601.3.579.2.462 Unknown [id number] 2.16.8 40.1.875071.3.579.2.462 Unknown [id number] 2.16.8 40.1.132598.3.579.2.462 Unknown [id number] 2.16.8 40.1.340776.3.579.2.462 Unknown [id number] 2.16.8 40.1.175455.3.579.2.462 Unknown [id number] 2.16.8 40.1.636824.3.579.2.462 Unknown [id number] 2.16.8 40.1.008763.3.579.2.462 Unknown [id number] 2.16.8 40.1.311061.3.579.2.462 Unknown [id number] 2.16.8 40.1.242920.3.579.2.462 Unknown [id number] 2.16.8 40.1.997530.3.579.2.462 Unknown [id number] 2.16.8 40.1.973527.3.579.2.462 Unknown [id number] 2.16.8 40.1.692627.3.579.2.462 Unknown [id number] 2.16.8 40.1.012998.3.579.2.462 Unknown [id number] 2.16.8 40.1.409214.3.579.2.462 Unknown [id number] 2.16.8 40.1.162820.3.579.2.462 Unknown [id number] 2.16.8 40.1.831457.3.579.2.462 Unknown [id number] 2.16.8 40.1.294558.3.579.2.462 Social History Date Type Detail Facility Start: 05-31-2021 End: 01-30-2023 Tobacco smoking status NHIS Unknown if ever smoked [facility] Start: 10-01-2018 Spouse/ Signif icant Other [facility] Start: 06-22-2020 Non-smoker [facility] Start: 1960 Sex Assigned At Female [facility] Start: 01-30-2023 End: 06-28-2024 Tobacco smoking status NHIS Never smoked tobacco (finding) [facility] Start: 06-14-2024 Sex Female (finding) [facility] Medical Equipment Procedure Code Equipment Code Equipment Origin al Text Equipment Identifier Dates Insertion, vascular access port PORT,POWER 8FR FDA Start: 08-04-2018 Insertion, vascular access port PORT,6FR POWER PORT FDA Start: 09-28-2020 Insertion, vascular access port PORT,POWER 8FR FDA Start: 08-04-2018 Insertion, vascular access port PORT,6FR POWER PORT FDA Start: 09-28-2020 Insertion, vascular access port PORT,POWER 8FR FDA Start: 08-04-2018 Insertion, vascular access port PORT,6FR POWER PORT FDA Start: 09-28-2020 Insertion, vascular access port PORT,POWER 8FR FDA Start: 08-04-2018 Insertion, vascular access port PORT,6FR POWER PORT FDA Start: 09-28-2020 Insertion, vascular access port PORT,POWER 8FR FDA Start: 08-04-2018 Insertion, vascular access port PORT,6FR POWER PORT FDA Start: 09-28-2020 Insertion, vascular access port PORT,POWER 8FR FDA Start: 08-04-2018 Insertion, vascular access port PORT,6FR POWER PORT FDA Start: 09-28-2020 Insertion, vascular access port PORT,POWER 8FR FDA Start: 08-04-2018 Insertion, vascular access port PORT,6FR POWER PORT FDA Start: 09-28-2020 Insertion, vascular access port PORT,POWER 8FR FDA Start: 08-04-2018 Insertion, vascular access port PORT,6FR POWER PORT FDA Start: 09-28-2020 Insertion, vascular access port PORT,POWER 8FR FDA Start: 08-04-2018 Insertion, vascular access port PORT,6FR POWER PORT FDA Start: 09-28-2020 Insertion, vascular access port PORT,POWER 8FR FDA Start: 08-04-2018 Insertion, vascular access port PORT,6FR POWER PORT FDA Start: 09-28-2020 Insertion, vascular access port PORT,POWER 8FR FDA Start: 08-04-2018 Insertion, vascular access port PORT,6FR POWER PORT FDA Start: 09-28-2020 Insertion, vascular access port PORT,POWER 8FR FDA Start: 08-04-2018 Insertion, vascular access port PORT,6FR POWER PORT FDA Start: 09-28-2020 Insertion, vascular access port PORT,POWER 8FR FDA Start: 08-04-2018 Insertion, vascular access port PORT,6FR POWER PORT FDA Start: 09-28-2020 Insertion, vascular access port PORT,POWER 8FR FDA Start: 08-04-2018 Insertion, vascular access port PORT,6FR POWER PORT FDA Start: 09-28-2020 Insertion, vascular access port PORT,POWER 8FR FDA Start: 08-04-2018 Insertion, vascular access port PORT,6FR POWER PORT FDA Start: 09-28-2020 Insertion, vascular access port PORT,POWER 8FR FDA Start: 08-04-2018 Insertion, vascular access port PORT,6FR POWER PORT FDA Start: 09-28-2020 Insertion, vascular access port PORT,POWER 8FR FDA Start: 08-04-2018 Insertion, vascular access port PORT,6FR POWER PORT FDA Start: 07-15-2021 Goals Date Patient Goal Desired Activity /State Mental Status Date Assessment Result Facility 07-01-2024 Cognitive function Level Of Cons ciousness Sedated [facility] Work Phone: 06-07-2019 Cognitive function Mood Description Appro priate [facility] Work Phone: Clinical Notes 10-20-2018 to 08-19-2024 Note Date & Type Note Facility 08-19-2024 Progress note [facility] 07-29-2024 Progress note [facility] 07-29-2024 Progress note Note Date/Time July 29, 2024 10:59am [facility] [address] [place] [address] OFFICE VISIT Date of Service: 07/29/24 1032 MR#: [id number] Acct: [id number] Name: MARTIN ARROYO Rep #: [id number] : 1960 From: Andrés billings MD Age/Sex: 64/F Location: [facility] [place] Status: Signed HPI Subjective Date of Service 07/29/24 Chief Complaint Breast cancer on treatment History of Present Illness 63-year-old female, perimenopausal (menses are becoming erratic and experiencinghot flashes, last menstrual periods where August 2017 then May 2018) who had negative mammograms in 2017 & 2017 but in May 2017 experienced some itchiness in the right breast, then a sensation of fullness in the breast. Diagnostic mammogram July 16, 2018: FINDINGS: Breast Composition: The breasts are heterogeneously dense, which may obscure small masses. Enlarged right axillary lymph nodes as compared to prior study. There is evidence of a 1.6 cm x 1.8 cm irregular nodular density in the deep mid lateral portion of the right breast. There is also evidence of a 0.8 cm x 1 cm nodule in the mid lateral aspect of the right breast as well. Correlation with ultrasound is recommended. Skin thickening in the periareolar region of the right breast. Diagnostic ultrasound July 16, 2018: RIGHT Breast: Multiple axillary lymph nodes are seen. The largest measures 3.4 cm x 1.87 x 1.6 cm. There is a 1 cm x 1 cm x 0.7 cm hypoechoic solid nodule with irregular borders at the 9:00 position of the breast at 2 cm from nipple. At the 9:00 position of the breast at 8 cm from the nipple, there is also evidence of a 1.5 cm x 0.5 cm x 1.9 cm irregular nodule with posterior shadowing. A similar appearing nodule is also seen at the 8:00 position breast at 6 hours from the nipple. This measures 1.5 cm x 1.4 cm x 1.8 cm. A biopsy recommended. IMPRESSION: 3 suspicious nodules are seen in the right breast at the 9 and 8:00 positions of the breast as described. Biopsy suggested. Enlarged right axillary lymph nodes. ASSESSMENT CATEGORY: BIRADS Category 5: Highly Suggestive of Malignancy - Appropriate Action Should Be Taken. A letter regarding these results will be sent to the patient by the facility within 30 days. Ultrasound-guided biopsies July 21, 2018: A. Right breast, 8 o?clock, 6 cm from nipple, core biopsy: Invasive ductal carcinoma, nuclear grade 2 (1 cm in greatest length). B. Right axillary lymph node, biopsy: Metastatic carcinoma (0.9 cm in greatest length). RESULTS: ANTIBODY / CLONE RESULT Block A E-Cad (ECH-6) positive CK8 (00ampsH36) positive CK5-6 (D5 & 1684) negative Ki-67 (30-9) positive, high P53 (DO-7) positive, rare cells P40 (BC28) negative Calponin-1 (IX220G) negative MORPHOMETRIC ANALYSIS ER (clone 6F11) >95%, NH (clone 16/1E2) 0 Her-2Neu (clone CB11) 3+ Breasts MRI July 29, 2018: FINDINGS: RIGHT BREAST: The breast tissue is scattered fibroglandular densities with minimal background enhancement. In the lateral aspect of the right breast there is an extensive area of nodular non-mass enhancement extending from the upper outer quadrant to the lower outer quadrant of the breast. This area of involvement is approximately 5.3 cm x 2.5 cm x 4.2 cm. At the inferior aspect of this non-mass enhancement posteriorly there is an irregular enhancing mass measuring approximately 2.2 cm x 1.7 cm x 1.6 cm with a tissue clip marker within the central portion of this mass (axial series 06297 image 174 and sagittal series 8 image 18). There is an enhancing enlarged right axillary lymph node measuring 1.9 x 1.7 x 1.6 cm with a tissue clip marker within it. LEFT BREAST: The breast tissue is scattered fibroglandular densities with minimal background enhancement. There are small lymph nodes in the axilla with no pathologic appearance. There are no abnormal enhancing masses or areas of non-mass enhancement in the left breast. There is no abnormality in the visualized regions of the chest or liver. IMPRESSION: Large area of nodular non mass enhancement extending from the upper quadrant to the lower quadrant of the right breast compatible with multicentric involvement. Tissue clip markers in a right breast mass inferiorly and an enlarged lymph node in the right axilla. No abnormality noted in the left breast. CATEGORY: BIRADS Category 6: Known Biopsy-Proven Malignancy - Appropriate Action Should Be Taken. A letter regarding these results will be sent to the patient by the facility within [address] August 13, 2018: IMPRESSION: 1. ABNORMAL EXAMINATION INDICATIVE OF MALIGNANT-VIABLE NEOPLASM. 2. Increased glucose concentration defined in the right breast fulfills quantitative criteria for viable neoplasm. 3. Multifocal enhanced FDG distribution visualized in the right axilla and retroclavicular regions fulfills quantitative criteria for viable neoplasm. 4. The left and right lobe hepatic parenchymal hypermetabolic foci fulfill quantitative criteria for viable neoplasm. August 20, 2018 Left lobe of liver, CT-guided core biopsy: Unremarkable liver parenchymal tissue, negative for malignancy September 09, 2018 CT-guided liver core biopsy #2: Consistent with hemangioma. November 24, 2018 CT chest and abdomen: Abdomen impression: 1. Innumerable small metastatic hypodense mass lesions throughout the liver parenchyma. They have increased in number when compared to whole body PET/CT fusion scan of 08/13/2018. Follow-up whole body PET/CT fusion scan will help confirm. 2. Incidental benign hepatic hemangioma in the right hepatic lobe. Comparison with previous CT abdomen with contrast will help confirm. 3. Enhancing enlarged lymph nodes in the left retroperitoneum are suspicious for metastatic lymphadenopathy. They were not present previously. 4. No other suspicious metastatic disease in the abdomen. Chest impression: 1. Decreased size of enlarged lymph nodes in the right axilla and decreased size of 2 masses in the right breast. 2. Small lymph nodes in the left axilla are unchanged. 3. Multiple small liver metastatic mass lesions have increased in number. Follow-up whole body PET/CT fusion scan will help confirm. November?December 2018: Evaluation at [facility] for a clinical trial included MRI liver December 17, 2018 numerous lesions within the liver most of which represent hemangiomas, however small ring-enhancing lesions corresponding to thefoci of metabolic hyperactivity on PET consistent with metastases. CT-guided liver biopsy December 29, 2018 (#3) negative for malignancy. A second review of PET/CT, MRI images at [facility] [place] fever stable disease in the liver March 15, 2019 PET/CT: IMPRESSION: 1. NEGATIVE EXAMINATION. There is no definitive quantitative scintigraphic evidence of recurrent-metastatic/viable neoplasm. 2. There is interval metabolic resolution of all prior defined hypermetabolic foci as defined above. 3. Homogeneous increased radiopharmaceutical concentration noted in the visualized appendicular and axial skeletal structures is commensurate with the hematopoietic response to chemotherapeutic intervention. (Raven et al, Journal of Clinical Oncology 16:173, 1998). 4. Overall, compared to the prior FDG PET study dated 08/13/18, there is current absence of defined viable neoplastic disease with an interim quantitative complete metabolic response relating to all prior defined hypermetabolic abnormalities June 21, 2019 CT chest: IMPRESSION: No acute abnormality is seen. Interval decrease in size of the liver hypodense nodules. June 21, 2019 CT abdomen: IMPRESSION: Interval decrease in size and numbers of the multiple hypodense nodules in the liver. Stable appearance of the hypodense nodule in the inferior aspect of the right lobe of the liver with peripheral enhancement as well as a similar appearing nodule along the inferior aspect of the left lobe suggestive of hemangioma. September 14, 2019 PET/CT: IMPRESSION: 1. NEGATIVE EXAMINATION. There is no definitive quantitative scintigraphic evidence of recurrent-metastatic viable neoplasm. 2. Subtle increase glucose metabolism defined in the right breast does not fulfill quantitative criteria for neoplasia. 3. Overall, compared to the prior FDG PET study dated 03/15/19, the is current and apparent continued absence of defined viable neoplastic disease. December 03, [address]: IMPRESSION: Stable examination. December 03, [address]: IMPRESSION: Stable examination. February 29, 2020 PET/CT: IMPRESSION: 1. NEGATIVE EXAMINATION. There is no definitive quantitative scintigraphic evidence of recurrent-metastatic/viable neoplasm. 2. Increased fluorine labeled glucose uptake remaining apparent in the right breast-chest wall does not fulfill quantitative criteria for viable neoplasm. 3. Overall, compared to the prior FDG PET study report dated 09/14/2019, there is current and apparent continued absence of defined viable neoplastic disease. May 26, 2020 CT Chest AND Abd W/ Contrast IMPRESSION: Stable hypodense peripherally enhancing lesions in both lobes of the liver, likely hemangiomas no change since the previous study. No free intraperitoneal fluid, air, or suspicious adenopathy No CT evidence of an acute inflammatory process August 22, 2020 PET/CT: IMPRESSION: 1. NEGATIVE EXAMINATION. There is no definitive quantitative scintigraphic evidence of recurrent-metastatic/viable neoplasm. 2. Increased glucose concentration redefined in the right breast, chest wall does not fulfill quantitative criteria for viable neoplasm. 3. Overall, compared to the prior FDG PET study dated 02/29/2020, there is current and continued absence of defined viable neoplastic disease. November 13, 2020 CT chest and abdomen: IMPRESSION: Normal enhanced CT chest T abdomen examination. No CT evidence of metastatic disease. March 13, 2021 CT chest and abdomen: IMPRESSION: Normal enhanced CT chest T abdomen examination. No CT evidence of metastatic disease. June 13, 2021 CT chest and abdomen: IMPRESSION: Stable appearance of the irregular enhancing nodule in the lateral aspect of the right hepatic lobe superiorly. Stable cystic changes in the liver. September 12, 2021 CT chest and abdomen: IMPRESSION: Stable examination. December 20, 2021 chest abdomen and pelvis CT: IMPRESSION: Stable examination. March 14, 2022 CT chest and abdomen: IMPRESSION: Persistent peripherally enhancing lesion within the right lobe of the liver. Enhancement pattern more suggestive of hemangioma than metastasis. No change since the previous study? No acute pulmonary process, no suspicious noncalcified mass or nodule. No suspicious adenopathy? Stable left renal cyst, no specific follow-up needed. Diverticulosis? Degenerative bony changes June 27, 2022 CT chest and abdomen: IMPRESSION: No suspicious noncalcified mass or nodule in either lung field. No suspicious axillary, mediastinal, or perihilar adenopathy.? Stable peripherally enhancing lesion within the right lobe of the liver. Enhancement pattern is again more suggestive of hemangioma rather than a metastasis.? No new suspicious solid organ abnormality? No free intraperitoneal fluid, air, or suspicious adenopathy? Stable simple left renal cyst, no specific follow-up needed.? Stable left thyroid nodule? Degenerative bony changes October 08, 2022 CT chest and abdomen: IMPRESSION: Hypoattenuating hepatic lesions with peripheral enhancement, stable from only 9 months prior. Although these likely represent hepatic hemangiomas, recommend Recommend comparison with previous imaging to document long-term stability versus follow-up evaluation as neoplastic process is not excluded. Tiny pulmonary nodules along the right minor fissure, also stable from only 9 months prior. Right chest port catheter tip terminates deep within the right atrium. Hypoattenuating thyroid lesions, measuring up to 11 mm on the left. Recommend nonemergent follow-up thyroid ultrasound to better characterize as neoplastic process is not excluded. February 03, 2023 CT chest abdomen: IMPRESSION: Stable examination. May 29, 2023 CT chest and abdomen: IMPRESSION: Stable examination. October 02, [address]: IMPRESSION: Stable examination. February 09, [address]: IMPRESSION: 1. Normal CT chest with contrast. 2. 1.7 x 1.5 x 1.7 cm intensely peripherally enhancing hypodense lesion in the peripheral aspect of segment 8 of the liver parenchyma has decreased in size. This was previously 2.1 x 1.9 x 1.9 cm. 3. 1.2 cm low-attenuation lesion without contrast enhancement in segment 2 of the liver parenchyma remains stable and unchanged. It is too small to confirm cystic or solid but is likely cyst. 4. Very small nonenhancing low-attenuation lesion in segment 5 the liver parenchyma was not mentioned previously but it is barely visible at this time (series 3, image 34; series 604, image 43). This was more obvious on CT abdomen of 01/24/2023 measuring 7 mm. In my opinion, this is even smaller since it is barely visible in today''s exam. 5. Nonenhancing left renal cyst is unchanged. 6. No other additional findings or changes. June 08, 2024 CT chest and abdomen: IMPRESSION: 1. New tiny cluster of nodular opacities in the medial aspect of the right lung apex, favored to represent an infectious/inflammatory process. Appropriate follow-up based on oncologic protocol is recommended. 2. Nodular, pedunculated thickening at the gastric cardia measuring up to 3.1 cm. Endoscopic evaluation for possible neoplasm versus gastric fold is recommended. 3. Multiple stable appearing hepatic lesions, most likely representing hemangiomas. July 01, 2024 EGD: Impressions : - Normal esophagus. - Granular gastric mucosa. Biopsied. - Chronic duodenitis. Biopsied. MICROSCOPIC DIAGNOSIS A. Stomach, gastric cardia, biopsy: ? Oxyntocardiac type mucosa with moderate chronic active inflammation ? The Helicobacter pylori immunostain is POSITIVE B. Stomach, greater curvature, biopsy: ? Oxyntic mucosa with moderate chronic active inflammation ? The Helicobacter pylori immunostain is POSITIVE C. Stomach, gastric body, biopsy: ? Oxyntic mucosa with moderate chronic active inflammation ? The Helicobacter pylori immunostain is POSITIVE D. Small bowel, duodenum, biopsy: ? Small bowel mucosa with no pathologic change Treatment summary and response: Tamoxifen August 18, 2018-September 27, 2018 (awaiting definitive treatment during initial work-up and a personal vacation) Ovarian suppression with monthly Lupron combined with Arimidex September -October 2018 Taxotere +Herceptin+ pertuzumab September -February, , (total 6 cycles) achieved complete radiologic remission by PET. Arimidex plus Herceptin+ pertuzumab maintenance March 2019-June 2023: stabledisease. Arimidex plus Herceptin (holiday from pertuzumab) June 2023? Bone supportive treatment for postmenopausal and AI induced bone loss: Zometa September,-switching to Prolia May 2021 due to worsening bone density. [facility] Medical History (Updated 07/29/24 @ 10:[address] Andrés Corrales MD) Helicobacter pylori gastritis Leg cramps History of echocardiogram Cardiology follow-up encounter Encounter for monoclonal antibody treatment for malignancy Thyroid nodule Multinodular goiter Diverticular disease Non-ischemic cardiomyopathy Decreased cardiac ejection fraction Wears glasses Non-smoker Osteopenia Encounter for monitoring cardiotoxic drug therapy Rash Anemia Stage IV breast cancer in female Cancer of right female breast Liver metastases Encounter for education Regional lymph node metastasis present Abnormal mammogram Surgical History History of foot surgery S/P thyroid biopsy History of liver biopsy (2018) PORT PLACEMENT Hx of breast biopsy Family History Father Diabetes Heart disease CAD (coronary artery disease), Onset Age: 64 CABG Myocardial infarction First one in mid 30's Grandfather Heart disease paternal Grandmother Heart disease paternal Social History Smoking Status: Never smoker alcohol intake: current alcohol intake frequency: holidays/special occasions only substance use type: does not use caffeine: Yes what type of physical activity do you participate in: none frequency: does not exercise seatbelt use: always do you feel safe at home: Yes ROS Constitutional Constitutional: Reports systems reviewed and no addt'l complaints, except as documented; Denies fatigue, fever(s), night sweats or weight loss Eyes Eyes: Reports systems reviewed and no addt'l complaints, except as documented; Denies change in vision ENT HEENT: Reports systems reviewed and no addt'l complaints, except as documented; Denies headache(s) Cardiovascular Cardiovascular: Reports systems reviewed and no addt'l complaints, except as documented; Denies chest pain with activity or edema Respiratory/Chest Respiratory/Chest: Reports systems reviewed and no addt'l complaints, except as documented; Denies cough or dyspnea Gastrointestinal Gastrointestinal: Reports systems reviewed and no addt'l complaints, except as documented; Denies change in bowel habits, hematochezia or melena Genitourinary Genitourinary: Reports systems reviewed and no addt'l complaints, except as documented; Denies dysuria or hematuria Musculoskeletal Musculoskeletal: Reports systems reviewed and no addt'l complaints, except as documented; Denies back pain Integumentary Integumentary: Reports systems reviewed and no addt'l complaints, except as documented; Denies rash Neurologic Neurologic: Reports systems reviewed and no addt'l complaints, except as documented; Denies focal weakness or headache(s) Psychiatric Psychiatric: Reports systems reviewed and no addt'l complaints, except as documented Endocrine Endocrinology: Reports systems reviewed and no addt'l complaints, except as documented and flushing; Denies fatigue Hematologic/Lymphatic Hematologic/Lymphatic: Reports systems reviewed and no addt'l complaints, exceptas documented; Denies easy bleeding or easy bruising Allergic/Immunologic Allergic/Immunologic: Reports systems reviewed and no addt'l complaints, except as documented Intake Vital Signs 07/01/24 06:56 07/08/24 10:39 07/29/24 10:34 07/29/24 10:35 Height 5 ft 3 in 5 ft 3 in 5 ft 3 in 5 ft 3 in Weight: 68.266 kg BMI 26.6 BP 131/74 H Blood Pressure Location Lt brachial Position Sitting Respiration 16 Pulse 77 Pulse Source Monitor Temp 97.8 F Temperature Source Temporal Artery Pulse Oximetry (%) 96 Oxygen Delivery Method room air Intake Is patient in pain?: No Allergies No Known Allergies Allergy (Verified 07/29/24 10:35) Medications ?Medication ?Instructions ?Recorded ?Confirmed ?Type calcium 500 mg (as 1 ea PO DAILY 11/19/1807/29 History carbonate)-vitamin D3 15 mcg (600 unit) tablet glucosamine sulf dipotassium Cl 1 ea PO DAILY 06/07/19 07/29/24 History 500 mg-chondroitin sulf 400 mg tablet cetirizine 10 mg capsule (Zyrtec) 10 mg PO DAILY PRN A llergic 12/27/21 07/29/24 History Reaction lidocaine-prilocaine 2.5 %-2.5 % 1 applic topical MICHELLE Y PRN PRN 07/25/22 07/29/24 Rx topical cream port access 30 days #1 tube anastrozole 1 mg tablet See Rx Instructions .Route 0 05/03/24 07/29/24 Rx .COMPLEX #90 tabs pantoprazole 40 mg tablet,delayed 40 mg PO DAILY #90 t abs 06/25/24 07/29/24 Rx release Held on 07/05/24. Instructions: H.pylori treatment [id number] Have you fallen in the past year?: No Central Venous Access Central Venous Access: Yes Exam Physical Exam Narrative ECOG 0 Const alert, oriented x3 and no apparent distress General Appearance: cooperative, comfortable and well kempt HEENT normocephalic Head and Scalp: normal to inspection Mouth: oral and palatal mucosa normal Eyes General Eye: normal appearance of both eyes Conjunctiva: conjunctiva normal Sclera: sclera normal Neck no lymphadenopathy, supple and no JVD Lymph Lymphatic: no lymphadenopathy noted Chest Chest: symmetrical chest wall rise and vascular access Resp clear to auscultation bilaterally Cardio regular rate, regular rhythm and no murmurs Jugular Venous Distention: Negative for JVD GI soft to palpation, non-tender and non-distended; Negative for hepatosplenomegaly no CVA tenderness Back/Spine no thoracic nor lumbar tenderness Extremity no clubbing, cyanosis or edema Skin no rashes or lesions noted Neuro oriented x3, CN's II-XII intact bilaterally, moves all extremities and no focal motor deficits Coordination / Balance: [id number] test normal Speech: speech normal Gait (Neuro): normal gait Psych mental status grossly normal, thought process normal, cooperative and affect normal Coding Level of Care Code Off vis,est,level 4 Exam Problem Focused Diagnoses Malignant neoplasm of upper-outer quadrant of right breast in female, estrogen receptor positive C50.411; Z17.0 Breast location: upper outer quadrant of breast Estrogen receptor status: positive Liver metastases C78.7 Osteopenia of neck of left femur M85.852 Osteopenia location: femoral neck Laterality: left Helicobacter pylori gastritis K29.70; B96.81 Assessment and Plan Assessment and Plan (1) Cancer of right female breast: Status: Chronic Qualifiers: Breast location: upper outer quadrant of breast Estrogen receptor status: positive Qualified Code(s): C50.411 - Malignant neoplasm of upper-outerquadrant of right female breast; Z17.0 - Estrogen receptor positive status [ER+] (2) Liver metastases: Status: Chronic (3) Osteopenia: Status: Chronic Qualifiers: Osteopenia location: femoral neck Laterality: left Qualified Code(s): M85.852 - Other specified disorders of bone density and structure, left thigh (4) Helicobacter pylori gastritis: Status: Chronic Comment: Treated 2024 Plan 64-year-old female, perimenopausal at diagnosis (erratic, becoming less frequent, last menses were May 2018, has been experiencing some hot flashes) with clinical and radiologic stage IV (T3, N1, M1) invasive ductal carcinoma of the right breast ER positive(95%), NH negative, HER-2 overexpressed (FISH 3+). Liver biopsies were obtained twice in August 2018 to pathologically confirm stage IV but on both occasions nondiagnostic. Patient initially did not consent for a third biopsy and therefore based on clinical and radiologic findings was felt to have metastatic stage IV disease. Patient was seen at [facility] in consideration for a clinical trial, thirdliver biopsy was nondiagnostic although MRI December 2018 favored MX of hemangiomas and metastatic disease in the liver. Treatment Line #1- THP: Started systemic therapy with THP September 2018. Following [address] images suggested progression of disease in the liver. A second review of all images in December 2018 favored stable disease in the liver rather than progression. Decision was made jointly with [facility] colleague to resume THP and reassess disease after a total of 6 cycles. PET/CT imaging February 2019 showed complete radiologic remission of all measurable disease. Treatment Line #2 Arimidex + Herceptin-Perjeta March 2019-May 2023 then Perjeta was dropped to minimize cardiotoxicity as of June 2023. Her disease remains in a stable condition and treatment tolerated with no grade 3 or 4 toxicities. Cardiac: Cardiac echo July 2024 shows ejection fraction 53%. Plan: 1-Continue maintenance on combined immune (Herceptin ) + hormonal (Arimidex). In attempt to maintain cardiac function as long as possible for future use of immune anti-HER2 therapy elected to stop Perjeta and continue with Herceptin alone as of May 2023. 2-echo cardiography every 3 months. Continue to follow-up in cardio oncology clinic. . 3-tumor marker not elevated at diagnosis therefore will not be used to follow-up. 4- Bone density April 2019 showed osteopenia. Patient is already on vitamin D, calcium supplement and Zometa (insurance preferred drug) since October 14, 2019 after dental clearance. However bone density April 2021 showed increasing osteopenia and therefore switched to Prolia 60 mg / 6 months. 5-Elective imaging every 3-4 months unless otherwise indicated, next will be September 2024 with CAT scans. Impression and plan discussed with patient Andrés Corrales MD Dragger, [facility] Divisions of Medical Oncology & Hematology Department of Internal Medicine [facility] [place] [address] This note was generated using a voice recognition system software. Although itwas reviewed by the author prior to finalization, it may still contain incorrectwords, spelling, and punctuation that were not noted when reviewing prior to saving. If a clinically significant typo or inaccurately typed phrase is noted, please notify the author. Clinical Quality Measures Falls Risk Screening/Assistive Devices Have you fallen in the past year?: No 07/29/24 1059 <Electronically signed by Andrés coy MD> Date _ Andrés Corrales MD Cosigner Signature: Date (if applicable) CC: ~ [place] [employer] Work Phone: 1(534) 445-837504-17-2025 [facility]03-27-2025 Radiology Diagnostic study note [facility] Imaging Services [address] [place] [address] CT Chest AND Abd W/ Contrast MR#: [id number] Acct: [id number] Name: MARTIN ARROYO Rep #: [id number] : 1960 F 63 From: Debi Kowalski MD PCP: Care Physician,No Primary Status: REG CLI Study:CT Chest AND Abd W/ Contrast Date of Ex am: 06/08/24 Exam# [id number] Ordering Dr: Leisa Greer NP GINNING OPERATOR-C PROCEDURE: CT CHEST AND ABD W/ CONTRAST 06/08/2024 REASON FOR EXAM: IV ONLY; M BREAST CANCER ASSESS RESPONSE TO TX TECHNIQUE: Chest and abdomen CT with intravenous contrast. Coronal and Sagittal reconstruction series were provided. One or more dose reduction techniques were used (e.g., Automated exposure control, adjustment of the mA and/or kV according to patient size, use of iterative reconstruction technique. COMPARISON: 02/09/2024 FINDINGS: CHEST: Lungs/pleura: There is a new tiny cluster of nodular opacities in the medial aspect of the right upper lobe apex, which appearance favors an infectious/inflammatory etiology. No pleural effusion or pneumothorax. Cardiovascular: The heart is normal in size.No coronary artery calcifications are identified. Thereis a right chest port with the catheter tip in the cavoatrial junction.The aorta and pulmonary arteries areunremarkable. Pericardium: No effusion. Mediastinum: Unremarkable. Lymph nodes: No lymph node enlargement by CT size criteria. Bones: No acute osseous abnormality. Soft tissues: Unremarkable. ABDOMEN: Liver: An intensely peripherally enhancing lesion with central hypodensity is again noted at the hepatic dome which appears unchanged grossly measuring approximately 1.8 x 1.7 cm and previously measured 1.7 x 1.5 cm, likelya hemangioma.. A hypodense lesion with peripheral nodular enhancement in the left hepatic lobe measures 3.8x 2.8 cm, likely a hemangioma. A small nonenhancing lesion in hepatic segment 2 is unchanged measuring 1.2 cm. A tiny lesion in the anterior and inferior aspect of the right hepatic lobe measures 6 mm and is unchanged, also likely a small hemangioma. Biliary/gallbladder: Unremarkable. Pancreas: Unremarkable. Spleen: Unremarkable. Adrenal glands: Unremarkable. Kidneys: Stable cystic lesion in the lower pole of the left kidney measuring 2 cm. Gastrointestinal/Peritoneum: Area of nodular, pedunculated thickening at the gastric cardia measuring 3.1 x 2.9 x 3.1 cm.No free air or free fluid. Vascular: Unremarkable. Lymph nodes: No enlarged lymph nodes by CT size criteria. Bones: Mild degenerative disc and facet disease is present at L5-S1. Soft tissues: Unremarkable. CT/CT Chest AND Abd W/ Contrast IMPRESSION: 1. New tiny cluster of nodular opacities in the medial aspect of the right lung apex, favored to represent an infectious/inflammatory process. Appropriate follow-up based on oncologic protocol is recommended. 2. Nodular, pedunculated thickening at the gastric cardia measuring up to 3.1 cm. Endoscopic evaluation for possible neoplasm versus gastric fold is recommended. 3. Multiple stable appearing hepatic lesions, most likely representing hemangiomas. 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: Signed [facility]03-13-2025 Evaluation note* Diagnosis Onset Date Resolution Status Admit Date Encounter for monoclonal antibody treatment for malignancy acute May 27, 2024 9:44am Cancer of right female breast chroni c May 27, 2024 9:44am Liver metastases chronic May 272024 9:44am Osteopenia chronic May 27 9:44am Abnormal CT of the abdomen acute June 17, 2024 10:30am Encounter for monoclonal antibody treatment for malignancy acute June 17, 2024 10:30am Cancer of right female breast chroni c June 17, 2024 10:30am Liver metastases chronic June 10:30am Osteopenia chronic June 17 10:30am Adenocarcinoma, gastric cardia nonea ctive June 25, 2024 2:21pm Abnormal CT of the abdomen acute July 01, 2024 6:29am Encounter for monoclonal antibody treatment for malignancy acute July 08, 2024 9:46am Cancer of right female breast chroni c July 08, 2024 9:46am Liver metastases chronic July 082024 9:46am Osteopenia chronic July 08 9:46am Cancer of right female breast chroni c July 29, 2024 10:31am Helicobacter pylori gastritis chroni c July 29, 2024 10:31am Liver metastases chronic July 10:31am Osteopenia chronic July 29, 2024 10:31am Cancer of right female breast chroni c August 19, 2024 9:41am Liver metastases chronic August 9:41am Osteopenia chronic August 19, 2024 9:41am Cancer of right female breast chroni c September 09, 2024 9:00am Liver metastases chronic August 9:00am Osteopenia chronic September 09 9:00am Anemia acute September 09 9:00am Encounter for monitoring cardiotoxic drug therapy acute September 092024 9:00am Cancer of right female breast delete d September 09, 2024 9:00am Liver metastases chronic August 9:00am Osteopenia chronic September 09 9:00am Regional lymph node metastas is present chronic September 09, 2024 9:00am Stage IV breast cancer in female chronic September 09, 2024 9:00am Dog bite of finger resolved August 162024 9:00am Rash inactive September 09 9:00am [facility] Work Phone: 1(234) 576-858002-20-2025 Evaluation note* Diagnosis Onset Date Resolution Status Admit Date Encounter for monoclonal antibody treatment for malignancy acute May 06 10:22am Cancer of right female breast chronic May 06 10:22am Liver metastases chronic May 06, 2024 10:22am Osteopenia chronic May 06, 2024 10:22am Encounter for monoclonal antibody treatment for malignancy acute May 27, 2024 9:44am Cancer of right female breast chronic May 27, 2024 9:44am Liver metastases chronic May 272024 9:44am Osteopenia chronic May 27 9:44am [address] of the abdomen acute June 17, 2024 10:30am Encounter for monoclonal antibody treatment for malignancy acute June 17, 2024 10:30am Cancer of right female breast chronic June 17, 2024 10:30am Liver metastases chronic June 10:30am Osteopenia chronic June 17 10:30am Adenocarcinoma, gastric cardia noneactive June 25, 2024 2:21pm Abnormal CT of the abdomen acute July 01, 2024 6:29am Encounter for monoclonal antibody treatment for malignancy acute July 08, 2024 9:46am Cancer of right female breast chronic July 08, 2024 9:46am Liver metastases chronic July 082024 9:46am Osteopenia chronic July 08 9:46am Cancer of right female breast chronic July 29, 2024 1 0:31am Helicobacter pylori gastritis chronic July 29, 2024 1 0:31am Liver metastases chronic July 10:31am Osteopenia chronic July 29, 2024 10:31am Cancer of right female breast chronic August 19, 2024 9 :41am Liver metastases chronic August 9:41am Osteopenia chronic August 19, 2024 9:41am Anemia acute August 19, 2024 9:45am Encounter for monitoring cardiotoxic drug therapy acute August 9:45am Cancer of right female breast deleted August 19, 2024 9 :45am Liver metastases chronic August 9:45am Osteopenia chronic August 19, 2024 9:45am Regional lymph node metastasis present chronic August 19 9:45am Stage IV breast cancer in female chronic August 19, 2024 9 :45am Dog bite of finger resolved August 192024 9:45am Rash inactive August 19, 2024 9:45am [facility] Work Phone: 1(184) 730-433701-30-2025 Evaluation note* Diagnosis Onset Date Resolution Status Admit Date Cancer of right female breast chronic April 15 9:40am Liver metastases chronic April 15, 2024 9:40am Osteopenia chronic April 15, 2024 9:40am Encounter for monoclonal antibody treatment for malignancy acute May 06 10:22am Cancer of right female breast chronic May 06 10:22am Liver metastases chronic May 06, 2024 10:22am Osteopenia chronic May 06, 2024 10:22am Encounter for monoclonal antibody treatment for malignancy acute May 27, 2024 9:44am Cancer of right female breast chronic May 27, 2024 9:44am Liver metastases chronic May 272024 9:44am Osteopenia chronic May 27 9:44am [address] of the abdomen acute June 17, 2024 10:30am Encounter for monoclonal antibody treatment for malignancy acute June 17, 2024 10:30am Cancer of right female breast chronic June 17, 2024 10:30am Liver metastases chronic June 10:30am Osteopenia chronic June 17 10:30am Adenocarcinoma, gastric cardia noneactive June 25, 2024 2:21pm Abnormal CT of the abdomen acute July 01, 2024 6:29am Encounter for monoclonal antibody treatment for malignancy acute July 08, 2024 9:46am Cancer of right female breast chronic July 08, 2024 9:46am Liver metastases chronic July 082024 9:46am Osteopenia chronic July 08 9:46am Cancer of right female breast chronic July 29, 2024 1 0:31am Helicobacter pylori gastritis chronic July 29, 2024 1 0:31am Liver metastases chronic July 10:31am Osteopenia chronic July 29, 2024 10:31am Anemia acute July 29, 2024 11:00am Encounter for monitoring cardiotoxic drug therapy acute July 11:00am Cancer of right female breast deleted July 29, 2024 1 1:00am Liver metastases chronic July 11:00am Osteopenia chronic July 29, 2024 11:00am Regional lymph node metastasis present chronic July 29 11:00am Stage IV breast cancer in female chronic July 29, 2024 1 1:00am Dog bite of finger resolved July 292024 11:00am Rash inactive July 29, 2024 11:00am [facility] Work Phone: 1(992) 303-274112-19-2024 Evaluation note* Diagnosis Onset Date Resolution Status Admit Date Cancer of right female breast chroni c March 04, 2024 9:41am Liver metastases chronic March 04, 2024 9:41am Osteopenia chronic March 04, 2024 9:41am Cancer of right female breast chroni c March 25, 2024 10:31am Liver metastases chronic March 25, 2024 10:31am Osteopenia chronic March 25 10:31am Cancer of right female breast chroni c April 15, 2024 9:40am Liver metastases chronic April 15, 2024 9:40am Osteopenia chronic April 15, 2024 9:40am Encounter for monoclonal antibody treatment for malignancy acute May 06 10:22am Cancer of right female breast chroni c May 06, 2024 10:22am Liver metastases chronic May 06, 2024 10:22am Osteopenia chronic May 06, 2024 10:22am Encounter for monoclonal antibody treatment for malignancy acute May 27, 2024 9:44am Cancer of right female breast chroni c May 27, 2024 9:44am Liver metastases chronic May 272024 9:44am Osteopenia chronic May 27 9:44am Anemia acute May 27 9:45am Encounter for monitoring cardiotoxic drug therapy acute May 152024 9:45am Rash acute May 27 9:45am Cancer of right female breast delete d May 27, 2024 9:45am Liver metastases chronic May 272024 9:45am Osteopenia chronic May 27 9:45am Regional lymph node metastasis present chronic May 27 9:45am Stage IV breast cancer in female chronic May 27, 2024 9:45am Dog bite of finger resolved May 27, 2024 9:45am [facility] Work Phone: [phone]) 563-921608-06-2019 Hospital Discharge instructionsAmbulatory Orders* Durable Medical Equipment Time Frame: 10/20/18, Location: None Selected * ONC Referral: [facility] On[facility] Time Frame: 0 Days, Location: [facility] Work Phone: Evaluation note* Diagnosis Onset Date Resolution Status Non-ischemic cardiomyopathy acute Osteopenia acute Cancer of right female breast chronic Liver metastases chronic Osteopenia acute Cancer of right female breast chronic Liver metastases chronic Osteopenia acute Cancer of right female breast chronic Liver metastases chronic Osteopenia acute Cancer of right female breast chronic Liver metastases chronic Osteopenia acute Cancer of right female breast chronic Liver metastases chronic Anemia acute Encounter for monitoring cardiotoxic drug therapy acute Osteopenia acute Rash acute Cancer of right female breast chronic Liver metastases chronic Regional lymph node metastasis present chronic Stage IV breast cancer in female chronic Dog bite of finger resolved Osteopenia acute Cancer of right female breast chronic Liver metastases chronic [facility] Work Phone: Evaluation note* Diagnosis Onset Date Resolution Status Osteopenia acute Cancer of right female breast chronic Liver metastases chronic Osteopenia acute Cancer of right female breast chronic Liver metastases chronic Osteopenia acute Cancer of right female breast chronic Liver metastases chronic Osteopenia acute Cancer of right female breast chronic Liver metastases chronic Osteopenia acute Cancer of right female breast chronic Liver metastases chronic Anemia acute Encounter for monitoring cardiotoxic drug therapy acute Osteopenia acute Rash acute Cancer of right female breast chronic Liver metastases chronic Regional lymph node metastasis present chronic Stage IV breast cancer in female chronic Dog bite of finger resolved Osteopenia acute Cancer of right female breast chronic Liver metastases chronic [facility] Work Phone: Evaluation note* Diagnosis Onset Date Resolution Status Osteopenia acute Cancer of right female breast chronic Liver metastases chronic Osteopenia acute Cancer of right female breast chronic Liver metastases chronic Osteopenia acute Cancer of right female breast chronic Liver metastases chronic Encounter for monitoring cardiotoxic drug therapy acute Osteopenia acute Cancer of right female breast chronic Liver metastases chronic Osteopenia acute Cancer of right female breast chronic Liver metastases chronic Anemia acute Encounter for monitoring cardiotoxic drug therapy acute Osteopenia acute Rash acute Cancer of right female breast chronic Liver metastases chronic Regional lymph node metastasis present chronic Stage IV breast cancer in female chronic Dog bite of finger resolved [facility] Work Phone: Evaluation note* Diagnosis Onset Date Resolution Status Osteopenia acute Cancer of right female breast chronic Liver metastases chronic Osteopenia acute Cancer of right female breast chronic Liver metastases chronic Osteopenia acute Cancer of right female breast chronic Liver metastases chronic Non-ischemic cardiomyopathy acute Osteopenia acute Cancer of right female breast chronic Liver metastases chronic Osteopenia acute Cancer of right female breast chronic Liver metastases chronic Osteopenia acute Cancer of right female breast chronic Liver metastases chronic Anemia acute Encounter for monitoring cardiotoxic drug therapy acute Osteopenia acute Rash acute Cancer of right female breast chronic Liver metastases chronic Regional lymph node metastasis present chronic Stage IV breast cancer in female chronic Dog bite of finger resolved [facility] Work Phone: Evaluation note* Diagnosis Onset Date Resolution Status Cancer of right female breast chronic Liver metastases chronic Osteopenia chronic Cancer of right female breast chronic Liver metastases chronic Osteopenia chronic Cancer of right female breast chronic Liver metastases chronic Osteopenia chronic Cancer of right female breast chronic Liver metastases chronic Osteopenia chronic Non-ischemic cardiomyopathy acute Cancer of right female breast chronic Liver metastases chronic Osteopenia chronic Cancer of right female breast chronic Liver metastases chronic Osteopenia chronic Anemia acute Encounter for monitoring cardiotoxic drug therapy acute Rash acute Cancer of right female breast chronic Liver metastases chronic Osteopenia chronic Regional lymph node metastasis present chronic Stage IV breast cancer in female chronic Dog bite of finger resolved [facility] Work Phone: Evaluation note* Diagnosis Onset Date Resolution Status Cancer of right female breast chronic Liver metastases chronic Osteopenia chronic Cancer of right female breast chronic Liver metastases chronic Osteopenia chronic Non-ischemic cardiomyopathy acute Cancer of right female breast chronic Liver metastases chronic Osteopenia chronic Cancer of right female breast chronic Liver metastases chronic Osteopenia chronic Cancer of right female breast chronic Liver metastases chronic Osteopenia chronic Cancer of right female breast chronic Liver metastases chronic Osteopenia chronic Anemia acute Encounter for monitoring cardiotoxic drug therapy acute Rash acute Cancer of right female breast chronic Liver metastases chronic Osteopenia chronic Regional lymph node metastasis present chronic Stage IV breast cancer in female chronic Dog bite of finger resolved Multiple thyroid nodules acu te [facility] Work Phone: Evaluation note* Diagnosis Onset Date Resolution Status Cancer of right female breast chronic Liver metastases chronic Osteopenia chronic Cancer of right female breast chronic Liver metastases chronic Osteopenia chronic Multiple thyroid nodules acu te Cancer of right female breast chronic Liver metastases chronic Osteopenia chronic Cancer of right female breast chronic Liver metastases chronic Osteopenia chronic Cancer of right female breast chronic Liver metastases chronic Osteopenia chronic Anemia acute Encounter for monitoring cardiotoxic drug therapy acute Rash acute Cancer of right female breast chronic Liver metastases chronic Osteopenia chronic Regional lymph node metastasis present chronic Stage IV breast cancer in female chronic Dog bite of finger resolved Multinodular goiter chronic [facility] Work Phone: Evaluation note* Diagnosis Onset Date Resolution Status Cancer of right female breast chronic Liver metastases chronic Osteopenia chronic Encounter for monitoring cardiotoxic drug therapy acute Cancer of right female breast chronic Liver metastases chronic Osteopenia chronic Encounter for monitoring cardiotoxic drug therapy acute Cancer of right female breast chronic Liver metastases chronic Osteopenia chronic Cancer of right female breast chronic Liver metastases chronic Osteopenia chronic Cancer of right female breast chronic Liver metastases chronic Osteopenia chronic Anemia acute Encounter for monitoring cardiotoxic drug therapy acute Rash acute Cancer of right female breast chronic Liver metastases chronic Osteopenia chronic Regional lymph node metastasis present chronic Stage IV breast cancer in female chronic Dog bite of finger resolved [facility] Work Phone: Evaluation note* Diagnosis Onset Date Resolution Status Encounter for monitoring cardiotoxic drug therapy acute Cancer of right female breast chronic Liver metastases chronic Osteopenia chronic Encounter for monitoring cardiotoxic drug therapy acute Cancer of right female breast chronic Liver metastases chronic Osteopenia chronic Cancer of right female breast chronic Liver metastases chronic Osteopenia chronic Cancer of right female breast chronic Liver metastases chronic Osteopenia chronic Cancer of right female breast chronic Liver metastases chronic Osteopenia chronic Anemia acute Encounter for monitoring cardiotoxic drug therapy acute Rash acute Cancer of right female breast chronic Liver metastases chronic Osteopenia chronic Regional lymph node metastasis present chronic Stage IV breast cancer in female chronic Dog bite of finger resolved [facility] Work Phone: Progress note Author Andrés Corrales [facility] Note Date/Time August 19, 2024 11:11 am [facility] [address] [place] [id number] OFFICE VISIT Date of Service: 08/19/24 1045 MR#: [id number] Acct: [id number] Name: MARTIN ARROYO Rep #: [id number] : 1960 From: Andrés billings MD Age/Sex: 64/F Location: [facility] Status: Signed HPI Subjective Date of Service 08/19/24 Chief Complaint Breast cancer on treatment History of Present Illness 63-year-old female, perimenopausal (menses are becoming erratic and experiencinghot flashes, last menstrual periods where August 2017 then May 2018) who had negative mammograms in 2017 & 2017 but in May 2017 experienced some itchiness in the right breast, then a sensation of fullness in the breast. Diagnostic mammogram July 16, 2018: FINDINGS: Breast Composition: The breasts are heterogeneously dense, which may obscure small masses. Enlarged right axillary lymph nodes as compared to prior study. There is evidence of a 1.6 cm x 1.8 cm irregular nodular density in the deep mid lateral portion of the right breast. There is also evidence of a 0.8 cm x 1 cm nodule in the mid lateral aspect of the right breast as well. Correlation with ultrasound is recommended. Skin thickening in the periareolar region of the right breast. Diagnostic ultrasound July 16, 2018: RIGHT Breast: Multiple axillary lymph nodes are seen. The largest measures 3.4 cm x 1.87 x 1.6 cm. There is a 1 cm x 1 cm x 0.7 cm hypoechoic solid nodule with irregular borders at the 9:00 position of the breast at 2 cm from nipple. At the 9:00 position of the breast at 8 cm from the nipple, there is also evidence of a 1.5 cm x 0.5 cm x 1.9 cm irregular nodule with posterior shadowing. A similar appearing nodule is also seen at the 8:00 position breast at 6 hours from the nipple. This measures 1.5 cm x 1.4 cm x 1.8 cm. A biopsy recommended. IMPRESSION: 3 suspicious nodules are seen in the right breast at the 9 and 8:00 positions of the breast as described. Biopsy suggested. Enlarged right axillary lymph nodes. ASSESSMENT CATEGORY: BIRADS Category 5: Highly Suggestive of Malignancy - Appropriate Action Should Be Taken. A letter regarding these results will be sent to the patient by the facility within 30 days. Ultrasound-guided biopsies July 21, 2018: A. Right breast, 8 o?clock, 6 cm from nipple, core biopsy: Invasive ductal carcinoma, nuclear grade 2 (1 cm in greatest length). B. Right axillary lymph node, biopsy: Metastatic carcinoma (0.9 cm in greatest length). RESULTS: ANTIBODY / CLONE RESULT Block A E-Cad (ECH-6) positive CK8 (02pcejA10) positive CK5-6 (D5 & 1684) negative Ki-67 (30-9) positive, high P53 (DO-7) positive, rare cells P40 (BC28) negative Calponin-1 (HY112L) negative MORPHOMETRIC ANALYSIS ER (clone 6F11) >95%, NH (clone 16/1E2) 0 Her-2Neu (clone CB11) 3+ Breasts MRI July 29, 2018: FINDINGS: RIGHT BREAST: The breast tissue is scattered fibroglandular densities with minimal background enhancement. In the lateral aspect of the right breast there is an extensive area of nodular non-mass enhancement extending from the upper outer quadrant to the lower outer quadrant of the breast. This area of involvement is approximately 5.3 cm x 2.5 cm x 4.2 cm. At the inferior aspect of this non-mass enhancement posteriorly there is an irregular enhancing mass measuring approximately 2.2 cm x 1.7 cm x 1.6 cm with a tissue clip marker within the central portion of this mass (axial series 55932 image 174 and sagittal series 8 image 18). There is an enhancing enlarged right axillary lymph node measuring 1.9 x 1.7 x 1.6 cm with a tissue clip marker within it. LEFT BREAST: The breast tissue is scattered fibroglandular densities with minimal background enhancement. There are small lymph nodes in the axilla with no pathologic appearance. There are no abnormal enhancing masses or areas of non-mass enhancement in the left breast. There is no abnormality in the visualized regions of the chest or liver. IMPRESSION: Large area of nodular non mass enhancement extending from the upper quadrant to the lower quadrant of the right breast compatible with multicentric involvement. Tissue clip markers in a right breast mass inferiorly and an enlarged lymph node in the right axilla. No abnormality noted in the left breast. CATEGORY: BIRADS Category 6: Known Biopsy-Proven Malignancy - Appropriate Action Should Be Taken. A letter regarding these results will be sent to the patient by the facility within [address] August 13, 2018: IMPRESSION: 1. ABNORMAL EXAMINATION INDICATIVE OF MALIGNANT-VIABLE NEOPLASM. 2. Increased glucose concentration defined in the right breast fulfills quantitative criteria for viable neoplasm. 3. Multifocal enhanced FDG distribution visualized in the right axilla and retroclavicular regions fulfills quantitative criteria for viable neoplasm. 4. The left and right lobe hepatic parenchymal hypermetabolic foci fulfill quantitative criteria for viable neoplasm. August 20, 2018 Left lobe of liver, CT-guided core biopsy: Unremarkable liver parenchymal tissue, negative for malignancy September 09, 2018 CT-guided liver core biopsy #2: Consistent with hemangioma. November 24, 2018 CT chest and abdomen: Abdomen impression: 1. Innumerable small metastatic hypodense mass lesions throughout the liver parenchyma. They have increased in number when compared to whole body PET/CT fusion scan of 08/13/2018. Follow-up whole body PET/CT fusion scan will help confirm. 2. Incidental benign hepatic hemangioma in the right hepatic lobe. Comparison with previous CT abdomen with contrast will help confirm. 3. Enhancing enlarged lymph nodes in the left retroperitoneum are suspicious for metastatic lymphadenopathy. They were not present previously. 4. No other suspicious metastatic disease in the abdomen. Chest impression: 1. Decreased size of enlarged lymph nodes in the right axilla and decreased size of 2 masses in the right breast. 2. Small lymph nodes in the left axilla are unchanged. 3. Multiple small liver metastatic mass lesions have increased in number. Follow-up whole body PET/CT fusion scan will help confirm. November?December 2018: Evaluation at [facility] for a clinical trial included MRI liver December 17, 2018 numerous lesions within the liver most of which represent hemangiomas, however small ring-enhancing lesions corresponding to thefoci of metabolic hyperactivity on PET consistent with metastases. CT-guided liver biopsy December 29, 2018 (#3) negative for malignancy. A second review of PET/CT, MRI images at [facility], [place] fever stable disease in the liver March 15, 2019 PET/CT: IMPRESSION: 1. NEGATIVE EXAMINATION. There is no definitive quantitative scintigraphic evidence of recurrent-metastatic/viable neoplasm. 2. There is interval metabolic resolution of all prior defined hypermetabolic foci as defined above. 3. Homogeneous increased radiopharmaceutical concentration noted in the visualized appendicular and axial skeletal structures is commensurate with the hematopoietic response to chemotherapeutic intervention. (Sugawa et al, Journal of Clinical Oncology 16:173, 1998). 4. Overall, compared to the prior FDG PET study dated 08/13/18, there is current absence of defined viable neoplastic disease with an interim quantitative complete metabolic response relating to all prior defined hypermetabolic abnormalities June 21, 2019 CT chest: IMPRESSION: No acute abnormality is seen. Interval decrease in size of the liver hypodense nodules. June 21, 2019 CT abdomen: IMPRESSION: Interval decrease in size and numbers of the multiple hypodense nodules in the liver. Stable appearance of the hypodense nodule in the inferior aspect of the right lobe of the liver with peripheral enhancement as well as a similar appearing nodule along the inferior aspect of the left lobe suggestive of hemangioma. September 14, 2019 PET/CT: IMPRESSION: 1. NEGATIVE EXAMINATION. There is no definitive quantitative scintigraphic evidence of recurrent-metastatic viable neoplasm. 2. Subtle increase glucose metabolism defined in the right breast does not fulfill quantitative criteria for neoplasia. 3. Overall, compared to the prior FDG PET study dated 03/15/19, the is current and apparent continued absence of defined viable neoplastic disease. December 03, [address]: IMPRESSION: Stable examination. December 03, [address]: IMPRESSION: Stable examination. February 29, 2020 PET/CT: IMPRESSION: 1. NEGATIVE EXAMINATION. There is no definitive quantitative scintigraphic evidence of recurrent-metastatic/viable neoplasm. 2. Increased fluorine labeled glucose uptake remaining apparent in the right breast-chest wall does not fulfill quantitative criteria for viable neoplasm. 3. Overall, compared to the prior FDG PET study report dated 09/14/2019, there is current and apparent continued absence of defined viable neoplastic disease. May 26, 2020 CT Chest AND Abd W/ Contrast IMPRESSION: Stable hypodense peripherally enhancing lesions in both lobes of the liver, likely hemangiomas no change since the previous study. No free intraperitoneal fluid, air, or suspicious adenopathy No CT evidence of an acute inflammatory process August 22, 2020 PET/CT: IMPRESSION: 1. NEGATIVE EXAMINATION. There is no definitive quantitative scintigraphic evidence of recurrent-metastatic/viable neoplasm. 2. Increased glucose concentration redefined in the right breast, chest wall does not fulfill quantitative criteria for viable neoplasm. 3. Overall, compared to the prior FDG PET study dated 02/29/2020, there is current and continued absence of defined viable neoplastic disease. November 13, 2020 CT chest and abdomen: IMPRESSION: Normal enhanced CT chest T abdomen examination. No CT evidence of metastatic disease. March 13, 2021 CT chest and abdomen: IMPRESSION: Normal enhanced CT chest T abdomen examination. No CT evidence of metastatic disease. June 13, 2021 CT chest and abdomen: IMPRESSION: Stable appearance of the irregular enhancing nodule in the lateral aspect of the right hepatic lobe superiorly. Stable cystic changes in the liver. September 12, 2021 CT chest and abdomen: IMPRESSION: Stable examination. December 20, 2021 chest abdomen and pelvis CT: IMPRESSION: Stable examination. March 14, 2022 CT chest and abdomen: IMPRESSION: Persistent peripherally enhancing lesion within the right lobe of the liver. Enhancement pattern more suggestive of hemangioma than metastasis. No change since the previous study? No acute pulmonary process, no suspicious noncalcified mass or nodule. No suspicious adenopathy? Stable left renal cyst, no specific follow-up needed. Diverticulosis? Degenerative bony changes June 27, 2022 CT chest and abdomen: IMPRESSION: No suspicious noncalcified mass or nodule in either lung field. No suspicious axillary, mediastinal, or perihilar adenopathy.? Stable peripherally enhancing lesion within the right lobe of the liver. Enhancement pattern is again more suggestive of hemangioma rather than a metastasis.? No new suspicious solid organ abnormality? No free intraperitoneal fluid, air, or suspicious adenopathy? Stable simple left renal cyst, no specific follow-up needed.? Stable left thyroid nodule? Degenerative bony changes October 08, 2022 CT chest and abdomen: IMPRESSION: Hypoattenuating hepatic lesions with peripheral enhancement, stable from only 9 months prior. Although these likely represent hepatic hemangiomas, recommend Recommend comparison with previous imaging to document long-term stability versus follow-up evaluation as neoplastic process is not excluded. Tiny pulmonary nodules along the right minor fissure, also stable from only 9 months prior. Right chest port catheter tip terminates deep within the right atrium. Hypoattenuating thyroid lesions, measuring up to 11 mm on the left. Recommend nonemergent follow-up thyroid ultrasound to better characterize as neoplastic process is not excluded. February 03, 2023 CT chest abdomen: IMPRESSION: Stable examination. May 29, 2023 CT chest and abdomen: IMPRESSION: Stable examination. October 02, [address]: IMPRESSION: Stable examination. February 09, [address]: IMPRESSION: 1. Normal CT chest with contrast. 2. 1.7 x 1.5 x 1.7 cm intensely peripherally enhancing hypodense lesion in the peripheral aspect of segment 8 of the liver parenchyma has decreased in size. This was previously 2.1 x 1.9 x 1.9 cm. 3. 1.2 cm low-attenuation lesion without contrast enhancement in segment 2 of the liver parenchyma remains stable and unchanged. It is too small to confirm cystic or solid but is likely cyst. 4. Very small nonenhancing low-attenuation lesion in segment 5 the liver parenchyma was not mentioned previously but it is barely visible at this time (series 3, image 34; series 604, image 43). This was more obvious on CT abdomen of 01/24/2023 measuring 7 mm. In my opinion, this is even smaller since it is barely visible in today''s exam. 5. Nonenhancing left renal cyst is unchanged. 6. No other additional findings or changes. June 08, 2024 CT chest and abdomen: IMPRESSION: 1. New tiny cluster of nodular opacities in the medial aspect of the right lung apex, favored to represent an infectious/inflammatory process. Appropriate follow-up based on oncologic protocol is recommended. 2. Nodular, pedunculated thickening at the gastric cardia measuring up to 3.1 cm. Endoscopic evaluation for possible neoplasm versus gastric fold is recommended. 3. Multiple stable appearing hepatic lesions, most likely representing hemangiomas. July 01, 2024 EGD: Impressions : - Normal esophagus. - Granular gastric mucosa. Biopsied. - Chronic duodenitis. Biopsied. MICROSCOPIC DIAGNOSIS A. Stomach, gastric cardia, biopsy: ? Oxyntocardiac type mucosa with moderate chronic active inflammation ? The Helicobacter pylori immunostain is POSITIVE B. Stomach, greater curvature, biopsy: ? Oxyntic mucosa with moderate chronic active inflammation ? The Helicobacter pylori immunostain is POSITIVE C. Stomach, gastric body, biopsy: ? Oxyntic mucosa with moderate chronic active inflammation ? The Helicobacter pylori immunostain is POSITIVE D. Small bowel, duodenum, biopsy: ? Small bowel mucosa with no pathologic change Treatment summary and response: Tamoxifen August 18, 2018-September 27, 2018 (awaiting definitive treatment during initial work-up and a personal vacation) Ovarian suppression with monthly Lupron combined with Arimidex September -October 2018 Taxotere +Herceptin+ pertuzumab September -February, , (total 6 cycles) achieved complete radiologic remission by PET. Arimidex plus Herceptin+ pertuzumab maintenance March 2019-June 2023: stabledisease. Arimidex plus Herceptin (holiday from pertuzumab) June 2023? Bone supportive treatment for postmenopausal and AI induced bone loss: Zometa September,-switching to Prolia May 2021 due to worsening bone density. [facility] Medical History Helicobacter pylori gastritis Leg cramps History of echocardiogram Cardiology follow-up encounter Encounter for monoclonal antibody treatment for malignancy Thyroid nodule Multinodular goiter Diverticular disease Non-ischemic cardiomyopathy Decreased cardiac ejection fraction Wears glasses Non-smoker Osteopenia Encounter for monitoring cardiotoxic drug therapy Rash Anemia Stage IV breast cancer in female Cancer of right female breast Liver metastases Encounter for education Regional lymph node metastasis present Abnormal mammogram Surgical History History of foot surgery S/P thyroid biopsy History of liver biopsy (2019) PORT PLACEMENT Hx of breast biopsy Family History Father Diabetes Heart disease CAD (coronary artery disease), Onset Age: 64 CABG Myocardial infarction First one in mid 30's Grandfather Heart disease paternal Grandmother Heart disease paternal Social History Smoking Status: Never smoker alcohol intake: current alcohol intake frequency: holidays/special occasions only substance use type: does not use caffeine: Yes what type of physical activity do you participate in: none frequency: does not exercise seatbelt use: always do you feel safe at home: Yes ROS Constitutional Constitutional: Reports systems reviewed and no addt'l complaints, except as documented; Denies fatigue, fever(s), night sweats or weight loss Eyes Eyes: Reports systems reviewed and no addt'l complaints, except as documented; Denies change in vision ENT HEENT: Reports systems reviewed and no addt'l complaints, except as documented; Denies headache(s) Cardiovascular Cardiovascular: Reports systems reviewed and no addt'l complaints, except as documented; Denies chest pain with activity or edema Respiratory/Chest Respiratory/Chest: Reports systems reviewed and no addt'l complaints, except as documented; Denies cough or dyspnea Gastrointestinal Gastrointestinal: Reports systems reviewed and no addt'l complaints, except as documented; Denies change in bowel habits, hematochezia or melena Genitourinary Genitourinary: Reports systems reviewed and no addt'l complaints, except as documented; Denies dysuria or hematuria Musculoskeletal Musculoskeletal: Reports systems reviewed and no addt'l complaints, except as documented; Denies back pain Integumentary Integumentary: Reports systems reviewed and no addt'l complaints, except as documented; Denies rash Neurologic Neurologic: Reports systems reviewed and no addt'l complaints, except as documented; Denies focal weakness or headache(s) Psychiatric Psychiatric: Reports systems reviewed and no addt'l complaints, except as documented Endocrine Endocrinology: Reports systems reviewed and no addt'l complaints, except as documented and flushing; Denies fatigue Hematologic/Lymphatic Hematologic/Lymphatic: Reports systems reviewed and no addt'l complaints, exceptas documented; Denies easy bleeding or easy bruising Allergic/Immunologic Allergic/Immunologic: Reports systems reviewed and no addt'l complaints, except as documented Intake Vital Signs 07/29/24 10:35 08/19/24 10:46 Height 5 ft 3 in 5 ft 3 in Weight: 66.905 kg BMI 26.1 BP 116/69 Blood Pressure Location Lt brachial Position Sitting Respiration 18 Pulse 70 Pulse Source Monitor Temp 98.0 F Temperature Source Temporal Artery Pulse Oximetry (%) 99 Oxygen Delivery Method room air Intake Is patient in pain?: No Allergies No Known Allergies Allergy (Verified 08/19/24 10:47) Medications ?Medication ?Instructions ?Recorded ?Confirmed ?Type calcium 500 mg (as 1 ea PO DAILY 11/19/1808/19 History carbonate)-vitamin D3 15 mcg (600 unit) tablet glucosamine sulf dipotassium Cl 1 ea PO DAILY 06/07/19 08/19/24 History 500 mg-chondroitin sulf 400 mg tablet cetirizine 10 mg capsule (Zyrtec) 10 mg PO DAILY PRN A llergic 12/27/21 08/19/24 History Reaction lidocaine-prilocaine 2.5 %-2.5 % 1 applic topical MICHELLE Y PRN PRN 07/25/22 08/19/24 Rx topical cream port access 30 days #1 tube anastrozole 1 mg tablet See Rx Instructions .Route 0 05/03/24 08/19/24 Rx .COMPLEX #90 tabs pantoprazole 40 mg tablet,delayed 40 mg PO DAILY #90 t abs 06/25/24 08/19/24 Rx release Held on 07/05/24. Instructions: H.pylori treatment [id number] Central Venous Access Central Venous Access: Yes Port/PICC: Port CBC due August 19, 2024 reviewed in EMR, CMP pending Exam Physical Exam Narrative ECOG 0 Const alert, oriented x3 and no apparent distress General Appearance: cooperative, comfortable and well kempt HEENT normocephalic Head and Scalp: normal to inspection Mouth: oral and palatal mucosa normal Eyes General Eye: normal appearance of both eyes Conjunctiva: conjunctiva normal Sclera: sclera normal Neck no lymphadenopathy, supple and no JVD Lymph Lymphatic: no lymphadenopathy noted Chest Chest: symmetrical chest wall rise and vascular access Resp clear to auscultation bilaterally Cardio regular rate, regular rhythm and no murmurs Jugular Venous Distention: Negative for JVD GI soft to palpation, non-tender and non-distended; Negative for hepatosplenomegaly no CVA tenderness Back/Spine no thoracic nor lumbar tenderness Extremity no clubbing, cyanosis or edema Skin no rashes or lesions noted Neuro oriented x3, CN's II-XII intact bilaterally, moves all extremities and no focal motor deficits Coordination / Balance: [id number] test normal Speech: speech normal Gait (Neuro): normal gait Psych mental status grossly normal, thought process normal, cooperative and affect normal Coding Level of Care Code Off vis,est,level 4 Exam Problem Focused Diagnoses Malignant neoplasm of upper-outer quadrant of right breast in female, estrogen receptor positive C50.411; Z17.0 Breast location: upper outer quadrant of breast Estrogen receptor status: positive Liver metastases C78.7 Osteopenia of neck of left femur M85.852 Osteopenia location: femoral neck Laterality: left Assessment and Plan Assessment and Plan (1) Cancer of right female breast: Status: Chronic Qualifiers: Breast location: upper outer quadrant of breast Estrogen receptor status: positive Qualified Code(s): C50.411 - Malignant neoplasm of upper-outerquadrant of right female breast; Z17.0 - Estrogen receptor positive status [ER+] (2) Liver metastases: Status: Chronic (3) Osteopenia: Status: Chronic Qualifiers: Osteopenia location: femoral neck Laterality: left Qualified Code(s): M85.852 - Other specified disorders of bone density and structure, left thigh Plan 64-year-old female, perimenopausal at diagnosis (erratic, becoming less frequent, last menses were May 2018, has been experiencing some hot flashes) with clinical and radiologic stage IV (T3, N1, M1) invasive ductal carcinoma of the right breast ER positive(95%), NH negative, HER-2 overexpressed (FISH 3+). Liver biopsies were obtained twice in August 2018 to pathologically confirm stage IV but on both occasions nondiagnostic. Patient initially did not consent for a third biopsy and therefore based on clinical and radiologic findings was felt to have metastatic stage IV disease. Patient was seen at [facility] in consideration for a clinical trial, third liver biopsy was nondiagnostic although MRI December 2018 favored MX of hemangiomas and metastatic disease in the liver. Treatment Line #1- THP: Started systemic therapy with THP September 2018. Following [address] images suggested progression of disease in the liver. A second review of all images in December 2018 favored stable disease in the liver rather than progression. Decision was made jointly with [facility] colleague to resume THP and reassess disease after a total of 6 cycles. PET/CT imaging February 2019 showed complete radiologic remission of all measurable disease. Treatment Line #2 Arimidex + Herceptin-Perjeta March 2019-May 2023 then Perjeta was dropped to minimize cardiotoxicity as of June 2023. Her disease remains in a stable condition and treatment tolerated with no grade 3 or 4 toxicities. Cardiac: Cardiac echo July 2024 shows ejection fraction 53%. Plan: 1-Continue maintenance on combined immune (Herceptin ) + hormonal (Arimidex). In attempt to maintain cardiac function as long as possible for future use of immune anti-HER2 therapy elected to stop Perjeta and continue with Herceptin alone as of May 2023. 2-echo cardiography every 3 months. Continue to follow-up in cardio oncology clinic. . 3-tumor marker not elevated at diagnosis therefore will not be used to follow- up. 4- Bone density April 2019 showed osteopenia. Patient is already on vitamin D, calcium supplement and Zometa (insurance preferred drug) since October 14, 2019 after dental clearance. However bone density April 2021 showed increasing osteopenia and therefore switched to Prolia 60 mg / 6 months. 5-Elective imaging every 3-4 months unless otherwise indicated, next will be September 2024 with CAT scans. Impression and plan discussed with patient Andrés Corrales MD [facility], [facility] Divisions of Medical Oncology & Hematology Department of Internal Medicine [facility] [place] [id number] This note was generated using a voice recognition system software. Although it was reviewed by the author prior to finalization, it may still contain incorrect words, spelling, and punctuation that were not noted when reviewing prior to saving. If a clinically significant typo or inaccurately typed phrase is noted, please notify the author. 08/19/24 1111 <Electronically signed by Andrés coy MD> Date _ Andrés Martins Signature: Date (if applicable) CC: ~ [facility] Work Phone: Reason for referral (narrative)No reason for referral information availableWCincinnati Children's [facility] Work Phone: Chief Complaint and Reason for Visit Chief Complaint 6 mo f/u 3WKS LABS TREATMENT BREAST CA BREAST CA 3 WKS - LABS - REVIEW CT/ECHO 3WKS NO LABS PERJETA/KANJINTI 3WKS LABS TREATMENT 3 WKS - LABS - HERCEPTIN/PERJETA [facility] *[facility]* RESTAGING BREAST CA 3 WKS - LABS - HERCEPTIN/PERJETA Reason for Visit Non-ischemic cardiom yopathy Osteopenia Cancer of right female breast Liver metastases Osteopenia Cancer of right female breast Liver metastases Osteopenia Cancer of right female breast Liver metastases Osteopenia Cancer of right female breast Liver metastases Osteopenia Cancer of right female breast Liver metastases Anemia Encounter for monitoring cardiotoxic drug therapy Osteopenia Rash Cancer of right female breast Liver metastases Regional lymph node metastasis present Stage IV breast cancer in female Dog bite of finger Osteopenia Cancer of right female breast Liver metastases Chief Complaint 3WKS LABS TREATMENT BREAST CA BREAST CA 3 WKS - LABS - REVIEW CT/ECHO 3WKS NO LABS PERJETA/KANJINTI 3WKS LABS TREATMENT 3 WKS - LABS - HERCEPTIN/PERJETA [facility] *[facility]* RESTAGING BREAST CA 3 WKS - LABS - HERCEPTIN/PERJETA Reason for Visit Osteopenia Cancer of right female breast Liver metastases Osteopenia Cancer of right female breast Liver metastases Osteopenia Cancer of right female breast Liver metastases Osteopenia Cancer of right female breast Liver metastases Osteopenia Cancer of right female breast Liver metastases Anemia Encounter for monitoring cardiotoxic drug therapy Osteopenia Rash Cancer of right female breast Liver metastases Regional lymph node metastasis present Stage IV breast cancer in female Dog bite of finger Osteopenia Cancer of right female breast Liver metastases Chief Complaint [facility] DRUG THERA PY *BROOK* 3 WKS - LABS - HERCEPTIN/PERJETA 3 WKS - LABS - HERCEPTIN/PERJETA 3 WKS - NO LABS - HERCEPTIN/PERJETA 3 WKS - LABS - HERCEPTIN/PERJETA 3 WKS - NO LABS - HERCEPTIN/PERJETA RESTAGING BREAST CA BREAST CANCER Reason for Visit Osteopenia Cancer of right female breast Liver metastases Osteopenia Cancer of right female breast Liver metastases Osteopenia Cancer of right female breast Liver metastases Encounter for monitoring cardiotoxic drug therapy Osteopenia Cancer of right female breast Liver metastases Osteopenia Cancer of right female breast Liver metastases Anemia Encounter for monitoring cardiotoxic drug therapy Osteopenia Rash Cancer of right female breast Liver metastases Regional lymph node metastasis present Stage IV breast cancer in female Dog bite of finger Chief Complaint 3 WKS - NO LABS - HE RCEPTIN/PERJETA BREAST CANCER 3 WKS - LABS - HERCEPTIN/PERJETA - REVIEW SCANS 3WKS LABS HERCEPTIN,PERJETA 6 M FU 3WKS LABS HERCEPTIN/PERJETA 3WKS LABS HERCEPTIN/PERJETA BREAST CANCER BREAST CANCER 3 WK - NO LABS - HERCEPTIN/PERJETA/REVIEW CT SCANS RESTAGING BREAST CA Reason for Visit Osteopenia Cancer of right female breast Liver metastases Osteopenia Cancer of right female breast Liver metastases Osteopenia Cancer of right female breast Liver metastases Non-ischemic cardiomyopathy Osteopenia Cancer of right female breast Liver metastases Osteopenia Cancer of right female breast Liver metastases Osteopenia Cancer of right female breast Liver metastases Anemia Encounter for monitoring cardiotoxic drug therapy Osteopenia Rash Cancer of right female breast Liver metastases Regional lymph node metastasis present Stage IV breast cancer in female Dog bite of finger Chief Complaint 3WKS LABS HERCEPTIN/ PERJETA BREAST CANCER ON TREATMENT 3 WKS -NO LABS- HERCEPTIN/PERJETA - REVIEW SCANS 3 WKS - LABS - HERCEPTIN/PERJETA 3 WKS - NO LABS - HERCEPTIN/PERJETA Amb Documentation 6 M FU 3 WKS - LABS - HERCEPTIN/PERJETA 3 WKS - NO LABS - PERJETA/TRASTUZUMAB RESTAGING BREAST CA BREAST CANCER Reason for Visit Cancer of right fema le breast Liver metastases Osteopenia Cancer of right female breast Liver metastases Osteopenia Cancer of right female breast Liver metastases Osteopenia Cancer of right female breast Liver metastases Osteopenia Non-ischemic cardiomyopathy Cancer of right female breast Liver metastases Osteopenia Cancer of right female breast Liver metastases Osteopenia Anemia Encounter for monitoring cardiotoxic drug therapy Rash Cancer of right female breast Liver metastases Osteopenia Regional lymph node metastasis present Stage IV breast cancer in female Dog bite of finger Chief Complaint 3 WKS - LABS - HERCE PTIN/PERJETA 3 WKS - NO LABS - HERCEPTIN/PERJETA Amb Documentation 6 M FU 3 WKS - LABS - HERCEPTIN/PERJETA 3 WKS - NO LABS - PERJETA/TRASTUZUMAB BREAST CANCER 3 WKS - LABS - HERCEPTIN/PERJETA MULTINODULAR GOITER 3 WKS - NO LABS - HERCEPTIN/PERJETA RESTAGING BREAST CA TI-RADS 5 ULTRASOUND GUIDED FINE NEEDLE ASPERATION LABS/BORTZ Reason for Visit Cancer of right fema le breast Liver metastases Osteopenia Cancer of right female breast Liver metastases Osteopenia Non-ischemic cardiomyopathy Cancer of right female breast Liver metastases Osteopenia Cancer of right female breast Liver metastases Osteopenia Cancer of right female breast Liver metastases Osteopenia Cancer of right female breast Liver metastases Osteopenia Anemia Encounter for monitoring cardiotoxic drug therapy Rash Cancer of right female breast Liver metastases Osteopenia Regional lymph node metastasis present Stage IV breast cancer in female Dog bite of finger Multiple thyroid nodules Chief Complaint BREAST CANCER 3 WKS - LABS - HERCEPTIN/PERJETA MULTINODULAR GOITER 3 WKS - NO LABS - HERCEPTIN/PERJETA TI-RADS 5 ULTRASOUND GUIDED FINE NEEDLE ASPERATION LABS/BORTZ 3 WKS - LABS - HERCEPTIN/PERJETA 3 WKS - NO LABS - TRASTUZUMAB/PERTUZUMAB/PROLIA prolia Thyroid Malignant neoplasm of unspecified site of right fe Reason for Visit Cancer of right fema le breast Liver metastases Osteopenia Cancer of right female breast Liver metastases Osteopenia Multiple thyroid nodules Cancer of right female breast Liver metastases Osteopenia Cancer of right female breast Liver metastases Osteopenia Cancer of right female breast Liver metastases Osteopenia Anemia Encounter for monitoring cardiotoxic drug therapy Rash Cancer of right female breast Liver metastases Osteopenia Regional lymph node metastasis present Stage IV breast cancer in female Dog bite of finger Multinodular goiter Chief Complaint Malignant neoplasm o f unspecified site of right fe Malignant neoplasm of unspecified site of right fe 3 WKS - NO LABS - REVIEW CT/ECHO 3 WEEK, LABS, [place] 3 WEEKS, NO LABS, TX 3 WEEK, LABS. [place] 3 WKS - LABS - HERCEPTIN/PERJETA prolia MONITOR CARDIOTOXIC DRUG THERAPY, BREAST CANCER Reason for Visit Cancer of right fema le breast Liver metastases Osteopenia Encounter for monitoring cardiotoxic drug therapy Cancer of right female breast Liver metastases Osteopenia Encounter for monitoring cardiotoxic drug therapy Cancer of right female breast Liver metastases Osteopenia Cancer of right female breast Liver metastases Osteopenia Cancer of right female breast Liver metastases Osteopenia Anemia Encounter for monitoring cardiotoxic drug therapy Rash Cancer of right female breast Liver metastases Osteopenia Regional lymph node metastasis present Stage IV breast cancer in female Dog bite of finger Chief Complaint 3 WEEK, LABS, TX 3 WEEKS, NO LABS, TX 3 WEEK, LABS. TX 3 WKS - LABS - HERCEPTIN/PERJETA MONITOR CARDIOTOXIC DRUG THERAPY, BREAST CANCER 3WKS LABS TX prolia BREAST CA Reason for Visit Encounter for monito ring cardiotoxic drug therapy Cancer of right female breast Liver metastases Osteopenia Encounter for monitoring cardiotoxic drug therapy Cancer of right female breast Liver metastases Osteopenia Cancer of right female breast Liver metastases Osteopenia Cancer of right female breast Liver metastases Osteopenia Cancer of right female breast Liver metastases Osteopenia Anemia Encounter for monitoring cardiotoxic drug therapy Rash Cancer of right female breast Liver metastases Osteopenia Regional lymph node metastasis present Stage IV breast cancer in female Dog bite of finger Chief Complaint Admit Date 3 WKS - LABS - HERCEPTIN March 04, 2024 9:41am 3 WEEKS NO LABS [place] March 25, 2024 10 :31am 3 WKS - LABS - TRASTUZUMAB April 15, 2024 9:40am CHEMO THERAPY April 30, 2024 8:49am 3 WKS - NO LABS - TRASTUZUMAB April 182024 10:22am 3 WKS - LABS - TRASTUZUMAB May 27, 2 025 9:44am prolia May 27, 2024 9:4 5am BREAST CANCER June 08, 2024 2:1 2pm Reason for Visit Admit Date Cancer of right female breast February 142023 9:41am Liver metastases March 04, 2024 9:41am Osteopenia March 04, 2024 9:41am Cancer of right female breast March 10:31am Liver metastases March 25, 2024 10 :31am Osteopenia March 25, 2024 10 :31am Cancer of right female breast April 152024 9:40am Liver metastases April 15, 2024 9 :40am Osteopenia April 15, 2024 9 :40am Encounter for monoclonal ant ibody treatment for malignancy May 06, 2024 10:22am Cancer of right female breast April 182024 10:22am Liver metastases May 06, 2024 10:22am Osteopenia May 06, 2024 10:22am Encounter for monoclonal ant ibody treatment for malignancy May 27, 2024 9:44am Cancer of right female breast May 9:44am Liver metastases May 27, 2024 9:4 4am Osteopenia May 27, 2024 9:4 4am Anemia May 27, 2024 9:4 5am Encounter for monitoring cardiotoxic kristin g therapy May 27, 2024 9:45am Rash May 27, 2024 9:4 5am Cancer of right female breast May 9:45am Liver metastases May 27, 2024 9:4 5am Osteopenia May 27, 2024 9:4 5am Regional lymph node metastasis present M arch 2024 9:45am Stage IV breast cancer in female May 152024 9:45am Dog bite of finger May 27, 2024 9:4 5am Chief Complaint Admit Date 3 WKS - LABS - TRASTUZUMAB April 15, 2024 9:40am CHEMO THERAPY April 30, 2024 8:49am 3 WKS - NO LABS - TRASTUZUMAB April 182024 10:22am 3 WKS - LABS - TRASTUZUMAB May 27 9:44am BREAST CANCER June 08, 2024 2:1 2pm 3 WKS - NO LABS - TRASTUZUMAB-REVIEW SCA NS June 17, 2024 10:30am Abn Findings in Abd region, Malignant Ne oplasm of June 25, 2024 2:21pm 3 WKS - LABS - TRASTUZUMAB July 08 025 9:46am Encounter for therapeutic drug level mon itoring July 28, 2024 9:44am 3WKS NO LABS [place] July 29, 2024 10:31 am prolia July 29, 2024 11:00 am Reason for Visit Admit Date Cancer of right female breast April 152024 9:40am Liver metastases April 15, 2024 9 :40am Osteopenia April 15, 2024 9 :40am Encounter for monoclonal ant ibody treatment for malignancy May 06, 2024 10:22am Cancer of right female breast April 182024 10:22am Liver metastases May 06, 2024 10:22am Osteopenia May 06, 2024 10:22am Encounter for monoclonal ant ibody treatment for malignancy May 27, 2024 9:44am Cancer of right female breast May 9:44am Liver metastases May 27, 2024 9:4 4am Osteopenia May 27, 2024 9:[address] of the abdomen June 17 10:30am Encounter for monoclonal ant ibody treatment for malignancy June 17, 2024 10:30am Cancer of right female breast June 17, 2024 10:30am Liver metastases June 17, 2024 10:3 0am Osteopenia June 17, 2024 10:3 0am Adenocarcinoma, gastric cardia June 2:21pm Abnormal CT of the abdomen July 01, 025 6:29am Encounter for monoclonal ant ibody treatment for malignancy July 08, 2024 9:46am Cancer of right female breast June 9:46am Liver metastases July 08, 2024 9:4 6am Osteopenia July 08, 2024 9:4 6am Cancer of right female breast July 29, 2024 10:31am Helicobacter pylori gastritis July 29, 2024 10:31am Liver metastases July 29, 2024 10:31 am Osteopenia July 29, 2024 10:31 am Anemia July 29, 2024 11:00 am Encounter for monitoring cardiotoxic kristin g therapy July 29, 2024 11:00am Cancer of right female breast July 29, 2024 11:00am Liver metastases July 29, 2024 11:00 am Osteopenia July 29, 2024 11:00 am Regional lymph node metastasis present M ay 2024 11:00am Stage IV breast cancer in female July 11:00am Dog bite of finger July 29, 2024 11:00 am Rash July 29, 2024 11:00 am Chief Complaint Admit Date CHEMO THERAPY April 30, 2024 8:49am 3 WKS - NO LABS - TRASTUZUMAB April 182024 10:22am 3 WKS - LABS - TRASTUZUMAB May 27, 025 9:44am BREAST CANCER June 08, 2024 2:1 2pm 3 WKS - NO LABS - TRASTUZUMAB-REVIEW SCA NS June 17, 2024 10:30am Abn Findings in Abd region, Malignant Ne oplasm of June 25, 2024 2:21pm 3 WKS - LABS - TRASTUZUMAB July 08, 025 9:46am Encounter for therapeutic drug level mon itoring July 28, 2024 9:44am 3WKS NO LABS [place] July 29, 2024 10:31 am 3 WKS - LABS - HERCEPTIN August 19, 2024 9:41am prolia August 19, 2024 9:45a m Reason for Visit Admit Date Encounter for monoclonal ant ibody treatment for malignancy May 06, 2024 10:22am Cancer of right female breast April 182024 10:22am Liver metastases May 06, 2024 10:22am Osteopenia May 06, 2024 10:22am Encounter for monoclonal ant ibody treatment for malignancy May 27, 2024 9:44am Cancer of right female breast May 9:44am Liver metastases May 27, 2024 9:4 4am Osteopenia May 27, 2024 9:[address] of the abdomen June 17 10:30am Encounter for monoclonal ant ibody treatment for malignancy June 17, 2024 10:30am Cancer of right female breast June 17, 2024 10:30am Liver metastases June 17, 2024 10:3 0am Osteopenia June 17, 2024 10:3 0am Adenocarcinoma, gastric cardia June 2:21pm Abnormal CT of the abdomen July 01, 025 6:29am Encounter for monoclonal ant ibody treatment for malignancy July 08, 2024 9:46am Cancer of right female breast June 9:46am Liver metastases July 08, 2024 9:4 6am Osteopenia July 08, 2024 9:4 6am Cancer of right female breast July 29, 2024 10:31am Helicobacter pylori gastritis July 29, 2024 10:31am Liver metastases July 29, 2024 10:31 am Osteopenia July 29, 2024 10:31 am Cancer of right female breast August 19, 2024 9:41am Liver metastases August 19, 2024 9:41a m Osteopenia August 19, 2024 9:41a m Anemia August 19, 2024 9:45a m Encounter for monitoring cardiotoxic kristin g therapy August 19, 2024 9:45am Cancer of right female breast August 19, 2024 9:45am Liver metastases August 19, 2024 9:45a m Osteopenia August 19, 2024 9:45a m Regional lymph node metastasis present J [facility] 2024 9:45am Stage IV breast cancer in female August 9:45am Dog bite of finger August 19, 2024 9:45a m Rash August 19, 2024 9:45a m Chief Complaint Admit Date 3 WKS - LABS - TRASTUZUMAB May 27 9:44am BREAST CANCER June 08, 2024 2:1 2pm 3 WKS - NO LABS - TRASTUZUMAB-REVIEW SCA NS June 17, 2024 10:30am Abn Findings in Abd region, Malignant Ne oplasm of June 25, 2024 2:21pm 3 WKS - LABS - TRASTUZUMAB July 08 9:46am Encounter for therapeutic drug level mon itoring July 28, 2024 9:44am 3WKS NO LABS [place] July 29, 2024 10:31 am 3 WKS - LABS - HERCEPTIN August 19, 2024 9:41am prolia September 09, 2024 9:00 am Reason for Visit Admit Date Encounter for monoclonal antibody treatm ent for malignancy May 27, 2024 9:44am Cancer of right female breast May 9:44am Liver metastases May 27, 2024 9:4 4am Osteopenia May 27, 2024 9:[address] of the abdomen June 17 10:30am Encounter for monoclonal antibody treatm ent for malignancy June 17, 2024 10:30am Cancer of right female breast June 17, 2024 10:30am Liver metastases June 17, 2024 10:3 0am Osteopenia June 17, 2024 10:3 0am Adenocarcinoma, gastric cardia June 2:21pm Abnormal CT of the abdomen July 01 6:29am Encounter for monoclonal antibody treatm ent for malignancy July 08, 2024 9:46am Cancer of right female breast June 9:46am Liver metastases July 08, 2024 9:4 6am Osteopenia July 08, 2024 9:4 6am Cancer of right female breast July 29, 2024 10:31am Helicobacter pylori gastritis July 29, 2024 10:31am Liver metastases July 29, 2024 10:31 am Osteopenia July 29, 2024 10:31 am Cancer of right female breast August 19, 2024 9:41am Liver metastases August 19, 2024 9:41a m Osteopenia August 19, 2024 9:41a m Cancer of right female breast September 09, 2024 9:00am Liver metastases September 09, 2024 9:00 am Osteopenia September 09, 2024 9:00 am Anemia September 09, 2024 9:00 am Encounter for monitoring cardiotoxic kristin g therapy September 09, 2024 9:00am Regional lymph node metastasis present J [facility] 2024 9:00am Stage IV breast cancer in female September 092024 9:00am Dog bite of finger September 09, 2024 9:00 am Rash September 09, 2024 9:00 am Family History No Family History Records Found Relationship Condition Age at Onset Recorded Date/T rosemarie father Diabetes mellitus Unknown Cardiac disease Unknown Coronary artery disease 66 Myocardial infarction Unknown grandfather Cardiac disease Unknown grandmother Cardiac disease Unknown Advance Directives No Advanced Directives Records Found Advance Directive Response Recorded Date/ Time Advance Directives on File No September 13, 2021 10:16am Name of Medical Power of Manager Packaging BRETT () September 13, 2021 10:16am Advance Directives Yes September 13 10:16am Living Will Yes September 13, 2021 10:16am Power of Manager Packaging Yes September 13 10:16am Advance Directive Response Recorded Date/ Time Advance Directives on File No Olya tellez 2021 9:49am Name of Medical Power of Manager Packaging BRETT () December 06, 2021 9:49am Advance Directives Yes November 9:49am Living Will Yes December 06, 2021 9:49am Power of Manager Packaging Yes November 9:49am Advance Directive Response Recorded Date/ Time Advance Directives on File No Marua 2022 8:58am Name of Medical Power of Manager Packaging BRETT () March 21, 2022 8:58am Advance Directives Yes March 21, 2022 8:58am Living Will Yes March 21 8:58am Power of Manager Packaging Yes March 21 023 8:58am Advance Directive Response Recorded Date/ Time Advance Directives on File No September 26, 2022 10:58am Name of Medical Power of Manager Packaging BRETT () September 26, 2022 10:58am Advance Directives Yes September 26 10:58am Living Will Yes September 26, 2022 10:58am Power of Manager Packaging Yes September 26 10:58am Advance Directive Response Recorded Date/ Time Advance Directives on File No Augus t 2022 12:58pm Name of Medical Power of Manager Packaging BRETT () November 07, 2022 12:58pm Advance Directives Yes November 07, 2022 12:58pm Living Will Yes November 07 12:58pm Power of Manager Packaging Yes November 07 023 12:58pm Advance Directive Response Recorded Date/ Time Advance Directives on File No Octob er 2022 11:25am Name of Medical Power of Manager Packaging BRETT () January 09, 2023 11:25am Advance Directives Yes January 09, 2023 11:25am Living Will Yes January 09 11:25am Power of Manager Packaging Yes January 09, 2023 11:25am Advance Directive Response Recorded Date/ Time Advance Directives on File No Febru aranza 2023 11:01am Name of Medical Power of Manager Packaging BRETT () April 24, 2023 11:01am Advance Directives Yes April 24, 2023 11:01am Living Will Yes April 24 11:01am Power of Manager Packaging Yes April 24, 2023 11:01am Advance Directive Response Recorded Date/ Time Advance Directives on File No Febru aranza 2023 12:15pm Name of Medical Power of Manager Packaging BRETT () May 15, 2023 12:15pm Advance Directives Yes April 12:15pm Living Will Yes April 024 12:15pm Power of Manager Packaging Yes May 15, 2023 12:15pm Advance Directive Response Recorded Date/ Time Living Will Yes November 19 12:05pm Do you have a Healthcare Pow er of Manager Packaging? Yes November 20, 2023 12:05pm Advance Directives on File No May 27, 2024 12:21pm Living Will Yes May 27, 2024 12:21pm Do you have a Healthcare Pow er of Manager Packaging? Yes May 27, 2024 12:21pm Name of Medical Power of Manager Packaging BRETT () May 27, 2024 12:21pm Advance Directives Yes May 27 12:21pm Advance Directive Response Recorded Date/ Time Advance Directives on File No July 08, 2024 11:38am Living Will Yes July 08, 2024 11:38am Do you have a Healthcare Pow er of Manager Packaging? Yes July 08, 2024 11:38am Name of Medical Power of Manager Packaging BRETT () July 08, 2024 11:38am Advance Directives Yes July 08 11:38am Living Will Yes June 28, 2024 11:24am Do you have a Healthcare Pow er of Manager Packaging? Yes June 28, 2024 11:24am Name of Medical Power of Manager Packaging LOAN MOHAMUD SON June 28, 2024 11:24am Advance Directive Response Recorded Date/ Time Advance Directives on File No July 152024 11:05am Living Will Yes July 29, 2024 1 1:05am Do you have a Healthcare Pow er of Manager Packaging? Yes July 29, 2024 11:05am Name of Medical Power of Manager Packaging BRETT () July 29, 2024 11:05am Advance Directives Yes July 29 11:05am Living Will Yes June 28, 2024 11:24am Do you have a Healthcare Pow er of Manager Packaging? Yes June 28, 2024 11:24am Name of Medical Power of Manager Packaging LOAN MOHAMUD SON June 28, 2024 11:24am Advance Directive Response Recorded Date/ Time Advance Directives on File No August 19, 2024 12:05pm Living Will Yes August 19, 2024 1 2:05pm Do you have a Healthcare Pow er of Manager Packaging? Yes August 19, 2024 12:05pm Name of Medical Power of Manager Packaging BRETT () August 19, 2024 12:05pm Advance Directives Yes August 19 12:05pm Living Will Yes June 28, 2024 11:24am Do you have a Healthcare Pow er of Manager Packaging? Yes June 28, 2024 11:24am Name of Medical Power of Manager Packaging LOAN [place] ONE[place] SON June 28, 2024 11:24am Summary Purpose Additional Source Comments Goals (unrecognized section and content) Goals may be documented in a n alternate sectionGoals may be documented in an alternate sectionGoals may be documented in an alternate sectionGoals may be documented in an alternate sectionGoals may be documented in an alternate sectionGoals may be documented in an alternate sectionGoals may be documented in an alternate sectionGoals may be documented in an alternate sectionGoals may be documented in an alternate sectionGoals may be documented in an alternate sectionGoals may be documented in an alternate sectionGoals may be documented in an alternate section Care Teams (unrecognized sec tion and content) Team Status: Active Member Role Status Dates No Primary Care Physician Family Provider Active No Primary Care Physician Primary Care Provider Active Team Status: Inactive Member Role Status Dates No Primary Care Physician Primary Care Provider, Refer ring Provider Active Dr. Andrés Corrales MD Attending Provider Active Team Status: Inactive Member Role Status Dates No Primary Care Physician Primary Care Provider, Refer ring Provider Active Dr. Cleveland Doe MD Attending Provider Active Team Status: Active Member Role Status Dates No Primary Care Physician Primary Care Provider Active Dr. Ana Laura Diego MD Attending Provider Active Team Status: Inactive Member Role Status Dates No Primary Care Physician Primary Care Provider, Refer ring Provider Active Leisa Baker GINNING OPERATOR, GINNING OPERATOR-C Attending Provider Active Team Status: Active Member Role Status Dates No Primary Care Physician Primary Care Provider Active Ana Rivera Attending Provider Active Team Status: Active Member Role Status Dates No Primary Care Physician Primary Care Provider Active Dr. Cleveland Doe MD Attending Provider Active Team Status: Active Member Role Status Dates No Primary Care Physician Primary Care Provider, Famil y Provider Active Dr. Andrés Corrales MD Attending Provider, Referrin g Provider Active Team Status: Inactive Member Role Status Dates No Primary Care Physician Primary Care Provider Active Dr. Andrés Corrales MD Attending Provider, Referrin g Provider Active Team Status: Active Member Role Status Dates No Primary Care Physician Primary Care Provider Active Dr. Cleveland Doe MD Attending Provider Active Dr. Andrés Corrales MD Referring Provider Active Team Status: Inactive Member Role Status Dates No Primary Care Physician Primary Care Provider, Refer ring Provider Active Dr. Casey Rubio MD Attending Provider Active Team Status: Inactive Member Role Status Dates No Primary Care Physician Primary Care Provider Active Dr. Ángel Poe MD Attending Provider, Referring Provi teofilo Active Team Status: Active Member Role Status Dates No Primary Care Physician Primary Care Provider Active Dr. Casey Rubio MD Attending Provider, Referring P rovider Active Team Status: Inactive Member Role Status Dates No Primary Care Physician Primary Care Provider Active Dr. Casey Rubio MD Attending Provider, Referring P rovider Active Team Status: Inactive Member Role Status Dates No Primary Care Physician Primary Care Provider, Refer ring Provider Active Dr. Ángel Poe MD Attending Provider Active Team Status: Inactive Member Role Status Dates No Primary Care Physician Primary Care Provider Active Leisa Baker GINNING OPERATOR, GINNING OPERATOR-C Attending Provider, Referring Provider Active Team Status: Active Member Role Status Dates No Primary Care Physician Primary Care Provider Active Dr. Cleveland Doe MD Attending Provider, Referring Pro vider Active Team Status: Active Member Role Status Dates No Primary Care Physician Primary Care Provider Active Team Status: Inactive Member Role Status Dates No Primary Care Physician Primary Care Provider Active Start: March 04, 2024 End: March 04, 2024 No Primary Care Physician Referring Provider Active Start: March 04, 2024 End: March 04, 2024 Leisa Baker GINNING OPERATOR, GINNING OPERATOR-C Attending Provider Active Start: March 04, 2024 End: March 04, 2024 Team Status: Inactive Member Role Status Dates No Primary Care Physician Primary Care Provider Active Start: March 25, 2024 End: March 25, 2024 No Primary Care Physician Referring Provider Active Start: March 25, 2024 End: March 25, 2024 Leisa Baker GINNING OPERATOR, GINNING OPERATOR-C Attending Provider Active Start: March 25, 2024 End: March 25, 2024 Team Status: Inactive Member Role Status Dates No Primary Care Physician Primary Care Provider Active Start: April 15, 2024 End: April 15, 2024 No Primary Care Physician Referring Provider Active Start: April 15, 2024 End: April 15, 2024 Leisa Samuel GINNING OPERATOR, GINNING OPERATOR-C Attending Provider Active Start: April 15, 2024 End: April 15, 2024 Team Status: Inactive Member Role Status Dates No Primary Care Physician Primary Care Provider Active Start: April 30, 2024 End: April 30, 2024 Leisa Samuel GINNING OPERATOR, GINNING OPERATOR-C Attending Provider Active Start: April 30, 2024 End: April 30, 2024 Leisa Samuel GINNING OPERATOR, GINNING OPERATOR-C Referring Provider Active Start: April 30, 2024 End: April 30, 2024 Team Status: Active Member Role Status Dates No Primary Care Physician Primary Care Provider Active Start: April 30, 2024 Dr. Cleveland Doe MD Attending Provider Active S tart: April 30, 2024 Team Status: Inactive Member Role Status Dates No Primary Care Physician Primary Care Provider Active Start: May 06, 2024 End: May 06, 2024 No Primary Care Physician Referring Provider Active Start: May 06, 2024 End: May 06, 2024 Leisa Samuel GINNING OPERATOR, GINNING OPERATOR-C Attending Provider Active Start: May 06, 2024 End: May 06, 2024 Team Status: Inactive Member Role Status Dates No Primary Care Physician Primary Care Provider Active Start: May 27, 2024 End: May 27, 2024 No Primary Care Physician Referring Provider Active Start: May 27, 2024 End: May 27, 2024 Leisa Samuel GINNING OPERATOR, GINNING OPERATOR-C Attending Provider Active Start: May 27, 2024 End: May 27, 2024 Team Status: Active Member Role Status Dates No Primary Care Physician Primary Care Provider Active Start: May 27, 2024 No Primary Care Physician Family Provider Active Start: May 27, 2024 Dr. Andrés Corrales MD Attending Provider Active Start: May 27, 2024 Dr. Andrés Corrales MD Referring Provider Active Start: May 27, 2024 Team Status: Inactive Member Role Status Dates No Primary Care Physician Primary Care Provider Active Start: June 08, 2024 End: June 08, 2024 Leisa Samuel GINNING OPERATOR, GINNING OPERATOR-C Attending Provider Active Start: June 08, 2024 End: June 08, 2024 Leisa Samuel GINNING OPERATOR, GINNING OPERATOR-C Referring Provider Active Start: June 08, 2024 End: June 08, 2024 Team Status: Inactive Member Role Status Dates No Primary Care Physician Primary Care Provider Active Start: June 17, 2024 End: June 17, 2024 No Primary Care Physician Referring Provider Active Start: June 17, 2024 End: June 17, 2024 Dr. Hadley Contreras MD Attending Provider Active S tart: June 17, 2024 End: June 17, 2024 Team Status: Inactive Member Role Status Dates No Primary Care Physician Primary Care Provider Active Start: June 25, 2024 End: June 25, 2024 No Primary Care Physician Referring Provider Active Start: June 25, 2024 End: June 25, 2024 TALHA Nixon Attending Provider Active S tart: June 25, 2024 End: June 25, 2024 Team Status: Inactive Member Role Status Dates No Primary Care Physician Primary Care Provider Active Start: July 01, 2024 End: July 01, 2024 No Primary Care Physician Referring Provider Active Start: July 01, 2024 End: July 01, 2024 Dr. Sunny Carroll DO Attending Provider Active Start: July 01, 2024 End: July 01, 2024 Team Status: Active Member Role Status Dates No Primary Care Physician Primary Care Provider Active Start: July 01, 2024 No Primary Care Physician Referring Provider Active Start: July 01, 2024 Dr. Sunny Carroll DO Attending Provider Active Start: July 01, 2024 Dr. Sunny Carroll DO Other Provider Active St art: July 01, 2024 Team Status: Inactive Member Role Status Dates No Primary Care Physician Primary Care Provider Active Start: July 08, 2024 End: July 08, 2024 No Primary Care Physician Referring Provider Active Start: July 08, 2024 End: July 08, 2024 Leisa Baker GINNING OPERATOR, GINNING OPERATOR-C Attending Provider Active Start: July 08, 2024 End: July 08, 2024 Team Status: Active Member Role Status Dates No Primary Care Physician Primary Care Provider Active Start: July 28, 2024 Leisa Baker NP, GINNING OPERATOR-C Attending Provider Active Start: July 28, 2024 Leisa Baker GINNING OPERATOR, GINNING OPERATOR-C Referring Provider Active Start: July 28, 2024 Team Status: Active Member Role Status Dates No Primary Care Physician Primary Care Provider Active Start: July 28, 2024 Dr. Cleveland Doe MD Attending Provider Active S tart: July 28, 2024 Team Status: Inactive Member Role Status Dates No Primary Care Physician Primary Care Provider Active Start: July 29, 2024 End: July 29, 2024 No Primary Care Physician Referring Provider Active Start: July 29, 2024 End: July 29, 2024 Dr. Andrés Corrales MD Attending Provider Active Start: July 29, 2024 End: July 29, 2024 Team Status: Active Member Role Status Dates No Primary Care Physician Primary Care Provider Active Start: July 29, 2024 No Primary Care Physician Family Provider Active Start: July 29, 2024 Dr. Andrés Corrales MD Attending Provider Active Start: July 29, 2024 Dr. Andrés Corrales MD Referring Provider Active Start: July 29, 2024 Team Status: Inactive Member Role Status Dates No Primary Care Physician Primary Care Provider Active Start: July 28, 2024 End: July 28, 2024 Leisa Baker GINNING OPERATOR, GINNING OPERATOR-C Attending Provider Active Start: July 28, 2024 End: July 28, 2024 Leisa Baker GINNING OPERATOR, GINNING OPERATOR-C Referring Provider Active Start: July 28, 2024 End: July 28, 2024 Team Status: Active Member Role Status Dates No Primary Care Physician Primary Care Provider Active Start: August 19, 2024 TALHA Nixon Attending Provider Active S tart: August 19, 2024 TALHA Nixon Referring Provider Active S tart: August 19, 2024 Team Status: Inactive Member Role Status Dates No Primary Care Physician Primary Care Provider Active Start: August 19, 2024 End: August 19, 2024 No Primary Care Physician Referring Provider Active Start: August 19, 2024 End: August 19, 2024 Dr. Anrdés Corrales MD Attending Provider Active Start: August 19, 2024 End: August 19, 2024 Team Status: Active Member Role Status Dates No Primary Care Physician Primary Care Provider Active Start: August 19, 2024 No Primary Care Physician Family Provider Active Start: August 19, 2024 Dr. Andrés Corrales MD Attending Provider Active Start: August 19, 2024 Dr. Andrés Corrales MD Referring Provider Active Start: August 19, 2024 Team Status: Inactive Member Role Status Dates No Primary Care Physician Primary Care Provider Active Start: August 19, 2024 End: August 19, 2024 TALHA Nixon Attending Provider Active S tart: August 19, 2024 End: August 19, 2024 TALHA Nixon Referring Provider Active S tart: August 19, 2024 End: August 19, 2024 Team Status: Active Member Role Status Dates No Primary Care Physician Primary Care Provider Active Start: September 09, 2024 No Primary Care Physician Family Provider Active Start: September 09, 2024 Dr. Andrés Corrales MD Attending Provider Active Start: September 09, 2024 Dr. Andrés Corrales MD Referring Provider Active Start: September 09, 2024 INFORMATION SOURCE (unrecogn ized section and content) DATE CREATED AUTHOR 09/10/2024 [facility] FOR RECORDS PERTAINING TO PATIENTS WHO ARE OR HAVE BEEN ENROLLED IN A CHEMICAL DEPENDENCY/SUBSTANCEABUSE PROGRAM, SOME INFORMATION MAY BE OMITTED. This clinical summary was aggregated from multiple sources. Caution should be exercised in using it in the provision of clinical care. This summary normalizes information from multiple sources, and as a consequence, information in this document may materially change the coding, format and clinical context of patient data. In addition, data may be omitted in some cases. CLINICAL DECISIONS SHOULD BE BASED ON THE PRIMARY CLINICAL RECORDS. [facility]. provides no warranty or guarantee of the accuracy or completeness of information in this document.
== END | disposition home or self-care (01) ==
LOC: CVS 06:46
PROVIDERS: Referring Provider Nurse Practitioner Family; Visit Provider Nurse Practitioner Family
DX: Z51.81 Encounter for therapeutic drug level monitoring (principal); C50.919 Malignant neoplasm of unspecified site of unspecified female breast; Z79.899 Other long term (current) drug therapy; Z17.31 Human epidermal growth factor receptor 2 positive status
CPT/HCPCS: 93306; 93356

== ENCOUNTER → 2024-10-06 | Outpatient (CLI) | payer OTHER, SELFPAY ==
--- NOTE | 2024-10-06 13:29 | CT_ITS ---
PROCEDURE: CT CHEST AND ABD W/ CONTRAST 10/06/2024 REASON FOR EXAM: METS BREAST CANCER, IV CONTRAST TECHNIQUE: Chest and abdomen CT with intravenous contrast. Coronal and Sagittal reconstruction series were provided. One or more dose reduction techniques were used (e.g., Automated exposure control, adjustment of the mA and/or kV according to patient size, use of iterative reconstruction technique. PATIENT PREPARATION: Per protocol ORAL CONTRAST TYPE: None. AMOUNT: mL CONTRAST: Isovue 370 VOLUME: 86mL . RADIATION DOSE SUMMARY: CTDlvol: 11.40 mGy DLP: 539 mGycm COMPARISON: 06/08/2024. FINDINGS: CT chest: Peripheral soft tissues are unremarkable. Mild degenerative changes. No evidence of metastatic disease. The thyroid is unremarkable. The esophagus is normal in caliber. Normal caliber thoracic aorta. No pericardial effusion. Stable tiny cluster of micro nodules in the right lung apex. CT abdomen: The aorta is normal in caliber. No evidence of metastatic disease. Degenerative changes of the spine most pronounced at L5-S1. No suspicious lymphadenopathy. Stable tiny hepatic hypodense lesions favoring hemangiomas. The gallbladder, pancreas, spleen, adrenals, and kidneys are unremarkable. The partially visualized bowel is unremarkable. The pelvis is not included in the volume of these images. CT/CT Chest AND Abd W/ Contrast IMPRESSION: Stable right apical nodular opacities. Favored to be sequela of infection/infl ammation. No evidence of metastatic disease. Reading Location: [id number]
[2024-10-06] MEDS: 0.9% Saline Lock 10 ML Syringe IV (13:46)
== END | disposition home or self-care (01) ==
LOC: CT 13:28
PROVIDERS: Referring Provider Internal Medicine Hematology & Oncology; Visit Provider Internal Medicine Hematology & Oncology
DX: C50.411 Malignant neoplasm of upper-outer quadrant of right female breast (principal); C78.7 Secondary malignant neoplasm of liver and intrahepatic bile duct; Z17.0 Estrogen receptor positive status [ER+]
CPT/HCPCS: 71260; 74160; Q9967; A4216

== ENCOUNTER → 2024-12-31 | Outpatient (CLI) | payer OTHER, SELFPAY ==
--- NOTE | 2024-12-31 09:49 | ECHODONC_ITS ---
Reason For Study Reason For Study: Therapeutic Drug monitoring Procedure This was a 2D Doppler, Color Flow transthoracic echocardiogram. Myocardial strain analysis was performed in this exam to aid in the assessment of cardiac function. Exam performed in department. Left Ventricle Normal LV size. The left ventricular ejection fraction is 55 %. Stage 1 diastolic dysfunction. No regional wall motion abnormalities noted. Right Ventricle Normal RV size. Normal systolic function. Atria Normal left atrium. Normal right atrium. Mitral Valve Mild diffuse mitral valve thickening. Tricuspid Valve Normal tricuspid valve. Mild (1+) tricuspid valve insufficiency. Aortic Valve Trisinus/trileaflet aortic valve. Pulmonic Valve Normal pulmonic valve. Mild (1+) pulmonic valve insufficiency. Great Vessels Normal aortic root. The pulmonary artery is normal size. Inferior vena cava collapse with respiration. Pericardium/Pleural No pericardial effusion. MMode/2D Measurements & Calculations LVIDd: 4.5 cm IVSd: 0.92 cm Ao root diam: 3.0 cm LVIDs: 3.3 cm LVPWd: 0.83 cm RVDd: 2.9 cm FS: 26.2 % LAV(MOD-bp): 23.7 ml LVAd ap4: 22.7 cm2 LVAd ap2: 20.6 cm2 LAV(MOD-bp) Indexed: 14.1 ml/m2 LVLd ap4: 7.0 cm LVLd ap2: 6.7 cm LAV(MOD-sp2): 36.3 ml EDV(MOD-sp4): 60.8 ml EDV(MOD-sp2): 53.0 ml LAV(MOD-sp4): 14.4 ml EDV(sp4-el): 62.2 ml EDV(sp2-el): 53.6 ml LVAs ap4: 14.2 cm2 LVAs ap2: 13.0 cm2 LVLs ap4: 5.9 cm LVLs ap2: 5.8 cm ESV(MOD-sp4): 28.7 ml ESV(MOD-sp2): 24.5 ml ESV(sp4-el): 29.1 ml ESV(sp2-el): 24.7 ml EF(MOD-sp4): 52.8 % EF(MOD-sp2): 53.8 % EF(sp4-el): 53.3 % SV(MOD-sp4): 32.1 ml SV(MOD-sp2): 28.5 ml SV(sp4-el): 33.1 ml SI(MOD-sp4): 19.0 ml/m2 SI(MOD-sp2): 16.9 ml/m2 LA A4 area: 9.0 cm2 LA dimension(2D): 2.7 cm RA A4 area: 10.5 cm2 TAPSE: 1.9 cm Time Measurements MV dec time: 0.19 sec Doppler Measurements & Calculations MV E max wali: 56.2 cm/sec Lat Peak E' Wali: 12.7 cm/sec Med Peak E' Wali: 4.8 cm/sec MV A max wali: 64.0 cm/sec E/E' lat: 4.4 E/E' med: 11.7 MV E/A: 0.88 Ao V2 max: 103.7 cm/sec LV V1 max: 80.8 cm/sec MV dec slope: 300.8 cm/sec2 Ao max P.3 mmHg LV V1 max P.6 mmHg Ao V2 mean: 72.8 cm/sec LV V1 mean P.5 mmHg Ao mean P.4 mmHg LV V1 mean: 57.1 cm/sec Ao V2 VTI: 22.5 cm LV V1 VTI: 17.2 cm AV (velocity ratio): 0.76 PA V2 max: 80.8 cm/sec PI end-d wali: 115.5 cm/sec TR max wali: 204.7 cm/sec TR max P.8 mmHg ECHO/ONC Echo Complete Interpretation Summary The left ventricular ejection fraction is 55 %. Normal LV size. Stage 1 diastolic dysfunction. The global longitudinal strain is moderately abnormal. The global longitudinal strain = -14.7% (abnormal). The global longitudinal strain has worsened. Ordering Physician: Leisa Baker Referring Physician: Leisa Baker Performed By: Lori Pereyra, TONEY, RVT
== END | disposition home or self-care (01) ==
LOC: CVS 09:48
PROVIDERS: Referring Provider Nurse Practitioner Family; Visit Provider Nurse Practitioner Family
DX: Z51.81 Encounter for therapeutic drug level monitoring (principal); C50.919 Malignant neoplasm of unspecified site of unspecified female breast; Z79.899 Other long term (current) drug therapy; Z17.31 Human epidermal growth factor receptor 2 positive status
CPT/HCPCS: 93306; 93356

== ENCOUNTER → 2025-01-06 | Outpatient (CLI) | payer OTHER, SELFPAY | END | disposition home or self-care (01) | LOC: CT 12:56 | PROVIDERS: Referring Provider Internal Medicine Hematology & Oncology; Visit Provider Internal Medicine Hematology & Oncology | DX: C50.919 Malignant neoplasm of unspecified site of unspecified female breast (principal); C78.7 Secondary malignant neoplasm of liver and intrahepatic bile duct; Z17.31 Human epidermal growth factor receptor 2 positive status | CPT/HCPCS: 71260; 74160; Q9967 ==